=== PATIENT | male | born 1955 | race Caucasian/White ===

== ENCOUNTER → 2016-12-21 | Outpatient (CLI) | payer MEDICARE ==
--- NOTE | 2016-12-21 13:14 | US ---
EXAMINATION TYPE: US carotid duplex BILAT DATE OF EXAM: 12/21/2016 COMPARISON: NONE CLINICAL HISTORY: I65.23 Carotid Bruit, I10 HTN. DIZZINESS. EXAM MEASUREMENTS: RIGHT: Peak Systolic Velocity (PSV) cm/sec ----- Right CCA: 116.1 ----- Right ICA: 100.6 ----- Right ECA: 124.8 ICA/CCA ratio: 0.9 RIGHT: End Diastole cm/sec ----- Right CCA: 13.7 ----- Right ICA: 21.3 ----- Right ECA: 0.0 LEFT: Peak Systolic Velocity (PSV) cm/sec ----- Left CCA: 118.0 ----- Left ICA: 112.7 ----- Left ECA: 175.9 ICA/CCA ratio: 1.0 LEFT: End Diastole cm/sec ----- Left CCA: 34.2 ----- Left ICA: 36.7 ----- Left ECA: 19.4 VERTEBRALS (direction of flow): Right Vertebral: Antegrade Left Vertebral: Antegrade Atheromatous plaquing and intimal thickening is present bilaterally. IMPRESSION: 1. Atheromatous plaquing and intimal thickening without significant flow-limiting stenosis. Criteria for Assigning % of Stenosis / Diameter reduction (Estimation based on the indirect measurements of the internal carotid artery velocities (ICA PSV). 1. Normal (no stenosis)=ICA PSV < 125 cm/s: ratio < 2.0: ICA EDV<40 cm/s. 2. Less than 50% stenosis=ICA PSV < 125 cm/s: ratio < 2.0: ICA EDV<40 cm/s. 3. 50 to 69% stenosis=ICA PSV of 125 to 230 cm/s: ration 2.0 ? 4.0: ICA EDV 40-100 cm/s. 4. Greater than 70% stenosis to near occlusion= ICA PSV > 230 cm/s: ratio > 4.0: ICA EDV > 100 cm/s. 5. Near occlusion= ICA PSV velocities may be low or undetectable: variable ratio and ICA EDV. 6. Total occlusion=unable to detect flow.
== END | disposition home or self-care (01) ==
LOC: RADUSWWP 12:11
PROVIDERS: ATTEND Family Medicine
DX: I65.23 Occlusion and stenosis of bilateral carotid arteries (principal); I10 Essential (primary) hypertension
CPT/HCPCS: 93880

== ENCOUNTER → 2017-07-09 | Outpatient (CLI) | payer MEDICARE ==
[2017-07-09 18:43] LABS: Total Protein,CSF 73 mg/dL (12-60)
[2017-07-09 18:54] LABS: Appearance,CSF Clear; CSF Tube Number 4; Nucleated Cells, CSF 0 u/L (0-5); Red Blood Cell,CSF 0 u/L (0-10)
[2017-07-12 12:46] LABS: IgG - CSF 4.2 mg/dL (0.0 - 3.4); IgG Synthesis Rate 0.33 mg/day (0.00 - 3.00); IgG/Albumin Index (CSF) 0.55 (0.00 - 0.77)
== END | disposition home or self-care (01) ==
LOC: LABWHC1 13:41
PROVIDERS: ATTEND Nurse Practitioner Acute Care
DX: H53.8 Other visual disturbances (principal); R90.82 White matter disease, unspecified; R42 Dizziness and giddiness
CPT/HCPCS: 36415; 82040; 82042; 82784; 83873; 83916; 84157; 87476; 88108; 89050

== ENCOUNTER → 2017-08-01 | Outpatient (CLI) | payer MEDICARE ==
[2017-08-01 17:52] LABS: Basophils # (A) 0.1 k/uL (0-0.2); Basophils % (A) 1 %; Eosinophils # (A) 0.1 k/uL (0-0.7); Eosinophils % (A) 1 %; HCT 43.9 % (39.0-53.0); HGB 14.3 gm/dL (13.0-17.5); Lymphocytes # (A) 1.4 k/uL (1.0-4.8); Lymphocytes % (A) 20 %; MCH 27.7 pg (25.0-35.0); MCHC 32.6 g/dL (31.0-37.0); MCV 85.1 fL (80.0-100.0); Mean Platelet Volume 7.3; Monocytes # (A) 0.4 k/uL (0-1.0); Monocytes % (A) 6 %; Neutrophils # (A) 4.9 k/uL (1.3-7.7); Neutrophils % (A) 69 %; Platelet Count 317 k/uL (150-450); RBC 5.17 m/uL (4.30-5.90); RDW 14.5 % (11.5-15.5); WBC 7.1 k/uL (3.8-10.6)
[2017-08-01 18:34] LABS: ALT 26 U/L (21-72); AST 22 U/L (17-59); Albumin 4.4 g/dL (3.5-5.0); Alkaline Phosphatase 51 U/L (38-126); Anion Gap 11 mmol/L; Blood Urea Nitrogen 20 mg/dL (9-20); Calcium 9.9 mg/dL (8.4-10.2); Carbon Dioxide 25 mmol/L (22-30); Chloride 105 mmol/L (98-107); Glucose 91 mg/dL (74-99); Potassium 3.9 mmol/L (3.5-5.1); Sodium 141 mmol/L (137-145); Total Bilirubin 0.4 mg/dL (0.2-1.3); Total Protein 6.9 g/dL (6.3-8.2)
== END | disposition home or self-care (01) ==
LOC: LABWHC1 17:24
PROVIDERS: ATTEND Nurse Practitioner Acute Care
DX: E55.9 Vitamin D deficiency, unspecified (principal); R41.3 Other amnesia
CPT/HCPCS: 36415; 80053; 81401; 82306; 82607; 84207; 85025

== ENCOUNTER 2018-01-26 19:52 | Observation (INO) | payer MEDICARE ==
[2018-01-26] MEDS ORDERED: KETOROLAC 30 MG/ML 1 ML VIAL IVP STA (20:17)
[2018-01-26] MEDS ORDERED: BENZONATATE 100 MG CAP PO STA (20:17)
--- NOTE | 2018-01-26 20:21 | ED ---
General Adult HPI - General Source: patient, family, EMS Mode of arrival: EMS Limitations: no limitations <Maria Luisa Garcia - Last Filed: 01/26/18 21:28> <Destini Pelayo - Last Filed: 01/26/18 23:08> - General Chief complaint: Upper Respiratory Infection Stated complaint: cough Time Seen by Provider: 01/26/18 20:03 - History of Present Illness Initial comments: 62-year-old male presenting with pleuritic chest pain and cough is present for 3 weeks. Patient states that he has had sinus congestion and drainage and a worsening productive cough. He states tonight he was coughing very hard and had a very sharp right-sided back pain. The pain is now worse with inspiration. Patient denies any history of DVT or PE but states that he has had 2 cardiac trip down to [place] and back within the last 3 weeks. He denies any leg pain or lower extremity swelling. Patient denies constitutional pain. Denies any fevers chills or worsening dyspnea on exertion or orthopnea. (Maria Luisa Garcia) - Related Data Home Medications Medication Instructions Recorded Confirmed Krill Oil 500 mg PO DAILY 06/02/17 06/02/17 Simvastatin [Zocor] 20 mg PO HS 06/02/17 06/02/17 predniSONE 10 mg PO DAILY 06/02/17 06/02/17 Previous Rx's Medication Instructions Recorded Clopidogrel [Plavix] 75 mg PO DAILY #30 tab 06/04/17 Lisinopril [Zestril] 10 mg PO DAILY #30 tab 06/05/17 Allergies Allergy/AdvReac Type Severity Reaction Status Date / Time fentanyl AdvReac Intermediate Nausea & Verified 01/26/18 19:58 Vomiting Review of Systems ROS Other: All systems not noted in ROS Statement are negative. <Maria Luisa Garcia - Last Filed: 01/26/18 21:28> ROS Other: All systems not noted in ROS Statement are negative. <Destini Pelayo - Last Filed: 01/26/18 23:08> ROS Statement: Those systems with pertinent positive or pertinent negative responses have been documented in the HPI. Review of Systems Constitutional: Denies fever, chills Eyes: Denies change in vision, Denies pain Ears, nose, mouth, throat: Denies headaches, Denies sore throat Cardiovascular: Denies chest pain. Denies palpitations Respiratory: Denies shortness of breath, positive cough Gastrointestinal: Denies abdominal pain. Denies nausea, vomiting, diarrhea. Genitourinary: Denies hematuria, Denies infections Musculoskeletal: Positive rib pain, Denies swelling Integumentary: Denies rash Neurological: Denies headache, focal weakness, focal numbness Psychiatric: Denies anxiety, Denies depression Hematologic/Lymphatic: Denies easy bleeding or bruising (Maria Luisa Garcia) Past Medical History Past Medical History: CVA/TIA, Osteoarthritis (OA) Additional Past Medical History / Comment(s): Sciatica, spinal stenosis History of Any Multi-Drug Resistant Organisms: None Reported Past Surgical History: No Surgical Hx Reported Past Psychological History: No Psychological Hx Reported Smoking Status: Never smoker Past Alcohol Use History: Occasional Past Drug Use History: None Reported - Past Family History Mother Family Medical History: Cancer Additional Family Medical History / Comment(s): Stomach Cancer <Maria Luisa Garcia - Last Filed: 01/26/18 21:28> General Exam Limitations: no limitations <Maria Luisa Garcia - Last Filed: 01/26/18 21:28> <Destini Pelayo - Last Filed: 01/26/18 23:08> - General Exam Comments Initial Comments: General: Awake, alert, No acute Distress HENT: Normocephalic. Atraumatic. No oropharyngeal swelling or erythema. No frontal or maxillary sinus tenderness. Eyes: PERRL. EOMI. No scleral icterus. No injected conjunctiva Neck: Full ROM Chest/Lungs: Clear to auscultation bilaterally. No wheezing, rhonchi, or rales. Right-sided anterior chest tenderness. No bruising. No dermatomal rash Cardiac: Regular rate, rhythm. No murmurs or rubs. No lower extremity edema. NO calf tendernesss. Abdomen/GI: Soft, nontender, nondistended. No rebound, guarding, or rigidity. NO abdominal bruit Musculoskeletal: Full ROM Skin: Warm, dry, intact Neurologic: A/Ox3, no weakness, no sensory deficit, no abnormal gait, no coordination deficit (Maria Luisa Garcia) Course <Maria Luisa Garcia - Last Filed: 01/26/18 21:28> <Destini Pelayo - Last Filed: 07/22/18 23:08> Vital Signs 01/26/18 19:54 Temperature 98.3 F Pulse Rate 84 Respiratory 20 Rate Blood Pressure 168/72 O2 Sat by Pulse 97 Oximetry The chest angiogram was reviewed noticed ascending aortic aneurysm and the study is negative for the pulmonary embolism considering his risk factors OBSERVE him for 24 hours with a cardiology consult and some antibiotics for his purulent sputum considering bronchitis. He still has chest pain (Destini Pelayo) Medical Decision Making - Lab Data Result diagrams: 01/26/18 20:36 01/26/18 20:36 <Maria Luisa Garcia - Last Filed: 01/26/18 21:28> - Lab Data Result diagrams: 01/26/18 20:36 01/26/18 20:36 <Destini Pelayo - Last Filed: 01/26/18 23:08> - Medical Decision Making 52-year-old male presenting with cough and rib pain. Initial exam the patient is awake, alert, appears to be in pain every time he coughs. EKG shows normal sinus rhythm with incomplete right bundle branch block and prolonged QT at 420/ QTC 481. When compared to EKG from 06/02/2017. Patient's D-dimer elevated. Wells PE score 0. (Maria Luisa Garcia) - Lab Data Lab Results 01/26/18 01/26/18 01/26/18 Range/Units 20:36 20:36 20:36 WBC 8.9 (3.8-10.6) k/uL RBC 5.15 (4.30-5.90) m/uL Hgb 14.4 (13.0-17.5) gm/dL Hct 42.8 (39.0-53.0) % MCV 83.2 (80.0-100.0) fL MCH 27.9 (25.0-35.0) pg MCHC 33.6 (31.0-37.0) g/dL RDW 13.3 (11.5-15.5) % Plt Count 279 (150-450) k/uL Neutrophils % 73 % Lymphocytes % 14 % Monocytes % 7 % Eosinophils % 2 % Basophils % 1 % Neutrophils # 6.5 (1.3-7.7) k/uL Lymphocytes # 1.3 (1.0-4.8) k/uL Monocytes # 0.7 (0-1.0) k/uL Eosinophils # 0.2 (0-0.7) k/uL Basophils # 0.0 (0-0.2) k/uL D-Dimer 0.67 H (<0.60) mg/L FEU Sodium 138 (137-145) mmol/L Potassium 4.3 (3.5-5.1) mmol/L Chloride 106 (98-107) mmol/L Carbon Dioxide 26 (22-30) mmol/L Anion Gap 6 mmol/L BUN 20 (9-20) mg/dL Creatinine 0.72 (0.66-1.25) mg/dL Est GFR (CKD-EPI)AfAm >90 (>60 ml/min/1.73 sqM) Est GFR (CKD-EPI)NonAf >90 (>60 ml/min/1.73 sqM) Glucose 133 H (74-99) mg/dL Calcium 9.2 (8.4-10.2) mg/dL Troponin I (0.000-0.034) ng/mL NT-Pro-B Natriuret Pep pg/mL 01/26/18 01/26/18 Range/Units 20:36 20:36 WBC (3.8-10.6) k/uL RBC (4.30-5.90) m/uL Hgb (13.0-17.5) gm/dL Hct (39.0-53.0) % MCV (80.0-100.0) fL MCH (25.0-35.0) pg MCHC (31.0-37.0) g/dL RDW (11.5-15.5) % Plt Count (150-450) k/uL Neutrophils % % Lymphocytes % % Monocytes % % Eosinophils % % Basophils % % Neutrophils # (1.3-7.7) k/uL Lymphocytes # (1.0-4.8) k/uL Monocytes # (0-1.0) k/uL Eosinophils # (0-0.7) k/uL Basophils # (0-0.2) k/uL D-Dimer (<0.60) mg/L FEU Sodium (137-145) mmol/L Potassium (3.5-5.1) mmol/L Chloride (98-107) mmol/L Carbon Dioxide (22-30) mmol/L Anion Gap mmol/L BUN (9-20) mg/dL Creatinine (0.66-1.25) mg/dL Est GFR (CKD-EPI)AfAm (>60 ml/min/1.73 sqM) Est GFR (CKD-EPI)NonAf (>60 ml/min/1.73 sqM) Glucose (74-99) mg/dL Calcium (8.4-10.2) mg/dL Troponin I <0.012 (0.000-0.034) ng/mL NT-Pro-B Natriuret Pep 64 pg/mL Disposition <Maria Luisa Garcia - Last Filed: 01/26/18 21:28> <Destini Pelayo - Last Filed: 01/26/18 23:08> Clinical Impression: Chest pain Disposition: ADMITTED IP TO THIS HOSP Condition: Good Referrals: Hayden Torres MD [Primary Care Provider] - 1-2 days
[2018-01-26 20:48] LABS: Basophils % (A) 1 %; Eosinophils # (A) 0.2 k/uL (0-0.7); Eosinophils % (A) 2 %; HCT 42.8 % (39.0-53.0); HGB 14.4 gm/dL (13.0-17.5); Lymphocytes # (A) 1.3 k/uL (1.0-4.8); Lymphocytes % (A) 14 %; MCH 27.9 pg (25.0-35.0); MCHC 33.6 g/dL (31.0-37.0); MCV 83.2 fL (80.0-100.0); Mean Platelet Volume 6.7; Monocytes # (A) 0.7 k/uL (0-1.0); Monocytes % (A) 7 %; Neutrophils # (A) 6.5 k/uL (1.3-7.7); Neutrophils % (A) 73 %; Platelet Count 279 k/uL (150-450); RBC 5.15 m/uL (4.30-5.90); RDW 13.3 % (11.5-15.5); WBC 8.9 k/uL (3.8-10.6)
[2018-01-26 20:52] LABS: Anion Gap 6 mmol/L; Blood Urea Nitrogen 20 mg/dL (9-20); Calcium 9.2 mg/dL (8.4-10.2); Carbon Dioxide 26 mmol/L (22-30); Chloride 106 mmol/L (98-107); Glucose 133 mg/dL (74-99); Potassium 4.3 mmol/L (3.5-5.1); Sodium 138 mmol/L (137-145)
--- NOTE | 2018-01-26 21:50 | XR ---
EXAMINATION TYPE: XR chest 2V DATE OF EXAM: 01/26/2018 COMPARISON: 06/02/2017 HISTORY: Chest pain TECHNIQUE: Frontal and lateral views of the chest are obtained. FINDINGS: There is no heart failure nor confluent pneumonic infiltrate. There are chest leads. Bony thorax is intact. IMPRESSION: No active cardiopulmonary disease. Normal heart. No change.
--- NOTE | 2018-01-26 21:51 | XR ---
EXAMINATION TYPE: XR ribs RT DATE OF EXAM: 01/26/2018 COMPARISON: NONE HISTORY: Cough. Rib pain. TECHNIQUE: 4 views FINDINGS: There is no pleural effusion or pneumothorax. Right lung is clear of infiltrate. I see no r ib fracture. IMPRESSION: Negative right rib exam.
--- NOTE | 2018-01-26 22:11 | CT ---
EXAMINATION TYPE: CT angio chest DATE OF EXAM: 01/26/2018 10:01 PM COMPARISON: None HISTORY: Productive cough, anterior right rib pain, and elevated D-dimer CT DLP: 729.20 mGycm Automated exposure control for dose reduction was used. CONTRAST: CTA scan of the thorax is performed with IV Contrast, patient injected with 80 mL of Isovue 370, pulm onary embolism protocol. . FINDINGS: There are 3-D post processed images. The lungs are clear of consolidation. There is no evidence of a pulmonary mass. There is no pleural e ffusion. Heart size is normal. There is no pericardial effusion. There is mild ectasia of the ascending aorta measures 4.4 cm. There is no evidence of dissection. I s ee no filling defects in the pulmonary arteries. There is no mediastinal adenopathy. The bony thorax appears intact. IMPRESSION: NO EVIDENCE OF PULMONARY EMBOLISM. 4.4 CM ANEURYSM OF THE ASCENDING AORTA.
[2018-01-26] MEDS ORDERED: NITROGLYCERIN SL TABS 0.4 MG TAB SUBLINGUAL PRN (23:09)
[2018-01-27 00:09] LABS: Cholesterol 156 mg/dL (<200); HDL Cholesterol 75 mg/dL (40-60); LDL Cholesterol,Calculated 65 mg/dL (0-99); Triglycerides 78 mg/dL (<150)
[2018-01-27 00:35] VITALS: BMI 35.6
[2018-01-27] MEDS: guaiFENesin SYRUP 100MG/5ML 200 MG/10 ML CUP PO PRN ×4 (03:14→22:05)
[2018-01-27 03:18] LABS: Creatine Kinase 596 U/L (55-170)
[2018-01-27 03:31] LABS: Troponin I <0.012 ng/mL (0.000-0.034)
[2018-01-27 03:48] LABS: Creatine Kinase MB 4.3 ng/mL (0.0-2.4)
[2018-01-27 08:48] LABS: Creatine Kinase 644 U/L (55-170)
[2018-01-27 09:01] LABS: Troponin I <0.012 ng/mL (0.000-0.034)
[2018-01-27 09:05] LABS: Creatine Kinase MB 4.2 ng/mL (0.0-2.4)
[2018-01-27] MEDS: LISINOPRIL 10 MG TAB PO SCH (09:30)
[2018-01-27] MEDS: predniSONE 10 MG TAB PO SCH (09:30)
[2018-01-27] MEDS: CLOPIDOGREL 75 MG TAB PO SCH (09:30)
[2018-01-27] MEDS: ASPIRIN 325 MG TAB PO SCH (09:32)
--- NOTE | 2018-01-27 09:50 | CONS ---
CONSULTATION CHIEF COMPLAINT: Chest pain and cough. Saeid is a 62-year-old gentleman with history of hypertension, dyslipidemia, and CVA who presented to the hospital with recurrent episodes of cough, postnasal drainage and had right-sided chest discomfort that was sharp, atypical, lasted for several seconds and felt like a catch and seemed to be related seemed to musculoskeletal in origin. He is admitted to hospital with chest pain and ruled out for myocardial infarction at the time of my evaluation. His LDL cholesterol is 65. Blood pressure is somewhat poorly controlled. A CAT scan that was done on this admission revealed that the ascending thoracic aorta measures 4.4 cm, but there is no evidence of pulmonary embolism. The patient had a TIA last year and at that time the carotid duplex study was negative. Had a LEONARDO that was negative for cardiac source for thromboembolic phenomenon. PAST MEDICAL HISTORY: Significant for hypertension dyslipidemia. MEDICATIONS: Medications include lisinopril 10 mg daily, Zocor 40 mg daily, prednisone 10 mg daily, Plavix 75 mg daily. ALLERGIES: The patient is allergic to FENTANYL. FAMILY HISTORY: Negative for premature coronary artery disease. SOCIAL HISTORY: Negative for current smoking, EtOH abuse, or drug abuse. REVIEW OF SYSTEMS: HEENT is unremarkable. CARDIAC: As described above. RESPIRATORY: Significant for cough. GI: Negative. : Negative. ALLERGY/IMMUNOLOGICAL: Negative. MUSCULOSKELETAL: Negative. ENDOCRINE: Negative. HEMATOLOGICAL: Negative. DERM: Negative. CONSTITUTIONAL: Negative. ONCOLOGICAL: Negative. OPERATIONS INTERN: Negative. Rest of the system review is not relevant. PHYSICAL EXAM: On exam, patient is afebrile. Heart rate is 70 beats per minute. Blood pressure is 167/83, O2 sat is 97% on room air. There is no jugular venous distention. Carotid upstroke is normal. There is no bruit. Chest exam reveals good air entry bilaterally. Heart exam reveals first and second heart sounds. No gallop. No murmur. No rub. Abdomen is soft, nontender. Examination of extremities did not reveal any edema. Peripheral pulses are felt. OPERATIONS INTERN exam did not reveal focal neurological deficits. ASSESSMENT: 1. Chest pain atypical probably musculoskeletal related to recurrent cough. EKG does not reveal ischemic changes. Cardiac enzymes are negative. No further workup at this time. I will consider doing an outpatient stress test on him. 2. Ascending aortic aneurysm, stable. No evidence of dissection and is not responsible for his chest discomfort. PLAN: Patient can probably be discharged home with antibiotics and decongestants and we will consider outpatient workup and I am going to follow his aneurysm. DELMAR / KELLEEN: [id number] /
[2018-01-27] MEDS: ACETAMINOPHEN TAB 325 MG TAB PO PRN (09:58)
[2018-01-27] MEDS: MORPHINE SULFATE 4 MG/ML SYRINGE IV PRN ×2 (14:09→14:27)
[2018-01-27] MEDS ORDERED: MORPHINE SULFATE 4 MG/ML SYRINGE IV PRN (16:47)
--- NOTE | 2018-01-27 16:58 | P.HPIM ---
History of Present Illness on-Call hospitalist covering for Dr. Torres on 01/27/2018 This is a pleasant 62 years old male with past medical history of CVA/TIA, osteoarthritis, spinal stenosis with sciatica. He presents because of right- sided chest pain. Patient gave history of coughing with yellow greenish phlegm for 3 weeks. After reports was swimming in a pool and some water entered into his air passages. Yesterday he had a severe bout of coughing followed by right- sided chest pain, on the lateral, on the anteriorly below right nipple, nonradiating, sharp, moderate to severe, get worse with coughing, prior to that patient denies chest pain or dyspnea. He has no change in urine or bowel habits. No fever. No headache or muscle or joint pain. No difficulty walking Since admission, and in the emergency room patient has been afebrile. rest of the vitals are stable, with mild hypertension. BMP was unremarkable except for mild hyperglycemia 2033, CK high at 596 and 644. Creatinine 0.7 to. Electrolytes within normal limits. CBC was unremarkable with WBC of 8.9K. Patient has high d-dimer at 0.67, CTPA was negative for PE with ascending thoracic aorta at 4.4 cm. Rib x-ray: Negative. CXR: No active cardiopulmonary disease. Normal heart Patient has been evaluated by heater helper, who felt it is musculoskeletal related.. No further cardiac workup in the hospital is needed as per heater helper while he recommended stress test as an outpatient Medications are reviewed which including Tylenol, aspirin, Lipitor, Plavix, potassium, Zestril, morphine, no stats, and prednisone (patient takes chronically for arthritis) Review of Systems CONSTITUTIONAL: No fever, no malaise, no fatigue. HEENT: No recent visual problems or hearing problems. Denied any sore throat. CARDIOVASCULAR: No orthopnea, PND, no palpitations, no syncope. PULMONARY: No shortness of breath, no cough, no hemoptysis. GASTROINTESTINAL: No diarrhea, no nausea, no vomiting, no abdominal pain. Normoactive bowel sounds. NEUROLOGICAL: No headaches, no weakness, no numbness. HEMATOLOGICAL: Denies any bleeding or petechiae. GENITOURINARY: Denies any burning micturition, frequency, or urgency. MUSCULOSKELETAL/RHEUMATOLOGICAL: Denies any joint pain, swelling, or any muscle pain. ENDOCRINE: Denies any polyuria or polydipsia. Past Medical History Past Medical History: CVA/TIA, Osteoarthritis (OA) Additional Past Medical History / Comment(s): Sciatica, spinal stenosis History of Any Multi-Drug Resistant Organisms: None Reported Past Surgical History: No Surgical Hx Reported Past Anesthesia/Blood Transfusion Reactions: No Reported Reaction Past Psychological History: No Psychological Hx Reported Smoking Status: Former smoker Past Alcohol Use History: Occasional Past Drug Use History: None Reported - Past Family History Mother Family Medical History: Cancer Additional Family Medical History / Comment(s): Stomach Cancer Father Family Medical History: Cancer Additional Family Medical History / Comment(s): breast CA Sister(s) Family Medical History: Cancer Additional Family Medical History / Comment(s): breast CA Brother(s) Family Medical History: Cancer Additional Family Medical History / Comment(s): Spine CA Medications and Allergies Home Medications Medication Instructions Recorded Confirmed Type Krill Oil 500 mg PO DAILY 06/02/17 01/27/18 History predniSONE 10 mg PO DAILY 06/02/17 01/27/18 History Clopidogrel [Plavix] 75 mg PO DAILY #30 tab 06/04/17 01/27/18 Rx Lisinopril [Zestril] 10 mg PO DAILY #30 tab 06/05/17 01/27/18 Rx Meloxicam 15 mg PO DAILY 01/27/18 01/27/18 History Simvastatin [Zocor] 40 mg PO HS 01/27/18 01/27/18 History Allergies Allergy/AdvReac Type Severity Reaction Status Date / Time fentanyl AdvReac Intermediate Nausea & Verified 01/27/18 08:55 Vomiting Physical Exam Vitals: Vital Signs Temp Pulse Pulse Resp BP BP Pulse Ox 01/27/18 15:37 97.8 F 68 16 149/79 93 L 01/27/18 11:48 98.2 F 71 16 164/85 96 01/27/18 07:47 98.3 F 71 16 167/83 97 01/27/18 04:00 97.9 F 72 16 140/80 93 L 01/27/18 01:24 16 01/27/18 00:10 97.7 F 67 16 140/79 95 01/27/18 00:00 70 16 161/79 96 01/26/18 19:54 98.3 F 84 20 168/72 97 Intake and Output 01/27/18 01/27/18 01/27/18 06:59 14:59 22:59 Other: Voiding Method Toilet # Voids 1 Weight 122.4 kg GENERAL: The patient is alert and oriented x3, not in any acute distress. Well developed, well nourished. HEENT: Pupils are round and equally reacting to light. EOMI. No scleral icterus. No conjunctival pallor. Normocephalic, atraumatic. No pharyngeal erythema. No thyromegaly. CARDIOVASCULAR: S1 and S2 present. No murmurs, rubs, or gallops. PULMONARY: Chest is clear to auscultation, no wheezing or crackles. ABDOMEN: Soft, nontender, nondistended, normoactive bowel sounds. No palpable organomegaly. MUSCULOSKELETAL: No joint swelling or deformity. EXTREMITIES: No cyanosis, clubbing, or pedal edema. NEUROLOGICAL: Gross neurological examination did not reveal any focal deficits. SKIN: No rashes. Results CBC & Chem 7: 01/26/18 20:36 01/26/18 20:36 Labs: Abnormal Lab Results - Last 24 Hours (Table) 01/26/18 01/26/18 01/26/18 Range/Units 20:36 20:36 20:36 D-Dimer 0.67 H (<0.60) mg/L FEU Glucose 133 H (74-99) mg/dL Total Creatine Kinase (55-170) U/L CK-MB (CK-2) (0.0-2.4) ng/mL HDL Cholesterol 75 H (40-60) mg/dL 01/27/18 01/27/18 Range/Units 02:40 08:11 D-Dimer (<0.60) mg/L FEU Glucose (74-99) mg/dL Total Creatine Kinase 596 H 644 H (55-170) U/L CK-MB (CK-2) 4.3 H* 4.2 H* (0.0-2.4) ng/mL HDL Cholesterol (40-60) mg/dL Thrombosis Risk Factor Assmnt - Choose All That Apply Each Risk Factor Represents 2 Points: Age 61-74 years Thrombosis Risk Factor Assessment Total Risk Factor Score: 2 Thrombosis Risk Factor Assessment Level: Low Risk Assessment and Plan Assessment: Persistent severe cough with yellow-green phlegm of 3 weeks duration Right sided Chest pain, mostly musculoskeletal secondary to above History of spinal stenosis Hypertension Hyperlipidemia History of TIA/Stroke, on aspirin and Plavix Plan: This is a pleasant 62 years old male who presents because of right-sided chest pain. Continue with same treatment. Continue symptomatic treatment. Resume home medication. Cardiology evaluation is appreciated, cardiac cause has been ruled out and they are cleared the patient for discharge from their perspective Terri however he recommended stress test as an outpatient. Pain management. GI and DVT prophylaxis. Incentive spirometry. Was started the patient on Levaquin for possible infection . Will call infectious disease consult. Influenza swab and streptococcal swap. Sputum culture. IV fluids. Further recommendation based on the clinical course of the patient. DVT prophylaxis subcutaneous heparin GI prophylaxis Pepcid Dr. Torres will resume the care of the patient tomorrow
[2018-01-27] MEDS ORDERED: LEVOFLOXACIN 500MG-D5W PMX 500 MG in DEXTROSE/WATER 1 100ML.BAG IVPB SCH (17:00)
[2018-01-27] MEDS: traMADol 50 MG TAB PO SCH ×2 (17:50→21:31)
[2018-01-27] MEDS: SODIUM CHLORIDE 0.9% 1,000 ML IV SCH (18:12)
[2018-01-27] MEDS: HEPARIN SODIUM,PORCINE 5,000 UNIT/ML 1 ML VIAL SQ SCH (20:24)
[2018-01-27] MEDS ORDERED: ATORVASTATIN 10 MG TAB PO SCH (21:00)
[2018-01-28] MEDS: guaiFENesin SYRUP 100MG/5ML 200 MG/10 ML CUP PO PRN (03:56)
[2018-01-28] MEDS: SODIUM CHLORIDE 0.9% 1,000 ML IV SCH (06:49)
[2018-01-28 07:06] LABS: Anion Gap 5 mmol/L; Blood Urea Nitrogen 14 mg/dL (9-20); Calcium 8.9 mg/dL (8.4-10.2); Carbon Dioxide 29 mmol/L (22-30); Chloride 105 mmol/L (98-107); Creatine Kinase 686 U/L (55-170); Glucose 95 mg/dL (74-99); Potassium 4.9 mmol/L (3.5-5.1); Sodium 139 mmol/L (137-145)
[2018-01-28 08:35] VITALS: BP 157/82; PULSE 71; RESP 18; TEMP 97.8
[2018-01-28] MEDS: HEPARIN SODIUM,PORCINE 5,000 UNIT/ML 1 ML VIAL SQ SCH (08:45)
[2018-01-28] MEDS: predniSONE 10 MG TAB PO SCH (08:45)
[2018-01-28] MEDS: LISINOPRIL 10 MG TAB PO SCH (08:45)
[2018-01-28] MEDS: ASPIRIN 325 MG TAB PO SCH (08:45)
[2018-01-28] MEDS: CLOPIDOGREL 75 MG TAB PO SCH (08:46)
[2018-01-28] MEDS: traMADol 50 MG TAB PO SCH ×2 (08:46→13:13)
[2018-01-28] MEDS: ACETAMINOPHEN TAB 325 MG TAB PO PRN (11:41)
--- NOTE | 2018-01-28 14:01 | P.DS ---
Providers Date of admission: 01/26/18 23:09 Expected date of discharge: 01/28/18 Attending physician: Hayden Torres Consults: 01/26/18 23:09 Consult Physician Urgent Consulting Provider: Angelique Paula Consult Reason/Comments: Chest pain Do you want consulting provider notified?: Yes 01/27/18 16:49 Consult Physician Routine Consulting Provider: Glen Pelayo Consult Reason/Comments: Upper respiratory infection Do you want consulting provider notified?: Yes Primary care physician: Hyaden Torres Hospital Course: 62-year-old male who originally presented to emergency room with a chief complaint of right-sided chest pain. Patient also states he has had frequent coughing with yellow greenish phlegm. Patient states this began after he jumped into a rossi and was swimming. The patient was admitted to the observation unit and consultations were placed to cardiology. Troponins were negative. Cardiology evaluated the patient and acute coronary syndrome was ruled out. The patient is to follow up on an outpatient basis with batch or continuous still operator or possible stress test. Patient's d-dimer was 0.67. Patient underwent CTA which was negative for PE but did reveal 4.4 cm aneurysm of the ascending aorta. The patient is to follow up outpatient with vascular surgery. The patient was placed on antibiotics. He was deemed stable for discharge today per Dr. Torres. DISCHARGE DIAGNOSIS: Chest pain, present on admission, acute coronary syndrome ruled out Tracheobronchitis Hypertension Hyperlipidemia History of TIA Nurse practitioner note has been reviewed by physician. Signing provider agrees with the documented findings, assessment, and plan of care. Patient Condition at Discharge: Stable Plan - Discharge Summary New Discharge Prescriptions: New guaiFENesin SYRUP 100MG/5ML [Robitussin] 200 mg PO Q6H PRN #20 cup PRN Reason: Cough Levofloxacin [Levaquin] 500 mg PO DAILY #7 tab Omeprazole/Sodium Bicarbonate [Zegerid 20 mg Capsule] 1 each PO DAILY #30 capsule traMADol HCl [Ultram] 50 mg PO QID PRN #12 tab PRN Reason: Pain Continue predniSONE 10 mg PO DAILY Krill Oil 500 mg PO DAILY Clopidogrel [Plavix] 75 mg PO DAILY #30 tab Lisinopril [Zestril] 10 mg PO DAILY #30 tab Simvastatin [Zocor] 40 mg PO HS Discontinued Meloxicam 15 mg PO DAILY Discharge Medication List Krill Oil 500 mg PO DAILY 06/02/17 [History] predniSONE 10 mg PO DAILY 06/02/17 [History] Clopidogrel [Plavix] 75 mg PO DAILY #30 tab 06/04/17 [Rx] Lisinopril [Zestril] 10 mg PO DAILY #30 tab 06/05/17 [Rx] Simvastatin [Zocor] 40 mg PO HS 01/27/18 [History] Levofloxacin [Levaquin] 500 mg PO DAILY #7 tab 01/28/18 [Rx] Omeprazole/Sodium Bicarbonate [Zegerid 20 mg Capsule] 1 each PO DAILY #30 capsule 01/28/18 [Rx] guaiFENesin SYRUP 100MG/5ML [Robitussin] 200 mg PO Q6H PRN #20 cup 01/28/18 [Rx] traMADol HCl [Ultram] 50 mg PO QID PRN #12 tab 01/28/18 [Rx] Follow up Appointment(s)/Referral(s): Hayden Torres MD [Primary Care Provider] - 1-2 days Santana Pelayo MD [STAFF PHYSICIAN] - 1 Week Charlie Maldonado MD [STAFF PHYSICIAN] - 1 Week Activity/Diet/Wound Care/Special Instructions: Patient to follow up with cardiology outpatient for possible stress test Patient to schedule consultation with Dr. Pelayo outpatient Discontinue Mobic while taking Ultram Discharge Disposition: HOME SELF-CARE
--- NOTE | 2018-01-28 16:20 | CONS ---
CONSULTATION DATE OF SERVICE: 01/28/2018. REASON FOR CONSULTATION: Infection. HISTORY OF PRESENT ILLNESS: The patient is a 62-year-old male who apparently has been dealing with a cough which is mostly dry hacking cough for almost 3 weeks now. The patient said that his cough is so severe in intensity that the day prior to admission to the hospital, patient thought he ripped something in his right lower chest area. Subsequently the patient has been having a pain especially taking a deep breath. The pain has been mostly sharp in the right lower chest area with intensity almost 7 to 8 out of 10, and no radiation. Denies having any fever or any chills. With these symptoms, the patient has been evaluated by the ER physician. The patient did have a CT angiogram done which shows no evidence of pulmonary embolism. 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 Lungs are clear of consolidation. The patient who did not have any fever during this admission and his white count has been normal. Troponin was slightly elevated. Influenza PCR was negative. CPK 686. The patient has been treated with Robitussin and Levaquin and the patient did mention his cough is slightly decreased intensity. I was asked to see the patient for need for systemic antibiotic on discharge. REVIEW OF SYSTEMS: CONSTITUTIONAL: Positive for weakness but no fever. Eyes no complaint. ENT no complaint. Respiratory as per HPI. Cardiovascular: No complaint. Genitourinary no complaint. Gastrointestinal: No complaint. Musculoskeletal: No complaint. Integumentary: No complaint. Psychological: No complaint. Endocrine: No complaint. Neurologic no complaint. PAST MEDICAL HISTORY: Significant for , osteoarthritis, CVA, TIA. PAST SURGICAL HISTORY: No major surgery. SOCIAL HISTORY: Remote history of smoking. Occasionally drinks. No drug use. FAMILY HISTORY: Mother with history of stomach cancer. Father with history of breast cancer. Sister history of breast cancer as well. ALLERGIES: TO FENTANYL. MEDICATION: Medications include the patient is currently on Ultram, prednisone, Nitrostat, morphine sulfate, Zestril, Levaquin, heparin, Robitussin, Plavix Lipitor, aspirin, Tylenol. EXAMINATION: Blood pressure 157/82 with a pulse of 71, temperature 97.8. He is 94% on room air. General description is a middle-aged male up in the bed in no distress. No tachypnea or accessory muscles of respiration use. HEENT: Shows no pallor or scleral icterus. Oral mucosa membranes dry. No pharyngeal erythema or thrush. Neck trachea central. No thyromegaly. Lungs unlabored breathing with occasional wheeze. Heart S1, S2. Regular rate and rhythm. Abdomen soft. No tenderness. No guarding. No rigidity. EXTREMITIES: No edema of the feet. Skin examination: No rash or mass palpable. Neurological: Patient is awake, alert, oriented times three. Mood and affect normal. LABS: Hemoglobin 14.4, white count 8.9, BUN 14, creatinine 0.71. Electrolytes have been normal. has been negative. Sputum culture so far pending. DIAGNOSTIC IMPRESSION AND PLAN: Patient with a dry irritating cough, more likely viral in nature. Clinically doubt bacterial pneumonia and patient did have a CT angiogram. The lungs are clear of any infiltrate. The patient seemed to have responded to symptomatic treatment started in the form of Robitussin and prednisone. PLAN: 1. No need for any systemic antibiotic therapy at discharge. 2. May consider short course of Robitussin-C along with tapered course of steroids. Thank you for this consultation. MMODL / IJN: [id number] /
== END 2018-01-28 13:10 | disposition home or self-care (01) ==
LOC: EC 19:52 → 3OBS 23:09
PROVIDERS: ADMIT Family Medicine; ATTEND Family Medicine
DX: R07.89 Other chest pain (principal); J40 Bronchitis, not specified as acute or chronic; I10 Essential (primary) hypertension; R73.9 Hyperglycemia, unspecified; Z86.73 Personal history of transient ischemic attack (TIA), and cerebral infarction without residual deficits; I71.2 Thoracic aortic aneurysm, without rupture; E78.5 Hyperlipidemia, unspecified; R77.8 Other specified abnormalities of plasma proteins; R74.8 Abnormal levels of other serum enzymes; R79.89 Other specified abnormal findings of blood chemistry; M48.00 Spinal stenosis, site unspecified; M19.90 Unspecified osteoarthritis, unspecified site; M54.30 Sciatica, unspecified side; Z88.5 Allergy status to narcotic agent; Z79.899 Other long term (current) drug therapy; Z79.82 Long term (current) use of aspirin; Z79.02 Long term (current) use of antithrombotics/antiplatelets; Z79.52 Long term (current) use of systemic steroids; Z87.891 Personal history of nicotine dependence; Z80.3 Family history of malignant neoplasm of breast; Z80.0 Family history of malignant neoplasm of digestive organs; Z80.8 Family history of malignant neoplasm of other organs or systems
CPT/HCPCS: 36415; 71046; 71275; 80048; 80061; 82550; 82553; 83880; 84484; 85025; 85379; 87070; 87081; 87205; 87502; 93005; 96365; 96372; 96375; 99285

== ENCOUNTER → 2018-03-25 | Outpatient (CLI) | payer MEDICARE ==
--- NOTE | 2018-03-25 21:24 | MR ---
EXAMINATION TYPE: MR brain wo/w con DATE OF EXAM: 03/25/2018 COMPARISON: Prior MRI brain June 04, 2017 HISTORY: White matter change per order. Symptoms of dizziness or hearing loss with bilateral extremit y numbness and weakness per patient. TECHNIQUE: Multiplanar, multisequence images of the brain and brainstem is performed without and with IV contras t, utilizing 13 mL intravenous Gadavist gadolinium contrast is administered intravenously. Demyelina ting disease protocol with additional Sagittal Flair sequence performed. FINDINGS: T2 Lesions Present : Yes Approximate Number of Lesions: Approximately 20-30 Locations Identified : Scattered Size of Reference Lesion(s): 1. 0.5 x 0.4 x 0.8 on axial image 20 and sagittal image 22 right frontal periventricular coronal radi librado lesion stable 2 0.4 x 0.4 x 0.3 cm on axial image 21 and sagittal image 9 left frontal deep white matter lesions st able Enhancing Lesion(s) Present: No T1 Hypointense Lesion(s) Present: Yes Change from Prior: Stable Diffusion weighted images demonstrate no evidence of a recent infarct or other diffusion abnormality. There is no worrisome extra-axial fluid collection. The ventricular system and cisternal spaces ar e normal in size and appearance. The brain volume is age appropriate. Midline structures demonstrate normal morphology. The craniocervical junction appears within normal limits. Post contrast images demonstrate no abnormal enhancement. The dural venous sinuses appear pa tent. Mild to moderate mucosal thickening ethmoid sinuses bilaterally is redemonstrated. Remainder pa ranasal sinuses are clear. The globes are intact bilaterally. IMPRESSION: [id number] nonspecific white matter changes redemonstrated. No significant change f rom prior MRI. Number of lesions felt falsely high and prior MRI report. No new or enhancing lesions are seen.
== END | disposition home or self-care (01) ==
LOC: RADMRIMAIN 12:06
PROVIDERS: ATTEND Psychiatry & Neurology Neurology
DX: R90.82 White matter disease, unspecified (principal)
CPT/HCPCS: 70553; A9581

== ENCOUNTER 2018-09-03 16:29 | Emergency (ER) | payer MEDICARE ==
--- NOTE | 2018-09-03 17:46 | ED ---
Eye Problem HPI - General Chief complaint: Eye Problems Stated complaint: Vision problems Time Seen by Provider: 09/03/18 17:06 Source: patient Mode of arrival: ambulatory Limitations: no limitations - History of Present Illness Initial comments: 63-year-old male patient recently diagnosed with ocular myasthenia gravis presents to the emergency department today for evaluation of worsening double vision. Patient states his vision has been worsening steadily over the last month. States that he was attempting to get a hold of his neurologist when he finally did get a hold of the office he was told to present here for further evaluation. Patient is wearing an eye patch, states when either eye is covered he does have improvement of the vision. States he has been taking his prescribed medication as directed but feels it is not helping. He denies any headache, numbness, tingling, weakness to the extremities. He denies any blurred vision. Denies any difficulty with speech or ambulation. Patient denies any recent rash, fever, chills, shortness breath, chest pain, abdominal pain, nausea, vomiting, diarrhea, constipation, back pain, hematuria, dysuria, urinary urgency, urinary frequency, or any other complaints. - Related Data Home Medications Medication Instructions Recorded Confirmed predniSONE 10 mg PO DAILY 06/02/17 09/03/18 Simvastatin [Zocor] 40 mg PO HS 01/27/18 09/03/18 Lisinopril 20 mg PO DAILY 09/03/18 09/03/18 Meloxicam [Mobic] 15 mg PO DAILY 09/03/18 09/03/18 Multivitamins, Thera [Multivitamin 1 tab PO DAILY 09/03/18 09/03/18 (formulary)] Pyridostigmine [place] [Mestinon] 60 mg PO TID 09/03/18 09/03/18 Previous Rx's Medication Instructions Recorded Clopidogrel [Plavix] 75 mg PO DAILY #30 tab 06/04/17 Allergies Allergy/AdvReac Type Severity Reaction Status Date / Time fentanyl AdvReac Intermediate Nausea & Verified 09/03/18 17:14 Vomiting Review of Systems ROS Statement: Those systems with pertinent positive or pertinent negative responses have been documented in the HPI. ROS Other: All systems not noted in ROS Statement are negative. Past Medical History Past Medical History: CVA/TIA, Osteoarthritis (OA) Additional Past Medical History / Comment(s): Sciatica, spinal stenosis History of Any Multi-Drug Resistant Organisms: None Reported Past Surgical History: No Surgical Hx Reported Past Anesthesia/Blood Transfusion Reactions: No Reported Reaction Past Psychological History: No Psychological Hx Reported Smoking Status: Former smoker Past Alcohol Use History: Occasional Past Drug Use History: None Reported - Past Family History Mother Family Medical History: Cancer Additional Family Medical History / Comment(s): Stomach Cancer Father Family Medical History: Cancer Additional Family Medical History / Comment(s): breast CA Sister(s) Family Medical History: Cancer Additional Family Medical History / Comment(s): breast CA Brother(s) Family Medical History: Cancer Additional Family Medical History / Comment(s): Spine CA General Exam Limitations: no limitations General appearance: alert, in no apparent distress, other (This is a well- developed, well-nourished adult male patient in no acute distress. Vital signs upon presentation are temperature 98.5F, pulse 83, respirations 16, blood pressure 175/75, pulse ox 94% on room air.) Eye exam: Present: normal appearance, PERRL, EOMI. Absent: scleral icterus, conjunctival injection, nystagmus, periorbital swelling ENT exam: Present: normal exam, normal oropharynx, mucous membranes moist Respiratory exam: Present: normal lung sounds bilaterally. Absent: respiratory distress, wheezes, rales, rhonchi, stridor Cardiovascular Exam: Present: regular rate, normal rhythm, normal heart sounds. Absent: systolic murmur, diastolic murmur, rubs, gallop, clicks GI/Abdominal exam: Present: soft, normal bowel sounds. Absent: distended, tenderness, guarding, rebound, rigid Neurological exam: Present: alert, oriented X3, CN II-XII intact Expanded Patient oriented to: Present: person, place, time Speech: Present: fluid speech Cranial nerves: EOM's Intact: Normal, Tongue Deviation: Normal, Nystagmus: Normal, Facial Sensation: Normal, Facial Palsy with Forehead Movement: Normal Motor strength exam: RUE: 5, LUE: 5, RLE: 5, LLE: 5 Eye Response: (4) open spontaneously Motor Response: (6) obeys commands Verbal Response: (5) oriented Ramona Total: 15 Psychiatric exam: Present: normal affect, normal mood Skin exam: Present: warm, dry, intact, normal color. Absent: rash Course Vital Signs 09/03/18 09/03/18 16:41 18:14 Temperature 98.5 F 97.7 F Pulse Rate 83 64 Respiratory 16 18 Rate Blood Pressure 175/75 145/67 O2 Sat by Pulse 94 L 95 Oximetry Medical Decision Making - Medical Decision Making 63-year-old male patient presented to the emergency department today for evaluation of worsening double vision. Patient was diagnosed with ocular myasthenia gravis little over a month ago. States he has been taking the medication prescribed for her mother doesn't seem to be helping. He was told to present here for evaluation by his neurologist office. Physical examination is unremarkable. Patient is neurologically intact with no focal deficits. Given his symptoms and onset there is little concern for CVA. Medications need to be adjusted. He will be discharged at this time to follow-up with his neurologist for recheck as soon as possible. Return parameters were discussed in detail. He verbalizes understanding and agrees with this plan. Disposition Clinical Impression: Double vision, Ocular myasthenia gravis Disposition: HOME SELF-CARE Condition: Good Instructions (If sedation given, give patient instructions): Diplopia (ED) Additional Instructions: Follow up with your neurologist for recheck as soon as possible. Return to the emergency department for any new, worsening, or concerning symptoms. Is patient prescribed a controlled substance at d/c from ED?: No Referrals: None,Stated [Primary Care Provider] - 1-2 days Time of Disposition: 17:46
[2018-09-03 18:16] VITALS: BP 145/67; PULSE 64; RESP 18; TEMP 97.7
== END 2018-09-03 18:14 | disposition home or self-care (01) ==
LOC: EC 16:29
DX: G70.00 Myasthenia gravis without (acute) exacerbation (principal); M19.90 Unspecified osteoarthritis, unspecified site; Z86.73 Personal history of transient ischemic attack (TIA), and cerebral infarction without residual deficits; Z87.891 Personal history of nicotine dependence; Z79.52 Long term (current) use of systemic steroids; Z79.1 Long term (current) use of non-steroidal anti-inflammatories (NSAID); Z79.899 Other long term (current) drug therapy; Z88.5 Allergy status to narcotic agent
CPT/HCPCS: 99284

== ENCOUNTER 2019-03-09 17:36 | Inpatient (IN) | payer MEDICARE ==
[2019-03-09] MEDS ORDERED: SODIUM CHLORIDE 0.9% 1,000 ML IV STA ×5 (18:03→19:14)
[2019-03-09] MEDS ORDERED: IBUPROFEN 800 MG TAB PO STA (18:32)
[2019-03-09] MEDS ORDERED: DILTIAZEM DRIP BOLUS FROM BAG 1 MG SOLN IV ONE (18:32)
[2019-03-09] MEDS ORDERED: ACETAMINOPHEN TAB 500 MG TAB PO STA (18:32)
--- NOTE | 2019-03-09 18:35 | ED ---
Weakness HPI - General Chief complaint: Weakness Stated complaint: Weakness Time Seen by Provider: 03/09/19 18:02 Source: patient, RN notes reviewed, old records reviewed Mode of arrival: EMS Limitations: altered mental status - History of Present Illness Initial comments: This is a 63-year-old male the ER for evaluation presents today for evaluation of severe weakness shortness of breath not feeling well fever. She has history of myasthenia gravis coming in with new onset A. fib with RVR. Patient significantly ill currently. Patient unable to answer questions very confused family states he noticed patient having worsening of symptoms as of late. Increasing shortness of breath and not acting appropriately. No recent change in medications no travel history. Family noticed fever today MD Complaint: generalized weakness, lack of energy, difficulty walking -: days(s) Location: generalized Severity: severe Severity scale (1-10): 9 Consistency: constant Improves with: none Worsens with: none Context: recent illness, history of similar Associated Symptoms: confusion, fever/chills, shortness of breath - Related Data Home Medications Medication Instructions Recorded Confirmed predniSONE 10 mg PO DAILY 06/02/17 03/09/19 Simvastatin [Zocor] 40 mg PO HS 01/27/18 03/09/19 Lisinopril 20 mg PO DAILY 09/03/18 03/09/19 Meloxicam [Mobic] 15 mg PO DAILY 09/03/18 03/09/19 Multivitamins, Thera [Multivitamin 1 tab PO DAILY 09/03/18 03/09/19 (formulary)] Pyridostigmine [place] [Mestinon] 120 mg PO TID 09/03/18 03/09/19 [place]-3 Fatty Acids/Fish Oil [Fish 1 cap PO DAILY 03/09/19 03/09/19 Oil 1,000 mg Softgel] azaTHIOprine [Imuran] 100 mg PO DAILY 03/09/19 03/09/19 Previous Rx's Medication Instructions Recorded Clopidogrel [Plavix] 75 mg PO DAILY #30 tab 06/04/17 Allergies Allergy/AdvReac Type Severity Reaction Status Date / Time fentanyl AdvReac Intermediate Nausea & Verified 03/09/19 18:34 Vomiting Review of Systems ROS Statement: Those systems with pertinent positive or pertinent negative responses have been documented in the HPI. ROS Other: All systems not noted in ROS Statement are negative. Past Medical History Past Medical History: CVA/TIA, Hyperlipidemia, Hypertension, Osteoarthritis (OA) Additional Past Medical History / Comment(s): Sciatica, spinal stenosis myasthenia gravis ascending aortic aneursym History of Any Multi-Drug Resistant Organisms: None Reported Past Surgical History: No Surgical Hx Reported Past Anesthesia/Blood Transfusion Reactions: No Reported Reaction Past Psychological History: No Psychological Hx Reported Smoking Status: Former smoker Past Alcohol Use History: Occasional Past Drug Use History: None Reported - Past Family History Mother Family Medical History: Cancer Additional Family Medical History / Comment(s): Stomach Cancer Father Family Medical History: Cancer Additional Family Medical History / Comment(s): breast CA Sister(s) Family Medical History: Cancer Additional Family Medical History / Comment(s): breast CA Brother(s) Family Medical History: Cancer Additional Family Medical History / Comment(s): Spine CA General Exam Limitations: altered mental status General appearance: alert, anxious, in distress, obese Head exam: Present: atraumatic, normocephalic, normal inspection Eye exam: Present: normal appearance, PERRL, EOMI. Absent: scleral icterus, conjunctival injection, periorbital swelling ENT exam: Present: normal exam, mucous membranes dry Neck exam: Present: normal inspection. Absent: tenderness, meningismus, lymphadenopathy Respiratory exam: Present: accessory muscle use, decreased breath sounds, prolonged expiratory. Absent: respiratory distress, wheezes, rales, rhonchi, stridor Cardiovascular Exam: Present: tachycardia, irregular rhythm, normal heart sounds. Absent: systolic murmur, diastolic murmur, rubs, gallop, clicks GI/Abdominal exam: Present: soft, normal bowel sounds. Absent: distended, tenderness, guarding, rebound, rigid Extremities exam: Present: normal inspection, full ROM, normal capillary refill. Absent: tenderness, pedal edema, joint swelling, calf tenderness Back exam: Present: normal inspection Neurological exam: Present: alert, oriented X3, CN II-XII intact Psychiatric exam: Present: normal affect, normal mood Skin exam: Present: warm, intact, normal color, diaphoretic. 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 ] Respiratory 20 18 18 Rate Blood Pressure 98/57 76/57 78/60 O2 Sat by Pulse 97 98 98 Oximetry - Reevaluation(s) Reevaluation #1: medical record is reviewed patient on multiple medication therapies, IVF for sepsis at [place] [facility], antibiotics, cardizem for rate control, steroids for chronic steroid use patient needs CVC for septic v hypovolemic v cardiogenic low BP - likely multifactorial and improving patient awake and alert, no active diarrhea, no pain - Consultations Consultation #1: spoke w Dr Sherwood, Dr Arcos re ICU placement and are agreeable EKG Findings - EKG Comments: EKG Findings:: EKG shows A. fib with RVR rate 146, QRS 92, QTc 489 Procedures - Central Line Placement Right IJ Consent Obtained: verbal consent Patient Placed on Monitor/Pulse Ox: Yes MD Prep: mask, gown, gloves Central Line Prep: Povidone-Iodine 1% Local Anesthesia Used: Lidocaine 1% Ultrasound Used for Placement: Yes Central Line Lumen Inserted: triple Bloods Obtained for Lab: No Central Line Position: good blood return, all ports aspirated, flushed, capped, sutured in place with 3-0 nylon Dressing Applied: Tegaderm Post Procedure X-Ray: tip of catheter in good position Patient Tolerated Procedure: well Complications: none - Sepsis Sepsis Focused Exam #1 Time Sepsis Criteria Met: 20:08 Sepsis Focused Exam Date: 03/09/19 Sepsis Focused Exam Time: 22:00 Sepsis Focused Exam Complete: Yes Vital Signs & RN Notes Reviewed: Yes Capillary Refill: < 2 Seconds: Fingers, Toes Peripheral Pulses: Normal: Radial (R), Radial (L), Posterior Tibialis (R), Posterior Tibialis (L), Dorsalis Pedis (R), Dorsalis Pedis (L) Skin Color: Flushed Respiratory Exam: decreased breath sounds Cardiovascular Exam: tachycardia (irregular) Medical Decision Making - Medical Decision Making 63 male to the ED w SOB, found to be severely dehydrated from recent diarrheal illness, febrile with unknown cause now cultured blood and urine and on broad spectrum antibiotics, patient found to be in atrial fibrillation with RVR with improving rate control and labile blood pressure, central line is placed, patient is awake alert and responsive. Will admit to ICU for hemodynamic monitoring and cardiopulmonary support, back on steroids as patient is on chronic steroids. - Lab Data Result diagrams: 03/10/19 02:20 03/10/19 06:52 Lab Results 03/09/19 03/09/19 03/09/19 Range/Units 18:09 18:09 18:09 WBC 12.2 H (3.8-10.6) k/uL RBC 5.77 (4.30-5.90) m/uL Hgb 16.2 (13.0-17.5) gm/dL Hct 48.6 (39.0-53.0) % MCV 84.3 (80.0-100.0) fL MCH 28.1 (25.0-35.0) pg MCHC 33.3 (31.0-37.0) g/dL RDW 14.1 (11.5-15.5) % Plt Count 151 (150-450) k/uL Neutrophils % 91 % Lymphocytes % 1 % Monocytes % 7 % Eosinophils % 1 % Basophils % 0 % Neutrophils # 11.1 H (1.3-7.7) k/uL Lymphocytes # 0.1 L (1.0-4.8) k/uL Monocytes # 0.9 (0-1.0) k/uL Eosinophils # 0.1 (0-0.7) k/uL Basophils # 0.0 (0-0.2) k/uL Manual Slide Review Performed Large Platelets Present PT 10.6 (9.0-12.0) sec INR 1.0 (<1.2) APTT 26.8 (22.0-30.0) sec D-Dimer 12.14 H (<0.60) mg/L FEU Sodium 126 L (137-145) mmol/L Potassium 3.6 (3.5-5.1) mmol/L Chloride 96 L (98-107) mmol/L Carbon Dioxide 16 L (22-30) mmol/L Anion Gap 14 mmol/L BUN 47 H (9-20) mg/dL Creatinine 2.67 H (0.66-1.25) mg/dL Est GFR (CKD-EPI)AfAm 28 (>60 ml/min/1.73 sqM) Est GFR (CKD-EPI)NonAf 24 (>60 ml/min/1.73 sqM) Glucose 187 H (74-99) mg/dL Lactic Ac Sepsis Rflx Plasma Lactic Acid Cole (0.7-2.0) mmol/L Calcium 8.5 (8.4-10.2) mg/dL Phosphorus 2.4 L (2.5-4.5) mg/dL Magnesium 1.6 (1.6-2.3) mg/dL Total Bilirubin 1.0 (0.2-1.3) mg/dL AST 55 (17-59) U/L ALT 32 (21-72) U/L Alkaline Phosphatase 45 (38-126) U/L Creatine Kinase 535 H (55-170) U/L Troponin I (0.000-0.034) ng/mL NT-Pro-B Natriuret Pep pg/mL Total Protein 7.4 (6.3-8.2) g/dL Albumin 4.2 (3.5-5.0) g/dL TSH 1.110 (0.465-4.680) mIU/L Influenza Type A RNA (Not Detectd) Influenza Type B (PCR) (Not Detectd) 03/09/19 03/09/19 03/09/19 Range/Units 18:09 18:09 18:09 WBC (3.8-10.6) k/uL RBC (4.30-5.90) m/uL Hgb (13.0-17.5) gm/dL Hct (39.0-53.0) % MCV (80.0-100.0) fL MCH (25.0-35.0) pg MCHC (31.0-37.0) g/dL RDW (11.5-15.5) % Plt Count (150-450) k/uL Neutrophils % % Lymphocytes % % Monocytes % % Eosinophils % % Basophils % % Neutrophils # (1.3-7.7) k/uL Lymphocytes # (1.0-4.8) k/uL Monocytes # (0-1.0) k/uL Eosinophils # (0-0.7) k/uL Basophils # (0-0.2) k/uL Manual Slide Review Large Platelets PT (9.0-12.0) sec INR (<1.2) APTT (22.0-30.0) sec D-Dimer (<0.60) mg/L FEU Sodium (137-145) mmol/L Potassium (3.5-5.1) mmol/L Chloride (98-107) mmol/L Carbon Dioxide (22-30) mmol/L Anion Gap mmol/L BUN (9-20) mg/dL Creatinine (0.66-1.25) mg/dL Est GFR (CKD-EPI)AfAm (>60 ml/min/1.73 sqM) Est GFR (CKD-EPI)NonAf (>60 ml/min/1.73 sqM) Glucose (74-99) mg/dL Lactic Ac Sepsis Rflx Plasma Lactic Acid Cole 3.2 H* (0.7-2.0) mmol/L Calcium (8.4-10.2) mg/dL Phosphorus (2.5-4.5) mg/dL Magnesium (1.6-2.3) mg/dL Total Bilirubin (0.2-1.3) mg/dL AST (17-59) U/L ALT (21-72) U/L Alkaline Phosphatase (38-126) U/L Creatine Kinase (55-170) U/L Troponin I 0.063 H* (0.000-0.034) ng/mL NT-Pro-B Natriuret Pep 431 pg/mL Total Protein (6.3-8.2) g/dL Albumin (3.5-5.0) g/dL TSH (0.465-4.680) mIU/L Influenza Type A RNA (Not Detectd) Influenza Type B (PCR) (Not Detectd) 03/09/19 03/09/19 Range/Units 18:58 20:03 WBC (3.8-10.6) k/uL RBC (4.30-5.90) m/uL Hgb (13.0-17.5) gm/dL Hct (39.0-53.0) % MCV (80.0-100.0) fL MCH (25.0-35.0) pg MCHC (31.0-37.0) g/dL RDW (11.5-15.5) % Plt Count (150-450) k/uL Neutrophils % % Lymphocytes % % Monocytes % % Eosinophils % % Basophils % % Neutrophils # (1.3-7.7) k/uL Lymphocytes # (1.0-4.8) k/uL Monocytes # (0-1.0) k/uL Eosinophils # (0-0.7) k/uL Basophils # (0-0.2) k/uL Manual Slide Review Large Platelets PT (9.0-12.0) sec INR (<1.2) APTT (22.0-30.0) sec D-Dimer (<0.60) mg/L FEU Sodium (137-145) mmol/L Potassium (3.5-5.1) mmol/L Chloride (98-107) mmol/L Carbon Dioxide (22-30) mmol/L Anion Gap mmol/L BUN (9-20) mg/dL Creatinine (0.66-1.25) mg/dL Est GFR (CKD-EPI)AfAm (>60 ml/min/1.73 sqM) Est GFR (CKD-EPI)NonAf (>60 ml/min/1.73 sqM) Glucose (74-99) mg/dL Lactic Ac Sepsis Rflx Y Plasma Lactic Acid Cole (0.7-2.0) mmol/L Calcium (8.4-10.2) mg/dL Phosphorus (2.5-4.5) mg/dL Magnesium (1.6-2.3) mg/dL Total Bilirubin (0.2-1.3) mg/dL AST (17-59) U/L ALT (21-72) U/L Alkaline Phosphatase (38-126) U/L Creatine Kinase (55-170) U/L Troponin I (0.000-0.034) ng/mL NT-Pro-B Natriuret Pep pg/mL Total Protein (6.3-8.2) g/dL Albumin (3.5-5.0) g/dL TSH (0.465-4.680) mIU/L Influenza Type A RNA Not Detected (Not Detectd) Influenza Type B (PCR) Not Detected (Not Detectd) - Radiology Data Radiology results: report reviewed (CXR is negative for acute diseaase, CXR has good position of CVC), image reviewed Critical Care Time Critical Care Time: Yes Total Critical Care Time: 65 Disposition Clinical Impression: Dehydration, Atrial fibrillation with RVR, Fever, Sepsis, Hyponatremia, ARF (acute renal failure), Diarrhea, Myasthenia gravis Disposition: ADMITTED IP TO THIS HOSP Condition: Serious Is patient prescribed a controlled substance at d/c from ED?: No
[2019-03-09 18:48] LABS: Basophils % (A) 0 %; Eosinophils # (A) 0.1 k/uL (0-0.7); Eosinophils % (A) 1 %; HCT 48.6 % (39.0-53.0); HGB 16.2 gm/dL (13.0-17.5); Lymphocytes # (A) 0.1 k/uL (1.0-4.8); Lymphocytes % (A) 1 %; MCH 28.1 pg (25.0-35.0); MCHC 33.3 g/dL (31.0-37.0); MCV 84.3 fL (80.0-100.0); Mean Platelet Volume 7.1; Monocytes # (A) 0.9 k/uL (0-1.0); Monocytes % (A) 7 %; Neutrophils # (A) 11.1 k/uL (1.3-7.7); Neutrophils % (A) 91 %; Platelet Count 151 k/uL (150-450); RBC 5.77 m/uL (4.30-5.90); RDW 14.1 % (11.5-15.5); WBC 12.2 k/uL (3.8-10.6)
[2019-03-09] MEDS: DILTIAZEM 125 MG in SODIUM CHLORIDE 0.9% 100 ML IV SCH (18:51)
[2019-03-09 18:56] LABS: Albumin 4.2 g/dL (3.5-5.0); Calcium 8.5 mg/dL (8.4-10.2); Magnesium 1.6 mg/dL (1.6-2.3); Phosphorus 2.4 mg/dL (2.5-4.5); Potassium 3.6 mmol/L (3.5-5.1); Total Protein 7.4 g/dL (6.3-8.2)
[2019-03-09 19:03] LABS: Large Platelets Present
--- NOTE | 2019-03-09 19:13 | XR ---
EXAMINATION TYPE: XR chest 1V DATE OF EXAM: 03/09/2019 COMPARISON: 01/29/2018 HISTORY: Short of breath TECHNIQUE: Single frontal view of the chest is obtained. FINDINGS: Heart is probably enlarged. There is no heart failure. Thoracic aorta is atheromatous. The re is no definite pleural effusion. IMPRESSION: Limited exam. No active cardiopulmonary disease. Heart appears increased compared to old exam.
[2019-03-09 19:17] LABS: Partial Thromboplastin Time 26.8 sec (22.0-30.0); Prothrombin Time 10.6 sec (9.0-12.0)
[2019-03-09 19:27] LABS: D-Dimer 12.14 mg/L FEU (<0.60)
[2019-03-09] MEDS ORDERED: HEPARIN SODIUM,PORCINE 10,000 UNIT/ML 1 ML VIAL IV ONE (20:02)
[2019-03-09] MEDS ORDERED: HYDROCORTISONE SUCCINATE 100 MG/2 ML VIAL IV STA (20:02)
[2019-03-09] MEDS ORDERED: HEPARIN SODIUM,PORCINE 5,000 UNIT/ML 1 ML VIAL IV PRN (20:02)
[2019-03-09] MEDS ORDERED: PIPERACILLIN-TAZOBACTAM 3.375 GM in SODIUM CHLORIDE 0.9% 100 ML IVPB STA (20:05)
[2019-03-09] MEDS ORDERED: PNEUMONIA PROTOCOL UTILIZED 1 EACH MISC PO PRN (20:05)
[2019-03-09] MEDS ORDERED: LEVOFLOXACIN 750MG-D5W PMX 750 MG in DEXTROSE/WATER 1 150ML.BAG IVPB STA (20:05)
[2019-03-09] MEDS ORDERED: VANCOMYCIN IV PER PHARMACY 1 EACH MISC MISCELLANE PRN (21:01)
--- NOTE | 2019-03-09 21:15 | XR ---
EXAMINATION TYPE: XR chest 1V portable DATE OF EXAM: 03/09/2019 COMPARISON: Today HISTORY: Check line placement TECHNIQUE: Single frontal view of the chest is obtained. FINDINGS: There is a right jugular catheter with the tip apparently in the lower superior vena cava. I see no pneumothorax. There is no heart failure nor confluent pneumonic infiltrate. Costophrenic an gles are clear. IMPRESSION: Catheter appears in good position. No heart failure.
[2019-03-09] MEDS: HEPARIN SOD,PORK IN 0.45% NACL 25,000 UNIT in 0.45% NACL 1 250ML.BAG IV SCH (21:27)
[2019-03-09] MEDS: LACTATED RINGERS 1,000 ML IV SCH (21:41)
[2019-03-09] MEDS ORDERED: VANCOMYCIN 2,000 MG in SODIUM CHLORIDE 0.9% 500 ML 500 ML IVPB SCH (22:00)
[2019-03-09] MEDS ORDERED: LEVOFLOXACIN 750MG-D5W PMX 750 MG in DEXTROSE/WATER 1 150ML.BAG IVPB ONE (22:15)
[2019-03-09] MEDS ORDERED: LEVOFLOXACIN 750MG-D5W PMX 750 MG in DEXTROSE/WATER 1 150ML.BAG IVPB SCH (23:00)
[2019-03-09] MEDS ORDERED: SODIUM CHLORIDE 0.9% 500 ML 500 ML IV ONE (23:48)
[2019-03-10] MEDS: NOREPINEPHRINE 4 MG in SODIUM CHLORIDE 0.9% 250 ML IV SCH ×3 (00:06→22:06)
[2019-03-10 01:58] LABS: Appearance,Urine Cloudy (Clear); Bilirubin,Urine Negative (Negative); Blood,Urine Small (Negative); Color,Urine Yellow; Glucose,Urine (UA) Negative (Negative); Hyaline Casts,Urine 1 /lpf (0-2); Ketones,Urine Negative (Negative); Leukocyte Esterase,Urine Small (Negative); Mucus,Urine Rare /hpf; Nitrite,Urine Negative (Negative); Protein,Urine 1+ (Negative); RBC,Urine 1 /hpf (0-5); Squamous Epithelial Cell,Urine <1 /hpf (0-4); Urobilinogen,Urine <2.0 mg/dL (<2.0); WBC,Urine 16 /hpf (0-5)
[2019-03-10 02:47] LABS: Basophils # (A) 0.1 k/uL (0-0.2); Basophils % (A) 0 %; Eosinophils % (A) 0 %; HCT 40.7 % (39.0-53.0); HGB 13.7 gm/dL (13.0-17.5); Lymphocytes % (A) 0 %; MCH 28.1 pg (25.0-35.0); MCHC 33.7 g/dL (31.0-37.0); MCV 83.4 fL (80.0-100.0); Mean Platelet Volume 6.9; Monocytes # (A) 0.4 k/uL (0-1.0); Monocytes % (A) 3 %; Neutrophils # (A) 12.2 k/uL (1.3-7.7); Neutrophils % (A) 96 %; Platelet Count 127 k/uL (150-450); RBC 4.88 m/uL (4.30-5.90); RDW 14.1 % (11.5-15.5); WBC 12.7 k/uL (3.8-10.6)
[2019-03-10 02:59] LABS: INR 1.1 (<1.2); Prothrombin Time 11.3 sec (9.0-12.0)
[2019-03-10 03:01] LABS: Partial Thromboplastin Time 103.1 sec (22.0-30.0)
[2019-03-10] MEDS: HYDROCORTISONE SUCCINATE 100 MG/2 ML VIAL IV SCH ×2 (03:41→09:32)
[2019-03-10 04:36] LABS: Band Neutrophils % 22 %; Lymphocytes # (M) 0.13 k/uL (1.0-4.8); Monocytes # (M) 0.25 k/uL (0-1.0); Neutrophils % (M) 75 %; Nucleated Red Blood Cells 0 /100 WBC (0-0); Total Cells Counted 100
[2019-03-10] MEDS: PYRIDOSTIGMINE 60 MG TAB PO SCH ×4 (04:51→20:23)
[2019-03-10] MEDS: LACTATED RINGERS 1,000 ML IV SCH ×3 (04:59→16:44)
[2019-03-10 05:25] LABS: Calcium 6.9 mg/dL (8.4-10.2); Potassium 3.5 mmol/L (3.5-5.1)
[2019-03-10] MEDS ORDERED: PIPERACILLIN-TAZOBACTAM 3.375 GM in SODIUM CHLORIDE 0.9% 100 ML IVPB SCH ×2 (06:00→16:00)
[2019-03-10] MEDS ORDERED: POTASSIUM CHLORIDE ER 20 MEQ TAB.ER PO ONE (07:00)
[2019-03-10 07:11] LABS: Glucose,Whole Blood 180 mg/dL (75-99)
[2019-03-10] MEDS: INSULIN ASPART (NovoLOG) 100 UNIT/ML VIAL SQ SCH ×4 (07:16→20:26)
[2019-03-10] MEDS: IPRATROPIUM-ALBUTEROL 3 ML NEB INHALATION SCH ×4 (07:19→20:26)
--- NOTE | 2019-03-10 08:08 | XR ---
EXAMINATION TYPE: XR chest 1V portable DATE OF EXAM: 03/10/2019 COMPARISON: 03/09/2019 HISTORY: Exertional dyspnea TECHNIQUE: Single frontal view of the chest is obtained. FINDINGS: Right internal jugular central venous catheter is stable in position. Mild multilevel dege nerative changes of the spine. Cardiomediastinal silhouette is enlarged. No new focal consolidation, pleural effusion or pneumothorax. IMPRESSION: Stable cardiomegaly and right internal jugular central venous catheter. No acute pulmona ry process.
[2019-03-10] MEDS ORDERED: predniSONE 10 MG TAB PO SCH (09:00)
[2019-03-10] MEDS ORDERED: NON FORMULARY DRUG (Omega-3 Fatty Acids/Fish Oil [Fish Oil 1,000 Mg Softgel] 1 CAP) PO SCH (09:00)
--- NOTE | 2019-03-10 09:28 | P.CNPUL ---
History of Present Illness Consult date: 03/10/19 Chief complaint: Diarrhea History of present illness: 63-year-old male patient came in to the ED yesterday because of few days of watery diarrhea that was quite aggressive and constant. The patient became quite dehydrated. He came into the ED and he was found to be in A. fib RVR and at the same time he was found to be in acute kidney injury. He was started on IV fluids. He received a total of 3 L and currently is on lactated Ringer runni ng at 150 mL an hour. No significant abdominal pain. No nausea. No emesis. Stool for C. diff has been negative. The patient reports that he was having some loose stools for the past several months. He is obese. He has history of myasthenia gravis maintain a combination of Imuran and prednisone at a low dose of 10 mg by mouth daily. He is also on Mestinon. He is diagnosed was established approximately a year ago. He does not have a thymoma. He has received a total of 3 sessions of high-dose IV Solu-Medrol for a total of 5 visits was given to him by his neurologist office on outpatient basis lasting approximately 6 weeks ago. He still has on of double vision and some weakness. He also has obstructive sleep apnea severe with an AHI of 45 and currently is on CPAP at a pressure of 7 cm of water. He has hypertension and arthritis. The patient has no fever. No travel history. No food poisoning. In the ED, his lactic acid was slightly elevated and after fluids with lactic acid level normalized. His white cell count is at 12.7. Platelet count is 127. No shortness of breath. No altered mentation. He is on 2 L of oxygen by nasal cannula with a pulse ox of 97%. Review of Systems Constitutional: Reports weakness, Reports weight gain Eyes: bilateral diplopia, denies as per HPI, denies blurred vision, denies bulging eye, denies decreased vision, denies discharge, denies dry eye, denies irritation, denies itching, denies pain, denies photophobia, denies loss of peripheral vision, denies loss of vision, denies tunnel vision/blind spots Ears: deny: decreased hearing, ear discharge, earache, tinnitus Ears, nose, mouth and throat: Denies headache, Denies sore throat Cardiovascular: Denies chest pain, Denies shortness of breath Respiratory: Reports as per HPI Gastrointestinal: Reports diarrhea, Reports loss of appetite Genitourinary: Reports as per HPI Musculoskeletal: Reports as per HPI Musculoskeletal: absent: ankle pain, ankle stiffness, ankle swelling, as per HPI, elbow pain, elbow stiffness, elbow swelling, foot pain, foot stiffness, foot swelling, hand pain, hand stiffness, hand swelling, hip pain, hip stiffness, hip swelling, knee pain, knee stiffness, knee swelling, shoulder pain, shoulder stiffness, shoulder swelling, wrist pain, wrist stiffness, wrist swelling Integumentary: Denies pruritus, Denies rash Neurological: Reports balance difficulties, Reports double vision, Reports weakness, Reports visual changes Psychiatric: Denies anxiety, Denies depression Endocrine: Reports as per HPI, Reports fatigue Hematologic/Lymphatic: Reports as per HPI Allergic/Immunologic: Reports as per HPI Past Medical History Past Medical History: CVA/TIA, Hyperlipidemia, Hypertension, Osteoarthritis (OA) Additional Past Medical History / Comment(s): History of myasthenia gravis, hypertension, hyperlipidemia, osteoarthritis, obesity with a BMI of 35.5, obstructive sleep apnea CVA with an AHI of 45 currently on CPAP pressure of 7, spinal stenosis, sciatica History of Any Multi-Drug Resistant Organisms: None Reported Past Surgical History: No Surgical Hx Reported Past Anesthesia/Blood Transfusion Reactions: No Reported Reaction Past Psychological History: No Psychological Hx Reported Smoking Status: Former smoker Past Alcohol Use History: None Reported Past Drug Use History: None Reported - Past Family History Mother Family Medical History: Cancer Additional Family Medical History / Comment(s): Stomach Cancer Father Family Medical History: Cancer Additional Family Medical History / Comment(s): breast CA Sister(s) Family Medical History: Cancer Additional Family Medical History / Comment(s): breast CA Brother(s) Family Medical History: Cancer Additional Family Medical History / Comment(s): Spine CA Medications and Allergies Home Medications Medication Instructions Recorded Confirmed Type predniSONE 10 mg PO DAILY 06/02/17 03/09/19 History Clopidogrel [Plavix] 75 mg PO DAILY #30 tab 06/04/17 03/09/19 Rx Simvastatin [Zocor] 40 mg PO HS 01/27/18 03/09/19 History Lisinopril 20 mg PO DAILY 09/03/18 03/09/19 History Meloxicam [Mobic] 15 mg PO DAILY 09/03/18 03/09/19 History Multivitamins, Thera [Multivitamin 1 tab PO DAILY 09/03/18 03/09/19 History (formulary)] Pyridostigmine [place] [Mestinon] 120 mg PO TID 09/03/18 03/09/19 History [place]-3 Fatty Acids/Fish Oil [Fish 1 cap PO DAILY 03/09/19 03/09/19 History Oil 1,000 mg Softgel] azaTHIOprine [Imuran] 100 mg PO DAILY 03/09/19 03/09/19 History Allergies Allergy/AdvReac Type Severity Reaction Status Date / Time fentanyl AdvReac Intermediate Nausea & Verified 03/09/19 18:34 Vomiting Physical Exam Vitals: Vital Signs Temp Pulse Pulse Resp BP BP Pulse Ox 03/10/19 09:00 66 18 115/65 98 03/10/19 08:30 77 18 132/68 96 03/10/19 08:00 97.9 F 64 12 119/67 98 03/10/19 07:35 68 03/10/19 07:30 57 L 12 119/68 100 03/10/19 07:22 66 98 03/10/19 07:00 57 L 17 122/78 98 03/10/19 06:30 56 L 24 119/69 97 03/10/19 06:00 55 L 21 113/61 98 03/10/19 05:30 55 L 18 96/58 98 03/10/19 05:00 49 L 16 98/57 94 L 03/10/19 04:30 61 18 95/60 94 L 03/10/19 04:00 97.0 F L 61 68 23 130/69 96 03/10/19 03:30 66 22 119/67 96 03/10/19 03:00 56 L 13 118/74 96 03/10/19 02:30 62 19 99/55 94 L 03/10/19 02:00 60 21 96/64 96 03/10/19 01:48 65 20 104/59 97 03/10/19 01:45 70 22 96 03/10/19 01:32 68 18 94/62 03/10/19 01:30 63 12 104/59 97 03/10/19 01:15 66 12 94/62 97 03/10/19 01:00 102 H 12 100/57 97 03/10/19 00:45 111 H 18 105/70 97 03/10/19 00:30 103 H 18 90/61 96 03/10/19 00:15 97.9 F 114 H 19 102/63 96 03/10/19 00:00 96 13 87/69 96 03/09/19 23:45 108 H 22 83/54 97 03/09/19 23:30 101 H 18 89/48 96 03/09/19 23:15 99 12 74/59 94 L 03/09/19 23:00 108 H 23 84/54 94 L 03/09/19 22:45 116 H 22 89/57 90 L 03/09/19 22:30 115 H 22 77/53 95 03/09/19 22:25 98.9 F 117 H 18 78/60 98 03/09/19 20:54 125 H 18 76/57 98 03/09/19 19:28 99.3 F 141 H 20 98/57 97 03/09/19 18:04 168 H 03/09/19 18:01 103.2 F H 03/09/19 17:47 101.6 F H 165 H 28 H 108/83 96 Intake and Output 03/09/19 03/10/19 03/10/19 22:59 06:59 14:59 Intake Total 2028.331 170 Output Total 670 140 Balance 1358.331 30 Intake: IV 1880 170 Lactated Ringers 1,000 ml 1050 150 @ 150 mls/hr IV .[id number] [facility] Rx#:[id number] Levofloxacin 750Mg-D5w 150 Pmx 750 mg In Dextrose/ Water 1 150ml.bag @ 100 mls/hr IVPB Q48H [facility] Rx#: [id number] Sodium Chloride 0.9% 500 680 20 ml 500 ml @ 999 mls/hr IV .Q31M [facility] Rx#:[id number] Intake, IV Titration 148.331 Amount Diltiazem 125 mg In 26.5 Sodium Chloride 0.9% 100 ml @ 5 MG/HR 5 mls/hr IV .Q24H [facility] Rx#:[id number] Heparin Sod,Pork in 0.45% 119.584 NaCl 25,000 unit In 0.45 % NaCl 1 250ml.bag @ 18 UNITS/KG/HR 21.228 mls/hr IV .[id number] [facility] Rx#: [id number] Norepinephrine 4 mg In 2.247 Sodium Chloride 0.9% 250 ml @ 0.05 MCG/KG/MIN 22. 466 mls/hr IV .[id number] [facility] Rx#:[id number] Output: Urine 670 140 Other: # Voids 0 # Bowel Movements 1 Weight 117.934 kg 122.1 kg The patient appeared well nourished and normally developed. Vital signs as documented. Head exam is unremarkable. No scleral icterus or corneal arcus noted. Neck is without jugular venous distension, thyromegaly, or carotid bruits. The patient is a Mallampati class IV Carotid upstrokes are brisk bilaterally. Lungs are clear to auscultation and percussion. Cardiac exam reveals the PMI to be normally sized and situated. Rhythm is regular. First and second heart sounds normal. No murmurs, rubs or gallops. Abdominal exam reveals normal bowel sounds, no masses, no organomegaly and no aortic enlargement. Extremities are nonedematous and both femoral and pedal pulses are normal.Examination of the skin revealed no evidence of significant rashes, suspicious appearing nevi or other concerning lesions. Neurologically the patient is having some motor weakness +4/5 in the proximal muscles. He has diplopia. Reflexes are intact. Neurologically is awake and alert and there is no focal neurological deficits. Results - Laboratory Findings CBC and BMP: 03/10/19 02:20 03/10/19 06:52 PT/INR, D-dimer PT 11.3 sec (9.0-12.0) 03/10/19 02:20 INR 1.1 (<1.2) 03/10/19 02:20 D-Dimer 12.14 mg/L FEU (<0.60) H 03/09/19 18:09 Abnormal lab findings: Abnormal Labs 03/09/19 03/09/19 03/09/19 18:09 18:09 18:09 WBC 12.2 H Plt Count Neutrophils # 11.1 H Neutrophils # (Manual) Lymphocytes # 0.1 L Lymphocytes # (Manual) APTT D-Dimer 12.14 H Sodium 126 L Chloride 96 L Carbon Dioxide 16 L BUN 47 H Creatinine 2.67 H Glucose 187 H POC Glucose (mg/dL) Plasma Lactic Acid Cole Calcium Phosphorus 2.4 L Creatine Kinase 535 H Troponin I Urine Protein Urine Blood Ur Leukocyte Esterase Urine WBC Urine Mucus 03/09/19 03/09/19 03/09/19 18:09 18:09 23:01 WBC Plt Count Neutrophils # Neutrophils # (Manual) Lymphocytes # Lymphocytes # (Manual) APTT D-Dimer Sodium Chloride Carbon Dioxide BUN Creatinine Glucose POC Glucose (mg/dL) Plasma Lactic Acid Cole 3.2 H* 2.7 H* Calcium Phosphorus Creatine Kinase Troponin I 0.063 H* Urine Protein Urine Blood Ur Leukocyte Esterase Urine WBC Urine Mucus 03/10/19 03/10/19 03/10/19 01:01 02:20 02:20 WBC 12.7 H Plt Count 127 L Neutrophils # 12.2 H Neutrophils # (Manual) 12.30 H Lymphocytes # 0.0 L Lymphocytes # (Manual) 0.13 L APTT 103.1 H* D-Dimer Sodium Chloride Carbon Dioxide BUN Creatinine Glucose POC Glucose (mg/dL) Plasma Lactic Acid Cole Calcium Phosphorus Creatine Kinase Troponin I Urine Protein 1+ H Urine Blood Small H Ur Leukocyte Esterase Small H Urine WBC 16 H Urine Mucus Rare H 03/10/19 03/10/19 03/10/19 02:20 06:52 06:59 WBC Plt Count Neutrophils # Neutrophils # (Manual) Lymphocytes # Lymphocytes # (Manual) APTT D-Dimer Sodium 129 L 134 L Chloride Carbon Dioxide 14 L BUN 46 H Creatinine 2.39 H Glucose 186 H POC Glucose (mg/dL) 180 H Plasma Lactic Acid Cole Calcium 6.9 L Phosphorus Creatine Kinase Troponin I Urine Protein Urine Blood Ur Leukocyte Esterase Urine WBC Urine Mucus - Diagnostic Findings Chest x-ray: image reviewed Assessment and Plan Plan: 1 acute diarrhea with significant intravascular volume and acute kidney injury. The exact cause is not clear. Rule out drug induced diarrhea. Rule out postinfectious diarrhea. Stool for C. diff has been negative. Abdominal exam is negative and the patient's abdomen is soft at this point in time and there is no indication for an acute abdomen 2 new onset atrial fibrillation, recovered and the patient rhythm is back to sinus. This is probably related to diarrhea, intravascular volume depletion and electrolyte imbalance 3 myasthenia gravis maintained on a combination of Mestinon, prednisone and Imuran an outpatient basis. The patient is still having some motor weakness and occasional diplopia 4 obstructive sleep apnea with an AHI of 45 maintained on a CPAP pressure of 7 cm of water 5 hypertension 6 hyperlipidemia 7 chronic back pain related to spinal stenosis and sciatica Plan The patient has received already 2 L of IV fluids. We'll continue the lactated Ringer at the rate of 150 mL an hour and monitor the electrolytes. Echocardiogram has been ordered. Increase the prednisone up to 40 mg by mouth daily. Continue the Mestinon. We'll consult with neurology regarding the need for Imuran at this point in time. I reviewed the CAT scan of the chest from January 2018 and there is no evidence of any thymoma at this point in time. The patient is further most having an MRI on outpatient basis to rule out this possibility. Will obtain a neurology consultation. No need for stress dose hydrocortisone at this point in time. The patient is hemodynamically stable. I stopped all the antibiotics which probably will aggravate his diarrhea. Stool for C. diff is negative. Stool cultures of been sent. GI consultation regarding his diarrhea. We'll also consult with them the possibility of Imuran causing this diarrhea although I'm not absolutely sure this point in time. We are asked the patient to bring in his own CPAP machine from home to be utilized at a pressure of 7 cm of water. We'll check daily vital capacity to make sure his respiratory status is stable and there is no evidence of any respiratory insufficiency related to myasthenia gravis. We'll watch the electrolytes. Monitor his rhythm for another 24 hours. Keep the IV heparin for another 24 hours. If negative, we'll can start anticoagulation at that point in time. My suspicion for clotting business such as DVT or pulmonary embolism is extremely low. I will cancel the VQ scan at this point in time. Keep in ICU for today
[2019-03-10] MEDS: azaTHIOprine 50 MG TAB PO SCH (09:36)
[2019-03-10] MEDS: CLOPIDOGREL 75 MG TAB PO SCH (09:36)
[2019-03-10] MEDS: MULTIVITAMINS, THERA 1 EACH TAB PO SCH (09:36)
[2019-03-10] MEDS: predniSONE 20 MG TAB PO SCH (09:37)
--- NOTE | 2019-03-10 09:40 | P.HPIM ---
History of Present Illness This is a pleasant 63 years old male with past medical history of hypertension, hyperlipidemia, osteoarthritis, spinal stenosis, myasthenia gravis on Imuran and he follows with Dr. Costa, arthritis on prednisone, ascending aortic aneurysm, obstructive sleep apnea on CPAP, sciatica. Who presents because of watery of 3-4 days duration, diarrhea and generalized weakness. Patient says that he has soft stools for many years however for the last 3-4 days is becoming watery and constant. He felt generalized weakness and he fell on the ground with needed help to get up. He denies syncope. He denies chest pain or dyspnea. No abdominal pain. He has some nausea but no vomiting. No rash Vitas looks stable currently, his of her blood pressure 122/78. However on admission he had a fever of 1.3.2, he was hypotensive 76/57, saturating 98% on 2 L and he was tachycardic at 125-165. Labs showing ef 12.7 K, hemoglobin 13.7 a nd platelets 127K. sodium 129, went up to 134, creatinine 2.39 . Baseline creatinine 0.8. UA is not strongly suggestive of infection. C. diff is negative. D-dimer elevated at 12.14, liver enzymes not elevated, troponin is elevated at 0.06. TSH is 1.1. Ethanol a is negative. Chest x-ray no acute pulmonary process. EKG showing atrial fibrillation with rapid ventricular response at 146 Right internal jugular intravenous catheter was placed. And was started on antibiotics with Zosyn. Received several boluses of IV fluids, more than 5.5 L of normal saline. Started on Ringer lactate at 150 mL/h. He got 1 dose of ibuprofen. Aleve affect was ordered and he was started on heparin drip and Cardizem drip. Cipro consult is has been called already from emergency room including cardiology, nephrology, pulmonary/critical care and infectious disease. Review of Systems CONSTITUTIONAL: No fever, no malaise, no fatigue. HEENT: No recent visual problems or hearing problems. Denied any sore throat. CARDIOVASCULAR: No orthopnea, PND, no palpitations, no syncope. PULMONARY: No shortness of breath, no cough, no hemoptysis. GASTROINTESTINAL: No diarrhea, no nausea, no vomiting, no abdominal pain. Normoactive bowel sounds. NEUROLOGICAL: No headaches, no weakness, no numbness. HEMATOLOGICAL: Denies any bleeding or petechiae. GENITOURINARY: Denies any burning micturition, frequency, or urgency. MUSCULOSKELETAL/RHEUMATOLOGICAL: Denies any joint pain, swelling, or any muscle pain. ENDOCRINE: Denies any polyuria or polydipsia. Past Medical History Past Medical History: CVA/TIA, Hyperlipidemia, Hypertension, Osteoarthritis (OA) Additional Past Medical History / Comment(s): Sciatica, spinal stenosis myasthenia gravis, ascending aortic aneursym, MARIOLA with CPAP History of Any Multi-Drug Resistant Organisms: None Reported Past Surgical History: No Surgical Hx Reported Past Anesthesia/Blood Transfusion Reactions: No Reported Reaction Past Psychological History: No Psychological Hx Reported Smoking Status: Former smoker Past Alcohol Use History: None Reported Past Drug Use History: None Reported - Past Family History Mother Family Medical History: Cancer Additional Family Medical History / Comment(s): Stomach Cancer Father Family Medical History: Cancer Additional Family Medical History / Comment(s): breast CA Sister(s) Family Medical History: Cancer Additional Family Medical History / Comment(s): breast CA Brother(s) Family Medical History: Cancer Additional Family Medical History / Comment(s): Spine CA Medications and Allergies Home Medications Medication Instructions Recorded Confirmed Type predniSONE 10 mg PO DAILY 06/02/17 03/09/19 History Clopidogrel [Plavix] 75 mg PO DAILY #30 tab 06/04/17 03/09/19 Rx Simvastatin [Zocor] 40 mg PO HS 01/27/18 03/09/19 History Lisinopril 20 mg PO DAILY 09/03/18 03/09/19 History Meloxicam [Mobic] 15 mg PO DAILY 09/03/18 03/09/19 History Multivitamins, Thera [Multivitamin 1 tab PO DAILY 09/03/18 03/09/19 History (formulary)] Pyridostigmine [place] [Mestinon] 120 mg PO TID 09/03/18 03/09/19 History [place]-3 Fatty Acids/Fish Oil [Fish 1 cap PO DAILY 03/09/19 03/09/19 History Oil 1,000 mg Softgel] azaTHIOprine [Imuran] 100 mg PO DAILY 03/09/19 03/09/19 History Allergies Allergy/AdvReac Type Severity Reaction Status Date / Time fentanyl AdvReac Intermediate Nausea & Verified 03/09/19 18:34 Vomiting Physical Exam Vitals: Vital Signs Temp Pulse Pulse Resp BP BP Pulse Ox 03/10/19 07:35 68 03/10/19 07:22 66 98 03/10/19 07:00 57 L 17 122/78 98 03/10/19 06:30 56 L 24 119/69 97 03/10/19 06:00 55 L 21 113/61 98 03/10/19 05:30 55 L 18 96/58 98 03/10/19 05:00 49 L 16 98/57 94 L 03/10/19 04:30 61 18 95/60 94 L 03/10/19 04:00 97.0 F L 61 68 23 130/69 96 03/10/19 03:30 66 22 119/67 96 03/10/19 03:00 56 L 13 118/74 96 03/10/19 02:30 62 19 99/55 94 L 03/10/19 02:00 60 21 96/64 96 03/10/19 01:48 65 20 104/59 97 03/10/19 01:45 70 22 96 03/10/19 01:32 68 18 94/62 03/10/19 01:30 63 12 104/59 97 03/10/19 01:15 66 12 94/62 97 03/10/19 01:00 102 H 12 100/57 97 03/10/19 00:45 111 H 18 105/70 97 03/10/19 00:30 103 H 18 90/61 96 03/10/19 00:15 97.9 F 114 H 19 102/63 96 03/10/19 00:00 96 13 87/69 96 03/09/19 23:45 108 H 22 83/54 97 03/09/19 23:30 101 H 18 89/48 96 03/09/19 23:15 99 12 74/59 94 L 03/09/19 23:00 108 H 23 84/54 94 L 03/09/19 22:45 116 H 22 89/57 90 L 03/09/19 22:30 115 H 22 77/53 95 03/09/19 22:25 98.9 F 117 H 18 78/60 98 03/09/19 20:54 125 H 18 76/57 98 03/09/19 19:28 99.3 F 141 H 20 98/57 97 03/09/19 18:04 168 H 03/09/19 18:01 103.2 F H 03/09/19 17:47 101.6 F H 165 H 28 H 108/83 96 Intake and Output 03/09/19 03/10/19 03/10/19 22:59 06:59 14:59 Intake Total 2028.331 170 Output Total 670 140 Balance 1358.331 30 Intake: IV 1880 170 Lactated Ringers 1,000 ml 1050 150 @ 150 mls/hr IV .Q6H40M [facility] Rx#:[id number] Levofloxacin 750Mg-D5w 150 Pmx 750 mg In Dextrose/ Water 1 150ml.bag @ 100 mls/hr IVPB Q48H [facility] Rx#: [id number] Sodium Chloride 0.9% 500 680 20 ml 500 ml @ 999 mls/hr IV .Q31M [facility] Rx#:[id number] Intake, IV Titration 148.331 Amount Diltiazem 125 mg In 26.5 Sodium Chloride 0.9% 100 ml @ 5 MG/HR 5 mls/hr IV .Q24H [facility] Rx#:[id number] Heparin Sod,Pork in 0.45% 119.584 NaCl 25,000 unit In 0.45 % NaCl 1 250ml.bag @ 18 UNITS/KG/HR 21.228 mls/hr IV .[id number] [facility] Rx#: [id number] Norepinephrine 4 mg In 2.247 Sodium Chloride 0.9% 250 ml @ 0.05 MCG/KG/MIN 22. 466 mls/hr IV .[id number] [facility] Rx#:[id number] Output: Urine 670 140 Other: # Voids 0 # Bowel Movements 1 Weight 117.934 kg 122.1 kg GENERAL: The patient is alert and oriented x3, not in any acute distress. Well developed, well nourished. HEENT: Pupils are round and equally reacting to light. EOMI. No scleral icterus. No conjunctival pallor. Normocephalic, atraumatic. No pharyngeal erythema. No thyromegaly. CARDIOVASCULAR: S1 and S2 present. No murmurs, rubs, or gallops. PULMONARY: Chest is clear to auscultation, no wheezing or crackles. ABDOMEN: Soft, nontender, nondistended, normoactive bowel sounds. No palpable organomegaly. MUSCULOSKELETAL: No joint swelling or deformity. EXTREMITIES: No cyanosis, clubbing, or pedal edema. NEUROLOGICAL: Gross neurological examination did not reveal any focal deficits. SKIN: No rashes. Results CBC & Chem 7: 03/10/19 02:20 03/10/19 06:52 Labs: Abnormal Lab Results - Last 24 Hours (Table) 03/09/19 03/09/19 03/09/19 Range/Units 18: 18:09 18:09 WBC 12.2 H (3.8-10.6) k/uL Plt Count (150-450) k/uL Neutrophils # 11.1 H (1.3-7.7) k/uL Neutrophils # (Manual) (1.3-7.7) k/uL Lymphocytes # 0.1 L (1.0-4.8) k/uL Lymphocytes # (Manual) (1.0-4.8) k/uL APTT (22.0-30.0) sec D-Dimer 12.14 H (<0.60) mg/L FEU Sodium 126 L (137-145) mmol/L Chloride 96 L (98-107) mmol/L Carbon Dioxide 16 L (22-30) mmol/L BUN 47 H (9-20) mg/dL Creatinine 2.67 H (0.66-1.25) mg/dL Glucose 187 H (74-99) mg/dL POC Glucose (mg/dL) (75-99) mg/dL Plasma Lactic Acid Cole (0.7-2.0) mmol/L Calcium (8.4-10.2) mg/dL Phosphorus 2.4 L (2.5-4.5) mg/dL Creatine Kinase 535 H (55-170) U/L Troponin I (0.000-0.034) ng/mL Urine Protein (Negative) Urine Blood (Negative) Ur Leukocyte Esterase (Negative) Urine WBC (0-5) /hpf Urine Mucus (None) /hpf 03/09/19 03/09/19 03/09/19 Range/Units 18:09 18:09 23:01 WBC (3.8-10.6) k/uL Plt Count (150-450) k/uL Neutrophils # (1.3-7.7) k/uL Neutrophils # (Manual) (1.3-7.7) k/uL Lymphocytes # (1.0-4.8) k/uL Lymphocytes # (Manual) (1.0-4.8) k/uL APTT (22.0-30.0) sec D-Dimer (<0.60) mg/L FEU Sodium (137-145) mmol/L Chloride (98-107) mmol/L Carbon Dioxide (22-30) mmol/L BUN (9-20) mg/dL Creatinine (0.66-1.25) mg/dL Glucose (74-99) mg/dL POC Glucose (mg/dL) (75-99) mg/dL Plasma Lactic Acid Cole 3.2 H* 2.7 H* (0.7-2.0) mmol/L Calcium (8.4-10.2) mg/dL Phosphorus (2.5-4.5) mg/dL Creatine Kinase (55-170) U/L Troponin I 0.063 H* (0.000-0.034) ng/mL Urine Protein (Negative) Urine Blood (Negative) Ur Leukocyte Esterase (Negative) Urine WBC (0-5) /hpf Urine Mucus (None) /hpf 03/10/19 03/10/19 03/10/19 Range/Units 01:01 02:20 02:20 WBC 12.7 H (3.8-10.6) k/uL Plt Count 127 L (150-450) k/uL Neutrophils # 12.2 H (1.3-7.7) k/uL Neutrophils # (Manual) 12.30 H (1.3-7.7) k/uL Lymphocytes # 0.0 L (1.0-4.8) k/uL Lymphocytes # (Manual) 0.13 L (1.0-4.8) k/uL APTT 103.1 H* (22.0-30.0) sec D-Dimer (<0.60) mg/L FEU Sodium (137-145) mmol/L Chloride (98-107) mmol/L Carbon Dioxide (22-30) mmol/L BUN (9-20) mg/dL Creatinine (0.66-1.25) mg/dL Glucose (74-99) mg/dL POC Glucose (mg/dL) (75-99) mg/dL Plasma Lactic Acid Cole (0.7-2.0) mmol/L Calcium (8.4-10.2) mg/dL Phosphorus (2.5-4.5) mg/dL Creatine Kinase (55-170) U/L Troponin I (0.000-0.034) ng/mL Urine Protein 1+ H (Negative) Urine Blood Small H (Negative) Ur Leukocyte Esterase Small H (Negative) Urine WBC 16 H (0-5) /hpf Urine Mucus Rare H (None) /hpf 03/10/19 03/10/19 03/10/19 Range/Units 02:20 06:52 06:59 WBC (3.8-10.6) k/uL Plt Count (150-450) k/uL Neutrophils # (1.3-7.7) k/uL Neutrophils # (Manual) (1.3-7.7) k/uL Lymphocytes # (1.0-4.8) k/uL Lymphocytes # (Manual) (1.0-4.8) k/uL APTT (22.0-30.0) sec D-Dimer (<0.60) mg/L FEU Sodium 129 L 134 L (137-145) mmol/L Chloride (98-107) mmol/L Carbon Dioxide 14 L (22-30) mmol/L BUN 46 H (9-20) mg/dL Creatinine 2.39 H (0.66-1.25) mg/dL Glucose 186 H (74-99) mg/dL POC Glucose (mg/dL) 180 H (75-99) mg/dL Plasma Lactic Acid Cole (0.7-2.0) mmol/L Calcium 6.9 L (8.4-10.2) mg/dL Phosphorus (2.5-4.5) mg/dL Creatine Kinase (55-170) U/L Troponin I (0.000-0.034) ng/mL Urine Protein (Negative) Urine Blood (Negative) Ur Leukocyte Esterase (Negative) Urine WBC (0-5) /hpf Urine Mucus (None) /hpf Thrombosis Risk Factor Assmnt - Choose All That Apply Any of the Below Risk Factors Present?: No Each Factor Represents 1 point: Heart failure (<1month), Obesity (BMI >25) Other Risk Factors: Yes Each Risk Factor Represents 2 Points: Age 61-74 years Other congenital or acquired thrombophilia - If yes, enter type in comment: No Thrombosis Risk Factor Assessment Total Risk Factor Score: 4 Thrombosis Risk Factor Assessment Level: Moderate Risk Assessment and Plan Assessment: Systemic inflammatory response with tachycardia, fever and leukocytosis, Rule out sepsis Atrial fibrillation's with RVR Elevated troponin mostly secondary to his A. fib Acute kidney injury, Secondary to dehydration Dehydration Myasthenia gravis on Imuran and follow-up Dr. Costa as an outpatient Mild hyponatremia, improving. Elevated d-dimer, Nonspecific. Suspicion for DVT/PE is low. Lactic cramps Hypertension Hyperlipidemia History of arthritis for many years, on a daily dose of prednisone Chronic spinal stenosis History of ascending aortic aneurysm Obstructive sleep apnea on CPAP sciatica Plan: This is a pleasant 63 years old male who presents with multiple medical problems includingdehydration and diarrhea, A. fib with RVR with elevated troponin, acute kidney injury . We'll check Doppler of the lower extremities. Patient continue with anticoagulation, continue with Cardizem drip and switched to oral Cardizem when his heart rate is more stable. Suspicion for bacteria infection is low.. Consultants were called including pulmonary, cardiology, nephrology and infectious disease. Labs and medication were reviewed.. Continue same treatment. Continue with symptomatic treatment. Resume home medication. Monitor lytes and vitals. DVT and GI prophylaxis. Further recommendations of the clinical course of the patient DVT prophylaxis:heparin GI Prophylaxis: Pepcid Prognosis is guarded
--- NOTE | 2019-03-10 09:51 | P.NPCON ---
History of Present Illness - Reason for Consult acute renal failure - History of Present Illness Reason for consultation: Acute kidney injury History of present illness: Patient is a 63-year-old male seen in renal consultation for acute kidney injury. Patient's creatinine was 2.67 on admission and improved to 2.39 earlier this morning. Baseline creatinine is near 1. He denies any history of kidney disease. Also denies any family history of renal disease. Patient states he's been having loose bowel movements the last few days and is basically been water the last 2 days. Patient felt weak and lightheaded and came to the hospital. He was noted to be in A. fib with RVR and quite hypotensive with blood pressure in the 70s systolic. Denies vomiting. No chest pain. Patient was started on Cardizem drip but was discontinued due to hypotension. He converted to sinus rhythm on his own. Blood pressure is now the systolic 120s. Admits to good urine output. No hematuria or dysuria. Denies use of nonsteroidals. He did receive 3 and half liters of normal saline and is now maintained on lactated Ringer's at 1 50 mL an hour. Vital signs are stable. General: The patient appeared well nourished and normally developed. HEENT: Head exam is unremarkable. Neck is without jugular venous distension. LUNGS: Lungs are clear to auscultation and percussion. Breath sounds decreased. HEART: Rate and Rhythm are regular. First and second heart sounds normal. No murmurs, rubs or gallops. ABDOMEN: Abdominal exam reveals normal bowel sounds. Non-tender and non- distended. No evidence of peritonitis. EXTREMITITES: No clubbing, cyanosis, or edema. Past Medical History Past Medical History: CVA/TIA, Hyperlipidemia, Hypertension, Osteoarthritis (OA) Additional Past Medical History / Comment(s): Sciatica, spinal stenosis myasthenia gravis, ascending aortic aneursym, MARIOLA with CPAP History of Any Multi-Drug Resistant Organisms: None Reported Past Surgical History: No Surgical Hx Reported Past Anesthesia/Blood Transfusion Reactions: No Reported Reaction Past Psychological History: No Psychological Hx Reported Smoking Status: Former smoker Past Alcohol Use History: None Reported Past Drug Use History: None Reported - Past Family History Mother Family Medical History: Cancer Additional Family Medical History / Comment(s): Stomach Cancer Father Family Medical History: Cancer Additional Family Medical History / Comment(s): breast CA Sister(s) Family Medical History: Cancer Additional Family Medical History / Comment(s): breast CA Brother(s) Family Medical History: Cancer Additional Family Medical History / Comment(s): Spine CA Medications and Allergies Home Medications Medication Instructions Recorded Confirmed Type predniSONE 10 mg PO DAILY 06/02/17 03/09/19 History Clopidogrel [Plavix] 75 mg PO DAILY #30 tab 06/04/17 03/09/19 Rx Simvastatin [Zocor] 40 mg PO HS 01/27/18 03/09/19 History Lisinopril 20 mg PO DAILY 09/03/18 03/09/19 History Meloxicam [Mobic] 15 mg PO DAILY 09/03/18 03/09/19 History Multivitamins, Thera [Multivitamin 1 tab PO DAILY 09/03/18 03/09/19 History (formulary)] Pyridostigmine [place] [Mestinon] 120 mg PO TID 09/03/18 03/09/19 History [place]-3 Fatty Acids/Fish Oil [Fish 1 cap PO DAILY 03/09/19 03/09/19 History Oil 1,000 mg Softgel] azaTHIOprine [Imuran] 100 mg PO DAILY 03/09/19 03/09/19 History Allergies Allergy/AdvReac Type Severity Reaction Status Date / Time fentanyl AdvReac Intermediate Nausea & Verified 03/09/19 18:34 Vomiting Physical Exam Vitals: Vital Signs Temp Pulse Pulse Resp BP BP Pulse Ox 03/10/19 09:00 66 18 115/65 98 03/10/19 08:30 77 18 132/68 96 03/10/19 08:00 97.9 F 64 12 119/67 98 03/10/19 07:35 68 03/10/19 07:30 57 L 12 119/68 100 03/10/19 07:22 66 98 03/10/19 07:00 57 L 17 122/78 98 03/10/19 06:30 56 L 24 119/69 97 03/10/19 06:00 55 L 21 113/61 98 03/10/19 05:30 55 L 18 96/58 98 03/10/19 05:00 49 L 16 98/57 94 L 03/10/19 04:30 61 18 95/60 94 L 03/10/19 04:00 97.0 F L 61 68 23 130/69 96 03/10/19 03:30 66 22 119/67 96 03/10/19 03:00 56 L 13 118/74 96 03/10/19 02:30 62 19 99/55 94 L 03/10/19 02:00 60 21 96/64 96 03/10/19 01:48 65 20 104/59 97 03/10/19 01:45 70 22 96 03/10/19 01:32 68 18 94/62 03/10/19 01:30 63 12 104/59 97 03/10/19 01:15 66 12 94/62 97 03/10/19 01:00 102 H 12 100/57 97 03/10/19 00:45 111 H 18 105/70 97 03/10/19 00:30 103 H 18 90/61 96 03/10/19 00:15 97.9 F 114 H 19 102/63 96 03/10/19 00:00 96 13 87/69 96 03/09/19 23:45 108 H 22 83/54 97 03/09/19 23:30 101 H 18 89/48 96 03/09/19 23:15 99 12 74/59 94 L 03/09/19 23:00 108 H 23 84/54 94 L 03/09/19 22:45 116 H 22 89/57 90 L 03/09/19 22:30 115 H 22 77/53 95 03/09/19 22:25 98.9 F 117 H 18 78/60 98 03/09/19 20:54 125 H 18 76/57 98 03/09/19 19:28 99.3 F 141 H 20 98/57 97 03/09/19 18:04 168 H 03/09/19 18:01 103.2 F H 03/09/19 17:47 101.6 F H 165 H 28 H 108/83 96 Intake and Output 03/09/19 03/10/19 03/10/19 22:59 06:59 14:59 Intake Total 2028.331 320 Output Total 670 240 Balance 1358.331 80 Intake: IV 1880 320 Lactated Ringers 1,000 ml 1050 300 @ 150 mls/hr IV .Q6H40M [facility] Rx#:[id number] Levofloxacin 750Mg-D5w 150 Pmx 750 mg In Dextrose/ Water 1 150ml.bag @ 100 mls/hr IVPB Q48H [facility] Rx#: [id number] Sodium Chloride 0.9% 500 680 20 ml 500 ml @ 999 mls/hr IV .Q31M [facility] Rx#:[id number] Intake, IV Titration 148.331 Amount Diltiazem 125 mg In 26.5 Sodium Chloride 0.9% 100 ml @ 5 MG/HR 5 mls/hr IV .Q24H [facility] Rx#:[id number] Heparin Sod,Pork in 0.45% 119.584 NaCl 25,000 unit In 0.45 % NaCl 1 250ml.bag @ 18 UNITS/KG/HR 21.228 mls/hr IV .[id number] [facility] Rx#: [id number] Norepinephrine 4 mg In 2.247 Sodium Chloride 0.9% 250 ml @ 0.05 MCG/KG/MIN 22. 466 mls/hr IV .[id number] [facility] Rx#:[id number] Output: Urine 670 240 Other: # Voids 0 # Bowel Movements 1 Weight 117.934 kg 122.1 kg Results - Lab Results Most recent lab results Calcium 6.9 mg/dL (8.4-10.2) L 03/10/19 02:20 Phosphorus 2.4 mg/dL (2.5-4.5) L 03/09/19 18:09 Magnesium 1.6 mg/dL (1.6-2.3) 03/09/19 18:09 03/10/19 02:20 03/10/19 06:52 Assessment and Plan Plan: Assessment: 1. Acute kidney injury mostly prerenal secondary to hypotension and intravascular volume depletion from diarrhea. Was also on lisinopril which is currently held. Creatinine was 2.67 on admission and is down to 2.39 today. Baseline creatinine near 1. 2. Hypovolemic hyponatremia improving with IV hydration. 3. Metabolic acidosis secondary to acute kidney injury and diarrhea. 4. A. fib with RVR. Now rate controlled. Maintained on heparin drip. 5. Hypotension secondary to hypovolemia and A. fib. Better. Plan: Maintain LR at 150 mL an hour. Check renal ultrasound. Add oral sodium bicarbonate. Avoid nephrotoxins. Hold antihypertensives. Continue to monitor renal function and urine output. Thank you for the consultation. I will continue to follow the patient with you during his hospital stay.
--- NOTE | 2019-03-10 10:36 | CONS ---
CONSULTATION Mr. Velasco is a 63-year-old gentleman who is seen for cardiac evaluation and for episode of atrial fibrillation with RVR. This patient's electronic medical records reviewed. The history was obtained from the patient. Patient came to the emergency room with a complaint of watery diarrhea for about 24 hours prior to coming to the admission. The patient was quite dehydrated which was hypotensive initially in the emergency room. Also had an acute kidney injury with lactic acidosis. Stool for C difficile was negative. The patient was slightly nauseated. He did not have any significant abdominal pain. Patient initially was in atrial fibrillation with RVR. He subsequently converted to the normal sinus rhythm. This patient has a history of hypertension. There is no prior history of myocardial infarction or atrial fibrillation. Patient has a history of myasthenia gravis and he is currently being treated with Imuran as well as prednisone. He at present is comfortable, denies any respiratory distress or chest pain. There is no previous history of myocardial infarction. PAST MEDICAL HISTORY: Includes this patient has a history of dizziness and subsequent possible CAT scan or MRI showed old stroke or maybe lacunar infarct secondary to hypertension and has been treated with Plavix. Patient has a history of sleep apnea, hyperlipidemia and osteoarthritis. SOCIAL HISTORY: Patient is a former smoker. PATIENT'S HOME MEDICATIONS: Included prednisone 10 mg daily, Plavix 75 mg daily, Zocor 40 mg daily, lisinopril 20 mg daily, omega-3 fatty acids 1 capsule daily, Imuran 100 mg daily. PHYSICAL EXAMINATION: Reveals a 63-year-old gentleman who is currently lying comfortably in the bed. In the emergency room patient had a temperature of 103 with a blood pressure of 76/57, patient responded to the fluids. At present patient's heart rate is 66 per minute, blood pressure is 115/65 mmHg. HEENT: Examination is negative. NECK: Supple. There is no increase in jugular venous pressure. Both the carotid pulses are felt. There is no bruit. CHEST: Symmetrical. HEART: The PMI is not felt. First and second heart sounds are normal. LUNGS: Clinically clear to auscultation and percussion. ABDOMEN: Negative. EXTREMITIES: Peripheral pulsations are 1+. Initial EKG showed atrial fibrillation with rapid ventricular response. At present, patient is in normal sinus rhythm. Patient's white count was 12,200. Patient was hyponatremic, creatinine was 2.67, repeat creatinine is 2.39. Urine output is fair. Lactic acid is improved from 2.7 to 1.1. The patient's echocardiogram reveals a fairly normal left ventricular systolic function. FINAL IMPRESSION: 1. This patient is admitted with acute diarrhea associated with septic sepsis syndrome and lactic acidosis and acute renal failure. 2. Patient had an episode of paroxysmal atrial fibrillation. He has converted to the normal sinus rhythm. 3. Patient has a history of hypertension. 4. There is a mild elevation in the troponin which is probably due to sepsis syndrome and hypotension and dehydration. It is not suggestive of acute coronary syndrome. We will recommend to treat the patient with Lopressor 12.5 mg b.i.d. once his blood pressure is stable. We will increase the dose of it. Continue IV heparin for 24 hours after acute abdominal etiology is ruled out. We can start the patient on oral anticoagulant with possibly an Eliquis 5 mg b.i.d. and. MMKIRTIL / KELLEEN: [id number] /
[2019-03-10] MEDS: HEPARIN SOD,PORK IN 0.45% NACL 25,000 UNIT in 0.45% NACL 1 250ML.BAG IV SCH ×2 (11:05→20:25)
[2019-03-10] MEDS: SODIUM BICARBONATE TAB 650 MG TAB PO SCH ×4 (11:05→20:24)
--- NOTE | 2019-03-10 11:41 | ECHOF ---
Referral Reason:New onset Afib RVR MEASUREMENTS -------- HEIGHT: 185.4 cm WEIGHT: 117.9 kg BP: 124/64 RVIDd: 2.8 cm (< 3.3) IVSd: 1.6 cm (0.6 - 1.1) LVIDd: 5.0 cm (3.9 - 5.3) LVPWd: 1.3 cm (0.6 - 1.1) IVSs: 2.1 cm LVIDs: 3.4 cm LVPWs: 2.1 cm LA Diam: 4.4 cm (2.7 - 3.8) LAESV Index (A-L): 33.20 ml/m Ao Diam: 4.0 cm (2.0 - 3.7) AV Cusp: 2.0 cm (1.5 - 2.6) MV EXCURSION: 15.228 mm (> 18.000) MV EF SLOPE: 107 mm/s (70 - 150) EPSS: 0.7 cm MV E Gavin: 0.89 m/s MV DecT: 210 ms MV A Gavin: 0.78 m/s MV E/A Ratio: 1.14 FINDINGS -------- Sinus rhythm. This was a technically good study. The left ventricular size is normal. There is moderate concentric left ventricular hypertrophy. O verall left ventricular systolic function is normal with, an EF between 60 - 65 %. The right ventricle is normal in size. LA is midly dilated 29-33ml/m2. The right atrium is normal in size. Interatrial and interventricular septum intact. The aortic valve is trileaflet and appears structurally normal. Mild mitral regurgitation is present. Trace tricuspid regurgitation present. Trace/mild (physiologic) pulmonic regurgitation. 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 Normal inferior vena cava with normal inspiratory collapse consistent with estimated right atrial pre ssure of 5 mmHg. There is no pericardial effusion. CONCLUSIONS -------- 1. Sinus rhythm. 2. This was a technically good study. 3. The left ventricular size is normal. 4. There is moderate concentric left ventricular hypertrophy. 5. Overall left ventricular systolic function is normal with, an EF between 60 - 65 %. 6. The right ventricle is normal in size. 7. LA is midly dilated 29-33ml/m2. 8. The right atrium is normal in size. 9. Interatrial and interventricular septum intact. 10. The aortic valve is trileaflet and appears structurally normal. 11. Mild mitral regurgitation is present. 12. Trace/mild (physiologic) pulmonic regurgitation. 13. 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 14. Normal inferior vena cava with normal inspiratory collapse consistent with estimated right atrial pressure of 5 mmHg. 15. There is no pericardial effusion. [employer]AMING DEPARTMENT HEAD: Mercy Cantu RDCS
[2019-03-10 11:42] LABS: Calcium 7.1 mg/dL (8.4-10.2); Potassium 3.6 mmol/L (3.5-5.1)
[2019-03-10 11:45] LABS: Glucose,Whole Blood 160 mg/dL (75-99)
--- NOTE | 2019-03-10 11:45 | US ---
EXAMINATION TYPE: US venous doppler duplex LE DATE OF EXAM: 03/10/2019 11:00 AM COMPARISON: NONE CLINICAL HISTORY: Rule out DVT. ICU patient with infection, numbness in legs all the time, no h/o dvt SIDE PERFORMED: Bilateral TECHNIQUE: The lower extremity deep venous system is examined utilizing real time linear array sonog meli with graded compression, doppler sonography and color-flow sonography. VESSELS IMAGED: External Iliac Vein (EIV) Common Femoral Vein Deep Femoral Vein Greater Saphenous Vein * Femoral Vein Popliteal Vein Small Saphenous Vein * Proximal Calf Veins (* superficial vessels) Right Leg: Appears negative for DVT GSV appears to have thrombus at level of the knee, internal ec hoes and not compressible Left Leg: Appears to have thrombus within popiteal vein, internal echoes that did not compress, some flow was seen distally IMPRESSION: 1. Acute deep venous thrombosis within the left lower extremity within the left popliteal vein. 2. No deep venous thrombosis of the right lower extremity however superficial venous thrombosis withi n the greater saphenous vein is present. A [place] level critical message alert has been initiated for [facility] via the [employer] System on 03/10/2019 11:41 AM. This message alert has been sent to [facility] via the preferences provided by the clinician for the receipt of Radiology Critical Findings. Message ID [id number].
[2019-03-10] MEDS ORDERED: IOPAMIDOL CONTRAST (ORAL USE) VIAL PO PRN (13:51)
[2019-03-10 14:36] LABS: Glucose,Whole Blood 167 mg/dL (75-99)
--- NOTE | 2019-03-10 15:04 | CT ---
EXAMINATION TYPE: CT abdomen wo con DATE OF EXAM: 03/10/2019 COMPARISON: None HISTORY: 63-year-old male Diarrhea. Elevated labs. TECHNIQUE: Contiguous axial scanning of the abdomen without IV contrast. Coronal and sagittal reconst ructions performed. CT DLP: 983.8 mGycm Automated exposure control for dose reduction was used. FINDINGS: Heart limits of normal in size without pericardial effusion. Mild coronary vessel calcifications are present. Subpleural areas of atelectasis in the lower lungs. Small hiatal hernia. Motion artifacts in the upper abdomen. Further limitation in assessment due to lack of IV contrast. L iver is enlarged measuring 21.0 cm. Gallbladder is hydropic at 5.5 cm wide. Adrenal glands, spleen, and pancreas show no gross abnormality by noncontrast CT. Bilateral perinephric edema could reflect chronic kidney disease or senescent change. No hydronephros is or nephrolithiasis. Normal appendix. Some mild liquid stool within the right side of the colon. No significant stool romain en. No dilated small bowel, free fluid, or free air. No mesenteric or retroperitoneal lymphadenopathy. Mild atherosclerotic calcifications of abdominal aorta and iliac arteries. The lower abdomen and pelvis is excluded on this exam. Bones: Moderate degenerative disc disease at L4-L5 and [id number] at additional levels in the l umbar spine. Hypertrophic facet arthropathy mid to lower lumbar spine. IMPRESSION: 1. SOME LIQUID STOOL WITHIN THE RIGHT SIDE OF THE COLON SUGGESTS DIARRHEA. 2. HYDROPIC GALLBLADDER 5.5 CM WIDE MAY BE SECONDARY TO FASTING STATE. IF RIGHT UPPER QUADRANT PAIN O R CONCERN FOR EARLY ACUTE CHOLECYSTITIS, FOLLOW-UP ULTRASOUND OR HIDA SCAN. 3. HEPATOMEGALY AT 21.0 CM. 4. NOTE THAT THE PELVIS IS NOT IMAGED.
--- NOTE | 2019-03-10 15:10 | P.CNNES ---
History of Present Illness Consult date: 03/10/19 Reason for Consult: Myasthenia gravis Chief complaint: Myasthenia gravis History of Present Illness: REFERRING PHYSICIAN: Dr. Cristopher Campbell HISTORY OF PRESENT ILLNESS: Thank you for allowing me to evaluate Mr. Saeid Velasco. Mr. Velasco is a 63 year-old man with PMHx of TIA, hyperlipidemia, hypertension, osteoarthritis, sciatica, spinal stenosis, myasthenia gravis, ascending aortic aneurysm, objective sleep apnea with CPAP, presenting to [facility] for evaluation of severe weakness, shortness of breath, fever, and generalized illness, found with new onset A. fib with RVR, consulting neurology for patient's diagnosis of myasthenia gravis. Patient states that he's been having significant diarrhea since last Saturday along with weakness. Patient had been helping his son renovating his house. Patient at one point was sitting down and couldn't get himself to stand, at which point patient decided to come to the hospital. Patient states that his weakness has improved since coming to the hospital, but patient has noticed worsening double vision ye sterday. Patient has been compliant with his medications. Patient states that he's gotten high-dose steroids 3 times this year, last course about a month ago. Patient's neurologist is Dr. Costa. Patient had never gotten high-dose steroids prior to this year. Patient states that after the first course of steroids, he still vision improved, which helped with his vision for about 3 months. Patient received a second course for 3 days, which didn't really help him with his double vision. However after the third course of steroids, patient's vision improved until yesterday when he noticed that he was having double vision. Patient has never had other minor gravis exacerbations other than double vision and left eye or right eye ptosis. Patient is aware that when he has respiratory distress, but should always come to the emergency room. Patient was scheduled for a CT chest this morning, which of course patient cannot go to. Patient had blood tests done about a year ago that tested positive for minor gravis. TIA: in 05/2017, patient had sudden onset blurred vision along with dizziness and some hearing changes. Pt was unable to talk for ~1 min. PAST MEDICAL HISTORY: TIA, hyperlipidemia, hypertension, osteoarthritis, sciatica, spinal stenosis, myasthenia gravis, ascending aortic aneurysm, objective sleep apnea with CPAP PAST SURGICAL HISTORY: None reported. HOME MEDICATIONS: Prednisone 10 mg daily, Plavix 75 daily, simvastatin 40 mg daily at bedtime, Mestinon 120 mg by mouth 3 times a day, multivitamins, meloxicam 15 mg daily, lisinopril 21 g daily, fish oil, azathioprine 100 mg by mouth daily ALLERGIES: Fentanyl SOCIAL HISTORY: Former smoker. FAMILY HISTORY: Mother had stomach cancer. Father had breast cancer. Sr. had breast cancer. Brother has spine cancer. REVIEW OF SYSTEMS: The 14 systems are reviewed and no additional points are identified compared to the review of systems documented history and physical PHYSICAL EXAMINATION: VITAL SIGNS: Temperature 97.9 pulse rate 64 respiratory rate 12 blood pressure 119/67 O2 saturation 98% on 2 L via nasal cannula GEN.: NAD, pleasant and cooperative HEENT: NCAT, sclera without icterus NECK: Supple SKIN AND EXTREMITIES: Warm to touch, no edema NEURO: MENTAL STATUS: Patient alert and oriented to self, place, time. Able to name the current president. Speech fluent, able to name and repeat, following all commands readily. No right and left disorientation, extinction to double simultaneous stimulation, finger agnosia, neglect. CRANIAL NERVES II THROUGH XII: II: Pupils are equal and reactive to light symme trically. No afferent pupillary defect. Visual díaz are intact. III, IV, : Left eye ptosis. Ptosis worsened upon 3 minutes of looking up. Extraocular movements full. No nystagmus. V: Facial sensation intact from V1-3. VII. No clear facial asymmetry. VIII: Hearing intact to finger rub bilaterally. IX, X: Symmetric palate elevation. XI: Shoulder shrug intact. XII: Tongue midline without fasciculation or atrophy. MOTOR: Normal bulk/tone. No pronator drift or tremor. Strength is 5/5 t hroughout all 4 extremities. SENSORY: Intact to light touch, temperature, pinprick in all 4 extremities. Romberg is negative. REFLEXES: 2+ throughout. Toes are downgoing. No clonus. Roland's is absent COORDINATION: Finger to nose and heel to nguyen intact. No dysmetria. Rapid alternating movements with good speed and accuracy. GAIT: Deferred due to patient's discomfort of having a Stinson catheter and a line in his neck. DIAGNOSTIC TESTING: LABORATORY: WBC 12.7 Hgb 13.7 platelets 127 PT 11.3 INR 1.1 sodium 129 (improved to 134) potassium 3.5 chloride 107 bicarb 14 BUN 46 creatinine 2.39 glucose 186 calcium 6.9 urinalysis negative nitrites small leuk esterase C. diff negative IMAGING: Chest x-ray 03/09/2019: Limited exam. No active cardiopulmonary disease. Heart appears increased compared to old exam. MRI brain without contrast 03/25/2018: 0.5 x 0.4 x 0.8cm right frontal periventricular coronal radiata lesion 0.4 x 0.4 x 0.3 left frontal deep white matter lesions stable Mild to moderate nonspecific white matter changes be demonstrated. No significant change from prior MRI. Number of lesions felt falsely high prior MRI report. No knee or enhancing lesions are seen. ASSESSMENT: Mr. Velasoc is a 63 year-old man with PMHx of TIA, hyperlipidemia, hypertension, osteoarthritis, sciatica, spinal stenosis, myasthenia gravis, ascending aortic aneurysm, objective sleep apnea with CPAP, presenting to [facility] for evaluation of severe weakness, shortness of breath, fever, and generalized illness, found with new onset A. fib with RVR, consulting neurology for patient's diagnosis of myasthenia gravis. Patient's symptoms may have worsened in the setting of significant diarrhea but also caused A. fib with RVR. Patient at this time complaining of double vision and left eye ptosis. Patient most recently received a 5 day course of high-dose steroids about 1 month ago, patient at this time on prednisone 10 mg daily along with azathioprine and Mestinon. RECOMMENDATIONS: 1. Increase prednisone dose to 20mg daily and then increase by 5 mg every 3-5 days to a target dose of 60 mg per day. 2. Continue patient's dose of Mestinon and azathioprine. 3. IVIG is considering the setting of severe myasthenia gravis or acute deterioration. Would not recommended at this time. It will be helpful for patient to be seen by a neuromuscular specialist. 4. Patient to follow up with his neurologist within 2-3 weeks of discharge. 5. Neurology will sign off at this time. Please feel free to contact Neurology again if with additional questions or concerns. Past Medical History Past Medical History: CVA/TIA, Hyperlipidemia, Hypertension, Osteoarthritis (OA) Additional Past Medical History / Comment(s): Sciatica, spinal stenosis myasthenia gravis, ascending aortic aneursym, MARIOLA with CPAP History of Any Multi-Drug Resistant Organisms: None Reported Past Surgical History: No Surgical Hx Reported Past Anesthesia/Blood Transfusion Reactions: No Reported Reaction Past Psychological History: No Psychological Hx Reported Smoking Status: Former smoker Past Alcohol Use History: None Reported Past Drug Use History: None Reported - Past Family History Mother Family Medical History: Cancer Additional Family Medical History / Comment(s): Stomach Cancer Father Family Medical History: Cancer Additional Family Medical History / Comment(s): breast CA Sister(s) Family Medical History: Cancer Additional Family Medical History / Comment(s): breast CA Brother(s) Family Medical History: Cancer Additional Family Medical History / Comment(s): Spine CA Medications and Allergies Home Medications Medication Instructions Recorded Confirmed Type predniSONE 10 mg PO DAILY 06/02/17 03/09/19 History Clopidogrel [Plavix] 75 mg PO DAILY #30 tab 06/04/17 03/09/19 Rx Simvastatin [Zocor] 40 mg PO HS 01/27/18 03/09/19 History Lisinopril 20 mg PO DAILY 09/03/18 03/09/19 History Meloxicam [Mobic] 15 mg PO DAILY 09/03/18 03/09/19 History Multivitamins, Thera [Multivitamin 1 tab PO DAILY 09/03/18 03/09/19 History (formulary)] Pyridostigmine Gary [Mestinon] 120 mg PO TID 09/03/18 03/09/19 History [place]-3 Fatty Acids/Fish Oil [Fish 1 cap PO DAILY 03/09/19 03/09/19 History Oil 1,000 mg Softgel] azaTHIOprine [Imuran] 100 mg PO DAILY 03/09/19 03/09/19 History Allergies Allergy/AdvReac Type Severity Reaction Status Date / Time fentanyl AdvReac Intermediate Nausea & Verified 03/09/19 18:34 Vomiting Physical Examination - Vital Signs Vital Signs: Vital Signs Temp Pulse Pulse Resp BP BP Pulse Ox 03/10/19 09:00 66 18 115/65 98 03/10/19 08:30 77 18 132/68 96 03/10/19 08:00 97.9 F 64 12 119/67 98 09/03/19 07:35 68 03/10/19 07:30 57 L 12 119/68 100 03/10/19 07:22 66 98 03/10/19 07:00 57 L 17 122/78 98 03/10/19 06:30 56 L 24 119/69 97 03/10/19 06:00 55 L 21 113/61 98 03/10/19 05:30 55 L 18 96/58 98 03/10/19 05:00 49 L 16 98/57 94 L 03/10/19 04:30 61 18 95/60 94 L 03/10/19 04:00 97.0 F L 61 68 23 130/69 96 03/10/19 03:30 66 22 119/67 96 03/10/19 03:00 56 L 13 118/74 96 03/10/19 02:30 62 19 99/55 94 L 03/10/19 02:00 60 21 96/64 96 03/10/19 01:48 65 20 104/59 97 03/10/19 01:45 70 22 96 03/10/19 01:32 68 18 94/62 03/10/19 01:30 63 12 104/59 97 03/10/19 01:15 66 12 94/62 97 03/10/19 01:00 102 H 12 100/57 97 03/10/19 00:45 111 H 18 105/70 97 03/10/19 00:30 103 H 18 90/61 96 03/10/19 00:15 97.9 F 114 H 19 102/63 96 03/10/19 00:00 96 13 87/69 96 03/09/19 23:45 108 H 22 83/54 97 03/09/19 23:30 101 H 18 89/48 96 03/09/19 23:15 99 12 74/59 94 L 03/09/19 23:00 108 H 23 84/54 94 L 03/09/19 22:45 116 H 22 89/57 90 L 03/09/19 22:30 115 H 22 77/53 95 03/09/19 22:25 98.9 F 117 H 18 78/60 98 03/09/19 20:54 125 H 18 76/57 98 03/09/19 19:28 99.3 F 141 H 20 98/57 97 03/09/19 18:04 168 H 03/09/19 18:01 103.2 F H 03/09/19 17:47 101.6 F H 165 H 28 H 108/83 96 Intake and Output 03/09/19 03/10/19 03/10/19 22:59 06:59 14:59 Intake Total 2028.331 620 Output Total 670 475 Balance 1358.331 145 Intake: IV 1880 620 Lactated Ringers 1,000 ml 1050 600 @ 150 mls/hr IV .[id number] [facility] Rx#:[id number] Levofloxacin 750Mg-D5w 150 Pmx 750 mg In Dextrose/ Water 1 150ml.bag @ 100 mls/hr IVPB Q48H [facility] Rx#: [id number] Sodium Chloride 0.9% 500 680 20 ml 500 ml @ 999 mls/hr IV .Q31M [facility] Rx#:[id number] Intake, IV Titration 148.331 Amount Diltiazem 125 mg In 26.5 Sodium Chloride 0.9% 100 ml @ 5 MG/HR 5 mls/hr IV .Q24H [facility] Rx#:[id number] Heparin Sod,Pork in 0.45% 119.584 NaCl 25,000 unit In 0.45 % NaCl 1 250ml.bag @ 18 UNITS/KG/HR 21.228 mls/hr IV .[id number] [facility] Rx#: [id number] Norepinephrine 4 mg In 2.247 Sodium Chloride 0.9% 250 ml @ 0.05 MCG/KG/MIN 22. 466 mls/hr IV .[id number] [facility] Rx#:[id number] Output: Urine 670 475 Other: Voiding Method Indwelling Catheter # Voids 0 1 # Bowel Movements 1 Weight 117.934 kg 122.1 kg Results - Laboratory Findings CBC and BMP: 03/10/19 02:20 03/10/19 10:53 Abnormal Lab Findings: Abnormal Labs 03/09/19 03/09/19 03/09/19 18:09 18:09 18:09 WBC 12.2 H Plt Count Neutrophils # 11.1 H Neutrophils # (Manual) Lymphocytes # 0.1 L Lymphocytes # (Manual) APTT D-Dimer 12.14 H Sodium 126 L Chloride 96 L Carbon Dioxide 16 L BUN 47 H Creatinine 2.67 H Glucose 187 H POC Glucose (mg/dL) Plasma Lactic Acid Cole Calcium Phosphorus 2.4 L Creatine Kinase 535 H Troponin I Urine Protein Urine Blood Ur Leukocyte Esterase Urine WBC Urine Mucus 03/09/19 03/09/19 03/09/19 18:09 18:09 23:01 WBC Plt Count Neutrophils # Neutrophils # (Manual) Lymphocytes # Lymphocytes # (Manual) APTT D-Dimer Sodium Chloride Carbon Dioxide BUN Creatinine Glucose POC Glucose (mg/dL) Plasma Lactic Acid Cole 3.2 H* 2.7 H* Calcium Phosphorus Creatine Kinase Troponin I 0.063 H* Urine Protein Urine Blood Ur Leukocyte Esterase Urine WBC Urine Mucus 03/10/19 03/10/19 03/10/19 01:01 02:20 02:20 WBC 12.7 H Plt Count 127 L Neutrophils # 12.2 H Neutrophils # (Manual) 12.30 H Lymphocytes # 0.0 L Lymphocytes # (Manual) 0.13 L APTT 103.1 H* D-Dimer Sodium Chloride Carbon Dioxide BUN Creatinine Glucose POC Glucose (mg/dL) Plasma Lactic Acid Cole Calcium Phosphorus Creatine Kinase Troponin I Urine Protein 1+ H Urine Blood Small H Ur Leukocyte Esterase Small H Urine WBC 16 H Urine Mucus Rare H 03/10/19 03/10/19 03/10/19 02:20 06:52 06:59 WBC Plt Count Neutrophils # Neutrophils # (Manual) Lymphocytes # Lymphocytes # (Manual) APTT D-Dimer Sodium 129 L 134 L Chloride Carbon Dioxide 14 L BUN 46 H Creatinine 2.39 H Glucose 186 H POC Glucose (mg/dL) 180 H Plasma Lactic Acid Cole Calcium 6.9 L Phosphorus Creatine Kinase Troponin I Urine Protein Urine Blood Ur Leukocyte Esterase Urine WBC Urine Mucus
[2019-03-10] MEDS: ACETAMINOPHEN TAB 325 MG TAB PO PRN (15:30)
--- NOTE | 2019-03-10 16:06 | US ---
EXAMINATION TYPE: US kidneys/renal and bladder DATE OF EXAM: 03/10/2019 COMPARISON: NONE CLINICAL HISTORY: attila. ICU patient with infection EXAM MEASUREMENTS: Right Kidney: 12.0 x 6.2 x 6.3 cm Left Kidney: 12.5 x 5.6 x 7.6 cm Right Kidney: No hydronephrosis or masses seen Left Kidney: No hydronephrosis or masses seen Bladder: malagon There is no evidence for hydronephrosis at this point in time. No nephrolithiasis is seen. No jaz s are identified. The urinary bladder is nondistended secondary to Malagon catheter placement IMPRESSION: No hydronephrosis or nephrolithiasis. Unremarkable renal ultrasound.
[2019-03-10 16:18] LABS: Amorphous Sediment,Urine Few /hpf; Appearance,Urine Cloudy (Clear); Bacteria,Urine Occasional /hpf; Bilirubin,Urine Negative (Negative); Blood,Urine Moderate (Negative); Color,Urine Yellow; Glucose,Urine (UA) Negative (Negative); Granular Casts,Urine 16 /lpf (0); Ketones,Urine Negative (Negative); Leukocyte Esterase,Urine Trace (Negative); Mucus,Urine Rare /hpf; Nitrite,Urine Negative (Negative); PH, Urine 5.5 (5.0-8.0); Protein,Urine 1+ (Negative); RBC,Urine 60 /hpf (0-5); Specific Gravity,Urine 1.022 (1.001-1.035); Squamous Epithelial Cell,Urine 1 /hpf (0-4); Urobilinogen,Urine <2.0 mg/dL (<2.0)
[2019-03-10 16:42] LABS: Glucose,Whole Blood 134 mg/dL (75-99)
[2019-03-10] MEDS: DILTIAZEM 125 MG in SODIUM CHLORIDE 0.9% 100 ML IV SCH (17:39)
[2019-03-10 18:36] LABS: Calcium 7.3 mg/dL (8.4-10.2); Magnesium 1.6 mg/dL (1.6-2.3); Potassium 3.1 mmol/L (3.5-5.1)
[2019-03-10] MEDS: POTASSIUM CHLORIDE ER 20 MEQ TAB.ER PO SCH ×3 (18:55→22:03)
[2019-03-10] MEDS: MAGNESIUM SULFATE-D5W PMX 1 GM in DEXTROSE/WATER 1 100ML.BAG IVPB SCH ×2 (18:55→20:24)
[2019-03-10] MEDS: FAMOTIDINE 20 MG/2 ML VIAL IV SCH (20:23)
[2019-03-10] MEDS: METOPROLOL SUCCINATE (ER) 25 MG TAB.ER.24H PO SCH (20:23)
[2019-03-10] MEDS: ATORVASTATIN 20 MG TAB PO SCH (20:24)
[2019-03-10 20:26] LABS: Glucose,Whole Blood 231 mg/dL (75-99)
[2019-03-10] MEDS ORDERED: ACETAMINOPHEN IV (For NPO) 1,000 MG in EMPTY BAG 1 BAG IVPB ONE (21:00)
[2019-03-10] MEDS ORDERED: VANCOMYCIN IV PER PHARMACY 1 EACH MISC MISCELLANE PRN (22:45)
--- NOTE | 2019-03-10 22:59 | P.CONS ---
History of Present Illness - Reason for Consult Consult date: 03/10/19 Fever Requesting physician: Eulogio E Sheet - Chief Complaint Diarrhea times few days - History of Present Illness is a 63 year male with a past medical history significant for myasthenia gravis currently the patient is being managed with Imuran steroids and mestinon, patient will give a history of chronic soft stools with about 3-4 bowel movements per day no chronic diarrhea however the last few days the patient had did have liquidy stools with a frequency almost 7-8 out of 10 patient did have some nausea but no vomiting and denies significant abdominal pain. Denies any blood or mucus in the stools patient did not recall anything any unusual and no other family members have the same GI symptoms the patient did not recall any exposure to antibiotic in the recent past however did admit to high-dose IV steroid recently was myasthenia gravis symptoms with worsening diarrhea the patient presented to [facility] ER on arrival to the area the patient was noticed to be febrile with temperature 10 2F did have some tachycardia secondary to A. fib with RVR with elevated white count patient has been admitted to the ICU chest x-ray was negative. UA was not significantly positive, stool for C. diff was sent which came back negative patient was started on Zosyn and infectious disease was consulted for further recommendation regarding antibiotic Review of Systems Positive points has been mentioned in HPI rest of the systems are negative Past Medical History Past Medical History: CVA/TIA, Hyperlipidemia, Hypertension, Osteoarthritis (OA) Additional Past Medical History / Comment(s): Sciatica, spinal stenosis myasthenia gravis ascending aortic aneursym History of Any Multi-Drug Resistant Organisms: None Reported Past Surgical History: No Surgical Hx Reported Past Anesthesia/Blood Transfusion Reactions: No Reported Reaction Past Psychological History: No Psychological Hx Reported Smoking Status: Former smoker Past Alcohol Use History: Occasional Past Drug Use History: None Reported - Past Family History Mother Family Medical History: Cancer Additional Family Medical History / Comment(s): Stomach Cancer Father Family Medical History: Cancer Additional Family Medical History / Comment(s): breast CA Sister(s) Family Medical History: Cancer Additional Family Medical History / Comment(s): breast CA Brother(s) Family Medical History: Cancer Additional Family Medical History / Comment(s): Spine CA Medications and Allergies Home Medications Medication Instructions Recorded Confirmed Type predniSONE 10 mg PO DAILY 06/02/17 03/09/19 History Clopidogrel [Plavix] 75 mg PO DAILY #30 tab 06/04/17 03/09/19 Rx Simvastatin [Zocor] 40 mg PO HS 01/27/18 03/09/19 History Lisinopril 20 mg PO DAILY 09/03/18 03/09/19 History Meloxicam [Mobic] 15 mg PO DAILY 09/03/18 03/09/19 History Multivitamins, Thera [Multivitamin 1 tab PO DAILY 09/03/18 03/09/19 History (formulary)] Pyridostigmine [place] [Mestinon] 120 mg PO TID 09/03/18 03/09/19 History [place]-3 Fatty Acids/Fish Oil [Fish 1 cap PO DAILY 03/09/19 03/09/19 History Oil 1,000 mg Softgel] azaTHIOprine [Imuran] 100 mg PO DAILY 03/09/19 03/09/19 History Allergies Allergy/AdvReac Type Severity Reaction Status Date / Time fentanyl AdvReac Intermediate Nausea & Verified 03/09/19 18:34 Vomiting Physical Exam Vitals: Vital Signs Temp Pulse Pulse Resp BP BP Pulse Ox 03/10/19 11:38 60 03/10/19 11:30 56 L 03/10/19 11:00 61 14 127/72 98 03/10/19 10:30 56 L 16 113/101 97 03/10/19 10:00 59 L 17 124/64 98 03/10/19 09:30 57 L 17 122/68 98 03/10/19 09:00 66 18 115/65 98 03/10/19 08:30 77 18 132/68 96 03/10/19 08:00 97.9 F 64 12 119/67 98 03/10/19 07:35 68 03/10/19 07:30 57 L 12 119/68 100 03/10/19 07:22 66 98 03/10/19 07:00 57 L 17 122/78 98 03/10/19 06:30 56 L 24 119/69 97 03/10/19 06:00 55 L 21 113/61 98 03/10/19 05:30 55 L 18 96/58 98 03/10/19 05:00 49 L 16 98/57 94 L 03/10/19 04:30 61 18 95/60 94 L 03/10/19 04:00 97.0 F L 61 68 23 130/69 96 03/10/19 03:30 66 22 119/67 96 03/10/19 03:00 56 L 13 118/74 96 03/10/19 02:30 62 19 99/55 94 L 03/10/19 02:00 60 21 96/64 96 03/10/19 01:48 65 20 104/59 97 03/10/19 01:45 70 22 96 03/10/19 01:32 68 18 94/62 03/10/19 01:30 63 12 104/59 97 03/10/19 01:15 66 12 94/62 97 03/10/19 01:00 102 H 12 100/57 97 03/10/19 00:45 111 H 18 105/70 97 03/10/19 00:30 103 H 18 90/61 96 03/10/19 00:15 97.9 F 114 H 19 102/63 96 03/10/19 00:00 96 13 87/69 96 03/09/19 23:45 108 H 22 83/54 97 03/09/19 23:30 101 H 18 89/48 96 03/09/19 23:15 99 12 74/59 94 L 03/09/19 23:00 108 H 23 84/54 94 L 03/09/19 22:45 116 H 22 89/57 90 L 03/09/19 22:30 115 H 22 77/53 95 03/09/19 22:25 98.9 F 117 H 18 78/60 98 03/09/19 20:54 125 H 18 76/57 98 03/09/19 19:28 99.3 F 141 H 20 98/57 97 03/09/19 18:04 168 H 03/09/19 18:01 103.2 F H 03/09/19 17:47 101.6 F H 165 H 28 H 108/83 96 Intake and Output 03/09/19 03/10/19 03/10/19 22:59 06:59 14:59 Intake Total 2028.331 866.411 Output Total 670 630 Balance 1358.331 236.411 Intake: IV 1880 770 Lactated Ringers 1,000 ml 1050 750 @ 150 mls/hr IV .Q6H40M [facility] Rx#:[id number] Levofloxacin 750Mg-D5w 150 Pmx 750 mg In Dextrose/ Water 1 150ml.bag @ 100 mls/hr IVPB Q48H [facility] Rx#: [id number] Sodium Chloride 0.9% 500 680 20 ml 500 ml @ 999 mls/hr IV .Q31M [facility] Rx#:[id number] Intake, IV Titration 148.331 96.411 Amount Diltiazem 125 mg In 26.5 Sodium Chloride 0.9% 100 ml @ 5 MG/HR 5 mls/hr IV .Q24H [facility] Rx#:[id number] Heparin Sod,Pork in 0.45% 119.584 96.411 NaCl 25,000 unit In 0.45 % NaCl 1 250ml.bag @ 18 UNITS/KG/HR 21.228 mls/hr IV .[id number] [facility] Rx#: [id number] Norepinephrine 4 mg In 2.247 0 Sodium Chloride 0.9% 250 ml @ 0.05 MCG/KG/MIN 22. 466 mls/hr IV .[id number] [facility] Rx#:[id number] Output: Urine 670 630 Other: Voiding Method Indwelling Catheter # Voids 0 1 # Bowel Movements 1 Weight 117.934 kg 122.1 kg GENERAL DESCRIPTION: Elderly male lying in bed, no distress. No tachypnea or accessory muscle of respiration use. HEENT: Shows Pallor , no scleral icterus. Oral mucous membrane is dry. No pharyngeal erythema or thrush NECK: Trachea central, no thyromegaly. LUNGS: Unlabored breathing. Decreased breath sound at the base. No wheeze or crackle. HEART: S1, S2, regular rate and rhythm. No loud murmur ABDOMEN: Soft, mild distention but no tenderness , guarding or rigidity, no organomegaly EXTREMITIES: No edema of feet. SKIN: No rash, no masses palpable. NEUROLOGICAL: The patient is awake, alert, oriented x3, mood and affect normal. Results CBC & Chem 7: 03/10/19 02:20 03/10/19 16:50 Labs: Abnormal Lab Results - Last 24 Hours (Table) 03/09/19 03/09/19 03/09/19 Range/Units 18:09 18:09 18:09 WBC 12.2 H (3.8-10.6) k/uL Plt Count (150-450) k/uL Neutrophils # 11.1 H (1.3-7.7) k/uL Neutrophils # (Manual) (1.3-7.7) k/uL Lymphocytes # 0.1 L (1.0-4.8) k/uL Lymphocytes # (Manual) (1.0-4.8) k/uL APTT (22.0-30.0) sec D-Dimer 12.14 H (<0.60) mg/L FEU Sodium 126 L (137-145) mmol/L Chloride 96 L (98-107) mmol/L Carbon Dioxide 16 L (22-30) mmol/L BUN 47 H (9-20) mg/dL Creatinine 2.67 H (0.66-1.25) mg/dL Glucose 187 H (74-99) mg/dL POC Glucose (mg/dL) (75-99) mg/dL Plasma Lactic Acid Cole (0.7-2.0) mmol/L Calcium (8.4-10.2) mg/dL Phosphorus 2.4 L (2.5-4.5) mg/dL Creatine Kinase 535 H (55-170) U/L Troponin I (0.000-0.034) ng/mL Urine Protein (Negative) Urine Blood (Negative) Ur Leukocyte Esterase (Negative) Urine WBC (0-5) /hpf Urine Mucus (None) /hpf 03/09/19 03/09/19 03/09/19 Range/Units 18:09 18:09 23:01 WBC (3.8-10.6) k/uL Plt Count (150-450) k/uL Neutrophils # (1.3-7.7) k/uL Neutrophils # (Manual) (1.3-7.7) k/uL Lymphocytes # (1.0-4.8) k/uL Lymphocytes # (Manual) (1.0-4.8) k/uL APTT (22.0-30.0) sec D-Dimer (<0.60) mg/L FEU Sodium (137-145) mmol/L Chloride (98-107) mmol/L Carbon Dioxide (22-30) mmol/L BUN (9-20) mg/dL Creatinine (0.66-1.25) mg/dL Glucose (74-99) mg/dL POC Glucose (mg/dL) (75-99) mg/dL Plasma Lactic Acid Cole 3.2 H* 2.7 H* (0.7-2.0) mmol/L Calcium (8.4-10.2) mg/dL Phosphorus (2.5-4.5) mg/dL Creatine Kinase (55-170) U/L Troponin I 0.063 H* (0.000-0.034) ng/mL Urine Protein (Negative) Urine Blood (Negative) Ur Leukocyte Esterase (Negative) Urine WBC (0-5) /hpf Urine Mucus (None) /hpf 03/10/19 03/10/19 03/10/19 Range/Units 01:01 02:20 02:20 WBC 12.7 H (3.8-10.6) k/uL Plt Count 127 L (150-450) k/uL Neutrophils # 12.2 H (1.3-7.7) k/uL Neutrophils # (Manual) 12.30 H (1.3-7.7) k/uL Lymphocytes # 0.0 L (1.0-4.8) k/uL Lymphocytes # (Manual) 0.13 L (1.0-4.8) k/uL APTT 103.1 H* (22.0-30.0) sec D-Dimer (<0.60) mg/L FEU Sodium (137-145) mmol/L Chloride (98-107) mmol/L Carbon Dioxide (22-30) mmol/L BUN (9-20) mg/dL Creatinine (0.66-1.25) mg/dL Glucose (74-99) mg/dL POC Glucose (mg/dL) (75-99) mg/dL Plasma Lactic Acid Cole (0.7-2.0) mmol/L Calcium (8.4-10.2) mg/dL Phosphorus (2.5-4.5) mg/dL Creatine Kinase (55-170) U/L Troponin I (0.000-0.034) ng/mL Urine Protein 1+ H (Negative) Urine Blood Small H (Negative) Ur Leukocyte Esterase Small H (Negative) Urine WBC 16 H (0-5) /hpf Urine Mucus Rare H (None) /hpf 03/10/19 03/10/19 03/10/19 Range/Units 02:20 06:52 06:59 WBC (3.8-10.6) k/uL Plt Count (150-450) k/uL Neutrophils # (1.3-7.7) k/uL Neutrophils # (Manual) (1.3-7.7) k/uL Lymphocytes # (1.0-4.8) k/uL Lymphocytes # (Manual) (1.0-4.8) k/uL APTT (22.0-30.0) sec D-Dimer (<0.60) mg/L FEU Sodium 129 L 134 L (137-145) mmol/L Chloride (98-107) mmol/L Carbon Dioxide 14 L (22-30) mmol/L BUN 46 H (9-20) mg/dL Creatinine 2.39 H (0.66-1.25) mg/dL Glucose 186 H (74-99) mg/dL POC Glucose (mg/dL) 180 H (75-99) mg/dL Plasma Lactic Acid [place] (0.7-2.0) mmol/L Calcium 6.9 L (8.4-10.2) mg/dL Phosphorus (2.5-4.5) mg/dL Creatine Kinase (55-170) U/L Troponin I (0.000-0.034) ng/mL Urine Protein (Negative) Urine Blood (Negative) Ur Leukocyte Esterase (Negative) Urine WBC (0-5) /hpf Urine Mucus (None) /hpf 03/10/19 03/10/19 03/10/19 Range/Units 10:53 10:53 11:33 WBC (3.8-10.6) k/uL Plt Count (150-450) k/uL Neutrophils # (1.3-7.7) k/uL Neutrophils # (Manual) (1.3-7.7) k/uL Lymphocytes # (1.0-4.8) k/uL Lymphocytes # (Manual) (1.0-4.8) k/uL APTT 63.5 H (22.0-30.0) sec D-Dimer (<0.60) mg/L FEU Sodium 135 L (137-145) mmol/L Chloride (98-107) mmol/L Carbon Dioxide 18 L (22-30) mmol/L BUN 40 H (9-20) mg/dL Creatinine 1.85 H (0.66-1.25) mg/dL Glucose 155 H (74-99) mg/dL POC Glucose (mg/dL) 160 H (75-99) mg/dL Plasma Lactic Acid [place] (0.7-2.0) mmol/L Calcium 7.1 L (8.4-10.2) mg/dL Phosphorus (2.5-4.5) mg/dL Creatine Kinase (55-170) U/L Troponin I (0.000-0.034) ng/mL Urine Protein (Negative) Urine Blood (Negative) Ur Leukocyte Esterase (Negative) Urine WBC (0-5) /hpf Urine Mucus (None) /hpf Microbiology - Last 24 Hours (Table) 03/10/19 01:01 Urine Culture - Preliminary Urine,Catheterized Assessment and Plan Assessment: 1-patient presented to hospital with sepsis in this patient who did have a fever and elevated white count predominantly GI symptoms in this patient who did do history of myasthenia gravis and is currently on Imuran steroids and mestinon, the patient chronically loose stools could be secondary to his medication being used for metastatic gravis however acute worsening significant loose stools likely indicating possible infectious etiology especially the presence of fever stool for C. diff has already been excluded by negative test the patient has not been exposed to any antibiotic in the recent past, and the patient currently with no other clinical focus of infection chest x-ray has been negative urine is negative no evidence of any cellulitis or joint swelling (1) Sepsis Current Visit: Yes Status: Acute Code(s): A41.9 - SEPSIS, UNSPECIFIED ORGANISM SNOMED Code(s): 84900789 Plan: 1-we will check stool for C. diff PCR and check a stool culture 2-await CT of abdominal pelvis 3-discontinue Zosyn 4-start the patient cefepime 2 g every 12 and Flagyl 500 every 8 hours 5-IV fluids we will follow on clinical condition and culture to further adjust medication if needed Thank you for this consultation will follow this patient along with you Time with Patient: Greater than 30
[2019-03-10] MEDS: CEFEPIME 2 GM in SODIUM CHLORIDE 0.9% 100 ML IVPB SCH (23:25)
[2019-03-10] MEDS: metroNIDAZOLE-NS PMX 500 MG in SALINE 1 100ML.BAG IVPB SCH (23:31)
[2019-03-10] MEDS ORDERED: HYDROcodone/APAP 5-325MG 1 EACH TAB PO PRN (23:49)
[2019-03-11] MEDS: LACTATED RINGERS 1,000 ML IV SCH ×3 (00:11→12:01)
[2019-03-11] MEDS ORDERED: VANCOMYCIN 2,000 MG in SODIUM CHLORIDE 0.9% 500 ML 500 ML IVPB SCH (01:00)
[2019-03-11] MEDS ORDERED: MORPHINE SULFATE 2 MG/ML SYRINGE IVP PRN (05:17)
[2019-03-11 05:37] LABS: Partial Thromboplastin Time 89.3 sec (22.0-30.0); Prothrombin Time 10.4 sec (9.0-12.0)
[2019-03-11 06:39] LABS: Basophils # (A) 0.1 k/uL (0-0.2); Basophils % (A) 1 %; Eosinophils # (A) 0.1 k/uL (0-0.7); Eosinophils % (A) 1 %; HCT 37.4 % (39.0-53.0); HGB 12.5 gm/dL (13.0-17.5); Lymphocytes # (A) 0.1 k/uL (1.0-4.8); Lymphocytes % (A) 1 %; MCHC 33.4 g/dL (31.0-37.0); Mean Platelet Volume 8.5; Monocytes # (A) 0.2 k/uL (0-1.0); Monocytes % (A) 3 %; Neutrophils # (A) 7.5 k/uL (1.3-7.7); Neutrophils % (A) 93 %; Platelet Count 108 k/uL (150-450); RBC 4.46 m/uL (4.30-5.90); RDW 14.3 % (11.5-15.5)
[2019-03-11 07:08] LABS: Glucose,Whole Blood 124 mg/dL (75-99)
[2019-03-11] MEDS: INSULIN ASPART (NovoLOG) 100 UNIT/ML VIAL SQ SCH ×4 (07:16→21:19)
[2019-03-11] MEDS: IPRATROPIUM-ALBUTEROL 3 ML NEB INHALATION SCH ×4 (07:17→20:28)
[2019-03-11 08:06] LABS: Calcium 7.2 mg/dL (8.4-10.2); Potassium 3.8 mmol/L (3.5-5.1)
[2019-03-11] MEDS: SODIUM BICARBONATE TAB 650 MG TAB PO SCH ×4 (08:22→21:20)
[2019-03-11] MEDS: METOPROLOL SUCCINATE (ER) 25 MG TAB.ER.24H PO SCH ×2 (08:23→21:21)
[2019-03-11] MEDS: PYRIDOSTIGMINE 60 MG TAB PO SCH ×3 (08:23→21:20)
[2019-03-11] MEDS: MULTIVITAMINS, THERA 1 EACH TAB PO SCH (08:23)
[2019-03-11] MEDS: predniSONE 20 MG TAB PO SCH (08:23)
[2019-03-11] MEDS: FAMOTIDINE 20 MG/2 ML VIAL IV SCH ×2 (08:24→21:19)
[2019-03-11] MEDS: CLOPIDOGREL 75 MG TAB PO SCH (08:24)
[2019-03-11] MEDS: azaTHIOprine 50 MG TAB PO SCH (08:25)
[2019-03-11] MEDS: metroNIDAZOLE-NS PMX 500 MG in SALINE 1 100ML.BAG IVPB SCH ×3 (08:32→23:08)
[2019-03-11] MEDS: NOREPINEPHRINE 4 MG in SODIUM CHLORIDE 0.9% 250 ML IV SCH ×2 (08:33→22:46)
--- NOTE | 2019-03-11 08:38 | XR ---
EXAMINATION TYPE: XR chest 1V portable DATE OF EXAM: 03/11/2019 COMPARISON: 03/10/2019 HISTORY: Exertional dyspnea TECHNIQUE: Single frontal view of the chest is obtained. FINDINGS: Cardiomediastinal silhouette is again enlarged. There is there are new bibasilar patchy op acities. Remainder the lungs are clear. No sizable pneumothorax or pleural effusion. Right-sided inte rnal jugular central venous catheter is stable. Patient is slightly rotated widening the mediastinum. Degenerative changes of the spine. IMPRESSION: New subtle patchy bibasilar opacities, likely atelectasis.
--- NOTE | 2019-03-11 09:49 | P.PN ---
Subjective This is a pleasant 63 years old male with past medical history of hypertension, hyperlipidemia, osteoarthritis, spinal stenosis, myasthenia gravis on Imuran and he follows with Dr. Costa, arthritis on prednisone, ascending aortic aneurysm, obstructive sleep apnea on CPAP, sciatica. Who presents because of watery of 3-4 days duration, diarrhea and generalized weakness. Patient says that he has soft stools for many years however for the last 3-4 days is becoming watery and constant. He felt generalized weakness and he fell on the ground w ith needed help to get up. He denies syncope. He denies chest pain or dyspnea. No abdominal pain. He has some nausea but no vomiting. No rash Vitas looks stable currently, his of her blood pressure 122/78. However on admission he had a fever of 1.3.2, he was hypotensive 76/57, saturating 98% on 2 L and he was tachycardic at 125-165. Labs showing ef 12.7 K, hemoglobin 13.7 and platelets 127K. sodium 129, went up to 134, creatinine 2.39 . Baseline creatinine 0.8. UA is not strongly suggestive of infection. C. diff is negative. D-dimer elevated at 12.14, liver enzymes not elevated, troponin is elevated at 0.06. TSH is 1.1. Ethanol a is negative. Chest x-ray no acute pulmonary process. EKG showing atrial fibrillation with rapid ventricular response at 146 Right internal jugular intravenous catheter was placed. And was started on antibiotics with Zosyn. Received several boluses of IV fluids, more than 5.5 L of normal saline. Started on Ringer lactate at 150 mL/h. He got 1 dose of ibuprofen. Aleve affect was ordered and he was started on heparin drip and Cardizem drip. Cipro consult is has been called already from emergency room including cardiology, nephrology, pulmonary/critical care and infectious disease. 03/11/2019 Patient is awake, alert, resting comfortably in bed with no distress. No chest pain. No shortness of breath. He still have watery diarrhea about 6-8 bouts per night, or every 1-2 hours. He feels his belly is gassy but no abdominal pain, he has decreased appetite but no nausea vomiting. He has mild left shoulder pain from twice, last one was about one week ago. However there is no restriction of movement actively or passively and he can easily raise his arm above his 8. Abdominal CAT scan yesterday showed hepatomegaly with possible gallbladder disease however patient have no right upper quadrant pain or tenderness. Liver ultrasound is ordered today. Doppler was positive for left DVT and dried superficial venous thrombosis, pain medicine is a provided and patient is currently on heparin drip. Patient is off of Levaquin or Cardizem drip his blood pressure and heart rate is controlled with metoprolol. Neurology input is appreciated and patient is on prednisone, higher dose and by rest and ketamine for his myasthenia gravis. Echo shows ejection fraction 60-65%. Vitals are stable. We will see back to normal at 8K, INR is 1.0, sodium 134, creatinine 1.4, coming down from 1.85 yesterday. Lactic acid is slightly tyler vated at 2.5, sugars controlled. Chest x-ray showing possible atelectasis. ID input is appreciated and switch Zosyn to cefepime and Flagyl. Follow-up stool studies. Review of systems CONSTITUTIONAL: No fever HEENT: No recent visual problems or hearing problems. Denied any sore throat. CARDIOVASCULAR: No orthopnea, PND, no palpitations, no syncope. PULMONARY: No shortness of breath, no cough, no hemoptysis. GASTROINTESTINAL: no nausea, no vomiting, no abdominal pain. Normoactive bowel sounds. NEUROLOGICAL: No headaches, no weakness, no numbness. HEMATOLOGICAL: Denies any bleeding or petechiae. GENITOURINARY: Denies any burning micturition, frequency, or urgency. MUSCULOSKELETAL/RHEUMATOLOGICAL: Denies any joint pain, swelling, or any muscle pain. ENDOCRINE: Denies any polyuria or polydipsia. Active Medications Generic Name Dose Route Start Last Admin Trade Name Freq PRN Reason Stop Dose Admin Acetaminophen 650 mg 03/10/19 15:25 03/10/19 15:30 Tylenol Tab PO 650 mg Q6HR PRN Administration Fever and/ or Pain Hydrocodone Bitart/Acetaminophen 1 each 03/10/19 23:49 03/11/19 00:29 [place] 5-325 PO 1 each Q6HR PRN Administration Pain Albuterol/Ipratropium 3 ml 03/10/19 08:00 03/11/19 07:17 Duoneb 0.5 Mg-3 Mg/3 Ml Soln INHALATION 3 ml RT-QID [facility] Administration Apixaban 5 mg 03/11/19 09:30 Eliquis PO BID QU[facility]EN Atorvastatin Calcium 20 mg 03/10/19 21:00 03/10/19 20:24 Lipitor PO 20 mg HS [facility] Administration Clopidogrel Bisulfate 75 mg 03/10/19 09:00 03/11/19 08:24 Plavix PO 75 mg DAILY [facility] Administration Famotidine 10 mg 03/10/19 21:00 03/11/19 08:24 Pepcid IV 10 mg Q12HR [facility] Administration Lactated Ringer's 1,000 mls @ 150 mls/hr 03/09/19 20:15 03/11/19 07:18 Lactated Ringers IV 150 mls/hr .Q6H40M [facility] Administration Norepinephrine Bitartrate 4 mg 254 mls @ 22.466 mls/hr 03/10/19 00:00 03/11/19 08:33 / Sodium Chloride IV Not Given .[id number] [facility] Protocol 0.05 MCG/KG/MIN Cefepime HCl 2 gm/ Sodium 100 mls @ 200 mls/hr 03/10/19 23:00 03/10/19 23:25 Chloride IVPB 200 mls/hr Q12H [facility] Administration Metronidazole 500 mg/ IV 100 mls @ 100 mls/hr 03/11/19 00:00 03/11/19 08:32 Solution IVPB 100 mls/hr Q8HR [facility] Administration Vancomycin HCl 2,000 mg/ 500 mls @ 167 mls/hr 03/11/19 16:00 Sodium Chloride IVPB Q16H [facility] Insulin Aspart 0 unit 03/11/19 07:30 03/11/19 07:16 Novolog SQ Not Given ACHS [facility] Protocol Metoprolol Succinate 12.5 mg 03/10/19 21:00 03/11/19 08:23 Toprol Xl PO 12.5 mg BID [facility] Administration Miscellaneous Information 1 each 03/09/19 20:05 Pneumonia Protocol Utilized PO ONCE PRN Per Protocol Morphine Sulfate 2 mg 03/11/19 05:17 03/11/19 05:57 Morphine Sulfate (Inj) IVP 2 mg Q6H PRN Administration Pain/Discomfort Multivitamins 1 each 03/10/19 09:00 03/11/19 08:23 Theragran PO 1 each DAILY [facility] Administration Prednisone 40 mg 03/10/19 09:00 03/11/19 08:23 PO 40 mg DAILY [facility] Administration Pyridostigmine [place] 120 mg 03/09/19 23:00 03/11/19 08:23 Mestinon PO 120 mg TID [facility] Administration Sodium Bicarbonate 650 mg 03/10/19 10:00 03/11/19 08:22 Sodium Bicarbonate Tab PO 650 mg QID [facility] Administration Objective - Vital Signs Vital signs: Vital Signs Temp 97.8 F 03/11/19 08:00 Pulse 62 03/11/19 09:30 Resp 19 03/11/19 09:30 BP 123/74 03/11/19 09:30 Pulse Ox 96 03/11/19 09:30 Intake & Output 03/10/19 03/11/19 03/11/19 18:59 06:59 18:59 Intake Total 2016.411 2933.457 500 Output Total 1630 1320 175 Balance 631.647 8656.457 325 Weight 123.5 kg Intake: IV 1820 2500 300 ACETAMINOPHEN IV (For NPO 100 ) 1,000 mg In Empty Bag 1 bag @ 400 mls/hr IVPB ONCE ONE Rx#:[id number] Cefepime 2 gm In Sodium 100 Chloride 0.9% 100 ml @ 200 mls/hr IVPB Q12H [facility] Rx#:[id number] Lactated Ringers 1,000 ml 1800 1800 300 @ 150 mls/hr IV .Q6H40M [facility] Rx#:[id number] Sodium Chloride 0.9% 500 20 ml 500 ml @ 999 mls/hr IV .Q31M ONE Rx#:[id number] Vancomycin 2,000 mg In 500 Sodium Chloride 0.9% 500 ml 500 ml @ 167 mls/hr IVPB Q24H [facility] Rx#: [id number] metroNIDAZOLE-NS PMX 500 0 mg In Saline 1 100ml.bag @ 100 mls/hr IVPB Q8HR [facility] Rx#:[id number] Intake, IV Titration 196.411 433.457 Amount Heparin Sod,Pork in 0.45% 96.411 333.457 NaCl 25,000 unit In 0.45 % NaCl 1 250ml.bag @ 18 UNITS/KG/HR 21.228 mls/hr IV .[id number] [facility] Rx#: [id number] Magnesium Sulfate-D5w Pmx 100 1 gm In Dextrose/Water 1 100ml.bag @ 100 mls/hr IVPB Q1H [facility] Rx#: [id number] Norepinephrine 4 mg In 0 Sodium Chloride 0.9% 250 ml @ 0.05 MCG/KG/MIN 22. 466 mls/hr IV .[id number] [facility] Rx#:[id number] Piperacillin-Tazobactam 3 100 .375 gm In Sodium Chloride 0.9% 100 ml @ 25 mls/hr IVPB Q8HR [facility] Rx# :[id number] Oral 200 Output: Urine 1630 1320 175 Other: Voiding Method Indwelling Catheter Indwelling Catheter # Voids 1 # Bowel Movements 1 1 - Exam GENERAL: The patient is alert and oriented x3, not in any acute distress. Well developed, well nourished. HEENT: Pupils are round and equally reacting to light. EOMI. No scleral icterus. No conjunctival pallor. Normocephalic, atraumatic. No pharyngeal erythema. No thyromegaly. CARDIOVASCULAR: S1 and S2 present. No murmurs, rubs, or gallops. PULMONARY: Chest is clear to auscultation, no wheezing or crackles. ABDOMEN: Soft, nontender, nondistended, normoactive bowel sounds. No palpable organomegaly. MUSCULOSKELETAL: No joint swelling or deformity. EXTREMITIES: No cyanosis, clubbing, or pedal edema. NEUROLOGICAL: Gross neurological examination did not reveal any focal deficits. SKIN: No rashes. - Labs CBC & Chem 7: 03/11/19 04:44 03/11/19 04:44 Labs: Abnormal Lab Results - Last 24 Hours (Table) 03/10/19 03/10/19 03/10/19 Range/Units 10:53 10:53 11:33 Hgb (13.0-17.5) gm/dL Hct (39.0-53.0) % Plt Count (150-450) k/uL Lymphocytes # (1.0-4.8) k/uL APTT 63.5 H (22.0-30.0) sec Sodium 135 L (137-145) mmol/L Potassium (3.5-5.1) mmol/L Chloride (98-107) mmol/L Carbon Dioxide 18 L (22-30) mmol/L BUN 40 H (9-20) mg/dL Creatinine 1.85 H (0.66-1.25) mg/dL Glucose 155 H (74-99) mg/dL POC Glucose (mg/dL) 160 H (75-99) mg/dL Plasma Lactic Acid Cole (0.7-2.0) mmol/L Calcium 7.1 L (8.4-10.2) mg/dL Magnesium (1.6-2.3) mg/dL Urine Protein (Negative) Urine Blood (Negative) Ur Leukocyte Esterase (Negative) Urine RBC (0-5) /hpf Urine WBC (0-5) /hpf Amorphous Sediment (None) /hpf Urine Bacteria (None) /hpf Urine Mucus (None) /hpf 03/10/19 03/10/19 03/10/19 Range/Units 14:25 15:55 16:20 Hgb (13.0-17.5) gm/dL Hct (39.0-53.0) % Plt Count (150-450) k/uL Lymphocytes # (1.0-4.8) k/uL APTT (22.0-30.0) sec Sodium (137-145) mmol/L Potassium (3.5-5.1) mmol/L Chloride (98-107) mmol/L Carbon Dioxide (22-30) mmol/L BUN (9-20) mg/dL Creatinine (0.66-1.25) mg/dL Glucose (74-99) mg/dL POC Glucose (mg/dL) 167 H (75-99) mg/dL Plasma Lactic Acid Cole 2.1 H* (0.7-2.0) mmol/L Calcium (8.4-10.2) mg/dL Magnesium (1.6-2.3) mg/dL Urine Protein 1+ H (Negative) Urine Blood Moderate H (Negative) Ur Leukocyte Esterase Trace H (Negative) Urine RBC 60 H (0-5) /hpf Urine WBC 8 H (0-5) /hpf Amorphous Sediment Few H (None) /hpf Urine Bacteria Occasional H (None) /hpf Urine Mucus Rare H (None) /hpf 03/10/19 03/10/19 03/10/19 Range/Units 16:31 16:50 20:12 Hgb (13.0-17.5) gm/dL Hct (39.0-53.0) % Plt Count (150-450) k/uL Lymphocytes # (1.0-4.8) k/uL APTT (22.0-30.0) sec Sodium 133 L (137-145) mmol/L Potassium 3.1 L (3.5-5.1) mmol/L Chloride (98-107) mmol/L Carbon Dioxide 16 L (22-30) mmol/L BUN 36 H (9-20) mg/dL Creatinine 1.56 H (0.66-1.25) mg/dL Glucose 135 H (74-99) mg/dL POC Glucose (mg/dL) 134 H (75-99) mg/dL Plasma Lactic Acid Cole 3.7 H* (0.7-2.0) mmol/L Calcium 7.3 L (8.4-10.2) mg/dL Magnesium (1.6-2.3) mg/dL Urine Protein (Negative) Urine Blood (Negative) Ur Leukocyte Esterase (Negative) Urine RBC (0-5) /hpf Urine WBC (0-5) /hpf Amorphous Sediment (None) /hpf Urine Bacteria (None) /hpf Urine Mucus (None) /hpf 03/10/19 03/11/19 03/11/19 Range/Units 20:14 00:39 04:44 Hgb 12.5 L (13.0-17.5) gm/dL Hct 37.4 L (39.0-53.0) % Plt Count 108 L (150-450) k/uL Lymphocytes # 0.1 L (1.0-4.8) k/uL APTT (22.0-30.0) sec Sodium (137-145) mmol/L Potassium (3.5-5.1) mmol/L Chloride (98-107) mmol/L Carbon Dioxide (22-30) mmol/L BUN (9-20) mg/dL Creatinine (0.66-1.25) mg/dL Glucose (74-99) mg/dL POC Glucose (mg/dL) 231 H (75-99) mg/dL Plasma Lactic Acid Cole 2.8 H* (0.7-2.0) mmol/L Calcium (8.4-10.2) mg/dL Magnesium (1.6-2.3) mg/dL Urine Protein (Negative) Urine Blood (Negative) Ur Leukocyte Esterase (Negative) Urine RBC (0-5) /hpf Urine WBC (0-5) /hpf Amorphous Sediment (None) /hpf Urine Bacteria (None) /hpf Urine Mucus (None) /hpf 03/11/19 03/11/19 03/11/19 Range/Units 04:44 04:44 04:44 Hgb (13.0-17.5) gm/dL Hct (39.0-53.0) % Plt Count (150-450) k/uL Lymphocytes # (1.0-4.8) k/uL APTT 89.3 H (22.0-30.0) sec Sodium 134 L (137-145) mmol/L Potassium (3.5-5.1) mmol/L Chloride 109 H (98-107) mmol/L Carbon Dioxide 17 L (22-30) mmol/L BUN 32 H (9-20) mg/dL Creatinine 1.40 H (0.66-1.25) mg/dL Glucose 134 H (74-99) mg/dL POC Glucose (mg/dL) (75-99) mg/dL Plasma Lactic Acid Cole (0.7-2.0) mmol/L Calcium 7.2 L (8.4-10.2) mg/dL Magnesium 2.5 H (1.6-2.3) mg/dL Urine Protein (Negative) Urine Blood (Negative) Ur Leukocyte Esterase (Negative) Urine RBC (0-5) /hpf Urine WBC (0-5) /hpf Amorphous Sediment (None) /hpf Urine Bacteria (None) /hpf Urine Mucus (None) /hpf 03/11/19 03/11/19 Range/Units 05:34 06:56 Hgb (13.0-17.5) gm/dL Hct (39.0-53.0) % Plt Count (150-450) k/uL Lymphocytes # (1.0-4.8) k/uL APTT (22.0-30.0) sec Sodium (137-145) mmol/L Potassium (3.5-5.1) mmol/L Chloride (98-107) mmol/L Carbon Dioxide (22-30) mmol/L BUN (9-20) mg/dL Creatinine (0.66-1.25) mg/dL Glucose (74-99) mg/dL POC Glucose (mg/dL) 124 H (75-99) mg/dL Plasma Lactic Acid Cole 2.5 H* (0.7-2.0) mmol/L Calcium (8.4-10.2) mg/dL Magnesium (1.6-2.3) mg/dL Urine Protein (Negative) Urine Blood (Negative) Ur Leukocyte Esterase (Negative) Urine RBC (0-5) /hpf Urine WBC (0-5) /hpf Amorphous Sediment (None) /hpf Urine Bacteria (None) /hpf Urine Mucus (None) /hpf Microbiology - Last 24 Hours (Table) 03/09/19 20:47 Blood Culture - Preliminary Blood No Growth after 24 hours 03/09/19 18:09 Blood Culture - Preliminary Blood No Growth after 24 hours 03/10/19 05:05 Gram Stain - Preliminary Sputum Sputum Culture - Preliminary 03/10/19 01:01 Urine Culture - Preliminary Urine,Catheterized Assessment and Plan Assessment: Systemic inflammatory response with tachycardia, fever and leukocytosis, Rule out sepsis . Possible secondary to gastroenteritis Acute left DVT and right superficial vein thrombosis. On anticoagulation Atrial fibrillation's with RVR. Rate is controlled Elevated troponin mostly secondary to his A. fib Acute kidney injury, Secondary to dehydration. Improvement Dehydration Myasthenia gravis on Imuran and follow-up Dr. Costa as an outpatient Mild hyponatremia, improving. Elevated Lactic acid Hypertension Hyperlipidemia History of arthritis for many years, on a daily dose of prednisone Chronic spinal stenosis Obstructive sleep apnea on CPAP sciatica Plan: This is a pleasant 63 years old male who presents with multiple medical problems including gastroenteritis, A. fib with RVR with elevated troponin, acute kidney injury . Patient also has left DVT. Patient continue with anticoagulation, he is on Eliquis currently. Continue with metoprolol for rate control.. Continue with antibiotics as per infectious disease recommendation. Continue with IV fluids.. Consultants were called including pulmonary, cardiology, nephrology and infectious disease. Labs and medication were reviewed.. Continue same treatment. Continue with symptomatic treatment. Resume home medication. Monitor lytes and vitals. DVT and GI prophylaxis. Further recommendations of the clinical course of the patient DVT prophylaxis: Eliquis GI Prophylaxis: Pepcid Prognosis is guarded
[2019-03-11] MEDS ORDERED: POTASSIUM CHLORIDE ER 20 MEQ TAB.ER PO STA (09:50)
[2019-03-11] MEDS: HEPARIN SOD,PORK IN 0.45% NACL 25,000 UNIT in 0.45% NACL 1 250ML.BAG IV SCH (09:57)
[2019-03-11] MEDS: APIXABAN 5 MG TAB PO SCH ×2 (09:57→21:21)
--- NOTE | 2019-03-11 10:35 | P.PN ---
Subjective Patient is seen in follow-up for acute kidney injury. Renal function is improving. Creatinine 1.4 today. He is nonoliguric. No vomiting. Continues to have loose bowel movements. Heart rate is controlled. Vital signs are stable. General: The patient appeared well nourished and normally developed. HEENT: Head exam is unremarkable. Neck is without jugular venous distension. LUNGS: Lungs are clear to auscultation and percussion. Breath sounds decreased. HEART: Rate and Rhythm are regular. First and second heart sounds normal. No murmurs, rubs or gallops. ABDOMEN: Abdominal exam reveals normal bowel sounds. Non-tender and non-distended. EXTREMITITES: No clubbing, cyanosis, or edema. Objective - Vital Signs Vital signs: Vital Signs Temp 97.8 F 03/11/19 08:00 Pulse 62 03/11/19 09:30 Resp 19 03/11/19 09:30 BP 123/74 03/11/19 09:30 Pulse Ox 96 03/11/19 09:30 Intake & Output 03/10/19 03/11/19 03/11/19 18:59 06:59 18:59 Intake Total 2016.411 2933.457 600 Output Total 1630 1320 225 Balance 876.368 6597.457 375 Weight 123.5 kg Intake: IV 1820 2500 400 ACETAMINOPHEN IV (For NPO 100 ) 1,000 mg In Empty Bag 1 bag @ 400 mls/hr IVPB ONCE ONE Rx#:[id number] Cefepime 2 gm In Sodium 100 Chloride 0.9% 100 ml @ 200 mls/hr IVPB Q12H [facility] Rx#:[id number] Lactated Ringers 1,000 ml 1800 1800 300 @ 150 mls/hr IV .Q6H40M [facility] Rx#:[id number] Sodium Chloride 0.9% 500 20 ml 500 ml @ 999 mls/hr IV .Q31M ONE Rx#:[id number] Vancomycin 2,000 mg In 500 Sodium Chloride 0.9% 500 ml 500 ml @ 167 mls/hr IVPB Q24H [facility] Rx#: [id number] metroNIDAZOLE-NS PMX 500 0 100 mg In Saline 1 100ml.bag @ 100 mls/hr IVPB Q8HR [facility] Rx#:[id number] Intake, IV Titration 196.411 433.457 Amount Heparin Sod,Pork in 0.45% 96.411 333.457 NaCl 25,000 unit In 0.45 % NaCl 1 250ml.bag @ 18 UNITS/KG/HR 21.228 mls/hr IV .[id number] [facility] Rx#: [id number] Magnesium Sulfate-D5w Pmx 100 1 gm In Dextrose/Water 1 100ml.bag @ 100 mls/hr IVPB Q1H [facility] Rx#: [id number] Norepinephrine 4 mg In 0 Sodium Chloride 0.9% 250 ml @ 0.05 MCG/KG/MIN 22. 466 mls/hr IV .[id number] [facility] Rx#:[id number] Piperacillin-Tazobactam 3 100 .375 gm In Sodium Chloride 0.9% 100 ml @ 25 mls/hr IVPB Q8HR [facility] Rx# :[id number] Oral 200 Output: Urine 1630 1320 225 Other: Voiding Method Indwelling Catheter Indwelling Catheter Indwelling Catheter # Voids 1 # Bowel Movements 1 1 - Labs CBC & Chem 7: 03/11/19 04:44 03/11/19 04:44 Labs: Abnormal Lab Results - Last 24 Hours (Table) 03/10/19 03/10/19 03/10/19 Range/Units 10:53 10:53 11:33 Hgb (13.0-17.5) gm/dL Hct (39.0-53.0) % Plt Count (150-450) k/uL Lymphocytes # (1.0-4.8) k/uL APTT 63.5 H (22.0-30.0) sec Sodium 135 L (137-145) mmol/L Potassium (3.5-5.1) mmol/L Chloride (98-107) mmol/L Carbon Dioxide 18 L (22-30) mmol/L BUN 40 H (9-20) mg/dL Creatinine 1.85 H (0.66-1.25) mg/dL Glucose 155 H (74-99) mg/dL POC Glucose (mg/dL) 160 H (75-99) mg/dL Plasma Lactic Acid Cole (0.7-2.0) mmol/L Calcium 7.1 L (8.4-10.2) mg/dL Magnesium (1.6-2.3) mg/dL Urine Protein (Negative) Urine Blood (Negative) Ur Leukocyte Esterase (Negative) Urine RBC (0-5) /hpf Urine WBC (0-5) /hpf Amorphous Sediment (None) /hpf Urine Bacteria (None) /hpf Urine Mucus (None) /hpf 03/10/19 03/10/19 03/10/19 Range/Units 14:25 15:55 16:20 Hgb (13.0-17.5) gm/dL Hct (39.0-53.0) % Plt Count (150-450) k/uL Lymphocytes # (1.0-4.8) k/uL APTT (22.0-30.0) sec Sodium (137-145) mmol/L Potassium (3.5-5.1) mmol/L Chloride (98-107) mmol/L Carbon Dioxide (22-30) mmol/L BUN (9-20) mg/dL Creatinine (0.66-1.25) mg/dL Glucose (74-99) mg/dL POC Glucose (mg/dL) 167 H (75-99) mg/dL Plasma Lactic Acid Cole 2.1 H* (0.7-2.0) mmol/L Calcium (8.4-10.2) mg/dL Magnesium (1.6-2.3) mg/dL Urine Protein 1+ H (Negative) Urine Blood Moderate H (Negative) Ur Leukocyte Esterase Trace H (Negative) Urine RBC 60 H (0-5) /hpf Urine WBC 8 H (0-5) /hpf Amorphous Sediment Few H (None) /hpf Urine Bacteria Occasional H (None) /hpf Urine Mucus Rare H (None) /hpf 03/10/19 03/10/19 03/10/19 Range/Units 16:31 16:50 20:12 Hgb (13.0-17.5) gm/dL Hct (39.0-53.0) % Plt Count (150-450) k/uL Lymphocytes # (1.0-4.8) k/uL APTT (22.0-30.0) sec Sodium 133 L (137-145) mmol/L Potassium 3.1 L (3.5-5.1) mmol/L Chloride (98-107) mmol/L Carbon Dioxide 16 L (22-30) mmol/L BUN 36 H (9-20) mg/dL Creatinine 1.56 H (0.66-1.25) mg/dL Glucose 135 H (74-99) mg/dL POC Glucose (mg/dL) 134 H (75-99) mg/dL Plasma Lactic Acid Cole 3.7 H* (0.7-2.0) mmol/L Calcium 7.3 L (8.4-10.2) mg/dL Magnesium (1.6-2.3) mg/dL Urine Protein (Negative) Urine Blood (Negative) Ur Leukocyte Esterase (Negative) Urine RBC (0-5) /hpf Urine WBC (0-5) /hpf Amorphous Sediment (None) /hpf Urine Bacteria (None) /hpf Urine Mucus (None) /hpf 03/10/19 03/11/19 03/11/19 Range/Units 20:14 00:39 04:44 Hgb 12.5 L (13.0-17.5) gm/dL Hct 37.4 L (39.0-53.0) % Plt Count 108 L (150-450) k/uL Lymphocytes # 0.1 L (1.0-4.8) k/uL APTT (22.0-30.0) sec Sodium (137-145) mmol/L Potassium (3.5-5.1) mmol/L Chloride (98-107) mmol/L Carbon Dioxide (22-30) mmol/L BUN (9-20) mg/dL Creatinine (0.66-1.25) mg/dL Glucose (74-99) mg/dL POC Glucose (mg/dL) 231 H (75-99) mg/dL Plasma Lactic Acid Cole 2.8 H* (0.7-2.0) mmol/L Calcium (8.4-10.2) mg/dL Magnesium (1.6-2.3) mg/dL Urine Protein (Negative) Urine Blood (Negative) Ur Leukocyte Esterase (Negative) Urine RBC (0-5) /hpf Urine WBC (0-5) /hpf Amorphous Sediment (None) /hpf Urine Bacteria (None) /hpf Urine Mucus (None) /hpf 03/11/19 03/11/19 03/11/19 Range/Units 04:44 04:44 04:44 Hgb (13.0-17.5) gm/dL Hct (39.0-53.0) % Plt Count (150-450) k/uL Lymphocytes # (1.0-4.8) k/uL APTT 89.3 H (22.0-30.0) sec Sodium 134 L (137-145) mmol/L Potassium (3.5-5.1) mmol/L Chloride 109 H (98-107) mmol/L Carbon Dioxide 17 L (22-30) mmol/L BUN 32 H (9-20) mg/dL Creatinine 1.40 H (0.66-1.25) mg/dL Glucose 134 H (74-99) mg/dL POC Glucose (mg/dL) (75-99) mg/dL Plasma Lactic Acid Cole (0.7-2.0) mmol/L Calcium 7.2 L (8.4-10.2) mg/dL Magnesium 2.5 H (1.6-2.3) mg/dL Urine Protein (Negative) Urine Blood (Negative) Ur Leukocyte Esterase (Negative) Urine RBC (0-5) /hpf Urine WBC (0-5) /hpf Amorphous Sediment (None) /hpf Urine Bacteria (None) /hpf Urine Mucus (None) /hpf 03/11/19 03/11/19 Range/Units 05:34 06:56 Hgb (13.0-17.5) gm/dL Hct (39.0-53.0) % Plt Count (150-450) k/uL Lymphocytes # (1.0-4.8) k/uL APTT (22.0-30.0) sec Sodium (137-145) mmol/L Potassium (3.5-5.1) mmol/L Chloride (98-107) mmol/L Carbon Dioxide (22-30) mmol/L BUN (9-20) mg/dL Creatinine (0.66-1.25) mg/dL Glucose (74-99) mg/dL POC Glucose (mg/dL) 124 H (75-99) mg/dL Plasma Lactic Acid Cole 2.5 H* (0.7-2.0) mmol/L Calcium (8.4-10.2) mg/dL Magnesium (1.6-2.3) mg/dL Urine Protein (Negative) Urine Blood (Negative) Ur Leukocyte Esterase (Negative) Urine RBC (0-5) /hpf Urine WBC (0-5) /hpf Amorphous Sediment (None) /hpf Urine Bacteria (None) /hpf Urine Mucus (None) /hpf Microbiology - Last 24 Hours (Table) 03/09/19 20:47 Blood Culture - Preliminary Blood No Growth after 24 hours 03/09/19 18:09 Blood Culture - Preliminary Blood No Growth after 24 hours 03/10/19 05:05 Gram Stain - Preliminary Sputum Sputum Culture - Preliminary 03/10/19 01:01 Urine Culture - Preliminary Urine,Catheterized Assessment and Plan Plan: Assessment: 1. Acute kidney injury mostly prerenal secondary to hypotension and intravascular volume depletion from diarrhea. Was also on lisinopril which is currently held. Creatinine was 2.67 on admission and is down to 1.4 today. Baseline creatinine near 1. No evidence of hydronephrosis noted on CAT scan. 2. Hypovolemic hyponatremia improving with IV hydration. 3. Metabolic acidosis secondary to acute kidney injury and diarrhea. 4. A. fib with RVR. Now rate controlled. Maintained on Toprol and anticoagulation. 5. Hypotension secondary to hypovolemia and A. fib. Better. 6. Diarrhea. Possibly infectious. Maintain on IV antibiotics. Infectious disease following. C. diff negative. 7. Hypokalemia from poor oral intake and GI losses. Improved. Plan: Decrease rate of IV fluids to 100 mL an hour. Maintain oral sodium bicarbonate. Avoid nephrotoxins. Continue to monitor renal function and urine output. Follow-up cultures.
--- NOTE | 2019-03-11 11:02 | PN ---
PROGRESS NOTE This patient is admitted with fever and diarrhea, suggestive of infectious diarrhea. Patient had an episode of paroxysmal atrial fibrillation. His CT of the abdomen is negative. He still continues to have diarrhea. Patient remains in normal sinus rhythm. His creatinine is improved to 1.4. First and second heart sounds are normal. Lungs are clear to auscultation and percussion. In view of the episodes of atrial fibrillation, we will start the patient on Eliquis 5 mg b.i.d. MMODL / IJN: [id number] /
--- NOTE | 2019-03-11 11:17 | P.PN ---
<Amelia Kong M - Last Filed: 03/11/19 11:04> Subjective Progress Note Date: 03/11/19 Principal diagnosis: Acute diarrhea with significant intravascular volume depletion, acute kidney injury, fever, new onset A. fib 63-year-old male patient came in to the ED yesterday because of few days of watery diarrhea that was quite aggressive and constant. The patient became quite dehydrated. He came into the ED and he was found to be in A. fib RVR and at the same time he was found to be in acute kidney injury. He was started on IV fluids. He received a total of 3 L and currently is on lactated Ringer running at 150 mL an hour. No significant abdominal pain. No nausea. No emesis. Stool for C. diff has been negative. The patient reports that he was having some loose stools for the past several months. He is obese. He has history of myasthenia gravis maintain a combination of Imuran and prednisone at a low dose of 10 mg by mouth daily. He is also on Mestinon. He is diagnosed wa s established approximately a year ago. He does not have a thymoma. He has received a total of 3 sessions of high-dose IV Solu-Medrol for a total of 5 visits was given to him by his neurologist office on outpatient basis lasting approximately 6 weeks ago. He still has on of double vision and some weakness. He also has obstructive sleep apnea severe with an AHI of 45 and currently is on CPAP at a pressure of 7 cm of water. He has hypertension and arthritis. The patient has no fever. No travel history. No food poisoning. In the ED, his lactic acid was slightly elevated and after fluids with lactic acid level normalized. His white cell count is at 12.7. Platelet count is 127. No linnea rtness of breath. No altered mentation. He is on 2 L of oxygen by nasal cannula with a pulse ox of 97%. On 03/11/2019 patient seen in follow-up in intensive care unit, he is awake and alert, in no acute distress, dates his watery diarrhea is becoming a bit more firm, however she still continues to have frequent loose stools, C. diff was negative, stool for culture is pending, blood, urine and sputum culture have been sent, and remain negative thus far, yesterday patient developed shaking chills, and started spiking fevers, with a T-max of 10 3F. He was placed back on Zosyn, new set of blood cultures have been sent. Flagyl, and vancomycin were added, and Zosyn was changed to cefepime per ID service recommendations. He is afebrile this morning. She denies any respiratory difficulty, denies any abdominal pain or tenderness, abdomen is slightly distended but soft. No nausea. Patient's heparin drip has been switched to oral Eliquis, he remains in sinus rhythm. Objective - Vital Signs Vital signs: Vital Signs Temp 97.8 F 03/11/19 08:00 Pulse 62 03/11/19 11:00 Resp 19 03/11/19 09:30 BP 123/74 03/11/19 09:30 Pulse Ox 96 03/11/19 09:30 Intake & Output 03/10/19 03/11/19 03/11/19 18:59 06:59 18:59 Intake Total 2016.411 2933.457 600 Output Total 1630 1320 225 Balance 067.268 8518.457 375 Weight 123.5 kg Intake: IV 1820 2500 400 ACETAMINOPHEN IV (For NPO 100 ) 1,000 mg In Empty Bag 1 bag @ 400 mls/hr IVPB ONCE ONE Rx#:[id number] Cefepime 2 gm In Sodium 100 Chloride 0.9% 100 ml @ 200 mls/hr IVPB Q12H [facility] Rx#:[id number] Lactated Ringers 1,000 ml 1800 1800 300 @ 150 mls/hr IV .[id number] [facility] Rx#:[id number] Sodium Chloride 0.9% 500 20 ml 500 ml @ 999 mls/hr IV .Q31M [facility] Rx#:[id number] Vancomycin 2,000 mg In 500 Sodium Chloride 0.9% 500 ml 500 ml @ 167 mls/hr IVPB Q24H [facility] Rx#: [id number] metroNIDAZOLE-NS PMX 500 0 100 mg In Saline 1 100ml.bag @ 100 mls/hr IVPB Q8HR [facility] Rx#:[id number] Intake, IV Titration 196.411 433.457 Amount Heparin Sod,Pork in 0.45% 96.411 333.457 NaCl 25,000 unit In 0.45 % NaCl 1 250ml.bag @ 18 UNITS/KG/HR 21.228 mls/hr IV .[id number] [facility] Rx#: [id number] Magnesium Sulfate-D5w Pmx 100 1 gm In Dextrose/Water 1 100ml.bag @ 100 mls/hr IVPB Q1H [facility] Rx#: [id number] Norepinephrine 4 mg In 0 Sodium Chloride 0.9% 250 ml @ 0.05 MCG/KG/MIN 22. 466 mls/hr IV .[id number] [facility] Rx#:[id number] Piperacillin-Tazobactam 3 100 .375 gm In Sodium Chloride 0.9% 100 ml @ 25 mls/hr IVPB Q8HR [facility] Rx# :[id number] Oral 200 Output: Urine 1630 1320 225 Other: Voiding Method Indwelling Catheter Indwelling Catheter Indwelling Catheter # Voids 1 # Bowel Movements 1 1 - Exam GENERAL EXAM: Alert, active, comfortable in no apparent distress. HEAD: Normocephalic/atraumatic. EYES: Normal reaction of pupils, equal size. Conjunctiva pink, sclera white. NOSE: Clear with pink turbinates. THROAT: No erythema or exudates. NECK: No masses, no JVD, no thyroid enlargement, no adenopathy. CHEST: No chest wall deformity. Symmetrical expansion. LUNGS: Equal air entry with limited rales at bilateral bases, but no wheeze, rhonchi or dullness. CVS: Regular rate and rhythm, normal S1 and S2, no gallops, no murmurs, no rubs ABDOMEN: Soft, slightly distended, nontender. No hepatosplenomegaly, normal bowel sounds, no guarding or rigidity. EXTREMITIES: No clubbing, no edema, no cyanosis, 2+ pulses and upper and lower extremities. MUSCULOSKELETAL: Muscle strength and tone normal. SPINE: No scoliosis or deformity SKIN: No rashes CENTRAL NERVOUS SYSTEM: Alert and oriented -3. No focal deficits, tone is normal in all 4 extremities. PSYCHIATRIC: Alert and oriented -3. Appropriate affect. Intact judgment and insight. - Labs CBC & Chem 7: 03/11/19 04:44 03/11/19 04:44 Labs: Abnormal Lab Results - Last 24 Hours (Table) 03/10/19 03/10/19 03/10/19 Range/Units 10:53 10:53 11:33 Hgb (13.0-17.5) gm/dL Hct (39.0-53.0) % Plt Count (150-450) k/uL Lymphocytes # (1.0-4.8) k/uL APTT 63.5 H (22.0-30.0) sec Sodium 135 L (137-145) mmol/L Potassium (3.5-5.1) mmol/L Chloride (98-107) mmol/L Carbon Dioxide 18 L (22-30) mmol/L BUN 40 H (9-20) mg/dL Creatinine 1.85 H (0.66-1.25) mg/dL Glucose 155 H (74-99) mg/dL POC Glucose (mg/dL) 160 H (75-99) mg/dL Plasma Lactic Acid Cole (0.7-2.0) mmol/L Calcium 7.1 L (8.4-10.2) mg/dL Magnesium (1.6-2.3) mg/dL Urine Protein (Negative) Urine Blood (Negative) Ur Leukocyte Esterase (Negative) Urine RBC (0-5) /hpf Urine WBC (0-5) /hpf Amorphous Sediment (None) /hpf Urine Bacteria (None) /hpf Urine Mucus (None) /hpf 03/10/19 03/10/19 03/10/19 Range/Units 14:25 15:55 16:20 Hgb (13.0-17.5) gm/dL Hct (39.0-53.0) % Plt Count (150-450) k/uL Lymphocytes # (1.0-4.8) k/uL APTT (22.0-30.0) sec Sodium (137-145) mmol/L Potassium (3.5-5.1) mmol/L Chloride (98-107) mmol/L Carbon Dioxide (22-30) mmol/L BUN (9-20) mg/dL Creatinine (0.66-1.25) mg/dL Glucose (74-99) mg/dL POC Glucose (mg/dL) 167 H (75-99) mg/dL Plasma Lactic Acid Cole 2.1 H* (0.7-2.0) mmol/L Calcium (8.4-10.2) mg/dL Magnesium (1.6-2.3) mg/dL Urine Protein 1+ H (Negative) Urine Blood Moderate H (Negative) Ur Leukocyte Esterase Trace H (Negative) Urine RBC 60 H (0-5) /hpf Urine WBC 8 H (0-5) /hpf Amorphous Sediment Few H (None) /hpf Urine Bacteria Occasional H (None) /hpf Urine Mucus Rare H (None) /hpf 03/10/19 03/10/19 03/10/19 Range/Units 16:31 16:50 20:12 Hgb (13.0-17.5) gm/dL Hct (39.0-53.0) % Plt Count (150-450) k/uL Lymphocytes # (1.0-4.8) k/uL APTT (22.0-30.0) sec Sodium 133 L (137-145) mmol/L Potassium 3.1 L (3.5-5.1) mmol/L Chloride (98-107) mmol/L Carbon Dioxide 16 L (22-30) mmol/L BUN 36 H (9-20) mg/dL Creatinine 1.56 H (0.66-1.25) mg/dL Glucose 135 H (74-99) mg/dL POC Glucose (mg/dL) 134 H (75-99) mg/dL Plasma Lactic Acid Cole 3.7 H* (0.7-2.0) mmol/L Calcium 7.3 L (8.4-10.2) mg/dL Magnesium (1.6-2.3) mg/dL Urine Protein (Negative) Urine Blood (Negative) Ur Leukocyte Esterase (Negative) Urine RBC (0-5) /hpf Urine WBC (0-5) /hpf Amorphous Sediment (None) /hpf Urine Bacteria (None) /hpf Urine Mucus (None) /hpf 03/10/19 03/11/19 03/11/19 Range/Units 20:14 00:39 04:44 Hgb 12.5 L (13.0-17.5) gm/dL Hct 37.4 L (39.0-53.0) % Plt Count 108 L (150-450) k/uL Lymphocytes # 0.1 L (1.0-4.8) k/uL APTT (22.0-30.0) sec Sodium (137-145) mmol/L Potassium (3.5-5.1) mmol/L Chloride (98-107) mmol/L Carbon Dioxide (22-30) mmol/L BUN (9-20) mg/dL Creatinine (0.66-1.25) mg/dL Glucose (74-99) mg/dL POC Glucose (mg/dL) 231 H (75-99) mg/dL Plasma Lactic Acid Cole 2.8 H* (0.7-2.0) mmol/L Calcium (8.4-10.2) mg/dL Magnesium (1.6-2.3) mg/dL Urine Protein (Negative) Urine Blood (Negative) Ur Leukocyte Esterase (Negative) Urine RBC (0-5) /hpf Urine WBC (0-5) /hpf Amorphous Sediment (None) /hpf Urine Bacteria (None) /hpf Urine Mucus (None) /hpf 03/11/19 03/11/19 03/11/19 Range/Units 04:44 04:44 04:44 Hgb (13.0-17.5) gm/dL Hct (39.0-53.0) % Plt Count (150-450) k/uL Lymphocytes # (1.0-4.8) k/uL APTT 89.3 H (22.0-30.0) sec Sodium 134 L (137-145) mmol/L Potassium (3.5-5.1) mmol/L Chloride 109 H (98-107) mmol/L Carbon Dioxide 17 L (22-30) mmol/L BUN 32 H (9-20) mg/dL Creatinine 1.40 H (0.66-1.25) mg/dL Glucose 134 H (74-99) mg/dL POC Glucose (mg/dL) (75-99) mg/dL Plasma Lactic Acid Cole (0.7-2.0) mmol/L Calcium 7.2 L (8.4-10.2) mg/dL Magnesium 2.5 H (1.6-2.3) mg/dL Urine Protein (Negative) Urine Blood (Negative) Ur Leukocyte Esterase (Negative) Urine RBC (0-5) /hpf Urine WBC (0-5) /hpf Amorphous Sediment (None) /hpf Urine Bacteria (None) /hpf Urine Mucus (None) /hpf 03/11/19 03/11/19 Range/Units 05:34 06:56 Hgb (13.0-17.5) gm/dL Hct (39.0-53.0) % Plt Count (150-450) k/uL Lymphocytes # (1.0-4.8) k/uL APTT (22.0-30.0) sec Sodium (137-145) mmol/L Potassium (3.5-5.1) mmol/L Chloride (98-107) mmol/L Carbon Dioxide (22-30) mmol/L BUN (9-20) mg/dL Creatinine (0.66-1.25) mg/dL Glucose (74-99) mg/dL POC Glucose (mg/dL) 124 H (75-99) mg/dL Plasma Lactic Acid Cole 2.5 H* (0.7-2.0) mmol/L Calcium (8.4-10.2) mg/dL Magnesium (1.6-2.3) mg/dL Urine Protein (Negative) Urine Blood (Negative) Ur Leukocyte Esterase (Negative) Urine RBC (0-5) /hpf Urine WBC (0-5) /hpf Amorphous Sediment (None) /hpf Urine Bacteria (None) /hpf Urine Mucus (None) /hpf Microbiology - Last 24 Hours (Table) 03/09/19 20:47 Blood Culture - Preliminary Blood No Growth after 24 hours 03/09/19 18:09 Blood Culture - Preliminary Blood No Growth after 24 hours 03/10/19 05:05 Gram Stain - Preliminary Sputum Sputum Culture - Preliminary 03/10/19 01:01 Urine Culture - Preliminary Urine,Catheterized Assessment and Plan Plan: Assessment: 1 acute diarrhea with significant intravascular volume and acute kidney injury. The exact cause is not clear. Rule out drug induced diarrhea. Rule out postinfectious diarrhea. Stool for C. diff has been negative. Abdominal exam is negative and the patient's abdomen is soft at this point in time and there is no indication for an acute abdomen 2 new onset atrial fibrillation, recovered and the patient rhythm is back to sinus. This is probably related to diarrhea, intravascular volume depletion and electrolyte imbalance 3 myasthenia gravis maintained on a combination of Mestinon, prednisone and Im uran an outpatient basis. The patient is still having some motor weakness and occasional diplopia 4 obstructive sleep apnea with an AHI of 45 maintained on a CPAP pressure of 7 cm of water 5 hypertension 6 hyperlipidemia 7 chronic back pain related to spinal stenosis and sciatica 8 lactic acidosis, fever, rule out sepsis 9 left lower extremity DVT Plan: We'll continue with cefepime, Flagyl and vancomycin, so far the cultures are negative, yesterday evening patient started spiking fevers, he is afebrile today, the diarrhea pattern is improving, and his stools are becoming firmer, mentation is appropriate, no dynamics patient remains stable, no abdominal pain or tenderness, abdominal CT just showed hydropic gallbladder, possibly related to fasting state, hepatomegaly, but no free fluid, no free air, and no dilated small bowel, significant stool burden. It just showed some mild liquid stool within the right side of the colon. Chest x-ray was negative, just showing some atelectasis at bilateral bases. No respiratory difficulty, maintaining stable oxygenation on room air. Today's labs have been reviewed, no leukocytosis, renal profile is improving. C. diff was negative, influenza screen was negative. Urinalysis without signs of infection. We will stop the Imuran for the concern of immunosuppression, we'll continue with oral prednisone. Yesterday bedside spirometry was completed showing satisfactory vital capacity of greater than 3.5 L. Patient will remain in the intensive care unit for further monitoring, will follow. I performed a history & physical examination of the patient and discussed their management with my nurse practitioner, Amelia Kong. I reviewed the nurse practitioner's note and agree with the documented findings and plan of care. Lung sounds are positive for clear breath sounds, with a limited rales at bilateral bases. The findings and the impression was discussed with the patient. I attest to the documentation by the nurse practitioner. Time with Patient: Less than 30 <Swapna Collier - Last Filed: 03/11/19 16:52> Objective - Vital Signs Vital signs: Vital Signs Temp 101.6 F H 03/11/19 16:00 Pulse 106 H 03/11/19 16:14 Resp 24 03/11/19 16:00 BP 120/76 03/11/19 16:00 Pulse Ox 96 03/11/19 16:06 Intake & Output 03/10/19 03/11/19 03/11/19 18:59 06:59 18:59 Intake Total 2016.411 2933.457 1999 Output Total 1630 1320 975 Balance 918.110 2312.457 1025 Weight 123.5 kg Intake: IV 1820 2500 1300 ACETAMINOPHEN IV (For NPO 100 ) 1,000 mg In Empty Bag 1 bag @ 400 mls/hr IVPB ONCE ONE Rx#:[id number] Cefepime 2 gm In Sodium 100 100 Chloride 0.9% 100 ml @ 200 mls/hr IVPB Q12H [facility] Rx#:[id number] Lactated Ringers 1,000 ml 1800 1800 1000 @ 100 mls/hr IV .Q10H [facility] Rx#:[id number] Sodium Chloride 0.9% 500 20 ml 500 ml @ 999 mls/hr IV .Q31M [facility] Rx#:[id number] Vancomycin 2,000 mg In 500 Sodium Chloride 0.9% 500 ml 500 ml @ 167 mls/hr IVPB Q24H [facility] Rx#: [id number] metroNIDAZOLE-NS PMX 500 0 200 mg In Saline 1 100ml.bag @ 100 mls/hr IVPB Q8HR [facility] Rx#:[id number] Intake, IV Titration 196.411 433.457 Amount Heparin Sod,Pork in 0.45% 96.411 333.457 NaCl 25,000 unit In 0.45 % NaCl 1 250ml.bag @ 18 UNITS/KG/HR 21.228 mls/hr IV .[id number] [facility] Rx#: [id number] Magnesium Sulfate-D5w Pmx 100 1 gm In Dextrose/Water 1 100ml.bag @ 100 mls/hr IVPB Q1H [facility] Rx#: [id number] Norepinephrine 4 mg In 0 Sodium Chloride 0.9% 250 ml @ 0.05 MCG/KG/MIN 22. 466 mls/hr IV .[id number] [facility] Rx#:[id number] Piperacillin-Tazobactam 3 100 .375 gm In Sodium Chloride 0.9% 100 ml @ 25 mls/hr IVPB Q8HR [facility] Rx# :[id number] Oral 700 Output: Urine 1630 1320 975 Other: Voiding Method Indwelling Catheter Indwelling Catheter Indwelling Catheter # Voids 1 1 # Bowel Movements 1 1 - Labs CBC & Chem 7: 03/11/19 04:44 03/11/19 04:44 Labs: Abnormal Lab Results - Last 24 Hours (Table) 03/10/19 03/10/19 03/10/19 Range/Units 16:20 16:50 20:12 Hgb (13.0-17.5) gm/dL Hct (39.0-53.0) % Plt Count (150-450) k/uL Lymphocytes # (1.0-4.8) k/uL APTT (22.0-30.0) sec Sodium 133 L (137-145) mmol/L Potassium 3.1 L (3.5-5.1) mmol/L Chloride (98-107) mmol/L Carbon Dioxide 16 L (22-30) mmol/L BUN 36 H (9-20) mg/dL Creatinine 1.56 H (0.66-1.25) mg/dL Glucose 135 H (74-99) mg/dL POC Glucose (mg/dL) (75-99) mg/dL Plasma Lactic Acid Cole 2.1 H* 3.7 H* (0.7-2.0) mmol/L Calcium 7.3 L (8.4-10.2) mg/dL Magnesium (1.6-2.3) mg/dL 03/10/19 03/11/19 03/11/19 Range/Units 20:14 00:39 04:44 Hgb 12.5 L (13.0-17.5) gm/dL Hct 37.4 L (39.0-53.0) % Plt Count 108 L (150-450) k/uL Lymphocytes # 0.1 L (1.0-4.8) k/uL APTT (22.0-30.0) sec Sodium (137-145) mmol/L Potassium (3.5-5.1) mmol/L Chloride (98-107) mmol/L Carbon Dioxide (22-30) mmol/L BUN (9-20) mg/dL Creatinine (0.66-1.25) mg/dL Glucose (74-99) mg/dL POC Glucose (mg/dL) 231 H (75-99) mg/dL Plasma Lactic Acid Cole 2.8 H* (0.7-2.0) mmol/L Calcium (8.4-10.2) mg/dL Magnesium (1.6-2.3) mg/dL 03/11/19 03/11/19 03/11/19 Range/Units 04:44 04:44 04:44 Hgb (13.0-17.5) gm/dL Hct (39.0-53.0) % Plt Count (150-450) k/uL Lymphocytes # (1.0-4.8) k/uL APTT 89.3 H (22.0-30.0) sec Sodium 134 L (137-145) mmol/L Potassium (3.5-5.1) mmol/L Chloride 109 H (98-107) mmol/L Carbon Dioxide 17 L (22-30) mmol/L BUN 32 H (9-20) mg/dL Creatinine 1.40 H (0.66-1.25) mg/dL Glucose 134 H (74-99) mg/dL POC Glucose (mg/dL) (75-99) mg/dL Plasma Lactic Acid Cole (0.7-2.0) mmol/L Calcium 7.2 L (8.4-10.2) mg/dL Magnesium 2.5 H (1.6-2.3) mg/dL 03/11/19 03/11/19 03/11/19 Range/Units 05:34 06:56 10:39 Hgb (13.0-17.5) gm/dL Hct (39.0-53.0) % Plt Count (150-450) k/uL Lymphocytes # (1.0-4.8) k/uL APTT 49.4 H (22.0-30.0) sec Sodium (137-145) mmol/L Potassium (3.5-5.1) mmol/L Chloride (98-107) mmol/L Carbon Dioxide (22-30) mmol/L BUN (9-20) mg/dL Creatinine (0.66-1.25) mg/dL Glucose (74-99) mg/dL POC Glucose (mg/dL) 124 H (75-99) mg/dL Plasma Lactic Acid Cole 2.5 H* (0.7-2.0) mmol/L Calcium (8.4-10.2) mg/dL Magnesium (1.6-2.3) mg/dL 03/11/19 03/11/19 03/11/19 Range/Units 10:39 11:47 15:14 Hgb (13.0-17.5) gm/dL Hct (39.0-53.0) % Plt Count (150-450) k/uL Lymphocytes # (1.0-4.8) k/uL APTT (22.0-30.0) sec Sodium (137-145) mmol/L Potassium (3.5-5.1) mmol/L Chloride (98-107) mmol/L Carbon Dioxide (22-30) mmol/L BUN (9-20) mg/dL Creatinine (0.66-1.25) mg/dL Glucose (74-99) mg/dL POC Glucose (mg/dL) 130 H (75-99) mg/dL Plasma Lactic Acid Cole 2.5 H* 3.0 H* (0.7-2.0) mmol/L Calcium (8.4-10.2) mg/dL Magnesium (1.6-2.3) mg/dL 03/11/19 Range/Units 16:33 Hgb (13.0-17.5) gm/dL Hct (39.0-53.0) % Plt Count (150-450) k/uL Lymphocytes # (1.0-4.8) k/uL APTT (22.0-30.0) sec Sodium (137-145) mmol/L Potassium (3.5-5.1) mmol/L Chloride (98-107) mmol/L Carbon Dioxide (22-30) mmol/L BUN (9-20) mg/dL Creatinine (0.66-1.25) mg/dL Glucose (74-99) mg/dL POC Glucose (mg/dL) 116 H (75-99) mg/dL Plasma Lactic Acid Cole (0.7-2.0) mmol/L Calcium (8.4-10.2) mg/dL Magnesium (1.6-2.3) mg/dL Microbiology - Last 24 Hours (Table) 03/09/19 20:47 Blood Culture - Preliminary Blood No Growth after 24 hours 03/09/19 18:09 Blood Culture - Preliminary Blood No Growth after 24 hours 03/10/19 05:05 Gram Stain - Preliminary Sputum Sputum Culture - Preliminary Assessment and Plan Plan: This is a joint evaluation that was done along with the nurse practitioner. The patient is still having diarrhea. The patient is still having low-grade fever. CAT scan of the abdomen was essentially negative for any acute abnormalities. The patient is still covered with a combination of cefepime and Flagyl and vancomycin. Cultures are all negative. Suspect a reaction to Imuran and I dis continued Imuran earlier this morning. The patient will be switched from IV heparin to oral Eliquis. The patient be kept in ICU for 24 hours. Diarrhea is subsiding.
[2019-03-11 11:58] LABS: Glucose,Whole Blood 130 mg/dL (75-99)
[2019-03-11] MEDS: CEFEPIME 2 GM in SODIUM CHLORIDE 0.9% 100 ML IVPB SCH ×2 (11:58→23:07)
[2019-03-11] MEDS: ACETAMINOPHEN TAB 325 MG TAB PO PRN (13:28)
[2019-03-11] MEDS ORDERED: DILTIAZEM 5 MG/ML 5 ML VIAL IVP STA (14:42)
--- NOTE | 2019-03-11 15:34 | PN ---
PROGRESS NOTE DATE OF SERVICE: 03/11/2019 REASON FOR FOLLOWUP: Sepsis, possible colitis. INTERVAL HISTORY: The patient overall fever pattern has improved. The patient last temperature has been last night around 10 o'clock with 100.8. No fever since then. Patient is feeling slightly better. Still has some diarrhea but did mention slightly forming up. No abdominal pain. No nausea, no vomiting. No chest pain, shortness of breath or cough. PHYSICAL EXAMINATION: Blood pressure 121/82 with a pulse of 68, temperature 98.4. He is 97% on room air. General description is an elderly male, lying in bed in no distress. RESPIRATORY SYSTEM: Unlabored breathing, clear to auscultation anteriorly. HEART: S1, S2. Regular rate and rhythm. ABDOMEN: Soft, no tenderness. No guarding, rigidity. Extremities: No edema of the feet. LABS: Hemoglobin 12.5, white count normalized to 8.0 with a BUN of 32, creatinine is 1.40. DIAGNOSTIC IMPRESSION AND PLAN: Patient admitted to the hospital with sepsis in this patient have fever and elevated white count. Source is likely abdomen. The patient has significant diarrhea. Stool culture is currently pending. Patient responding to the cefepime, Flagyl, to to continue. I will monitor his clinical course closely. Continue supportive care. MMODL / IJN: [id number] / MTDD
[2019-03-11 16:45] LABS: Glucose,Whole Blood 116 mg/dL (75-99)
[2019-03-11] MEDS ORDERED: ACETAMINOPHEN IV (For NPO) 1,000 MG in EMPTY BAG 1 BAG IVPB ONE (17:23)
[2019-03-11] MEDS ORDERED: DILTIAZEM 125 MG in SODIUM CHLORIDE 0.9% 100 ML IV SCH (17:30)
[2019-03-11] MEDS: VANCOMYCIN 2,000 MG in SODIUM CHLORIDE 0.9% 500 ML 500 ML IVPB SCH (17:53)
[2019-03-11] MEDS: CHOLESTYRAMINE (WITH SUGAR) 4 GM PACKET PO SCH (18:38)
--- NOTE | 2019-03-11 18:40 | CONS ---
CONSULTATION DATE OF DICTATION: 03/11/2019 REASON FOR CONSULTATION: Chronic diarrhea. HISTORY OF PRESENT ILLNESS: The patient is a 63-year-old pleasant white male with a past medical history of hypertension, hyperlipidemia, myasthenia gravis, admitted to the hospital because of chronic diarrhea for the last one month's duration. He has been having bowel movements anywhere from 5-6 a day which are loose to watery in consistency but denies any blood or mucus in the stool. He does have some cramping lower abdominal pain but denies any fever, chills or night sweats. Never had these symptoms in the past. He recalls having a colonoscopy approximately 5 years ago that was unremarkable. He denies any recent travel history. No antibiotic use. In the emergency room he was noted to have lactic acidosis and was somewhat hypertensive and hence admitted to the intensive care unit. He is feeling much better this morning. Stool studies were ordered. C difficile was negative. The rest of the labs are still pending at the time of this dictation. On review of his medications, he states that he was recently started on azathioprine for myasthenia gravis. No other new medications that he recalls were started recently. PAST MEDICAL HISTORY: Significant for myasthenia gravis, for which he follows with Dr. Costa. He has history of CVA and TIA in the past, hypertension, hyperlipidemia, degenerative joint disease. PAST SURGICAL HISTORY: Colonoscopy 5 years ago. MEDICATIONS: Medications at home include: 1. Plavix. 2. Zocor. 3. Lisinopril. 4. Mobic. 5. Mestinon. 6. Azathioprine. 7. Prednisone. SOCIAL HISTORY: No smoking or alcohol use. FAMILY HISTORY: Mother had stomach cancer. Sister had breast cancer. REVIEW OF SYSTEMS: CARDIOPULMONARY: He denies any chest pain or shortness of breath. GENITOURINARY: No dysuria or hematuria. MUSCULOSKELETAL: Unremarkable. SKIN: Unremarkable. ENDOCRINE: Unremarkable. PSYCHIATRIC: Unremarkable. NEUROLOGY: Unremarkable. ENT/VISION: Unremarkable. CONSTITUTIONAL: No recent weight loss. No fever, chills, night sweats. LABS: Labs done at the time of admission to the hospital showed WBC of 12.2, hemoglobin 16.2, platelets 151, PT and INR within normal limits. Sodium 126, potassium 3.6, chloride 96, CO2 116, BUN 47 and creatinine 2.67. Lactic acid was 2.7. Repeat lactic acid today is 2.5. ALT, AST, T-bilirubin, alkaline phosphatase are normal. Lipase is within normal limits. Stool studies for C difficile tox are negative. Cultures are pending. Labs from today show WBC 8, hemoglobin 12.5, platelets 108. IMPRESSION: 1. Chronic diarrhea for the last 2 months' duration, but for the last one week he has been having worsening symptoms and bowel movements anywhere from 5 to 8 a day which are loose to watery in consistency, with no blood or mucus in the stool. Stool for C difficile is negative. Cultures are still pending at the time of this dictation. The patient is also noted to have a low-grade fever and leukocytosis; possibility of infectious colitis needs to be considered. No other etiologies cannot be excluded. 2. Acute kidney injury secondary to prerenal azotemia from chronic diarrhea. Nephrology is following the patient. Creatinine gradually improving. 3. History of atrial fibrillation with rapid ventricular response, currently on Eliquis and anti-arrhythmias. 4. Electrolyte imbalance secondary to chronic diarrhea, which are being replaced. RECOMMENDATIONS: 1. Await stool cultures. 2. Continue with empiric Flagyl. 3. Patient already on vancomycin . 4. If the stool cultures are all negative, we can start him on anti-motility agents and consider a colonoscopy during this hospitalization or on outpatient basis, based on his clinical course. The plan was discussed with the patient, who is agreeable to it. Thank you for this consultation. DELMAR / POORNIMA: [id number] /
[2019-03-11 21:02] LABS: Glucose,Whole Blood 137 mg/dL (75-99)
[2019-03-11] MEDS: ATORVASTATIN 20 MG TAB PO SCH (21:21)
[2019-03-12] MEDS: ACETAMINOPHEN TAB 325 MG TAB PO PRN (01:51)
[2019-03-12] MEDS: LACTATED RINGERS 1,000 ML IV SCH ×3 (01:56→21:45)
[2019-03-12 05:09] LABS: Basophils % (A) 0 %; Eosinophils # (A) 0.1 k/uL (0-0.7); Eosinophils % (A) 1 %; HCT 35.8 % (39.0-53.0); HGB 11.8 gm/dL (13.0-17.5); Lymphocytes # (A) 0.3 k/uL (1.0-4.8); Lymphocytes % (A) 3 %; MCH 27.3 pg (25.0-35.0); MCHC 32.9 g/dL (31.0-37.0); MCV 82.9 fL (80.0-100.0); Mean Platelet Volume 8.1; Monocytes # (A) 0.2 k/uL (0-1.0); Monocytes % (A) 2 %; Neutrophils # (A) 7.5 k/uL (1.3-7.7); Neutrophils % (A) 92 %; Platelet Count 108 k/uL (150-450); RBC 4.31 m/uL (4.30-5.90); RDW 14.4 % (11.5-15.5); WBC 8.1 k/uL (3.8-10.6)
[2019-03-12 05:40] LABS: African American GFR (CKD) >90 (>60 ml/min/1.73 sqM); Blood Urea Nitrogen 24 mg/dL (9-20); Calcium 7.6 mg/dL (8.4-10.2); Carbon Dioxide 23 mmol/L (22-30); Chloride 107 mmol/L (98-107); Glucose 111 mg/dL (74-99)
[2019-03-12 06:11] LABS: Anion Gap 5 mmol/L; Sodium 135 mmol/L (137-145)
[2019-03-12 06:57] LABS: Glucose,Whole Blood 106 mg/dL (75-99)
[2019-03-12] MEDS: INSULIN ASPART (NovoLOG) 100 UNIT/ML VIAL SQ SCH ×4 (07:00→21:33)
[2019-03-12] MEDS: IPRATROPIUM-ALBUTEROL 3 ML NEB INHALATION SCH (07:09)
[2019-03-12] MEDS: VANCOMYCIN 2,000 MG in SODIUM CHLORIDE 0.9% 500 ML 500 ML IVPB SCH (07:45)
[2019-03-12] MEDS: metroNIDAZOLE-NS PMX 500 MG in SALINE 1 100ML.BAG IVPB SCH ×2 (07:46→16:48)
[2019-03-12] MEDS ORDERED: FUROSEMIDE 10 MG/ML 4 ML VIAL IV STA (08:57)
--- NOTE | 2019-03-12 09:39 | XR ---
EXAMINATION TYPE: XR chest 1V portable DATE OF EXAM: 03/12/2019 COMPARISON: 03/11/2019 HISTORY: Shortness of breath TECHNIQUE: Single frontal view of the chest is obtained. FINDINGS: Right internal jugular central venous catheter is unchanged in position. Enlarged cardiome diastinal silhouette is stable. Patchy right perihilar and infrahilar opacity has become slightly mor e pronounced than on the prior. Remainder the lungs are well aerated. No acute osseous pathology. IMPRESSION: Increasing right perihilar and infrahilar opacity, likely unifocal pneumonia.
[2019-03-12] MEDS: FAMOTIDINE 20 MG/2 ML VIAL IV SCH ×2 (10:01→21:17)
[2019-03-12] MEDS: SODIUM BICARBONATE TAB 650 MG TAB PO SCH ×4 (10:01→21:17)
[2019-03-12] MEDS: predniSONE 20 MG TAB PO SCH (10:02)
[2019-03-12] MEDS: APIXABAN 5 MG TAB PO SCH ×2 (10:02→21:33)
[2019-03-12] MEDS: METOPROLOL SUCCINATE (ER) 25 MG TAB.ER.24H PO SCH ×2 (10:02→21:17)
[2019-03-12] MEDS: MULTIVITAMINS, THERA 1 EACH TAB PO SCH (10:02)
[2019-03-12] MEDS: PYRIDOSTIGMINE 60 MG TAB PO SCH ×3 (10:02→21:37)
[2019-03-12] MEDS: CLOPIDOGREL 75 MG TAB PO SCH (10:02)
[2019-03-12] MEDS: CHOLESTYRAMINE (WITH SUGAR) 4 GM PACKET PO SCH ×2 (10:03→16:49)
[2019-03-12] MEDS ORDERED: ACETAMINOPHEN IV (For NPO) 1,000 MG in EMPTY BAG 1 BAG IVPB PRN (10:13)
[2019-03-12] MEDS ORDERED: DEXTROSE 5% IN WATER 100 ML with AMIODARONE 150 MG IV ONE (10:27)
[2019-03-12] MEDS ORDERED: AMIODARONE 360 MG in DEXTROSE 5% IN WATER 200 ML IV ONE ×2 (10:27)
[2019-03-12] MEDS: CEFEPIME 2 GM in SODIUM CHLORIDE 0.9% 100 ML IVPB SCH ×2 (11:19→23:58)
--- NOTE | 2019-03-12 11:33 | PN ---
PROGRESS NOTE This patient is admitted with fever and diarrhea. The patient developed atrial fibrillation yesterday evening patient was started on Cardizem drip. Heart rate still remains in the range of 110 to 120. Patient had a temperature of 103, and lactic acid was also elevated. So far all the blood cultures are negative. First and second heart sounds are normal. Lungs are clinically clear to auscultation and percussion. In view of the recurrent episodes of atrial fibrillation, we will start the patient on amiodarone drip, discontinue the Cardizem drip and start increase the dose of metoprolol to 50 mg b.i.d. MMODL / IJN: [id number] /
--- NOTE | 2019-03-12 11:49 | P.PN ---
Subjective Patient is seen in follow-up for acute kidney injury. Renal function is improving. Creatinine 0.94 today. He is nonoliguric. No vomiting. No di arrhea overnight. Patient went into A. fib with RVR last night and is currently maintained on amiodarone drip. Vital signs are stable. General: The patient appeared well nourished and normally developed. HEENT: Head exam is unremarkable. Neck is without jugular venous distension. LUNGS: Lungs are clear to auscultation and percussion. Breath sounds decreased. HEART: Rate and Rhythm are regular. First and second heart sounds normal. No murmurs, rubs or gallops. ABDOMEN: Abdominal exam reveals normal bowel sounds. Non-tender and non- distended. EXTREMITITES: No clubbing, cyanosis, or edema. Objective - Vital Signs Vital signs: Vital Signs Temp 101.8 F H 03/12/19 10:00 Pulse 128 H 03/12/19 10:00 Resp 16 03/12/19 10:00 BP 149/83 03/12/19 10:00 Pulse Ox 95 03/12/19 10:00 Intake & Output 03/11/19 03/12/19 03/12/19 18:59 06:59 18:59 Intake Total 2200 1410.5 700 Output Total 1175 1615 1000 Balance 1025 -204.5 -300 Weight 135.2 kg Intake: IV 1500 1400 300 Cefepime 2 gm In Sodium 100 100 100 Chloride 0.9% 100 ml @ 200 mls/hr IVPB Q12H QUYEN Rx#:[id number] Lactated Ringers 1,000 ml 1200 1200 100 @ 10 mls/hr IV .Q24H QUYEN Rx#:[id number] metroNIDAZOLE-NS PMX 500 200 100 100 mg In Saline 1 100ml.bag @ 100 mls/hr IVPB Q8HR QUYEN Rx#:[id number] Intake, IV Titration 10.5 Amount Diltiazem 125 mg In 10.5 Sodium Chloride 0.9% 100 ml @ 10 MG/HR 10 mls/hr IV .[id number] QUYEN Rx#: [id number] Oral 700 400 Output: Urine 1175 1615 1000 Other: Voiding Method Indwelling Catheter Indwelling Catheter # Voids 1 - Labs CBC & Chem 7: 03/12/19 05:00 03/12/19 05:00 Labs: Abnormal Lab Results - Last 24 Hours (Table) 03/11/19 03/11/19 03/11/19 Range/Units 11:47 15:14 16:33 Hgb (13.0-17.5) gm/dL Hct (39.0-53.0) % Plt Count (150-450) k/uL Lymphocytes # (1.0-4.8) k/uL Sodium (137-145) mmol/L BUN (9-20) mg/dL Glucose (74-99) mg/dL POC Glucose (mg/dL) 130 H 116 H (75-99) mg/dL Plasma Lactic Acid Cole 3.0 H* (0.7-2.0) mmol/L Calcium (8.4-10.2) mg/dL 03/11/19 03/11/19 03/12/19 Range/Units 18:12 20:51 05:00 Hgb 11.8 L (13.0-17.5) gm/dL Hct 35.8 L (39.0-53.0) % Plt Count 108 L (150-450) k/uL Lymphocytes # 0.3 L (1.0-4.8) k/uL Sodium (137-145) mmol/L BUN (9-20) mg/dL Glucose (74-99) mg/dL POC Glucose (mg/dL) 137 H (75-99) mg/dL Plasma Lactic Acid Cole 2.9 H* (0.7-2.0) mmol/L Calcium (8.4-10.2) mg/dL 03/12/19 03/12/19 Range/Units 05:00 06:46 Hgb (13.0-17.5) gm/dL Hct (39.0-53.0) % Plt Count (150-450) k/uL Lymphocytes # (1.0-4.8) k/uL Sodium 135 L (137-145) mmol/L BUN 24 H (9-20) mg/dL Glucose 111 H (74-99) mg/dL POC Glucose (mg/dL) 106 H (75-99) mg/dL Plasma Lactic Acid Cole (0.7-2.0) mmol/L Calcium 7.6 L (8.4-10.2) mg/dL Microbiology - Last 24 Hours (Table) 03/10/19 01:01 Urine Culture - Final Urine,Catheterized 03/10/19 05:05 Gram Stain - Final Sputum Sputum Culture - Final 03/09/19 20:47 Blood Culture - Preliminary Blood No Growth after 48 hours 03/09/19 18:09 Blood Culture - Preliminary Blood No Growth after 48 hours 03/10/19 16:20 Blood Culture - Preliminary Blood No Growth after 24 hours 03/10/19 16:20 Blood Culture - Preliminary Blood No Growth after 24 hours Assessment and Plan Plan: Assessment: 1. Acute kidney injury mostly prerenal secondary to hypotension and intravascular volume depletion from diarrhea. Was also on lisinopril which is currently held. Creatinine was 2.67 on admission and is down to 0.94 today. Baseline creatinine near 1. No evidence of hydronephrosis noted on CAT scan. 2. Hypovolemic hyponatremia improving with IV hydration. Better. 3. Metabolic acidosis secondary to acute kidney injury and diarrhea. Better. 4. A. fib with RVR. Currently on amiodarone drip. 5. Hypotension secondary to hypovolemia and A. fib. Resolved. 6. Diarrhea. Possibly infectious. Maintain on IV antibiotics. Infectious disease following. C. diff negative. 7. Hypokalemia from poor oral intake and GI losses. Improved. 8. Mild volume overload. Status post IV Lasix this morning. Plan: Hep-Lock IV fluids. Maintain oral sodium bicarbonate. Avoid nephrotoxins. Continue to monitor renal function and urine output. Follow-up cultures.
[2019-03-12 12:01] LABS: Glucose,Whole Blood 128 mg/dL (75-99)
--- NOTE | 2019-03-12 12:29 | P.PN ---
Subjective This is a pleasant 63 years old male with past medical history of hypertension, hyperlipidemia, osteoarthritis, spinal stenosis, myasthenia gravis on Imuran and he follows with Dr. Costa, arthritis on prednisone, ascending aortic aneurysm, obstructive sleep apnea on CPAP, sciatica. Who presents because of watery of 3-4 days duration, diarrhea and generalized weakness. Patient says that he has soft stools for many years however for the last 3-4 days is becoming watery and constant. He felt generalized weakness and he fell on the ground w ith needed help to get up. He denies syncope. He denies chest pain or dyspnea. No abdominal pain. He has some nausea but no vomiting. No rash Vitas looks stable currently, his of her blood pressure 122/78. However on admission he had a fever of 1.3.2, he was hypotensive 76/57, saturating 98% on 2 L and he was tachycardic at 125-165. Labs showing ef 12.7 K, hemoglobin 13.7 and platelets 127K. sodium 129, went up to 134, creatinine 2.39 . Baseline creatinine 0.8. UA is not strongly suggestive of infection. C. diff is negative. D-dimer elevated at 12.14, liver enzymes not elevated, troponin is elevated at 0.06. TSH is 1.1. Ethanol a is negative. Chest x-ray no acute pulmonary process. EKG showing atrial fibrillation with rapid ventricular response at 146 Right internal jugular intravenous catheter was placed. And was started on antibiotics with Zosyn. Received several boluses of IV fluids, more than 5.5 L of normal saline. Started on Ringer lactate at 150 mL/h. He got 1 dose of ibuprofen. Aleve affect was ordered and he was started on heparin drip and Cardizem drip. Cipro consult is has been called already from emergency room including cardiology, nephrology, pulmonary/critical care and infectious disease. 03/11/2019 Patient is awake, alert, resting comfortably in bed with no distress. No chest pain. No shortness of breath. He still have watery diarrhea about 6-8 bouts per night, or every 1-2 hours. He feels his belly is gassy but no abdominal pain, he has decreased appetite but no nausea vomiting. He has mild left shoulder pain from twice, last one was about one week ago. However there is no restriction of movement actively or passively and he can easily raise his arm above his 8. Abdominal CAT scan yesterday showed hepatomegaly with possible gallbladder disease however patient have no right upper quadrant pain or tenderness. Liver ultrasound is ordered today. Doppler was positive for left DVT and dried superficial venous thrombosis, pain medicine is a provided and patient is currently on heparin drip. Patient is off of Levaquin or Cardizem drip his blood pressure and heart rate is controlled with metoprolol. Neurology input is appreciated and patient is on prednisone, higher dose and by rest and ketamine for his myasthenia gravis. Echo shows ejection fraction 60-65%. Vitals are stable. We will see back to normal at 8K, INR is 1.0, sodium 134, creatinine 1.4, coming down from 1.85 yesterday. Lactic acid is slightly tyler vated at 2.5, sugars controlled. Chest x-ray showing possible atelectasis. ID input is appreciated and switch Zosyn to cefepime and Flagyl. Follow-up stool studies. 03/12/2019 Patient remains in the ICU. He is awake. He did not have bowel movement for the last 24 hour, total this morning were was still a little bit loose and he described " it is like a Chocolate". His leg pain is improved today. No other complaints. He is hemodynamically stable however he is running fever of 101.8 and he still tachycardic 128-141, he is on Cardizem drip. Discussed the case with infectious disease team. Being on Imuran there is just for CMV infection. Imuran was held now. Laps looks stable today, sugar controlled. Cultures still pending. Repeat chest x-ray showing increasing right infrahilar opacity likely unifocal pneumonia. Harness Cutter recommended to stop the Cardizem drip and switch it to unknown drip and increase dose of metoprolol to 50 mg twice daily. IV fluids was stopped as his creatinine back to normal today at 0.9. And lactic acid is back to normal at 2.0 Review of systems CONSTITUTIONAL: No fever, no malaise, no fatigue. HEENT: No recent visual problems or hearing problems. Denied any sore throat. CARDIOVASCULAR: No orthopnea, PND, no palpitations, no syncope. PULMONARY: No shortness of breath, no cough, no hemoptysis. GASTROINTESTINAL: Active Medications Generic Name Dose Route Start Last Admin Trade Name Freq PRN Reason Stop Dose Admin Acetaminophen 650 mg 03/10/19 15:25 03/12/19 01:51 Tylenol Tab PO 650 mg Q6HR PRN Administration Fever and/ or Pain Hydrocodone Bitart/Acetaminophen 1 each 03/10/19 23:49 03/11/19 00:29 [place] 5-325 PO 1 each Q6HR PRN Administration Pain Apixaban 5 mg 03/11/19 09:30 03/12/19 10:02 Eliquis PO 5 mg BID QUYEN Administration Atorvastatin Calcium 20 mg 03/10/19 21:00 03/11/19 21:21 Lipitor PO 20 mg HS QUYEN Administration Cholestyramine Resin 4 gm 03/11/19 18:00 03/12/19 10:03 Questran PO 4 gm BID@1000,1800 QUYEN Administration Clopidogrel Bisulfate 75 mg 03/10/19 09:00 03/12/19 10:02 Plavix PO 75 mg DAILY QUYEN Administration Famotidine 10 mg 03/10/19 21:00 03/12/19 10:01 Pepcid IV 10 mg Q12HR QUYEN Administration Lactated Ringer's 1,000 mls @ 10 mls/hr 03/09/19 20:15 03/12/19 01:56 Lactated Ringers IV 100 mls/hr .Q24H QUYEN Administration Cefepime HCl 2 gm/ Sodium 100 mls @ 200 mls/hr 03/10/19 23:00 03/12/19 11:19 Chloride IVPB 200 mls/hr Q12H QUYEN Administration Metronidazole 500 mg/ IV 100 mls @ 100 mls/hr 03/11/19 00:00 03/12/19 07:46 Solution IVPB 100 mls/hr Q8HR QUYEN Administration Vancomycin HCl 2,000 mg/ 500 mls @ 167 mls/hr 03/12/19 18:00 Sodium Chloride IVPB Q12H QUYEN Acetaminophen 1,000 mg/ IV 100 mls @ 400 mls/hr 03/12/19 10:13 03/12/19 10:51 Solution IVPB 03/13/19 06:14 400 mls/hr Q6HR PRN Administration Fever Amiodarone HCl 360 mg/ 200 mls @ 33.333 mls/hr 03/12/19 10:27 03/12/19 10:54 Dextrose/Water IV 03/12/19 16:26 1 mg/min .Q6H ONE 33.333 mls/hr Administration Protocol 1 MG/MIN Amiodarone HCl 300 mg/ 250 mls @ 25 mls/hr 03/12/19 16:30 Dextrose/Water IV 03/13/19 10:29 .Q10H QUYEN Protocol 0.5 MG/MIN Insulin Aspart 0 unit 03/11/19 07:30 03/12/19 12:07 Novolog SQ Not Given ACHS QUYNE Protocol Metoprolol Succinate 25 mg 03/12/19 09:00 03/12/19 10:02 Toprol Xl PO 25 mg BID QUYEN Administration Miscellaneous Information 1 each 03/09/19 20:05 Pneumonia Protocol Utilized PO ONCE PRN Per Protocol Miscellaneous Information 0 each 03/13/19 05:00 Vancomycin Trough Due MISCELLANE 03/13/19 05:01 DIRECTED ONE Morphine Sulfate 2 mg 03/11/19 05:17 03/11/19 05:57 Morphine Sulfate (Inj) IVP 2 mg Q6H PRN Administration Pain/Discomfort Multivitamins 1 each 03/10/19 09:00 03/12/19 10:02 Theragran PO 1 each DAILY QUYEN Administration Prednisone 40 mg 03/10/19 09:00 03/12/19 10:02 PO 40 mg DAILY QUYEN Administration Pyridostigmine [place] 120 mg 03/09/19 23:00 03/12/19 10:02 Mestinon PO 120 mg TID QUYEN Administration Sodium Bicarbonate 650 mg 03/10/19 10:00 03/12/19 10:01 Sodium Bicarbonate Tab PO 650 mg QID QUYEN Administration no nausea, no vomiting, no abdominal pain. Normoactive bowel sounds. NEUROLOGICAL: No headaches, no weakness, no numbness. HEMATOLOGICAL: Denies any bleeding or petechiae. GENITOURINARY: Denies any burning micturition, frequency, or urgency. MUSCULOSKELETAL/RHEUMATOLOGICAL: Denies any joint pain, swelling, or any muscle pain. ENDOCRINE: Denies any polyuria or polydipsia. Objective - Vital Signs Vital signs: Vital Signs Temp 101.8 F H 03/12/19 10:00 Pulse 128 H 03/12/19 10:00 Resp 16 03/12/19 10:00 BP 149/83 03/12/19 10:00 Pulse Ox 95 03/12/19 10:00 Intake & Output 03/11/19 03/12/19 03/12/19 18:59 06:59 18:59 Intake Total 2200 1410.5 700 Output Total 1175 1615 1000 Balance 1025 -204.5 -300 Weight 135.2 kg Intake: IV 1500 1400 300 Cefepime 2 gm In Sodium 100 100 100 Chloride 0.9% 100 ml @ 200 mls/hr IVPB Q12H QUYEN Rx#:[id number] Lactated Ringers 1,000 ml 1200 1200 100 @ 10 mls/hr IV .Q24H QUYEN Rx#:[id number] metroNIDAZOLE-NS PMX 500 200 100 100 mg In Saline 1 100ml.bag @ 100 mls/hr IVPB Q8HR QUYEN Rx#:[id number] Intake, IV Titration 10.5 Amount Diltiazem 125 mg In 10.5 Sodium Chloride 0.9% 100 ml @ 10 MG/HR 10 mls/hr IV .[id number] QUYEN Rx#: [id number] Oral 700 400 Output: Urine 1175 1615 1000 Other: Voiding Method Indwelling Catheter Indwelling Catheter Indwelling Catheter # Voids 1 - Exam GENERAL: The patient is alert and oriented x3, not in any acute distress. Well developed, well nourished. HEENT: Pupils are round and equally reacting to light. EOMI. No scleral icterus. No conjunctival pallor. Normocephalic, atraumatic. No pharyngeal erythema. No thyromegaly. CARDIOVASCULAR: S1 and S2 present. No murmurs, rubs, or gallops. PULMONARY: Chest is clear to auscultation, no wheezing or crackles. ABDOMEN: Soft, nontender, nondistended, normoactive bowel sounds. No palpable organomegaly. MUSCULOSKELETAL: No joint swelling or deformity. EXTREMITIES: No cyanosis, clubbing, or pedal edema. NEUROLOGICAL: Gross neurological examination did not reveal any focal deficits. SKIN: No rashes. - Labs CBC & Chem 7: 03/12/19 05:00 03/12/19 05:00 Labs: Abnormal Lab Results - Last 24 Hours (Table) 03/11/19 03/11/19 03/11/19 Range/Units 15:14 16:33 18:12 Hgb (13.0-17.5) gm/dL Hct (39.0-53.0) % Plt Count (150-450) k/uL Lymphocytes # (1.0-4.8) k/uL Sodium (137-145) mmol/L BUN (9-20) mg/dL Glucose (74-99) mg/dL POC Glucose (mg/dL) 116 H (75-99) mg/dL Plasma Lactic Acid Cole 3.0 H* 2.9 H* (0.7-2.0) mmol/L Calcium (8.4-10.2) mg/dL 03/11/19 03/12/19 03/12/19 Range/Units 20:51 05:00 05:00 Hgb 11.8 L (13.0-17.5) gm/dL Hct 35.8 L (39.0-53.0) % Plt Count 108 L (150-450) k/uL Lymphocytes # 0.3 L (1.0-4.8) k/uL Sodium 135 L (137-145) mmol/L BUN 24 H (9-20) mg/dL Glucose 111 H (74-99) mg/dL POC Glucose (mg/dL) 137 H (75-99) mg/dL Plasma Lactic Acid Cole (0.7-2.0) mmol/L Calcium 7.6 L (8.4-10.2) mg/dL 03/12/19 03/12/19 Range/Units 06:46 11:49 Hgb (13.0-17.5) gm/dL Hct (39.0-53.0) % Plt Count (150-450) k/uL Lymphocytes # (1.0-4.8) k/uL Sodium (137-145) mmol/L BUN (9-20) mg/dL Glucose (74-99) mg/dL POC Glucose (mg/dL) 106 H 128 H (75-99) mg/dL Plasma Lactic Acid Cole (0.7-2.0) mmol/L Calcium (8.4-10.2) mg/dL Microbiology - Last 24 Hours (Table) 03/10/19 01:01 Urine Culture - Final Urine,Catheterized 03/10/19 05:05 Gram Stain - Final Sputum Sputum Culture - Final 03/09/19 20:47 Blood Culture - Preliminary Blood No Growth after 48 hours 03/09/19 18:09 Blood Culture - Preliminary Blood No Growth after 48 hours 03/10/19 16:20 Blood Culture - Preliminary Blood No Growth after 24 hours 03/10/19 16:20 Blood Culture - Preliminary Blood No Growth after 24 hours Assessment and Plan Assessment: Systemic inflammatory response with tachycardia, fever and leukocytosis, Rule ou t sepsis . Possible secondary to gastroenteritis versus pneumonia Possible right pneumonia Intractable A. fib, cardiology following the case. Acute left DVT and right superficial vein thrombosis. On anticoagulation Elevated troponin mostly secondary to his A. fib Acute kidney injury, Secondary to dehydration. Improved Dehydration , improved. Hold Imuran Myasthenia gravis on Imuran and follow-up Dr. Costa as an outpatient Mild hyponatremia, improving. Elevated Lactic acid Hypertension Hyperlipidemia History of arthritis for many years, on a daily dose of prednisone Chronic spinal stenosis Obstructive sleep apnea on CPAP sciatica Plan: This is a pleasant 63 years old male who presents with multiple medical problems including gastroenteritis, A. fib with RVR with elevated troponin, acute kidney injury . Patient also has left DVT. Patient continue with anticoagulation, he is on Eliquis currently. Increase for rate control.. Continue with amiodarone d rip. Continue with antibiotics as per infectious disease recommendation. Stop IV fluids.. Consultants were called including pulmonary, cardiology, nephrology and infectious disease. Labs and medication were reviewed.. Continue same treatment. Continue with symptomatic treatment. Resume home medication. Monitor lytes and vitals. DVT and GI prophylaxis. Further recommendations of the clinical course of the patient DVT prophylaxis: Eliquis GI Prophylaxis: Pepcid Prognosis is guarded
--- NOTE | 2019-03-12 13:59 | P.PN ---
Subjective Progress Note Date: 03/12/19 63-year-old male patient came in to the ED yesterday because of few days of watery diarrhea that was quite aggressive and constant. The patient became quite dehydrated. He came into the ED and he was found to be in A. fib RVR and at the same time he was found to be in acute kidney injury. He was started on IV fluids. He received a total of 3 L and currently is on lactated Ringer running at 150 mL an hour. No significant abdominal pain. No nausea. No emesis. Stool for C. diff has been negative. The patient reports that he was having some loose stools for the past several months. He is obese. He has history of myasthenia gravis maintain a combination of Imuran and prednisone at a low dose of 10 mg by mouth daily. He is also on Mestinon. He is diagnosed was established approximately a year ago. He does not have a thymoma. He has received a total of 3 sessions of high-dose IV Solu-Medrol for a total of 5 visits was given to him by his neurologist office on outpatient basis lasting approximately 6 weeks ago. He still has on of double vision and some weakness. He also has obstructive sleep apnea severe with an AHI of 45 and currently is on CPAP at a pressure of 7 cm of water. He has hypertension and arthritis. The patient has no fever. No travel history. No food poisoning. In the ED, his lactic acid was slightly elevated and after fluids with lactic acid level normal ized. His white cell count is at 12.7. Platelet count is 127. No shortness of breath. No altered mentation. He is on 2 L of oxygen by nasal cannula with a pulse ox of 97%. On 03/11/2019 patient seen in follow-up in intensive care unit, he is awake and alert, in no acute distress, dates his watery diarrhea is becoming a bit more firm, however she still continues to have frequent loose stools, C. diff was negative, stool for culture is pending, blood, urine and sputum culture have been sent, and remain negative thus far, yesterday patient developed shaking chills, and started spiking fevers, with a T-max of 10 3F. He was placed back on Zosyn, new set of blood cultures have been sent. Flagyl, and vancomycin were added, and Zosyn was changed to cefepime per ID service recommendations. He is afebrile this morning. She denies any respiratory difficulty, denies any abdominal pain or tenderness, abdomen is slightly distended but soft. No nausea. Patient's heparin drip has been switched to oral Eliquis, he remains in sinus rhythm. On 03/12/2019, the patient remains in intensive care unit. On today's evaluation the patient is still having on and off fever and earlier this morning his temperature was 101.6. He flipped back into atrial fibrillation with rapid ventricular response. The patient was started on Cardizem drip for rate control. The patient is also on long-term and coagulation with Eliquis knowing that he also has a lower extremity DVT. No abdominal pain. After having improvement in his diarrhea, the patient had another bout of loose stool this afternoon. Note that all of the cultures of been negative. With fever spikes, the patient underwent further blood cultures and all of the results of been negative. ID is on the case. The patient is currently on a combination of antibiotics including a combination of cefepime, vancomycin and Flagyl. Amio darone has been discontinued. The patient remains on a 40 mg of prednisone. The patient also Mestinon. No double vision. No significant motor weakness to indicate myasthenia gravis exacerbation. The patient was started on Questran for his diarrhea. Stool for C. diff has been negative. Lactic acid level came up to 3.7 and then drop down to 2.0. Renal function is normalized and the creatinine is down to 0.9. Chest exit from today shows acute more vessel marking congestion and the patient is also more short of breath compared to yesterday and the patient was started on diuretics. IV fluids will be cut down to KVO. No altered mentation. No headache. No chest pain. No palpitation. Producing adequate amount of urine output. Objective - Vital Signs Vital signs: Vital Signs Temp 101.6 F H 03/12/19 12:00 Pulse 111 H 03/12/19 12:30 Resp 24 03/12/19 12:30 BP 144/83 03/12/19 12:30 Pulse Ox 96 03/12/19 12:30 Intake & Output 03/11/19 03/12/19 03/12/19 18:59 06:59 18:59 Intake Total 2200 1410.5 1100 Output Total 1175 1615 2500 Balance 1025 -204.5 -1400 Weight 135.2 kg Intake: IV 1500 1400 300 Cefepime 2 gm In Sodium 100 100 100 Chloride 0.9% 100 ml @ 200 mls/hr IVPB Q12H QUYEN Rx#:[id number] Lactated Ringers 1,000 ml 1200 1200 100 @ 10 mls/hr IV .Q24H QUYEN Rx#:[id number] metroNIDAZOLE-NS PMX 500 200 100 100 mg In Saline 1 100ml.bag @ 100 mls/hr IVPB Q8HR QUYEN Rx#:[id number] Intake, IV Titration 10.5 Amount Diltiazem 125 mg In 10.5 Sodium Chloride 0.9% 100 ml @ 10 MG/HR 10 mls/hr IV .[id number] QUYEN Rx#: [id number] Oral 700 800 Output: Urine 1175 1615 2500 Other: Voiding Method Indwelling Catheter Indwelling Catheter Indwelling Catheter # Voids 1 - Exam GENERAL EXAM: Alert, active, comfortable in no apparent distress. HEAD: Normocephalic/atraumatic. EYES: Normal reaction of pupils, equal size. Conjunctiva pink, sclera white. NOSE: Clear with pink turbinates. THROAT: No erythema or exudates. NECK: No masses, no JVD, no thyroid enlargement, no adenopathy. CHEST: No chest wall deformity. Symmetrical expansion. LUNGS: Equal air entry with limited rales at bilateral bases, but no wheeze, rhonchi or dullness. CVS: Regular rate and rhythm, normal S1 and S2, no gallops, no murmurs, no rubs ABDOMEN: Soft, slightly distended, nontender. No hepatosplenomegaly, normal bowel sounds, no guarding or rigidity. EXTREMITIES: No clubbing, no edema, no cyanosis, 2+ pulses and upper and lower extremities. MUSCULOSKELETAL: Muscle strength and tone normal. SPINE: No scoliosis or deformity SKIN: No rashes CENTRAL NERVOUS SYSTEM: Alert and oriented -3. No focal deficits, tone is normal in all 4 extremities. PSYCHIATRIC: Alert and oriented -3. Appropriate affect. Intact judgment and insight. - Labs CBC & Chem 7: 03/12/19 05:00 03/12/19 05:00 Labs: Abnormal Lab Results - Last 24 Hours (Table) 03/11/19 03/11/19 03/11/19 Range/Units 15:14 16:33 18:12 Hgb (13.0-17.5) gm/dL Hct (39.0-53.0) % Plt Count (150-450) k/uL Lymphocytes # (1.0-4.8) k/uL Sodium (137-145) mmol/L BUN (9-20) mg/dL Glucose (74-99) mg/dL POC Glucose (mg/dL) 116 H (75-99) mg/dL Plasma Lactic Acid Cole 3.0 H* 2.9 H* (0.7-2.0) mmol/L Calcium (8.4-10.2) mg/dL 03/11/19 03/12/19 03/12/19 Range/Units 20:51 05:00 05:00 Hgb 11.8 L (13.0-17.5) gm/dL Hct 35.8 L (39.0-53.0) % Plt Count 108 L (150-450) k/uL Lymphocytes # 0.3 L (1.0-4.8) k/uL Sodium 135 L (137-145) mmol/L BUN 24 H (9-20) mg/dL Glucose 111 H (74-99) mg/dL POC Glucose (mg/dL) 137 H (75-99) mg/dL Plasma Lactic Acid Cole (0.7-2.0) mmol/L Calcium 7.6 L (8.4-10.2) mg/dL 03/12/19 03/12/19 Range/Units 06:46 11:49 Hgb (13.0-17.5) gm/dL Hct (39.0-53.0) % Plt Count (150-450) k/uL Lymphocytes # (1.0-4.8) k/uL Sodium (137-145) mmol/L BUN (9-20) mg/dL Glucose (74-99) mg/dL POC Glucose (mg/dL) 106 H 128 H (75-99) mg/dL Plasma Lactic Acid Cole (0.7-2.0) mmol/L Calcium (8.4-10.2) mg/dL Microbiology - Last 24 Hours (Table) 03/10/19 15:55 Urine Culture - Final Urine,Clean Catch 03/10/19 11:24 Stool Culture - Preliminary Stool 03/10/19 01:01 Urine Culture - Final Urine,Catheterized 03/10/19 05:05 Gram Stain - Final Sputum Sputum Culture - Final 03/09/19 20:47 Blood Culture - Preliminary Blood No Growth after 48 hours 03/09/19 18:09 Blood Culture - Preliminary Blood No Growth after 48 hours 03/10/19 16:20 Blood Culture - Preliminary Blood No Growth after 24 hours 03/10/19 16:20 Blood Culture - Preliminary Blood No Growth after 24 hours Assessment and Plan Plan: 1 acute diarrhea with significant intravascular volume and acute kidney injury. The exact cause is not clear. Rule out drug induced diarrhea. Rule out postinfectious diarrhea. For C. diff was negative. Stool cultures still pending for now. Meanwhile the patient is still having fever and loose liquidy bowel movements and the exact cause is not clear. No abdominal pain. 2 acute kidney injury, recovered and the patient's kidney function is normalized. 3 episodic fever 4 new onset atrial fibrillation, and the patient was placed on a combination of metoprolol and Cardizem drip. Cardiology is on the case. Echo shows a normal left ventricular function appeared no valvular vegetations. 5 myasthenia gravis maintained on a combination of Mestinon, prednisone and Imuran an outpatient basis. The patient is was taken off Imuran due to concerns of infection/fever/diarrhea. 6 obstructive sleep apnea with an AHI of 45 maintained on a CPAP pressure of 7 cm of water 7 hypertension 8 hyperlipidemia 9 chronic back pain related to spinal stenosis and sciatica 10 lactic acidosis, fever, rule out sepsis, Improved and lactic acid level is down to 2.0 11 left lower extremity DVT, on Eliquis BRITTANY Check a pro-calcitonin level considering the possibility of an acute bacterial infection. Check CMV titers. We'll check CMV IgM antibiotics. Monitor fever pattern. IV Tylenol for fever. Keep same antibiotic coverage. Continue the Cardizem drip and consult cardiology the possibility of making adjustments for about the rate control. Continue metoprolol. Continue Eliquis. Give the patient Lasix 40 mg IV push. Cut down the IV fluids to KVO. We'll continue to follow make further recommendations based on his progress.
--- NOTE | 2019-03-12 15:18 | PN ---
PROGRESS NOTE DATE OF SERVICE: 03/12/2019 Patient is a 63-year-old pleasant white male admitted to the hospital with hypertension, acute kidney injury secondary to dehydration, chronic diarrhea, as well as AFIB with rapid ventricular heart rate. He remains in the intensive care unit. He is presently on IV Cardizem and IV amiodarone drip because of AFIB with RVR. He was seen in consultation yesterday for evaluation of chronic diarrhea for the last 2 months duration which has been much worse in the last 1 week. He was having about 7-8 loose watery bowel movements daily but in the last 24 hours had only 2 bowel movements. He is on empiric antibiotics. Stool for C difficile toxin is negative and cultures are negative. Repeat stool for C diff toxin this morning is still pending at the time of this dictation. He denies any abdominal pain, reports no nausea, vomiting. PHYSICAL EXAMINATION: He appears comfortable, in no apparent distress. Vital signs are stable, blood pressure is 133/86, pulse rate 126 per minute and afebrile. HEENT: Examination unremarkable, conjunctivae are pink, sclerae nonicteric, oral cavity no lesions. NECK: No JVD or lymph node enlargement. CHEST: Clear to auscultation. HEART: Regular rate and rhythm. ABDOMEN: Soft, it was nontender, nondistended. Bowel sounds are positive. No organomegaly. EXTREMITIES: No pedal edema. SKIN: No rashes. NEURO: Alert and oriented x3. No focal deficits. LABS: From today WBC 8.1, hemoglobin 11.8, platelets are normal. Repeat C diff toxin is negative. Basic metabolic panel showed a BUN of 24, creatinine 0.94, sodium is 135, potassium 4, chloride 107 and CO2 of 23. IMPRESSION: 1. Sepsis of unclear etiology. Lactic acid was improving. Patient on broad-spectrum antibiotics as per ID recommendation. Presently on Flagyl, vancomycin and cefepime, overall condition improving. 2. Chronic diarrhea with worsening diarrhea in the last 1 week. Stool studies so far are negative. Clostridium difficile x2 is negative. In the last 24 hours, he had only 2 bowel movements which were somewhat loose in consistency, but diarrhea appears to be gradually improving. 3. Acute kidney injury with improving BUN and creatinine. 4. Atrial fibrillation with RVR on IV amiodarone drip and gradually improving, on Eliquis also. RECOMMENDATIONS: 1. Continue with broad-spectrum antibiotics. 2. Await rest of the stool cultures. 3. If the cultures are negative, we can start him on Imodium as needed to control the diarrhea. 4. Colonoscopic evaluation in the near future if the diarrhea continues to persist. Thank you for this consultation. Will follow the patient closely during this hospital stay. DELMAR / POORNIMA: [id number] /
--- NOTE | 2019-03-12 16:18 | PN ---
PROGRESS NOTE DATE OF SERVICE: 03/12/2019 REASON FOR FOLLOWUP: Fever and diarrhea. INTERVAL HISTORY: The patient continues to have a fever, though fever pattern has improved, currently with T-max of 100.4. The last temperature was 101.6 yesterday afternoon. The patient did mention that his diarrhea did resolve. He did have one soft bowel movement today which seemed to be slightly forming up and chocolate-colored, but no loreto blood. Denies having any abdominal pain. Seems to have a problem with atrial fibrillation with RVR, for which the patient has been started on amiodarone in addition to the current meds . PHYSICAL EXAMINATION: Blood pressure is 139/77 with a pulse of 121, temperature of 100, T-max 100.4. He is 94% on room air. General description is an elderly male lying in bed in no distress. RESPIRATORY SYSTEM: Unlabored breathing. Clear to auscultation anteriorly. HEART: S1, S2. Regular rate and rhythm. ABDOMEN: Soft. Mildly distended. No guarding or rigidity. No organomegaly. EXTREMITIES: No edema of the feet. LABS: Hemoglobin is 11.8, white count 8.1 with a BUN of 24, creatinine 0.94. DIAGNOSTIC IMPRESSION AND PLAN: Patient admitted to hospital with significant diarrhea along with a fever with concern for possible infectious colitis. The patient's stool cultures are currently pending. He is on cefepime and Flagyl with persistent fever in this patient who has underlying immunodeficiency and concern for Atypical pathogen may be causing this colitis such as CMV. CMV serology has been ordered. We will discontinue the vancomycin; clinically doubt gram-positive infection, and to rule out drug-related fever if fever is persistent will discuss with GI for possible colonoscopy and biopsy. Monitor clinical course closely. Continue with supportive care. MMODL / IJN: [id number] / FLACA
[2019-03-12] MEDS: AMIODARONE 300 MG in DEXTROSE 5% IN WATER 250 ML IV SCH ×2 (16:48)
[2019-03-12 17:14] LABS: Glucose,Whole Blood 209 mg/dL (75-99)
[2019-03-12] MEDS ORDERED: VANCOMYCIN 2,000 MG in SODIUM CHLORIDE 0.9% 500 ML 500 ML IVPB SCH (18:00)
[2019-03-12 21:16] LABS: Glucose,Whole Blood 147 mg/dL (75-99)
[2019-03-12] MEDS: ATORVASTATIN 20 MG TAB PO SCH (21:17)
[2019-03-13] MEDS: metroNIDAZOLE-NS PMX 500 MG in SALINE 1 100ML.BAG IVPB SCH ×3 (00:49→16:23)
[2019-03-13] MEDS: AMIODARONE 300 MG in DEXTROSE 5% IN WATER 250 ML IV SCH ×2 (03:19)
[2019-03-13] MEDS ORDERED: VANCOMYCIN TROUGH DUE 1 EACH MISC MISCELLANE ONE (05:00)
[2019-03-13 05:34] LABS: HCT 38.2 % (39.0-53.0); HGB 12.8 gm/dL (13.0-17.5); MCHC 33.6 g/dL (31.0-37.0); MCV 83.2 fL (80.0-100.0); Mean Platelet Volume 9.4; Platelet Count 123 k/uL (150-450); RBC 4.59 m/uL (4.30-5.90); RDW 14.6 % (11.5-15.5); WBC 11.1 k/uL (3.8-10.6)
[2019-03-13 05:52] LABS: African American GFR (CKD) >90 (>60 ml/min/1.73 sqM); Anion Gap 7 mmol/L; Blood Urea Nitrogen 28 mg/dL (9-20); Calcium 8.2 mg/dL (8.4-10.2); Carbon Dioxide 23 mmol/L (22-30); Chloride 107 mmol/L (98-107); Glucose 108 mg/dL (74-99); Sodium 137 mmol/L (137-145)
[2019-03-13 07:15] LABS: Glucose,Whole Blood 119 mg/dL (75-99)
--- NOTE | 2019-03-13 07:35 | XR ---
EXAMINATION TYPE: XR chest 1V portable DATE OF EXAM: 03/13/2019 COMPARISON: 03/12/2019 HISTORY: Exertional dyspnea TECHNIQUE: Single frontal view of the chest is obtained. FINDINGS: Improved right perihilar opacity with minimal streak-like linear opacity radiating to the lung bases. Remainder the lungs are clear. Cardiomediastinal silhouette is again enlarged. Stable rig ht internal jugular central venous catheter. No acute osseous pathology. IMPRESSION: Markedly improved right perihilar airspace disease with bandlike minimal linear opacity radiating from the right hilum appearing as atelectasis.
[2019-03-13] MEDS: INSULIN ASPART (NovoLOG) 100 UNIT/ML VIAL SQ SCH ×4 (07:36→21:52)
[2019-03-13] MEDS: SODIUM BICARBONATE TAB 650 MG TAB PO SCH ×2 (08:04→09:49)
[2019-03-13] MEDS: predniSONE 20 MG TAB PO SCH (08:04)
[2019-03-13] MEDS: MULTIVITAMINS, THERA 1 EACH TAB PO SCH (08:04)
[2019-03-13] MEDS: CLOPIDOGREL 75 MG TAB PO SCH (08:05)
[2019-03-13] MEDS: APIXABAN 5 MG TAB PO SCH ×2 (08:05→21:53)
[2019-03-13] MEDS: METOPROLOL SUCCINATE (ER) 25 MG TAB.ER.24H PO SCH (08:05)
[2019-03-13] MEDS: FAMOTIDINE 20 MG/2 ML VIAL IV SCH ×2 (08:05→21:53)
[2019-03-13] MEDS: PYRIDOSTIGMINE 60 MG TAB PO SCH ×3 (08:07→21:54)
[2019-03-13] MEDS ORDERED: METOPROLOL TARTRATE 25 MG TAB PO STA (10:37)
[2019-03-13] MEDS: CHOLESTYRAMINE (WITH SUGAR) 4 GM PACKET PO SCH ×2 (10:47→17:22)
[2019-03-13] MEDS: CEFEPIME 2 GM in SODIUM CHLORIDE 0.9% 100 ML IVPB SCH ×2 (10:47→23:40)
--- NOTE | 2019-03-13 11:21 | P.PN ---
Subjective Patient is seen in follow-up for acute kidney injury. Renal function is back to baseline. Creatinine 0.84 today. He is nonoliguric. No vomiting. No diarrhea overnight. Currently on amiodarone drip for A. fib. Vital signs are stable. General: The patient appeared well nourished and normally developed. HEENT: Head exam is unremarkable. Neck is without jugular venous distension. LUNGS: Lungs are clear to auscultation and percussion. Breath sounds decreased. HEART: Irregular rate and rhythm. ABDOMEN: Abdominal exam reveals normal bowel sounds. Non-tender and non- distended. EXTREMITITES: No clubbing, cyanosis, or edema. Objective - Vital Signs Vital signs: Vital Signs Temp 99.0 F 03/13/19 08:00 Pulse 121 H 03/13/19 11:00 Resp 20 03/13/19 11:00 BP 141/112 03/13/19 11:00 Pulse Ox 96 03/13/19 11:00 Intake & Output 03/12/19 03/13/19 03/13/19 18:59 06:59 18:59 Intake Total 1730 470 150 Output Total 3700 1675 670 Balance -1970 -1205 -520 Weight 131 kg Intake: IV 430 220 150 Cefepime 2 gm In Sodium 100 100 Chloride 0.9% 100 ml @ 200 mls/hr IVPB Q12H QUYEN Rx#:[id number] Lactated Ringers 1,000 ml 130 120 50 @ 10 mls/hr IV .Q24H QUYEN Rx#:[id number] metroNIDAZOLE-NS PMX 500 200 100 mg In Saline 1 100ml.bag @ 100 mls/hr IVPB Q8HR QUYEN Rx#:[id number] Intake, IV Titration 250 Amount Amiodarone 300 mg In 250 Dextrose 5% in Water 250 ml @ 0.5 MG/MIN 25 mls/hr IV .Q10H QUYEN Rx#: [id number] Oral 1300 Output: Urine 3700 1675 670 Other: Voiding Method Indwelling Catheter Indwelling Catheter Indwelling Catheter # Voids 1 - Labs CBC & Chem 7: 03/13/19 04:37 03/13/19 04:37 Labs: Abnormal Lab Results - Last 24 Hours (Table) 03/12/19 03/12/19 03/12/19 Range/Units 05:00 10:15 11:49 WBC (3.8-10.6) k/uL Hgb (13.0-17.5) gm/dL Hct (39.0-53.0) % Plt Count (150-450) k/uL BUN (9-20) mg/dL Glucose (74-99) mg/dL POC Glucose (mg/dL) 128 H (75-99) mg/dL Calcium (8.4-10.2) mg/dL C-Reactive Protein (<10.0) mg/L Procalcitonin 19.15 H (0.02-0.09) ng/mL Stool Lactoferrin POSITIVE H (NEGATIVE) 03/12/19 03/12/19 03/12/19 Range/Units 17:03 17:47 21:05 WBC (3.8-10.6) k/uL Hgb (13.0-17.5) gm/dL Hct (39.0-53.0) % Plt Count (150-450) k/uL BUN (9-20) mg/dL Glucose (74-99) mg/dL POC Glucose (mg/dL) 209 H 147 H (75-99) mg/dL Calcium (8.4-10.2) mg/dL C-Reactive Protein 245.0 H (<10.0) mg/L Procalcitonin (0.02-0.09) ng/mL Stool Lactoferrin (NEGATIVE) 03/13/19 03/13/19 03/13/19 Range/Units 04:37 04:37 07:03 WBC 11.1 H (3.8-10.6) k/uL Hgb 12.8 L (13.0-17.5) gm/dL Hct 38.2 L (39.0-53.0) % Plt Count 123 L (150-450) k/uL BUN 28 H (9-20) mg/dL Glucose 108 H (74-99) mg/dL POC Glucose (mg/dL) 119 H (75-99) mg/dL Calcium 8.2 L (8.4-10.2) mg/dL C-Reactive Protein (<10.0) mg/L Procalcitonin (0.02-0.09) ng/mL Stool Lactoferrin (NEGATIVE) Microbiology - Last 24 Hours (Table) 03/09/19 20:47 Blood Culture - Preliminary Blood No Growth after 72 hours 03/09/19 18:09 Blood Culture - Preliminary Blood No Growth after 72 hours 03/11/19 18:17 Blood Culture - Preliminary Blood No Growth after 24 hours 03/11/19 18:12 Blood Culture - Preliminary Blood No Growth after 24 hours 03/10/19 16:20 Blood Culture - Preliminary Blood No Growth after 48 hours 03/10/19 16:20 Blood Culture - Preliminary Blood No Growth after 48 hours 03/12/19 10:15 Stool Culture - Preliminary Stool 03/10/19 15:55 Urine Culture - Final Urine,Clean Catch 03/10/19 11:24 Stool Culture - Preliminary Stool 03/10/19 01:01 Urine Culture - Final Urine,Catheterized 03/10/19 05:05 Gram Stain - Final Sputum Sputum Culture - Final Assessment and Plan Plan: Assessment: 1. Acute kidney injury mostly prerenal secondary to hypotension and intravascular volume depletion from diarrhea. Was also on lisinopril which is currently held. Creatinine was 2.67 on admission and is down to 0.84 today. Baseline creatinine near 1. No evidence of hydronephrosis noted on CAT scan. 2. Hypovolemic hyponatremia improving with IV hydration. Better. 3. Metabolic acidosis secondary to acute kidney injury and diarrhea. Better. 4. A. fib with RVR. Currently on amiodarone drip. 5. Hypotension secondary to hypovolemia and A. fib. Resolved. 6. Diarrhea. Possibly infectious. Maintain on IV antibiotics. Infectious disease following. C. diff negative. 7. Hypokalemia from poor oral intake and GI losses. Improved. 8. Mild volume overload. Status post IV Lasix on March 12. Plan: Discontinue sodium bicarbonate. Avoid nephrotoxins. Continue to monitor renal function and urine output.
[2019-03-13 11:55] LABS: Glucose,Whole Blood 124 mg/dL (75-99)
--- NOTE | 2019-03-13 13:16 | P.PN ---
Subjective Progress Note Date: 03/13/19 Principal diagnosis: Acute diarrhea with significant intravascular volume depletion, acute kidney injury, fever, new onset A. fib 63-year-old male patient came in to the ED yesterday because of few days of watery diarrhea that was quite aggressive and constant. The patient became quite dehydrated. He came into the ED and he was found to be in A. fib RVR and at the same time he was found to be in acute kidney injury. He was started on IV fluids. He received a total of 3 L and currently is on lactated Ringer running at 150 mL an hour. No significant abdominal pain. No nausea. No emesis. Stool for C. diff has been negative. The patient reports that he was having some loose stools for the past several months. He is obese. He has history of myasthenia gravis maintain a combination of Imuran and prednisone at a low dose of 10 mg by mouth daily. He is also on Mestinon. He is diagnosed was established approximately a year ago. He does not have a thymoma. He has received a total of 3 sessions of high-dose IV Solu-Medrol for a total of 5 visits was given to him by his neurologist office on outpatient basis lasting approximately 6 weeks ago. He still has on of double vision and some weakness. He also has obstructive sleep apnea severe with an AHI of 45 and currently is on CPAP at a pressure of 7 cm of water. He has hypertension and arthritis. The patient has no fever. No travel history. No food poisoning. In the ED, his lactic acid was slightly elevated and after fluids with lactic acid level normalized. His white cell count is at 12.7. Platelet count is 127. No shortness of breath. No altered mentation. He is on 2 L of oxygen by nasal cannula with a pulse ox of 97%. On 03/11/2019 patient seen in follow-up in intensive care unit, he is awake and alert, in no acute distress, dates his watery diarrhea is becoming a bit more firm, however she still continues to have frequent loose stools, C. diff was negative, stool for culture is pending, blood, urine and sputum culture have been sent, and remain negative thus far, yesterday patient developed shaking chills, and started spiking fevers, with a T-max of 10 3F. He was placed back on Zosyn, new set of blood cultures have been sent. Flagyl, and vancomycin were added, and Zosyn was changed to cefepime per ID service recommendations. He is afebrile this morning. She denies any respiratory difficulty, denies any abdominal pain or tenderness, abdomen is slightly distended but soft. No nausea. Patient's heparin drip has been switched to oral Eliquis, he remains in sinus rhythm. On 03/13/2019 patient seen in follow-up in the intensive care unit, distal low- grade fever this morning, of 99 degrees Fahrenheit, she remains in A. fib, still slightly tachycardic, with a rate of 118-121 BPM, he is hemodynamically stable, all cultures remain negative thus far, stool culture was sent, pending at this time, today's labs have been reviewed, showing white blood cell, of 11.1, hemoglobin of 12.8, electrolytes are within normal limits, BUN of 28, creatinine of 0.84. Stool lactoferrin was positive, or call stool was positive as well, C. diff was negative, cytomegalovirus antibodies were non-reactive, influenza was negative. diarrhea pattern has significantly improved, he remains on antibiotic coverage in the form of cefepime, Flagyl, vancomycin has been discontinued, p narayan is receiving Questran, he is on oral anticoagulation for his A. fib, he remains on amiodarone drip, and his metoprolol has been increased to 50 twice daily. No acute events overnight, his breathing has improved, yesterday we gave the patient a dose of IV Lasix for fluid overload, and today's chest x-ray shows a markedly improved right perihilar airspace disease Objective - Vital Signs Vital signs: Vital Signs Temp 99.0 F 03/13/19 08:00 Pulse 121 H 03/13/19 11:00 Resp 20 03/13/19 11:00 BP 141/112 03/13/19 11:00 Pulse Ox 96 03/13/19 11:00 Intake & Output 03/12/19 03/13/19 03/13/19 18:59 06:59 18:59 Intake Total 1730 470 150 Output Total 3700 0739 266 Balance -1970 -1205 -520 Weight 131 kg Intake: IV 430 220 150 Cefepime 2 gm In Sodium 100 100 Chloride 0.9% 100 ml @ 200 mls/hr IVPB Q12H QU[facility]EN Rx#:[id number] Lactated Ringers 1,000 ml 130 120 50 @ 10 mls/hr IV .Q24H QUYEN Rx#:[id number] metroNIDAZOLE-NS PMX 500 200 100 mg In Saline 1 100ml.bag @ 100 mls/hr IVPB Q8HR QUYEN Rx#:[id number] Intake, IV Titration 250 Amount Amiodarone 300 mg In 250 Dextrose 5% in Water 250 ml @ 0.5 MG/MIN 25 mls/hr IV .Q10H QUYEN Rx#: [id number] Oral 1300 Output: Urine 3700 1675 670 Other: Voiding Method Indwelling Catheter Indwelling Catheter Indwelling Catheter # Voids 1 - Exam GENERAL EXAM: Alert, active, comfortable in no apparent distress. HEAD: Normocephalic/atraumatic. EYES: Normal reaction of pupils, equal size. Conjunctiva pink, sclera white. NOSE: Clear with pink turbinates. THROAT: No erythema or exudates. NECK: No masses, no JVD, no thyroid enlargement, no adenopathy. CHEST: No chest wall deformity. Symmetrical expansion. LUNGS: Equal air entry with limited rales at bilateral bases, but no wheeze, rhonchi or dullness. CVS: Regular rate and rhythm, normal S1 and S2, no gallops, no murmurs, no rubs ABDOMEN: Soft, slightly distended, nontender. No hepatosplenomegaly, normal bowel sounds, no guarding or rigidity. EXTREMITIES: No clubbing, no edema, no cyanosis, 2+ pulses and upper and lower extremities. MUSCULOSKELETAL: Muscle strength and tone normal. SPINE: No scoliosis or deformity SKIN: No rashes CENTRAL NERVOUS SYSTEM: Alert and oriented -3. No focal deficits, tone is normal in all 4 extremities. PSYCHIATRIC: Alert and oriented -3. Appropriate affect. Intact judgment and insight. - Labs CBC & Chem 7: 03/13/19 04:37 03/13/19 04:37 Labs: Abnormal Lab Results - Last 24 Hours (Table) 03/12/19 03/12/19 03/12/19 Range/Units 05:00 10:15 17:03 WBC (3.8-10.6) k/uL Hgb (13.0-17.5) gm/dL Hct (39.0-53.0) % Plt Count (150-450) k/uL BUN (9-20) mg/dL Glucose (74-99) mg/dL POC Glucose (mg/dL) 209 H (75-99) mg/dL Calcium (8.4-10.2) mg/dL C-Reactive Protein (<10.0) mg/L Procalcitonin 19.15 H (0.02-0.09) ng/mL Stool Lactoferrin POSITIVE H (NEGATIVE) 03/12/19 03/12/19 03/13/19 Range/Units 17:47 21:05 04:37 WBC (3.8-10.6) k/uL Hgb (13.0-17.5) gm/dL Hct (39.0-53.0) % Plt Count (150-450) k/uL BUN 28 H (9-20) mg/dL Glucose 108 H (74-99) mg/dL POC Glucose (mg/dL) 147 H (75-99) mg/dL Calcium 8.2 L (8.4-10.2) mg/dL C-Reactive Protein 245.0 H (<10.0) mg/L Procalcitonin (0.02-0.09) ng/mL Stool Lactoferrin (NEGATIVE) 03/13/19 03/13/19 03/13/19 Range/Units 04:37 07:03 11:44 WBC 11.1 H (3.8-10.6) k/uL Hgb 12.8 L (13.0-17.5) gm/dL Hct 38.2 L (39.0-53.0) % Plt Count 123 L (150-450) k/uL BUN (9-20) mg/dL Glucose (74-99) mg/dL POC Glucose (mg/dL) 119 H 124 H (75-99) mg/dL Calcium (8.4-10.2) mg/dL C-Reactive Protein (<10.0) mg/L Procalcitonin (0.02-0.09) ng/mL Stool Lactoferrin (NEGATIVE) Microbiology - Last 24 Hours (Table) 03/09/19 20:47 Blood Culture - Preliminary Blood No Growth after 72 hours 03/09/19 18:09 Blood Culture - Preliminary Blood No Growth after 72 hours 03/11/19 18:17 Blood Culture - Preliminary Blood No Growth after 24 hours 03/11/19 18:12 Blood Culture - Preliminary Blood No Growth after 24 hours 03/10/19 16:20 Blood Culture - Preliminary Blood No Growth after 48 hours 03/10/19 16:20 Blood Culture - Preliminary Blood No Growth after 48 hours 03/12/19 10:15 Stool Culture - Preliminary Stool 03/10/19 15:55 Urine Culture - Final Urine,Clean Catch 03/10/19 11:24 Stool Culture - Preliminary Stool 03/10/19 01:01 Urine Culture - Final Urine,Catheterized Assessment and Plan Plan: Assessment: 1 acute diarrhea with significant intravascular volume and acute kidney injury. The exact cause is not clear. Rule out drug induced diarrhea. Rule out postinfectious diarrhea. Stool for C. diff has been negative. Abdominal exam is negative and the patient's abdomen is soft at this point in time and there is no indication for an acute abdomen 2 new onset atrial fibrillation, patient converted to sinus rhythm but had gone back into atrial fibrillation, currently slightly tachycardic, remains on amiodarone drip and metoprolol 3 myasthenia gravis maintained on a combination of Mestinon, prednisone and Imuran an outpatient basis. The patient is still having some motor weakness and occasional diplopia 4 obstructive sleep apnea with an AHI of 45 maintained on a CPAP pressure of 7 cm of water 5 hypertension 6 hyperlipidemia 7 chronic back pain related to spinal stenosis and sciatica 8 lactic acidosis, fever, rule out sepsis 9 left lower extremity DVT Plan: Patient continues to have intermittent febrile episodes, and the cause has not been identified yet, all cultures remain negative, stool cultures are pending, the diarrhea pattern is improving. Patient remains on empiric antibiotics, hemodynamically stable, we'll increase the metoprolol dose to 50 twice a day, patient remains in A. fib with a slightly tachycardic rate, remains on am iodarone drip, and oral anticoagulation, he denies any difficulty breathing, he diuresed, and today's chest x-ray shows significant improvement in the right perihilar airspace disease, which was likely related to fluid volume overload. Increase activity, we stopped her breathing treatments. Will await further input from the ID service. Immuran has been on hold, his myasthenia gravis is stable. Continue with oral prednisone right now, and Mestinon. Will remain in the ICU for another 24 hours, if remains stable [facility] I performed a history & physical examination of the patient and discussed their management with my nurse practitioner, Amelia Kong. I reviewed the nurse practitioner's note and agree with the documented findings and plan of care. Lung sounds are positive for clear breath sounds, with a limited rales at bilateral bases. The findings and the impression was discussed with the patient. I attest to the documentation by the nurse practitioner. Time with Patient: Less than 30
[2019-03-13] MEDS: amLODIPine 5 MG TAB PO SCH (13:40)
--- NOTE | 2019-03-13 14:18 | P.PN ---
Subjective Progress Note Date: 03/13/19 Principal diagnosis: Fever/sepsis A. fib with RVR Acute exacerbation CHF 03/13/2019 Patient seen in follow-up in the intensive care unit sitting up in bedside chair with family members at bedside Vital signs; low-grade fever this morning, of 99; slightly tachycardic, with a rate of 118-121 BPM, he is hemodynamically stable, cultures remain negative thus far, stool culture was sent, pending at this time, today's labs have been reviewed, showing white blood cell, of 11.1, hemoglobin of 12.8, electrolytes are within normal limits, BUN of 28, creatinine of 0.84. Stool lactoferrin was positive, or call stool was positive as well, C. diff was negative, cytomegalovirus antibodies were non-reactive, influenza was negative. Chest x-ray shows markedly improved right perihilar airspace disease diarrhea pattern has significantly improved, he remains on antibiotic coverage in the form of cefepime, Flagyl, vancomycin has been discontinued, patient is receiving Questran, he is on oral anticoagulation for his A. fib, he remains on amiodarone drip, and his metoprolol has been increased to 50 twice daily Objective - Vital Signs Vital signs: Vital Signs Temp 99.0 F 03/13/19 08:00 Pulse 93 03/13/19 10:00 Resp 21 03/13/19 10:00 BP 166/97 03/13/19 10:00 Pulse Ox 96 03/13/19 10:00 Intake & Output 03/12/19 03/13/19 03/13/19 18:59 06:59 18:59 Intake Total 1730 470 30 Output Total 3700 1675 370 Balance -1970 -1205 -340 Weight 131 kg Intake: IV 430 220 30 Cefepime 2 gm In Sodium 100 Chloride 0.9% 100 ml @ 200 mls/hr IVPB Q12H [facility] Rx#:[id number] Lactated Ringers 1,000 ml 130 120 30 @ 10 mls/hr IV .Q24H QU[facility]EN Rx#:[id number] metroNIDAZOLE-NS PMX 500 200 100 mg In Saline 1 100ml.bag @ 100 mls/hr IVPB Q8HR [facility] Rx#:[id number] Intake, IV Titration 250 Amount Amiodarone 300 mg In 250 Dextrose 5% in Water 250 ml @ 0.5 MG/MIN 25 mls/hr IV .Q10H QU[facility]EN Rx#: [id number] Oral 1300 Output: Urine 3700 1675 370 Other: Voiding Method Indwelling Catheter Indwelling Catheter Indwelling Catheter # Voids 1 - Exam GENERAL EXAM: Alert, active, comfortable in no apparent distress. HEAD: Normocephalic/atraumatic. EYES: Normal reaction of pupils, equal size. Conjunctiva pink, sclera white. NOSE: Clear with pink turbinates. THROAT: No erythema or exudates. NECK: No masses, no JVD, no thyroid enlargement, no adenopathy. CHEST: No chest wall deformity. Symmetrical expansion. LUNGS: Equal air entry with limited rales at bilateral bases, but no wheeze, rhonchi or dullness. CVS: Regular rate and rhythm, normal S1 and S2, no gallops, no murmurs, no rubs ABDOMEN: Soft, slightly distended, nontender. No hepatosplenomegaly, normal bowel sounds, no guarding or rigidity. EXTREMITIES: No clubbing, no edema, no cyanosis, 2+ pulses and upper and lower e xtremities. MUSCULOSKELETAL: Muscle strength and tone normal. - Labs CBC & Chem 7: 03/13/19 04:37 03/13/19 04:37 Labs: Abnormal Lab Results - Last 24 Hours (Table) 03/12/19 03/12/19 03/12/19 Range/Units 05:00 10:15 11:49 WBC (3.8-10.6) k/uL Hgb (13.0-17.5) gm/dL Hct (39.0-53.0) % Plt Count (150-450) k/uL BUN (9-20) mg/dL Glucose (74-99) mg/dL POC Glucose (mg/dL) 128 H (75-99) mg/dL Calcium (8.4-10.2) mg/dL C-Reactive Protein (<10.0) mg/L Procalcitonin 19.15 H (0.02-0.09) ng/mL Stool Lactoferrin POSITIVE H (NEGATIVE) 03/12/19 03/12/19 03/12/19 Range/Units 17:03 17:47 21:05 WBC (3.8-10.6) k/uL Hgb (13.0-17.5) gm/dL Hct (39.0-53.0) % Plt Count (150-450) k/uL BUN (9-20) mg/dL Glucose (74-99) mg/dL POC Glucose (mg/dL) 209 H 147 H (75-99) mg/dL Calcium (8.4-10.2) mg/dL C-Reactive Protein 245.0 H (<10.0) mg/L Procalcitonin (0.02-0.09) ng/mL Stool Lactoferrin (NEGATIVE) 03/13/19 03/13/19 03/13/19 Range/Units 04:37 04:37 07:03 WBC 11.1 H (3.8-10.6) k/uL Hgb 12.8 L (13.0-17.5) gm/dL Hct 38.2 L (39.0-53.0) % Plt Count 123 L (150-450) k/uL BUN 28 H (9-20) mg/dL Glucose 108 H (74-99) mg/dL POC Glucose (mg/dL) 119 H (75-99) mg/dL Calcium 8.2 L (8.4-10.2) mg/dL C-Reactive Protein (<10.0) mg/L Procalcitonin (0.02-0.09) ng/mL Stool Lactoferrin (NEGATIVE) Microbiology - Last 24 Hours (Table) 03/09/19 20:47 Blood Culture - Preliminary Blood No Growth after 72 hours 03/09/19 18:09 Blood Culture - Preliminary Blood No Growth after 72 hours 03/11/19 18:17 Blood Culture - Preliminary Blood No Growth after 24 hours 03/11/19 18:12 Blood Culture - Preliminary Blood No Growth after 24 hours 03/10/19 16:20 Blood Culture - Preliminary Blood No Growth after 48 hours 03/10/19 16:20 Blood Culture - Preliminary Blood No Growth after 48 hours 03/12/19 10:15 Stool Culture - Preliminary Stool 03/10/19 15:55 Urine Culture - Final Urine,Clean Catch 03/10/19 11:24 Stool Culture - Preliminary Stool 03/10/19 01:01 Urine Culture - Final Urine,Catheterized 03/10/19 05:05 Gram Stain - Final Sputum Sputum Culture - Final Assessment and Plan Assessment: 1. Acute diarrhea with significant intravascular volume and acute kidney injury. The exact cause is not clear. Rule out drug induced diarrhea vs postinfectious diarrhea. - Stool for C. diff has been negative. Abdominal exam is negative and the patient's abdomen is soft at this point in time and there is no indication for an acute abdomen - Patient continues to have intermittent episodes of fever; all cultures including stool cultures remain negative - Patient remains on empiric IV antibiotics in form of IV cefepime 2 g every 12 hours and Flagyl 500 mg IV every 8 hours 2. New onset atrial fibrillation; slightly tachycardic, remains on amiodarone drip and metoprolol; continue with oral anticoagulation therapy 3. Myasthenia gravis maintained on a combination of Mestinon, prednisone and Imuran an outpatient basis; clinically stable at this time; Imuran has been on hold; patient remains on oral prednisone and Mestinon 4. Obstructive sleep apnea with an AHI of 45 maintained on a CPAP pressure of 7 cm of water 5. Hypertension; continue with home dose of metoprolol XL 50 mg twice a day; hydralazine 10 mg IV every 4 hours when necessary for systolic blood pressure greater than 160 6. Hyperlipidemia; Lipitor 20 mg by mouth daily at bedtime 7. Chronic back pain related to spinal stenosis and sciatica; pain control with Lyons 5 mg every 6 hours when necessary with IV morphine as needed 8. Lactic acidosis, fever, rule out sepsis; empiric antibiotic therapy with IV cefepime and Flagyl; continue to monitor pro-calcitonin, lactic acid and CRP 9. Left lower extremity DVT; anticoagulation with Apixaban 10. DVT prophylaxis; systemic anticoagulation CODE STATUS; full code Time with Patient: Greater than 30
--- NOTE | 2019-03-13 16:03 | PN ---
PROGRESS NOTE This patient is admitted with fever and diarrhea. Patient went back into atrial fibrillation yesterday and patient was started on amiodarone drip. He remains stable. Patient has not spiked any more temperature and his diarrhea has improved. The patient's heart rate now is 90 to 120 per minute. First and second heart sounds are heard. Lungs are clinically clear to auscultation and percussion. PLAN: We will switch the patient to amiodarone 200 mg t.i.d. and the patient's Lopressor is increased to 50 mg b.i.d. Amlodipine 5 mg daily is added for control of the blood pressure. Patient clinically remains stable. MMODL / IJN: [id number] /
[2019-03-13] MEDS: AMIODARONE 200 MG TAB PO SCH ×2 (16:23→21:53)
[2019-03-13 17:02] LABS: Glucose,Whole Blood 149 mg/dL (75-99)
--- NOTE | 2019-03-13 17:28 | PN ---
PROGRESS NOTE DATE OF SERVICE: 03/13/2019 REASON FOR FOLLOWUP: Fever and infectious diarrhea. INTERVAL HISTORY: The patient's overall fever pattern has improved. The last temperature was last night at 100 degrees Fahrenheit. No fever since then. The patient overall is feeling better as well. The patient currently denies having any chest pain or shortness of breath. He did have some cough but no sputum production. The patient denies having any abdominal pain. No nausea, no vomiting. The patient's diarrhea has resolved. He did have a soft bowel movement x1 today. PHYSICAL EXAMINATION: Blood pressure 128/91 with a pulse of 93, temperature 98. He is 96% on room air. General description is an elderly male up in the bed in no distress. RESPIRATORY SYSTEM: Unlabored breathing with decreased breath sounds at the base. No wheeze. HEART: S1, S2. Regular rate and rhythm. ABDOMEN: Soft. No tenderness. EXTREMITIES: Some swelling but no redness. LABS: Hemoglobin is 12.8, white count 11.1 with BUN of 28, creatinine 0.84. CMV serology has been negative. Stool for C difficile is negative. Stool cultures currently pending. DIAGNOSTIC IMPRESSION AND PLAN: Patient admitted to hospital with abdominal pain, diarrhea with a fever with concern for likely infectious colitis. Stool cultures are currently pending. Patient is responding to cefepime and Flagyl; to continue while waiting for the culture to finalize. Continue with supportive care. MMODL / IJN: [id number] /
[2019-03-13 21:50] LABS: Glucose,Whole Blood 133 mg/dL (75-99)
[2019-03-13] MEDS: METOPROLOL SUCCINATE (ER) 50 MG TAB.ER.24H PO SCH (21:52)
[2019-03-13] MEDS: ATORVASTATIN 20 MG TAB PO SCH (21:53)
[2019-03-13] MEDS: LACTATED RINGERS 1,000 ML IV SCH (21:59)
[2019-03-14] MEDS: metroNIDAZOLE-NS PMX 500 MG in SALINE 1 100ML.BAG IVPB SCH ×3 (01:00→16:33)
[2019-03-14] MEDS: hydrALAZINE HCL 20 MG/ML 1 ML VIAL IVP PRN (04:36)
[2019-03-14 06:37] LABS: African American GFR (CKD) >90 (>60 ml/min/1.73 sqM); Anion Gap 3 mmol/L; Blood Urea Nitrogen 29 mg/dL (9-20); Calcium 8.2 mg/dL (8.4-10.2); Carbon Dioxide 28 mmol/L (22-30); Chloride 107 mmol/L (98-107); Glucose 85 mg/dL (74-99); Potassium 3.4 mmol/L (3.5-5.1); Sodium 138 mmol/L (137-145)
[2019-03-14 06:48] LABS: Glucose,Whole Blood 87 mg/dL (75-99)
[2019-03-14] MEDS: INSULIN ASPART (NovoLOG) 100 UNIT/ML VIAL SQ SCH ×4 (07:40→20:50)
[2019-03-14 08:42] LABS: HCT 39.2 % (39.0-53.0); HGB 13.1 gm/dL (13.0-17.5); MCH 27.8 pg (25.0-35.0); MCHC 33.4 g/dL (31.0-37.0); MCV 83.5 fL (80.0-100.0); Mean Platelet Volume 8.8; Platelet Count 209 k/uL (150-450); RDW 15.6 % (11.5-15.5); WBC 8.7 k/uL (3.8-10.6)
[2019-03-14] MEDS: POTASSIUM CHLORIDE ER 20 MEQ TAB.ER PO SCH ×2 (08:42→10:42)
[2019-03-14] MEDS: PYRIDOSTIGMINE 60 MG TAB PO SCH ×3 (08:43→21:08)
[2019-03-14] MEDS: MULTIVITAMINS, THERA 1 EACH TAB PO SCH (08:43)
[2019-03-14] MEDS: METOPROLOL SUCCINATE (ER) 50 MG TAB.ER.24H PO SCH (08:43)
[2019-03-14] MEDS: amLODIPine 5 MG TAB PO SCH (08:43)
[2019-03-14] MEDS: FAMOTIDINE 20 MG/2 ML VIAL IV SCH (08:43)
[2019-03-14] MEDS: AMIODARONE 200 MG TAB PO SCH ×3 (08:43→21:05)
[2019-03-14] MEDS: predniSONE 20 MG TAB PO SCH (08:44)
[2019-03-14] MEDS: CHOLESTYRAMINE (WITH SUGAR) 4 GM PACKET PO SCH ×2 (08:44→18:29)
[2019-03-14] MEDS: CLOPIDOGREL 75 MG TAB PO SCH (08:44)
[2019-03-14] MEDS: APIXABAN 5 MG TAB PO SCH ×2 (08:44→21:05)
--- NOTE | 2019-03-14 10:03 | P.PN ---
Subjective Patient is seen in follow-up for acute kidney injury. Renal function is back to baseline. He is nonoliguric. No vomiting. No diarrhea overnight. Now on oral amiodarone and Lopressor for A. fib. Vital signs are stable. General: The patient appeared well nourished and normally developed. HEENT: Head exam is unremarkable. Neck is without jugular venous distension. LUNGS: Lungs are clear to auscultation and percussion. Breath sounds decreased. HEART: Irregular rate and rhythm. ABDOMEN: Abdominal exam reveals normal bowel sounds. Non-tender and non- distended. EXTREMITITES: No clubbing, cyanosis, or edema. Objective - Vital Signs Vital signs: Vital Signs Temp 98.1 F 03/14/19 08:00 Pulse 89 03/14/19 09:00 Resp 16 03/14/19 09:00 BP 145/90 03/14/19 09:00 Pulse Ox 97 03/14/19 09:00 Intake & Output 03/13/19 03/14/19 03/14/19 18:59 06:59 18:59 Intake Total 710 290 120 Output Total 1695 525 0 Balance -985 -235 120 Intake: IV 310 290 120 Cefepime 2 gm In Sodium 100 100 Chloride 0.9% 100 ml @ 200 mls/hr IVPB Q12H QU[facility] Rx#:[id number] Lactated Ringers 1,000 ml 110 90 20 @ 10 mls/hr IV .Q24H QUYEN Rx#:[id number] metroNIDAZOLE-NS PMX 500 100 100 100 mg In Saline 1 100ml.bag @ 100 mls/hr IVPB Q8HR QUYEN Rx#:[id number] Oral 400 Output: Urine 1695 525 0 Other: Voiding Method Indwelling Catheter Urinal Urinal # Voids 1 # Bowel Movements 1 - Labs CBC & Chem 7: 03/14/19 08:28 03/14/19 06:10 Labs: Abnormal Lab Results - Last 24 Hours (Table) 03/13/19 03/13/19 03/13/19 Range/Units 11:44 16:51 21:38 RDW (11.5-15.5) % Potassium (3.5-5.1) mmol/L BUN (9-20) mg/dL POC Glucose (mg/dL) 124 H 149 H 133 H (75-99) mg/dL Calcium (8.4-10.2) mg/dL 03/14/19 03/14/19 Range/Units 06:10 08:28 RDW 15.6 H (11.5-15.5) % Potassium 3.4 L (3.5-5.1) mmol/L BUN 29 H (9-20) mg/dL POC Glucose (mg/dL) (75-99) mg/dL Calcium 8.2 L (8.4-10.2) mg/dL Microbiology - Last 24 Hours (Table) 03/09/19 20:47 Blood Culture - Preliminary Blood No Growth after 96 hours 03/09/19 18:09 Blood Culture - Preliminary Blood No Growth after 96 hours 03/11/19 18:17 Blood Culture - Preliminary Blood No Growth after 48 hours 03/11/19 18:12 Blood Culture - Preliminary Blood No Growth after 48 hours 03/10/19 16:20 Blood Culture - Preliminary Blood No Growth after 72 hours 03/10/19 16:20 Blood Culture - Preliminary Blood No Growth after 72 hours 03/10/19 11:24 Stool Culture - Final Stool Assessment and Plan Plan: Assessment: 1. Acute kidney injury mostly prerenal secondary to hypotension and intravascular volume depletion from diarrhea. Was also on lisinopril which is currently held. Creatinine was 2.67 on admission and is now back to baseline. No evidence of hydronephrosis noted on CAT scan. 2. Hypovolemic hyponatremia improving with IV hydration. Better. 3. Metabolic acidosis secondary to acute kidney injury and diarrhea. Resolved. 4. A. fib with RVR. Currently on oral amiodarone, Lopressor. Also on anticoagulation. Cardiology following. 5. Hypotension secondary to hypovolemia and A. fib. Resolved. 6. Diarrhea. Mostly resolved. Possibly infectious. Maintain on IV antibiotics. Infectious disease following. C. diff negative. 7. Hypokalemia from poor oral intake and GI losses. 8. Mild volume overload. Status post IV Lasix on March 12. Plan: Replace potassium. 40 mEq today. Avoid nephrotoxins. Continue to monitor renal function and urine output.
[2019-03-14] MEDS ORDERED: METOPROLOL TARTRATE 25 MG TAB PO STA (10:28)
--- NOTE | 2019-03-14 10:32 | P.PN ---
Subjective Progress Note Date: 03/13/19 Principal diagnosis: Diarrhea, stool positive for occult blood Patient is seen lying in bed reporting that overall he is feeling much better. Denies any abdominal pain and he is tolerating his diet. He does report bowel movements have been somewhat dark. Objective - Vital Signs Vital signs: Vital Signs Temp 99.0 F 03/13/19 08:00 Pulse 121 H 03/13/19 11:00 Resp 20 03/13/19 11:00 BP 141/112 03/13/19 11:00 Pulse Ox 96 03/13/19 11:00 Intake & Output 03/12/19 03/13/19 03/13/19 18:59 06:59 18:59 Intake Total 1730 470 150 Output Total 3700 1675 670 Balance -19699 Weight 131 kg Intake: IV 430 220 150 Cefepime 2 gm In Sodium 100 100 Chloride 0.9% 100 ml @ 200 mls/hr IVPB Q12H QU[facility]EN Rx#:[id number] Lactated Ringers 1,000 ml 130 120 50 @ 10 mls/hr IV .Q24H QUYEN Rx#:[id number] metroNIDAZOLE-NS PMX 500 200 100 mg In Saline 1 100ml.bag @ 100 mls/hr IVPB Q8HR [facility]EN Rx#:[id number] Intake, IV Titration 250 Amount Amiodarone 300 mg In 250 Dextrose 5% in Water 250 ml @ 0.5 MG/MIN 25 mls/hr IV .Q10H QUYEN Rx#: [id number] Oral 1300 Output: Urine 3700 1675 670 Other: Voiding Method Indwelling Catheter Indwelling Catheter Indwelling Catheter # Voids 1 - Exam On physical examination, patient appears comfortable in no apparent distress. HEAD: Normocephalic, atraumatic. EYES: No scleral icterus. No conjunctival injection. MOUTH: No lesions, tongue midline. NECK: Trachea midline, no gross abnormalities. CHEST: Clear to auscultation with no wheezing or rhonchi appreciated. HEART: Tachycardic, irregularly irregular. ABDOMEN: Soft, obese. Bowel sounds are positive. No organomegaly. No guarding or rigidity. EXTREMITIES: No pedal edema. SKIN: No rashes, no jaundice. NEUROLOGIC: Alert and oriented x3. No focal deficits. - Labs CBC & Chem 7: 03/14/19 08:28 03/14/19 06:10 Labs: Abnormal Lab Results - Last 24 Hours (Table) 03/12/19 03/12/19 03/12/19 Range/Units 05:00 10:15 17:03 WBC (3.8-10.6) k/uL Hgb (13.0-17.5) gm/dL Hct (39.0-53.0) % Plt Count (150-450) k/uL BUN (9-20) mg/dL Glucose (74-99) mg/dL POC Glucose (mg/dL) 209 H (75-99) mg/dL Calcium (8.4-10.2) mg/dL C-Reactive Protein (<10.0) mg/L Procalcitonin 19.15 H (0.02-0.09) ng/mL Stool Lactoferrin POSITIVE H (NEGATIVE) 03/12/19 03/12/19 03/13/19 Range/Units 17:47 21:05 04:37 WBC (3.8-10.6) k/uL Hgb (13.0-17.5) gm/dL Hct (39.0-53.0) % Plt Count (150-450) k/uL BUN 28 H (9-20) mg/dL Glucose 108 H (74-99) mg/dL POC Glucose (mg/dL) 147 H (75-99) mg/dL Calcium 8.2 L (8.4-10.2) mg/dL C-Reactive Protein 245.0 H (<10.0) mg/L Procalcitonin (0.02-0.09) ng/mL Stool Lactoferrin (NEGATIVE) 03/13/19 03/13/19 03/13/19 Range/Units 04:37 07:03 11:44 WBC 11.1 H (3.8-10.6) k/uL Hgb 12.8 L (13.0-17.5) gm/dL Hct 38.2 L (39.0-53.0) % Plt Count 123 L (150-450) k/uL BUN (9-20) mg/dL Glucose (74-99) mg/dL POC Glucose (mg/dL) 119 H 124 H (75-99) mg/dL Calcium (8.4-10.2) mg/dL C-Reactive Protein (<10.0) mg/L Procalcitonin (0.02-0.09) ng/mL Stool Lactoferrin (NEGATIVE) Microbiology - Last 24 Hours (Table) 03/10/19 11:24 Stool Culture - Final Stool 03/09/19 20:47 Blood Culture - Preliminary Blood No Growth after 72 hours 03/09/19 18:09 Blood Culture - Preliminary Blood No Growth after 72 hours 03/11/19 18:17 Blood Culture - Preliminary Blood No Growth after 24 hours 03/11/19 18:12 Blood Culture - Preliminary Blood No Growth after 24 hours 03/10/19 16:20 Blood Culture - Preliminary Blood No Growth after 48 hours 03/10/19 16:20 Blood Culture - Preliminary Blood No Growth after 48 hours 03/12/19 10:15 Stool Culture - Preliminary Stool 03/10/19 15:55 Urine Culture - Final Urine,Clean Catch 03/10/19 01:01 Urine Culture - Final Urine,Catheterized Assessment and Plan (1) Diarrhea Narrative/Plan: 63-year-old presenting with diarrhea, weakness, fatigue prior to presentation. He believes loose stool began after starting new medication for treatment of myasthenia gravis. Currently bowel movement improved however he does note that they have been dark in color. Stool testing was positive for occult blood. He denies any gross bleeding per rectum. Hemoglobin has remained stable. Stool testing for Clostridium difficile has been negative. Current Visit: Yes Status: Acute Code(s): R19.7 - DIARRHEA, UNSPECIFIED SNOMED Code(s): 72485642 (2) Positive occult stool blood test Current Visit: Yes Status: Acute Code(s): R19.5 - OTHER FECAL ABNORMALITIES SNOMED Code(s): 80809289 Plan: Supportive care Continue ICU management Okay for diet Continue to monitor hemoglobin and transfuse as needed Continue to monitor stool output Continue antibiotic therapy No plan for endoscopic evaluation at this time, however is change in patient's clinical status or fall in hemoglobin we'll reevaluate at that time Thank you for allowing us to participate in the care of this patient we will continue to follow
[2019-03-14] MEDS: CEFEPIME 2 GM in SODIUM CHLORIDE 0.9% 100 ML IVPB SCH ×2 (10:43→23:25)
[2019-03-14 11:58] LABS: Glucose,Whole Blood 143 mg/dL (75-99)
--- NOTE | 2019-03-14 13:18 | P.PN ---
Subjective Progress Note Date: 03/14/19 63-year-old male patient came in to the ED yesterday because of few days of watery diarrhea that was quite aggressive and constant. The patient became quite dehydrated. He came into the ED and he was found to be in A. fib RVR and at the same time he was found to be in acute kidney injury. He was started on IV fluids. He received a total of 3 L and currently is on lactated Ringer running at 150 mL an hour. No significant abdominal pain. No nausea. No emesis. Stool for C. diff has been negative. The patient reports that he was having some loose stools for the past several months. He is obese. He has history of myasthenia gravis maintain a combination of Imuran and prednisone at a low dose of 10 mg by mouth daily. He is also on Mestinon. He is diagnosed was established approximately a year ago. He does not have a thymoma. He has received a total of 3 sessions of high-dose IV Solu-Medrol for a total of 5 visits was given to him by his neurologist office on outpatient basis lasting approximately 6 weeks ago. He still has on of double vision and some weakness. He also has obstructive sleep apnea severe with an AHI of 45 and currently is on CPAP at a pressure of 7 cm of water. He has hypertension and arthritis. The patient has no fever. No travel history. No food poisoning. In the ED, his lactic acid was slightly elevated and after fluids with lactic acid level normal ized. His white cell count is at 12.7. Platelet count is 127. No shortness of breath. No altered mentation. He is on 2 L of oxygen by nasal cannula with a pulse ox of 97%. On 03/11/2019 patient seen in follow-up in intensive care unit, he is awake and alert, in no acute distress, dates his watery diarrhea is becoming a bit more firm, however she still continues to have frequent loose stools, C. diff was negative, stool for culture is pending, blood, urine and sputum culture have been sent, and remain negative thus far, yesterday patient developed shaking chills, and started spiking fevers, with a T-max of 10 3F. He was placed back on Zosyn, new set of blood cultures have been sent. Flagyl, and vancomycin were added, and Zosyn was changed to cefepime per ID service recommendations. He is afebrile this morning. She denies any respiratory difficulty, denies any abdominal pain or tenderness, abdomen is slightly distended but soft. No nausea. Patient's heparin drip has been switched to oral Eliquis, he remains in sinus rhythm. On 03/13/2019 patient seen in follow-up in the intensive care unit, distal low- grade fever this morning, of 99 degrees Fahrenheit, she remains in A. fib, still slightly tachycardic, with a rate of 118-121 BPM, he is hemodynamically stable, all cultures remain negative thus far, stool culture was sent, pending at this time, today's labs have been reviewed, showing white blood cell, of 11.1, hemoglobin of 12.8, electrolytes are within normal limits, BUN of 28, creatinine of 0.84. Stool lactoferrin was positive, or call stool was positive as well, C. diff was negative, cytomegalovirus antibodies were non-reactive, influenza was negative. diarrhea pattern has significantly improved, he remains on antibiotic coverage in the form of cefepime, Flagyl, vancomycin has been discontinued, patient is receiving Questran, he is on oral anticoagulation for his A. fib, he remains on amiodarone drip, and his metoprolol has been increased to 50 twice daily. No acute events overnight, his breathing has improved, yesterday we gave the patient a dose of IV Lasix for fluid overload, and today's chest x-ray shows a markedly improved right perihilar airspace disease On 03/14/2019 and seeing this patient for a follow-up. Clinically doing well. He is afebrile. There is a concern of an upper GI bleed as the patient had a soft bowel movement that was quite dark and tarry and this was sedated the concern for GI bleed as the patient is on accommodation of Eliquis, prednisone and Plavix. No hematemesis. Hemoglobin remains stable. His atrial f ibrillation is under better control although he is still having bouts of tachycardia. He is on a combination of amiodarone and metoprolol and is also was anticoagulated. No abdominal pain. No nausea. No vomiting. No dysuria previous emergency. No significant muscle weakness and the patient is a 40 mg of prednisone and Mestinon. He is off Imuran. All of the cultures are negative for now. He is feeling well. Is feeling strong. No altered mentation. No headaches. No change in mental status. No other complaints otherwise for now. Vancomycin has been discontinued and the patient remains on a combination of cefepime and Flagyl. Objective - Vital Signs Vital signs: Vital Signs Temp 98.1 F 03/14/19 08:00 Pulse 105 H 03/14/19 11:30 Resp 20 03/14/19 10:00 BP 147/102 03/14/19 10:30 Pulse Ox 96 03/14/19 10:30 Intake & Output 03/13/19 03/14/19 03/14/19 18:59 06:59 18:59 Intake Total 710 290 230 Output Total 1695 525 700 Balance -985 -235 -470 Intake: IV 310 290 230 Cefepime 2 gm In Sodium 100 100 100 Chloride 0.9% 100 ml @ 200 mls/hr IVPB Q12H [facility] Rx#:[id number] Lactated Ringers 1,000 ml 110 90 30 @ 10 mls/hr IV .Q24H [facility] Rx#:[id number] metroNIDAZOLE-NS PMX 500 100 100 100 mg In Saline 1 100ml.bag @ 100 mls/hr IVPB Q8HR [facility] Rx#:[id number] Oral 400 Output: Urine 1695 525 700 Other: Voiding Method Indwelling Catheter Urinal Urinal # Voids 1 # Bowel Movements 1 - Exam GENERAL EXAM: Alert, active, comfortable in no apparent distress. HEAD: Normocephalic/atraumatic. EYES: Normal reaction of pupils, equal size. Conjunctiva pink, sclera white. NOSE: Clear with pink turbinates. THROAT: No erythema or exudates. NECK: No masses, no JVD, no thyroid enlargement, no adenopathy. CHEST: No chest wall deformity. Symmetrical expansion. LUNGS: Equal air entry with limited rales at bilateral bases, but no wheeze, rhonchi or dullness. CVS: Regular rate and rhythm, normal S1 and S2, no gallops, no murmurs, no rubs ABDOMEN: Soft, slightly distended, nontender. No hepatosplenomegaly, normal bowel sounds, no guarding or rigidity. EXTREMITIES: No clubbing, no edema, no cyanosis, 2+ pulses and upper and lower extremities. MUSCULOSKELETAL: Muscle strength and tone normal. SPINE: No scoliosis or deformity SKIN: No rashes CENTRAL NERVOUS SYSTEM: Alert and oriented -3. No focal deficits, tone is normal in all 4 extremities. PSYCHIATRIC: Alert and oriented -3. Appropriate affect. Intact judgment and insight. - Labs CBC & Chem 7: 03/14/19 08:28 03/14/19 06:10 Labs: Abnormal Lab Results - Last 24 Hours (Table) 03/13/19 03/13/19 03/14/19 Range/Units 16:51 21:38 06:10 RDW (11.5-15.5) % Potassium 3.4 L (3.5-5.1) mmol/L BUN 29 H (9-20) mg/dL POC Glucose (mg/dL) 149 H 133 H (75-99) mg/dL Calcium 8.2 L (8.4-10.2) mg/dL C-Reactive Protein (<10.0) mg/L 03/14/19 03/14/19 03/14/19 Range/Units 06:10 08:28 11:46 RDW 15.6 H (11.5-15.5) % Potassium (3.5-5.1) mmol/L BUN (9-20) mg/dL POC Glucose (mg/dL) 143 H (75-99) mg/dL Calcium (8.4-10.2) mg/dL C-Reactive Protein 121.2 H (<10.0) mg/L Microbiology - Last 24 Hours (Table) 03/12/19 10:15 Stool Culture - Preliminary Stool 03/09/19 20:47 Blood Culture - Preliminary Blood No Growth after 96 hours 03/09/19 18:09 Blood Culture - Preliminary Blood No Growth after 96 hours 03/11/19 18:17 Blood Culture - Preliminary Blood No Growth after 48 hours 03/11/19 18:12 Blood Culture - Preliminary Blood No Growth after 48 hours 03/10/19 16:20 Blood Culture - Preliminary Blood No Growth after 72 hours 03/10/19 16:20 Blood Culture - Preliminary Blood No Growth after 72 hours 03/10/19 11:24 Stool Culture - Final Stool Assessment and Plan Plan: 1 acute diarrhea with significant intravascular volume and acute kidney injury. The exact cause is not clear. Rule out drug induced diarrhea. Rule out postinfectious diarrhea. Stool for C. diff has been negative. Abdominal exam is negative and the patient's abdomen is soft at this point in time and there is no indication for an acute abdomen. Noted the stool cultures came back negative. The patient's pro calcitonin was quite elevated and this obviously raises concerns for bacterial infection bacterial causes of this acute diarrhea. In any rate, the diarrhea subsided. 2 new onset atrial fibrillation, patient converted to sinus rhythm but had gone back into atrial fibrillation, currently slightly tachycardic, remains on amiodarone orally and metoprolol and the patient is also and to coagulation with Eliquis. 3 myasthenia gravis maintained on a combination of Mestinon, prednisone and Imuran an outpatient basis. The patient was taken off Imuran due to concerns of diarrhea and fever and possible sepsis. 4 obstructive sleep apnea with an AHI of 45 maintained on a CPAP pressure of 7 cm of water 5 hypertension 6 hyperlipidemia 7 chronic back pain related to spinal stenosis and sciatica 8 lactic acidosis, fever, rule out sepsis 9 left lower extremity DVT, currently on Eliquis 10 melanotic stool, considered upper GI bleed as the patient is on a combination of Plavix Eliquis and prednisone 11 episodes of fever, recovered and the patient is currently afebrile Plan In terms of the diarrhea, we'll monitor the patient's bowel movements and there is also concern of an upper GI bleed as the most recent stool was quite dark and melanotic. Hemoglobin has been stable. I think we should continue the Eliquis for now based on this patient's history of atrial fibrillation and DVT of the left lower extremity. I'm going to stop the Plavix for now. Continue the Eliqu is. Continue the prednisone and continue the GI prophylaxis. The patient will be started on Protonix 40 mg by mouth daily. The patient will be kept on amiodarone. The patient be kept on metoprolol and is also being increased up to 75 mg twice a day for better rate control. Monitor the fever pattern. Continue the prednisone 40 mg by mouth continue Mestinon. Repeat the profile calcitonin level. Repeat the patient CRP level. We'll continue to follow. The patient be kept in ICU for now.
--- NOTE | 2019-03-14 13:31 | PN ---
PROGRESS NOTE This patient was admitted with acute infectious diarrhea or secondary to therapy. The patient remains stable cardiac-malone. He has some black tarry stools, but hemoglobin remains stable. Heart rate is 90 to 110 per minute. The blood pressure is 147/102 mmHg. First and second heart sounds are normal. Lungs are clear to auscultation and percussion. We will discontinue the Plavix and continue the patient on Eliquis 5 mg b.i.d., Lopressor is increased to 75 mg b.i.d. MMODL / IJN: [id number] /
[2019-03-14] MEDS: SODIUM BICARBONATE TAB 650 MG TAB PO SCH (13:48)
[2019-03-14 16:54] LABS: Glucose,Whole Blood 120 mg/dL (75-99)
[2019-03-14] MEDS: LACTATED RINGERS 1,000 ML IV SCH (18:29)
[2019-03-14 20:56] LABS: Glucose,Whole Blood 130 mg/dL (75-99)
[2019-03-14] MEDS: METOPROLOL SUCCINATE (ER) 25 MG TAB.ER.24H PO SCH (21:05)
[2019-03-14] MEDS: ATORVASTATIN 20 MG TAB PO SCH (21:05)
--- NOTE | 2019-03-14 22:45 | P.PN ---
Subjective Progress Note Date: 03/14/19 Principal diagnosis: Diarrhea, stool positive for occult blood Patient is seen in bed, reporting he is feeling better overall. Tolerating his diet. No abdominal pain. One bowel movement reported this morning which he states is still dark. Objective - Vital Signs Vital signs: Vital Signs Temp 98.1 F 03/14/19 08:00 Pulse 105 H 03/14/19 11:30 Resp 20 03/14/19 10:00 BP 147/102 03/14/19 10:30 Pulse Ox 96 03/14/19 10:30 Intake & Output 03/13/19 03/14/19 03/14/19 18:59 06:59 18:59 Intake Total 710 290 230 Output Total 1695 525 700 Balance -001 -596 -050 Intake: IV 310 290 230 Cefepime 2 gm In Sodium 100 100 100 Chloride 0.9% 100 ml @ 200 mls/hr IVPB Q12H [facility] Rx#:[id number] Lactated Ringers 1,000 ml 110 90 30 @ 10 mls/hr IV .Q24H QU[facility]EN Rx#:[id number] metroNIDAZOLE-NS PMX 500 100 100 100 mg In Saline 1 100ml.bag @ 100 mls/hr IVPB Q8HR QU[facility]EN Rx#:[id number] Oral 400 Output: Urine 1695 525 700 Other: Voiding Method Indwelling Catheter Urinal Urinal # Voids 1 # Bowel Movements 1 - Exam On physical examination, patient appears comfortable in no apparent distress. HEAD: Normocephalic, atraumatic. EYES: No scleral icterus. No conjunctival injection. MOUTH: No lesions, tongue midline. NECK: Trachea midline, no gross abnormalities. CHEST: Clear to auscultation with no wheezing or rhonchi appreciated. HEART: Tachycardic, irregularly irregular. ABDOMEN: Soft, obese. Bowel sounds are positive. No organomegaly. No guarding or rigidity. EXTREMITIES: No pedal edema. SKIN: No rashes, no jaundice. NEUROLOGIC: Alert and oriented x3. No focal deficits. - Labs CBC & Chem 7: 03/14/19 08:28 03/14/19 11:45 Labs: Abnormal Lab Results - Last 24 Hours (Table) 03/13/19 03/13/19 03/14/19 Range/Units 16:51 21:38 06:10 RDW (11.5-15.5) % Potassium 3.4 L (3.5-5.1) mmol/L BUN 29 H (9-20) mg/dL POC Glucose (mg/dL) 149 H 133 H (75-99) mg/dL Calcium 8.2 L (8.4-10.2) mg/dL C-Reactive Protein (<10.0) mg/L 03/14/19 03/14/19 03/14/19 Range/Units 06:10 08:28 11:46 RDW 15.6 H (11.5-15.5) % Potassium (3.5-5.1) mmol/L BUN (9-20) mg/dL POC Glucose (mg/dL) 143 H (75-99) mg/dL Calcium (8.4-10.2) mg/dL C-Reactive Protein 121.2 H (<10.0) mg/L Microbiology - Last 24 Hours (Table) 03/12/19 10:15 Stool Culture - Preliminary Stool 03/09/19 20:47 Blood Culture - Preliminary Blood No Growth after 96 hours 03/09/19 18:09 Blood Culture - Preliminary Blood No Growth after 96 hours 03/11/19 18:17 Blood Culture - Preliminary Blood No Growth after 48 hours 03/11/19 18:12 Blood Culture - Preliminary Blood No Growth after 48 hours 03/10/19 16:20 Blood Culture - Preliminary Blood No Growth after 72 hours 03/10/19 16:20 Blood Culture - Preliminary Blood No Growth after 72 hours 03/10/19 11:24 Stool Culture - Final Stool Assessment and Plan (1) Diarrhea Narrative/Plan: 63-year-old presenting with diarrhea, weakness, fatigue prior to presentation. He believes loose stool began after starting new medication for treatment of myasthenia gravis. Currently bowel movement improved however he does note that they have been dark in color. Stool testing was positive for occult blood. He denies any gross bleeding per rectum. Hemoglobin has remained stable. Stool testing for Clostridium difficile has been negative. Current Visit: Yes Status: Acute Code(s): R19.7 - DIARRHEA, UNSPECIFIED SNOMED Code(s): 34089144 (2) Positive occult stool blood test Current Visit: Yes Status: Acute Code(s): R19.5 - OTHER FECAL ABNORMALITIES SNOMED Code(s): 64639203 Plan: Supportive care Continue ICU management Okay for diet Continue Protonix Continue to monitor hemoglobin and transfuse as needed Continue to monitor stool output Continue antibiotic therapy No plan for endoscopic evaluation at this time, however is change in patient's clinical status or fall in hemoglobin we'll reevaluate at that time Thank you for allowing us to participate in the care of this patient we will continue to follow
[2019-03-15] MEDS: metroNIDAZOLE-NS PMX 500 MG in SALINE 1 100ML.BAG IVPB SCH ×2 (01:49→08:35)
[2019-03-15] MEDS: amLODIPine 5 MG TAB PO SCH (05:41)
[2019-03-15 06:14] LABS: HCT 37.5 % (39.0-53.0); HGB 12.8 gm/dL (13.0-17.5); MCH 28.4 pg (25.0-35.0); MCHC 34.2 g/dL (31.0-37.0); MCV 83.1 fL (80.0-100.0); Mean Platelet Volume 7.6; Platelet Count 256 k/uL (150-450); RBC 4.52 m/uL (4.30-5.90); RDW 14.6 % (11.5-15.5); WBC 8.5 k/uL (3.8-10.6)
[2019-03-15 06:24] LABS: ALT 61 U/L (21-72); AST 34 U/L (17-59); African American GFR (CKD) >90 (>60 ml/min/1.73 sqM); Albumin 2.6 g/dL (3.5-5.0); Alkaline Phosphatase 54 U/L (38-126); Anion Gap 3 mmol/L; Blood Urea Nitrogen 27 mg/dL (9-20); Calcium 8.5 mg/dL (8.4-10.2); Carbon Dioxide 28 mmol/L (22-30); Chloride 107 mmol/L (98-107); Glucose 80 mg/dL (74-99); Potassium 4.3 mmol/L (3.5-5.1); Sodium 138 mmol/L (137-145); Total Bilirubin 0.7 mg/dL (0.2-1.3); Total Protein 5.1 g/dL (6.3-8.2)
[2019-03-15] MEDS: INSULIN ASPART (NovoLOG) 100 UNIT/ML VIAL SQ SCH ×4 (07:03→21:28)
[2019-03-15 07:14] LABS: Glucose,Whole Blood 84 mg/dL (75-99)
[2019-03-15] MEDS: METOPROLOL SUCCINATE (ER) 25 MG TAB.ER.24H PO SCH ×2 (07:14→21:28)
[2019-03-15] MEDS: hydrALAZINE HCL 20 MG/ML 1 ML VIAL IVP PRN ×2 (07:15→12:16)
[2019-03-15] MEDS: PANTOPRAZOLE 40 MG TABLET PO SCH (07:15)
[2019-03-15] MEDS: PYRIDOSTIGMINE 60 MG TAB PO SCH ×3 (08:35→21:29)
[2019-03-15] MEDS: AMIODARONE 200 MG TAB PO SCH ×2 (08:36→21:27)
[2019-03-15] MEDS: predniSONE 20 MG TAB PO SCH (08:36)
[2019-03-15] MEDS: MULTIVITAMINS, THERA 1 EACH TAB PO SCH (08:36)
[2019-03-15] MEDS: CHOLESTYRAMINE (WITH SUGAR) 4 GM PACKET PO SCH ×2 (08:36→18:16)
[2019-03-15] MEDS: APIXABAN 5 MG TAB PO SCH ×2 (08:36→21:27)
--- NOTE | 2019-03-15 10:18 | P.PN ---
Subjective Progress Note Date: 03/14/19 Principal diagnosis: Fever/sepsis A. fib with RVR Acute exacerbation CHF 03/13/2019 Patient seen in follow-up in the intensive care unit sitting up in bedside chair with family members at bedside Vital signs; low-grade fever this morning, of 99; slightly tachycardic, with a rate of 118-121 BPM, he is hemodynamically stable, cultures remain negative thus far, stool culture was sent, pending at this time, today's labs have been reviewed, showing white blood cell, of 11.1, hemoglobin of 12.8, electrolytes are within normal limits, BUN of 28, creatinine of 0.84. Stool lactoferrin was positive, or call stool was positive as well, C. diff was negative, cytomegalovirus antibodies were non-reactive, influenza was negative. Chest x-ray shows markedly improved right perihilar airspace disease diarrhea pattern has significantly improved, he remains on antibiotic coverage in the form of cefepime, Flagyl, vancomycin has been discontinued, patient is receiving Questran, he is on oral anticoagulation for his A. fib, he remains on amiodarone drip, and his metoprolol has been increased to 50 twice daily 03/14/2019 Patient seen in ICU for follow-up. Clinically doing well. He is afebrile. There is a concern of an upper GI bleed as the patient had a soft bowel movement that was quite dark and tarry and this was sedated the concern for GI bleed as the patient is on Eliquis, prednisone and Plavix. No hematemesis. Hemoglobin remains stable. His atrial fibrillation is under better control although he is still having bouts of tachycardia. He is on a combination of amiodarone and metoprolol and is also was anticoagulated. No abdominal pain. No nausea. No vomiting. No dysuria previous emergency. No significant muscle weakness and the patient is a 40 mg of prednisone and Mestinon. He is off Imuran. All of the cultures are negative for now. He is feeling well. Is feeling strong. No altered mentation. No headaches. No change in mental status. No other complaints otherwise for now. Vancomycin has been discontinued and the patient remains on a combination of cefepime and Flagyl. Objective - Vital Signs Vital signs: Vital Signs Temp 97.0 F L 03/14/19 01:00 Pulse 105 H 03/14/19 07:00 Resp 22 03/14/19 07:00 BP 154/96 03/14/19 07:00 Pulse Ox 92 L 03/14/19 07:00 Intake & Output 03/13/19 03/14/19 03/14/19 18:59 06:59 18:59 Intake Total 710 290 10 Output Total 1695 525 Balance -985 -235 10 Intake: IV 310 290 10 Cefepime 2 gm In Sodium 100 100 Chloride 0.9% 100 ml @ 200 mls/hr IVPB Q12H [facility] Rx#:[id number] Lactated Ringers 1,000 ml 110 90 10 @ 10 mls/hr IV .Q24H [facility] Rx#:[id number] metroNIDAZOLE-NS PMX 500 100 100 mg In Saline 1 100ml.bag @ 100 mls/hr IVPB Q8HR [facility] Rx#:[id number] Oral 400 Output: Urine 1695 525 Other: Voiding Method Indwelling Catheter Urinal # Voids 1 # Bowel Movements 1 - Exam GENERAL EXAM: Alert, active, comfortable in no apparent distress. HEAD: Normocephalic/atraumatic. EYES: Normal reaction of pupils, equal size. Conjunctiva pink, sclera white. NOSE: Clear with pink turbinates. THROAT: No erythema or exudates. NECK: No masses, no JVD, no thyroid enlargement, no adenopathy. CHEST: No chest wall deformity. Symmetrical expansion. LUNGS: Equal air entry with limited rales at bilateral bases, but no wheeze, rhonchi or dullness. CVS: Regular rate and rhythm, normal S1 and S2, no gallops, no murmurs, no rubs ABDOMEN: Soft, slightly distended, nontender. No hepatosplenomegaly, normal bowel sounds, no guarding or rigidity. EXTREMITIES: No clubbing, no edema, no cyanosis, 2+ pulses and upper and lower extremities. MUSCULOSKELETAL: Muscle strength and tone normal. - Labs CBC & Chem 7: 03/15/19 05:33 03/15/19 05:33 Labs: Abnormal Lab Results - Last 24 Hours (Table) 03/13/19 03/13/19 03/13/19 Range/Units 11:44 16:51 21:38 RDW (11.5-15.5) % Potassium (3.5-5.1) mmol/L BUN (9-20) mg/dL POC Glucose (mg/dL) 124 H 149 H 133 H (75-99) mg/dL Calcium (8.4-10.2) mg/dL 03/14/19 03/14/19 Range/Units 06:10 08:28 RDW 15.6 H (11.5-15.5) % Potassium 3.4 L (3.5-5.1) mmol/L BUN 29 H (9-20) mg/dL POC Glucose (mg/dL) (75-99) mg/dL Calcium 8.2 L (8.4-10.2) mg/dL Microbiology - Last 24 Hours (Table) 03/09/19 20:47 Blood Culture - Preliminary Blood No Growth after 96 hours 03/09/19 18:09 Blood Culture - Preliminary Blood No Growth after 96 hours 03/11/19 18:17 Blood Culture - Preliminary Blood No Growth after 48 hours 03/11/19 18:12 Blood Culture - Preliminary Blood No Growth after 48 hours 03/10/19 16:20 Blood Culture - Preliminary Blood No Growth after 72 hours 03/10/19 16:20 Blood Culture - Preliminary Blood No Growth after 72 hours 03/10/19 11:24 Stool Culture - Final Stool Assessment and Plan Assessment: 1. Acute diarrhea with significant intravascular volume and acute kidney injury. The exact cause is not clear. Rule out drug induced diarrhea vs postinfectious diarrhea. - Stool for C. diff has been negative. Abdominal exam is negative and the patient's abdomen is soft at this point in time and there is no indication for an acute abdomen - Patient continues to have intermittent episodes of fever; all cultures including stool cultures remain negative - Patient remains on empiric IV antibiotics in form of IV cefepime 2 g every 12 hours and Flagyl 500 mg IV every 8 hours 2. New onset atrial fibrillation; slightly tachycardic, remains on amiodarone drip and metoprolol; continue with oral anticoagulation therapy 3. Myasthenia gravis maintained on a combination of Mestinon, prednisone and Imuran an outpatient basis; clinically stable at this time; Imuran has been on hold; patient remains on oral prednisone and Mestinon 4. Obstructive sleep apnea with an AHI of 45 maintained on a CPAP pressure of 7 cm of water 5. Hypertension; continue with home dose of metoprolol XL 50 mg twice a day; hydralazine 10 mg IV every 4 hours when necessary for systolic blood pressure greater than 160 6. Hyperlipidemia; Lipitor 20 mg by mouth daily at bedtime 7. Chronic back pain related to spinal stenosis and sciatica; pain control with [place] 5 mg every 6 hours when necessary with IV morphine as needed 8. Lactic acidosis, fever, rule out sepsis; empiric antibiotic therapy with IV cefepime and Flagyl; continue to monitor pro-calcitonin, lactic acid and CRP 9. Left lower extremity DVT; anticoagulation with Apixaban 10. DVT prophylaxis; systemic anticoagulation CODE STATUS; full code Time with Patient: Greater than 30
[2019-03-15 11:41] LABS: Glucose,Whole Blood 110 mg/dL (75-99)
--- NOTE | 2019-03-15 11:54 | P.PN ---
Subjective Progress Note Date: 03/15/19 63-year-old male patient came in to the ED yesterday because of few days of watery diarrhea that was quite aggressive and constant. The patient became quite dehydrated. He came into the ED and he was found to be in A. fib RVR and at the same time he was found to be in acute kidney injury. He was started on IV fluids. He received a total of 3 L and currently is on lactated Ringer running at 150 mL an hour. No significant abdominal pain. No nausea. No emesis. Stool for C. diff has been negative. The patient reports that he was having some loose stools for the past several months. He is obese. He has history of myasthenia gravis maintain a combination of Imuran and prednisone at a low dose of 10 mg by mouth daily. He is also on Mestinon. He is diagnosed was established approximately a year ago. He does not have a thymoma. He has received a total of 3 sessions of high-dose IV Solu-Medrol for a total of 5 visits was given to him by his neurologist office on outpatient basis lasting approximately 6 weeks ago. He still has on of double vision and some weakness. He also has obstructive sleep apnea severe with an AHI of 45 and currently is on CPAP at a pressure of 7 cm of water. He has hypertension and arthritis. The patient has no fever. No travel history. No food poisoning. In the ED, his lactic acid was slightly elevated and after fluids with lactic acid level normal ized. His white cell count is at 12.7. Platelet count is 127. No shortness of breath. No altered mentation. He is on 2 L of oxygen by nasal cannula with a pulse ox of 97%. On 03/11/2019 patient seen in follow-up in intensive care unit, he is awake and alert, in no acute distress, dates his watery diarrhea is becoming a bit more firm, however she still continues to have frequent loose stools, C. diff was negative, stool for culture is pending, blood, urine and sputum culture have been sent, and remain negative thus far, yesterday patient developed shaking chills, and started spiking fevers, with a T-max of 10 3F. He was placed back on Zosyn, new set of blood cultures have been sent. Flagyl, and vancomycin were added, and Zosyn was changed to cefepime per ID service recommendations. He is afebrile this morning. She denies any respiratory difficulty, denies any abdominal pain or tenderness, abdomen is slightly distended but soft. No nausea. Patient's heparin drip has been switched to oral Eliquis, he remains in sinus rhythm. On 03/13/2019 patient seen in follow-up in the intensive care unit, distal low- grade fever this morning, of 99 degrees Fahrenheit, she remains in A. fib, still slightly tachycardic, with a rate of 118-121 BPM, he is hemodynamically stable, all cultures remain negative thus far, stool culture was sent, pending at this time, today's labs have been reviewed, showing white blood cell, of 11.1, hemoglobin of 12.8, electrolytes are within normal limits, BUN of 28, creatinine of 0.84. Stool lactoferrin was positive, or call stool was positive as well, C. diff was negative, cytomegalovirus antibodies were non-reactive, influenza was negative. diarrhea pattern has significantly improved, he remains on antibiotic coverage in the form of cefepime, Flagyl, vancomycin has been discontinued, patient is receiving Questran, he is on oral anticoagulation for his A. fib, he remains on amiodarone drip, and his metoprolol has been increased to 50 twice daily. No acute events overnight, his breathing has improved, yesterday we gave the patient a dose of IV Lasix for fluid overload, and today's chest x-ray shows a markedly improved right perihilar airspace disease On 03/14/2019 and seeing this patient for a follow-up. Clinically doing well. He is afebrile. There is a concern of an upper GI bleed as the patient had a soft bowel movement that was quite dark and tarry and this was sedated the concern for GI bleed as the patient is on accommodation of Eliquis, prednisone and Plavix. No hematemesis. Hemoglobin remains stable. His atrial f ibrillation is under better control although he is still having bouts of tachycardia. He is on a combination of amiodarone and metoprolol and is also was anticoagulated. No abdominal pain. No nausea. No vomiting. No dysuria previous emergency. No significant muscle weakness and the patient is a 40 mg of prednisone and Mestinon. He is off Imuran. All of the cultures are negative for now. He is feeling well. Is feeling strong. No altered mentation. No headaches. No change in mental status. No other complaints otherwise for now. Vancomycin has been discontinued and the patient remains on a combination of cefepime and Flagyl. On 03/15/2019, the patient is doing well. No further episodes of GI bleed in hemoglobin is stable. Plavix was taken off and the patient is still on Eliquis. Still loose bowel movements and he still does not was performed yet. No nausea. No vomiting. CRP level is improving. No abdominal pain or distention. No motor weakness and the patient remains on a combination of Mestinon and prednisone at a dose of 40 mg daily basis. All of the cultures are negative. Remains in atrial fibrillation. Unfortunately is still tachycardic. The patient's heart rate is in the range of 110-120. The patient is having a combination of amiodarone and metoprolol for rate control. Cardiology is on the case. He is also on and correlation with Eliquis. In terms of metoprolol Zosyn 75 mg by mouth twice a day. The patient is also on amiodarone 200 mg by mouth 3 times a day. Objective - Vital Signs Vital signs: Vital Signs Temp 98.1 F 03/15/19 08:00 Pulse 115 H 03/15/19 11:41 Resp 20 03/15/19 11:00 BP 152/101 03/15/19 08:00 Pulse Ox 95 03/15/19 08:00 Intake & Output 03/14/19 03/15/19 03/15/19 18:59 06:59 18:59 Intake Total 440 490 140 Output Total 1500 350 550 Balance -1060 140 -410 Weight 126.7 kg Intake: IV 340 310 140 Cefepime 2 gm In Sodium 100 100 Chloride 0.9% 100 ml @ 200 mls/hr IVPB Q12H [facility] Rx#:[id number] Lactated Ringers 1,000 ml 40 110 40 @ 10 mls/hr IV .Q24H [facility] Rx#:[id number] metroNIDAZOLE-NS PMX 500 200 100 100 mg In Saline 1 100ml.bag @ 100 mls/hr IVPB Q8HR [facility] Rx#:[id number] Intake, IV Titration 100 Amount metroNIDAZOLE-NS PMX 500 100 mg In Saline 1 100ml.bag @ 100 mls/hr IVPB Q8HR [facility] Rx#:[id number] Oral 180 Output: Urine 1500 350 550 Other: Voiding Method Urinal Urinal Urinal # Voids 1 # Bowel Movements 1 - Exam GENERAL EXAM: Alert, active, comfortable in no apparent distress. HEAD: Normocephalic/atraumatic. EYES: Normal reaction of pupils, equal size. Conjunctiva pink, sclera white. NOSE: Clear with pink turbinates. THROAT: No erythema or exudates. NECK: No masses, no JVD, no thyroid enlargement, no adenopathy. CHEST: No chest wall deformity. Symmetrical expansion. LUNGS: Equal air entry with limited rales at bilateral bases, but no wheeze, rhonchi or dullness. CVS: Regular rate and rhythm, normal S1 and S2, no gallops, no murmurs, no rubs ABDOMEN: Soft, slightly distended, nontender. No hepatosplenomegaly, normal bowel sounds, no guarding or rigidity. EXTREMITIES: No clubbing, no edema, no cyanosis, 2+ pulses and upper and lower extremities. MUSCULOSKELETAL: Muscle strength and tone normal. SPINE: No scoliosis or deformity SKIN: No rashes CENTRAL NERVOUS SYSTEM: Alert and oriented -3. No focal deficits, tone is normal in all 4 extremities. PSYCHIATRIC: Alert and oriented -3. Appropriate affect. Intact judgment and insight. - Labs CBC & Chem 7: 03/15/19 05:33 03/15/19 05:33 Labs: Abnormal Lab Results - Last 24 Hours (Table) 03/14/19 03/14/19 03/14/19 Range/Units 11:46 16:42 20:45 Hgb (13.0-17.5) gm/dL Hct (39.0-53.0) % BUN (9-20) mg/dL POC Glucose (mg/dL) 143 H 120 H 130 H (75-99) mg/dL Total Protein (6.3-8.2) g/dL Albumin (3.5-5.0) g/dL 03/15/19 03/15/19 03/15/19 Range/Units 05:33 05:33 11:30 Hgb 12.8 L (13.0-17.5) gm/dL Hct 37.5 L (39.0-53.0) % BUN 27 H (9-20) mg/dL POC Glucose (mg/dL) 110 H (75-99) mg/dL Total Protein 5.1 L (6.3-8.2) g/dL Albumin 2.6 L (3.5-5.0) g/dL Microbiology - Last 24 Hours (Table) 03/09/19 20:47 Blood Culture - Preliminary Blood No Growth after 120 hours 03/09/19 18:09 Blood Culture - Preliminary Blood No Growth after 120 hours 03/11/19 18:17 Blood Culture - Preliminary Blood No Growth after 72 hours 03/11/19 18:12 Blood Culture - Preliminary Blood No Growth after 72 hours 03/10/19 16:20 Blood Culture - Preliminary Blood No Growth after 96 hours 03/10/19 16:20 Blood Culture - Preliminary Blood No Growth after 96 hours 03/12/19 10:15 Stool Culture - Preliminary Stool Assessment and Plan Plan: 1 acute diarrhea with significant intravascular volume and acute kidney injury. The exact cause is not clear. Rule out drug induced diarrhea. Rule out postinfectious diarrhea. Stool for C. diff has been negative. Abdominal exam is negative and the patient's abdomen is soft at this point in time and there is no indication for an acute abdomen. Noted the stool cultures came back negative. The patient's pro calcitonin was quite elevated and this obviously raises concerns for bacterial infection bacterial causes of this acute diarrhea. In any rate, the diarrhea subsided. Meanwhile, the CRP level embolism proving. The pro calcitonin level is still pending. I do suspect a bacterial cause of diarrhea special with elevated pro calcitonin level. In any rate, no cultures were identified. The patient responded to antibiotics and currently is on a combination of cefepime and Flagyl. We will de-escalate the antibiotics. 2 new onset atrial fibrillation, patient converted to sinus rhythm but had gone back into atrial fibrillation, currently slightly tachycardic, remains on amiodarone orally and metoprolol and the patient is also and to coagulation with Eliquis. 3 myasthenia gravis maintained on a combination of Mestinon, prednisone and Imuran an outpatient basis. The patient was taken off Imuran due to concerns of diarrhea and fever and possible sepsis. 4 obstructive sleep apnea with an AHI of 45 maintained on a CPAP pressure of 7 cm of water 5 hypertension 6 hyperlipidemia 7 chronic back pain related to spinal stenosis and sciatica 8 lactic acidosis, fever, rule out sepsis, improved 9 left lower extremity DVT, currently on Eliquis 10 melanotic stool, considered upper GI bleed as the patient is on a combination of Plavix Eliquis and prednisone, improved with stable hemoglobin 11 episodes of fever, recovered and the patient is currently afebrile Plan Discontinue the cefepime. Switch this patient to oral Cipro and Flagyl. Continue prednisone 40 mg. Continue Mestinon. Continue Eliquis. Watch for any signs of GI bleed. In terms of atrial fibrillation, I'm hoping that the amiodarone and the metoprolol and ultimately controlled his rate. He is on anticoagulation. His CRP level is improving. Awaiting follow-up pro calcitonin level. We'll continue to follow.
[2019-03-15] MEDS ORDERED: AMIODARONE 200 MG TAB PO STA (13:11)
[2019-03-15] MEDS: VERAPAMIL 40 MG TAB PO SCH ×2 (14:13→21:29)
--- NOTE | 2019-03-15 14:59 | PN ---
PROGRESS NOTE This patient has a history of persistent atrial fibrillation. Patient was admitted with diarrhea, which seems to be improved. However, patient's heart rate remains in the range of 100-130. Blood pressure is 170/96 mmHg. First and second heart sounds are normal. Lungs are clinically clear to auscultation and percussion. I will add verapamil 80 mg q.8h hourly, amiodarone is increased to 400 mg b.i.d. continue Eliquis 5 mg b.i.d. MMODL / IJN: [id number] /
--- NOTE | 2019-03-15 16:10 | P.PN ---
Subjective Progress Note Date: 03/15/19 Principal diagnosis: Fever/sepsis A. fib with RVR Acute exacerbation CHF 03/13/2019 Patient seen in follow-up in the intensive care unit sitting up in bedside chair with family members at bedside Vital signs; low-grade fever this morning, of 99; slightly tachycardic, with a rate of 118-121 BPM, he is hemodynamically stable, cultures remain negative thus far, stool culture was sent, pending at this time, today's labs have been reviewed, showing white blood cell, of 11.1, hemoglobin of 12.8, electrolytes are within normal limits, BUN of 28, creatinine of 0.84. Stool lactoferrin was positive, or call stool was positive as well, C. diff was negative, cytomegalovirus antibodies were non-reactive, influenza was negative. Chest x-ray shows markedly improved right perihilar airspace disease diarrhea pattern has significantly improved, he remains on antibiotic coverage in the form of cefepime, Flagyl, vancomycin has been discontinued, patient is receiving Questran, he is on oral anticoagulation for his A. fib, he remains on amiodarone drip, and his metoprolol has been increased to 50 twice daily 03/14/2019 Patient seen in ICU for follow-up. Clinically doing well. He is afebrile. There is a concern of an upper GI bleed as the patient had a soft bowel movement that was quite dark and tarry and this was sedated the concern for GI bleed as the patient is on Eliquis, prednisone and Plavix. No hematemesis. Hemoglobin remains stable. His atrial fibrillation is under better control although he is still having bouts of tachycardia. He is on a combination of amiodarone and metoprolol and is also was anticoagulated. No abdominal pain. No nausea. No vomiting. No dysuria previous emergency. No significant muscle weakness and the patient is a 40 mg of prednisone and Mestinon. He is off Imuran. All of the cultures are negative for now. He is feeling well. Is feeling strong. No altered mentation. No headaches. No change in mental status. No other complaints otherwise for now. Vancomycin has been discontinued and the patient remains on a combination of cefepime and Flagyl. 03/15/2019 the patient is doing well. No further episodes of GI bleed in hemoglobin is stable. vital signs remained stable with a temperature of 98.1, pulse has been problematic with range of 130s to 140s, respiration 20 and blood pressure of 152/101 A. fib with RVR; cardiology has seen patient and amiodarone has been increased to 400 mg twice a day with increased dose of metoprolol at 75 mg twice a day; patient has been started on Cardizem also; we will continue to monitor in ICU Plavix was taken off and the patient is still on Eliquis. Still loose bowel movements and he still does not was performed yet. No nausea. No vomiting. CRP level is improving. No abdominal pain or distention. No motor weakness and the patient remains on a combination of Mestinon and prednisone at a dose of 40 mg daily basis. All of the cultures are negative. Objective - Vital Signs Vital signs: Vital Signs Temp 98.1 F 03/15/19 08:00 Pulse 115 H 03/15/19 09:00 Resp 13 03/15/19 09:00 BP 152/101 03/15/19 08:00 Pulse Ox 95 03/15/19 08:00 Intake & Output 03/14/19 03/15/19 03/15/19 18:59 06:59 18:59 Intake Total 440 490 120 Output Total 1500 350 250 Balance -1060 140 -130 Weight 126.7 kg Intake: IV 340 310 120 Cefepime 2 gm In Sodium 100 100 Chloride 0.9% 100 ml @ 200 mls/hr IVPB Q12H QUYEN Rx#:[id number] Lactated Ringers 1,000 ml 40 110 20 @ 10 mls/hr IV .Q24H QUYEN Rx#:[id number] metroNIDAZOLE-NS PMX 500 200 100 100 mg In Saline 1 100ml.bag @ 100 mls/hr IVPB Q8HR QUYEN Rx#:[id number] Intake, IV Titration 100 Amount metroNIDAZOLE-NS PMX 500 100 mg In Saline 1 100ml.bag @ 100 mls/hr IVPB Q8HR QUYEN Rx#:[id number] Oral 180 Output: Urine 1500 350 250 Other: Voiding Method Urinal Urinal # Voids 1 # Bowel Movements 1 - Exam GENERAL EXAM: Alert, active, comfortable in no apparent distress. HEAD: Normocephalic/atraumatic. EYES: Normal reaction of pupils, equal size. Conjunctiva pink, sclera white. NOSE: Clear with pink turbinates. THROAT: No erythema or exudates. NECK: No masses, no JVD, no thyroid enlargement, no adenopathy. CHEST: No chest wall deformity. Symmetrical expansion. LUNGS: Equal air entry with limited rales at bilateral bases, but no wheeze, rhonchi or dullness. CVS: Regular rate and rhythm, normal S1 and S2, no gallops, no murmurs, no rubs ABDOMEN: Soft, slightly distended, nontender. No hepatosplenomegaly, normal bowel sounds, no guarding or rigidity. EXTREMITIES: No clubbing, no edema, no cyanosis, 2+ pulses and upper and lower extremities. MUSCULOSKELETAL: Muscle strength and tone normal. - Labs CBC & Chem 7: 03/15/19 05:33 03/15/19 05:33 Labs: Abnormal Lab Results - Last 24 Hours (Table) 03/14/19 03/14/19 03/14/19 Range/Units 06:10 11:46 16:42 Hgb (13.0-17.5) gm/dL Hct (39.0-53.0) % BUN (9-20) mg/dL POC Glucose (mg/dL) 143 H 120 H (75-99) mg/dL C-Reactive Protein 121.2 H (<10.0) mg/L Total Protein (6.3-8.2) g/dL Albumin (3.5-5.0) g/dL 03/14/19 03/15/19 03/15/19 Range/Units 20:45 05:33 05:33 Hgb 12.8 L (13.0-17.5) gm/dL Hct 37.5 L (39.0-53.0) % BUN 27 H (9-20) mg/dL POC Glucose (mg/dL) 130 H (75-99) mg/dL C-Reactive Protein (<10.0) mg/L Total Protein 5.1 L (6.3-8.2) g/dL Albumin 2.6 L (3.5-5.0) g/dL Microbiology - Last 24 Hours (Table) 03/09/19 20:47 Blood Culture - Preliminary Blood No Growth after 120 hours 03/09/19 18:09 Blood Culture - Preliminary Blood No Growth after 120 hours 03/11/19 18:17 Blood Culture - Preliminary Blood No Growth after 72 hours 03/11/19 18:12 Blood Culture - Preliminary Blood No Growth after 72 hours 03/10/19 16:20 Blood Culture - Preliminary Blood No Growth after 96 hours 03/10/19 16:20 Blood Culture - Preliminary Blood No Growth after 96 hours 03/12/19 10:15 Stool Culture - Preliminary Stool Assessment and Plan Assessment: 1. Acute diarrhea with significant intravascular volume and acute kidney injury. The exact cause is not clear. Rule out drug induced diarrhea vs post infectious diarrhea. - Stool for C. diff has been negative. Abdominal exam is negative and the lawrence yu's abdomen is soft at this point in time and there is no indication for an acute abdomen - Patient continues to have intermittent episodes of fever; all cultures including stool cultures remain negative - Patient remains on empiric IV antibiotics in form of IV cefepime 2 g every 12 hours and Flagyl 500 mg IV every 8 hours 2. New onset atrial fibrillation; slightly tachycardic, remains on amiodarone drip and metoprolol; continue with oral anticoagulation therapy 3. Myasthenia gravis maintained on a combination of Mestinon, prednisone and Imuran an outpatient basis; clinically stable at this time; Imuran has been on hold; patient remains on oral prednisone and Mestinon 4. Obstructive sleep apnea with an AHI of 45 maintained on a CPAP pressure of 7 cm of water 5. Hypertension; continue with home dose of metoprolol XL 50 mg twice a day; hydralazine 10 mg IV every 4 hours when necessary for systolic blood pressure greater than 160 6. Hyperlipidemia; Lipitor 20 mg by mouth daily at bedtime 7. Chronic back pain related to spinal stenosis and sciatica; pain control with [place] 5 mg every 6 hours when necessary with IV morphine as needed 8. Lactic acidosis, fever, rule out sepsis; empiric antibiotic therapy with IV cefepime and Flagyl; continue to monitor pro-calcitonin, lactic acid and CRP 9. Left lower extremity DVT; anticoagulation with Apixaban 10. DVT prophylaxis; systemic anticoagulation CODE STATUS; full code Time with Patient: Greater than 30
[2019-03-15 16:52] LABS: Glucose,Whole Blood 193 mg/dL (75-99)
[2019-03-15] MEDS: metroNIDAZOLE 500 MG TAB PO SCH ×2 (17:05→21:29)
[2019-03-15] MEDS: LACTATED RINGERS 1,000 ML IV SCH (18:16)
[2019-03-15] MEDS: ATORVASTATIN 20 MG TAB PO SCH (21:27)
[2019-03-15] MEDS: CIPROFLOXACIN HCL 500 MG TAB PO SCH (21:27)
[2019-03-15 21:35] LABS: Glucose,Whole Blood 107 mg/dL (75-99)
--- NOTE | 2019-03-16 01:09 | PN ---
PROGRESS NOTE DATE OF SERVICE: 03/15/2019 REASON FOR FOLLOWUP: Fever with acute gastroenteritis, possible bacteria. INTERVAL HISTORY: The patient is currently afebrile with no fever recorded in last 72 hours. The patient is breathing comfortably. Denies any chest pain. He did have occasional cough. No nausea, no vomiting, no abdominal pain. The patient has no further loose stool. Soft to semiformed stools. No [place] bleeding. PHYSICAL EXAMINATION: Blood pressure is 110/96, pulse of 86, temperature 98.7, he is 95% CPAP. General description is an elderly male lying in bed in no distress. Respiratory system: Unlabored breathing, clear to auscultation anteriorly. Heart S1, S2. Regular rate and rhythm. Abdomen soft, no tenderness. Extremities: No edema of the feet. LABS: Hemoglobin is 12.8, white count 8.5. BUN of 27, creatinine 0.80. Cultures have been negative. DIAGNOSTIC IMPRESSION AND PLAN: Patient with admission to hospital with sepsis and GI symptom with concern for possible colitis and bacterial origin. The patient overall responded to cefepime and Flagyl, to continue. Switch to short course of oral antibiotic on discharge. Continue with supportive care. MMODL / IJN: [id number] / MTDD
[2019-03-16 05:39] LABS: Anisocytosis Slight; HCT 41.7 % (39.0-53.0); HGB 13.5 gm/dL (13.0-17.5); MCH 27.4 pg (25.0-35.0); MCHC 32.5 g/dL (31.0-37.0); MCV 84.3 fL (80.0-100.0); Mean Platelet Volume 7.8; Platelet Count 393 k/uL (150-450); RBC 4.94 m/uL (4.30-5.90); RDW 16.1 % (11.5-15.5)
[2019-03-16 05:57] LABS: African American GFR (CKD) >90 (>60 ml/min/1.73 sqM); Anion Gap 4 mmol/L; Blood Urea Nitrogen 24 mg/dL (9-20); Calcium 8.7 mg/dL (8.4-10.2); Carbon Dioxide 29 mmol/L (22-30); Chloride 105 mmol/L (98-107); Glucose 76 mg/dL (74-99); Potassium 4.6 mmol/L (3.5-5.1); Sodium 138 mmol/L (137-145)
[2019-03-16 06:55] LABS: Glucose,Whole Blood 82 mg/dL (75-99)
[2019-03-16] MEDS: PANTOPRAZOLE 40 MG TABLET PO SCH (07:13)
[2019-03-16] MEDS: INSULIN ASPART (NovoLOG) 100 UNIT/ML VIAL SQ SCH ×4 (07:16→20:57)
[2019-03-16] MEDS: APIXABAN 5 MG TAB PO SCH ×2 (08:48→20:33)
[2019-03-16] MEDS: AMIODARONE 200 MG TAB PO SCH ×2 (08:48→20:32)
[2019-03-16] MEDS: MULTIVITAMINS, THERA 1 EACH TAB PO SCH (08:49)
[2019-03-16] MEDS: predniSONE 20 MG TAB PO SCH (08:49)
[2019-03-16] MEDS: amLODIPine 5 MG TAB PO SCH (08:49)
[2019-03-16] MEDS: METOPROLOL SUCCINATE (ER) 25 MG TAB.ER.24H PO SCH ×2 (08:49→20:34)
[2019-03-16] MEDS: VERAPAMIL 40 MG TAB PO SCH ×3 (08:49→23:59)
[2019-03-16] MEDS: metroNIDAZOLE 500 MG TAB PO SCH ×3 (08:51→20:58)
[2019-03-16] MEDS: CIPROFLOXACIN HCL 500 MG TAB PO SCH ×2 (08:51→20:33)
[2019-03-16] MEDS: PYRIDOSTIGMINE 60 MG TAB PO SCH ×3 (08:51→20:58)
[2019-03-16 10:00] VITALS: BMI 36.5
[2019-03-16 11:52] LABS: Glucose,Whole Blood 110 mg/dL (75-99)
--- NOTE | 2019-03-16 12:24 | P.PN ---
Subjective Progress Note Date: 03/16/19 Principal diagnosis: Acute gastroenteritis and intravascular volume depletion with acute kidney injury secondary to dehydration and intravascular volume depletion. 63-year-old male patient came in to the ED yesterday because of few days of watery diarrhea that was quite aggressive and constant. The patient became quite dehydrated. He came into the ED and he was found to be in A. fib RVR and at the same time he was found to be in acute kidney injury. He was started on IV fluids. He received a total of 3 L and currently is on lactated Ringer running at 150 mL an hour. No significant abdominal pain. No nausea. No emesis. Stool for C. diff has been negative. The patient reports that he was having some loose stools for the past several months. He is obese. He has history of myasthenia gravis maintain a combination of Imuran and prednisone at a low dose of 10 mg by mouth daily. He is also on Mestinon. He is diagnosed was established approximately a year ago. He does not have a thymoma. He has received a total of 3 sessions of high-dose IV Solu-Medrol for a total of 5 visits was given to him by his neurologist office on outpatient basis lasting approximately 6 weeks ago. He still has on of double vision and some weakness. He also has obstructive sleep apnea severe with an AHI of 45 and currently is on CPAP at a pressure of 7 cm of water. He has hypertension and arthritis. The patient has no fever. No travel history. No food poisoning. In the ED, his lactic acid was slightly elevated and after fluids with lactic acid level normalized. His white cell count is at 12.7. Platelet count is 127. No shortness of breath. No altered mentation. He is on 2 L of oxygen by nasal cannula with a pulse ox of 97%. On 03/11/2019 patient seen in follow-up in intensive care unit, he is awake and alert, in no acute distress, dates his watery diarrhea is becoming a bit more firm, however she still continues to have frequent loose stools, C. diff was negative, stool for culture is pending, blood, urine and sputum culture have been sent, and remain negative thus far, yesterday patient developed shaking chills, and started spiking fevers, with a T-max of 10 3F. He was placed back on Zosyn, new set of blood cultures have been sent. Ella, and vancomycin were added, and Zosyn was changed to cefepime per ID service recommendations. He is afebrile this morning. She denies any respiratory difficulty, denies any abdominal pain or tenderness, abdomen is slightly distended but soft. No nausea. Patient's heparin drip has been switched to oral Eliquis, he remains in sinus rhythm. On 03/13/2019 patient seen in follow-up in the intensive care unit, distal low- grade fever this morning, of 99 degrees Fahrenheit, she remains in A. fib, still slightly tachycardic, with a rate of 118-121 BPM, he is hemodynamically stable, all cultures remain negative thus far, stool culture was sent, pending at this time, today's labs have been reviewed, showing white blood cell, of 11.1, hemoglobin of 12.8, electrolytes are within normal limits, BUN of 28, creatinine of 0.84. Stool lactoferrin was positive, or call stool was positive as well, C. diff was negative, cytomegalovirus antibodies were non-reactive, influenza was negative. diarrhea pattern has significantly improved, he remains on antibiotic coverage in the form of cefepime, Flagyl, vancomycin has been discontinued, patient is receiving Questran, he is on oral anticoagulation for his A. fib, he remains on amiodarone drip, and his metoprolol has been increased to 50 twice daily. No acute events overnight, his breathing has improved, yesterday we gave the patient a dose of IV Lasix for fluid overload, and today's chest x-ray shows a markedly improved right perihilar airspace disease On 03/14/2019 and seeing this patient for a follow-up. Clinically doing well. He is afebrile. There is a concern of an upper GI bleed as the patient had a soft bowel movement that was quite dark and tarry and this was sedated the concern for GI bleed as the patient is on accommodation of Eliquis, prednisone and Plavix. No hematemesis. Hemoglobin remains stable. His atrial fibrillatio n is under better control although he is still having bouts of tachycardia. He is on a combination of amiodarone and metoprolol and is also was anticoagulated. No abdominal pain. No nausea. No vomiting. No dysuria previous emergency. No significant muscle weakness and the patient is a 40 mg of prednisone and Mestinon. He is off Imuran. All of the cultures are negative for now. He is feeling well. Is feeling strong. No altered mentation. No headaches. No change in mental status. No other complaints otherwise for now. Vancomycin has been discontinued and the patient remains on a combination of cefepime and Flagyl. On 03/15/2019, the patient is doing well. No further episodes of GI bleed in hemoglobin is stable. Plavix was taken off and the patient is still on Eliquis. Still loose bowel movements and he still does not was performed yet. No nausea. No vomiting. CRP level is improving. No abdominal pain or distention. No motor weakness and the patient remains on a combination of Mestinon and prednisone at a dose of 40 mg daily basis. All of the cultures are negative. Remains in atrial fibrillation. Unfortunately is still tachycardic. The patient's heart rate is in the range of 110-120. The patient is having a combination of amiodarone and metoprolol for rate control. Cardiology is on the case. He is also on and correlation with Eliquis. In terms of metoprolol Zosyn 75 mg by mouth twice a day. The patient is also on amiodarone 200 mg by mouth 3 times a day. Reevaluated today on 03/16/2019, patient remains in the intensive care unit, continues to have intermittent episodes of A. fib with RVR, remains on Eliquis. He is also on amiodarone and on beta blockers. Feeling better overall, his diarrhea has resolved. He is hemodynamically stable, and in no distress. CBC is unremarkable. Electrolytes are normal renal profile is normalized, creat inine today is 0.87, and it was 2.67 on admission. Stool was positive for occult blood, and it was positive for lactoferrin. Which is indicative of some sort of colitis probably bacterial colitis causing the diarrhea on presentation. Objective - Vital Signs Vital signs: Vital Signs Temp 97.9 F 03/16/19 08:00 Pulse 125 H 03/16/19 08:00 Resp 18 03/16/19 08:00 BP 127/80 03/16/19 08:00 Pulse Ox 97 03/16/19 08:00 Intake & Output 03/15/19 03/16/19 03/16/19 18:59 06:59 18:59 Intake Total 210 10 Output Total 1480 750 350 Balance -1270 -740 -350 Weight 125.5 kg 125.5 kg Intake: IV 210 10 Lactated Ringers 1,000 ml 110 10 @ 10 mls/hr IV .Q24H QUYEN Rx#:[id number] metroNIDAZOLE-NS PMX 500 100 mg In Saline 1 100ml.bag @ 100 mls/hr IVPB Q8HR QUYEN Rx#:[id number] Output: Urine 1480 750 350 Other: Voiding Method Urinal Urinal Urinal # Bowel Movements 1 - Exam Physical Exam: Revealed a 63-year-old white male in no distress. Very pleasant. Head: Atraumatic, normocephalic. HEENT:[Neck is supple.] [No neck masses.] [No thyromegaly.] [No JVD.] Chest: [Clear throughout, no crackles, no rhonchi, no wheezes.] Cardiac Exam: [Normal S1 and S2, no S3 gallop, no murmur.] Abdomen: [Soft, nontender, no megaly, no rebound, no guarding, normal bowel sounds.] Extremities: [No clubbing, no edema, no cyanosis.] Neurological Exam: [No focal neurologic deficit.] Alert oriented 3. Skin: No rashes. Lymphatics: No lymphadenopathy. Psychiatric: Normal mood affect and normal mental status examination. - Labs CBC & Chem 7: 03/16/19 04:46 03/16/19 04:46 Labs: Abnormal Lab Results - Last 24 Hours (Table) 03/15/19 03/15/19 03/16/19 Range/Units 16:40 21:24 04:46 RDW 16.1 H (11.5-15.5) % BUN (9-20) mg/dL POC Glucose (mg/dL) 193 H 107 H (75-99) mg/dL 03/16/19 03/16/19 Range/Units 04:46 11:40 RDW (11.5-15.5) % BUN 24 H (9-20) mg/dL POC Glucose (mg/dL) 110 H (75-99) mg/dL Microbiology - Last 24 Hours (Table) 03/10/19 11:24 Stool Culture - Final Stool 03/12/19 10:15 Stool Culture - Final Stool 03/09/19 20:47 Blood Culture - Final Blood No Growth after 144 hours 03/09/19 18:09 Blood Culture - Final Blood No Growth after 144 hours 03/11/19 18:17 Blood Culture - Preliminary Blood No Growth after 96 hours 03/11/19 18:12 Blood Culture - Preliminary Blood No Growth after 96 hours 03/10/19 16:20 Blood Culture - Preliminary Blood No Growth after 120 hours 03/10/19 16:20 Blood Culture - Preliminary Blood No Growth after 120 hours Assessment and Plan Assessment: Impression: 1 acute gastroenteritis, resolved, responded well to antibiotics. 2 acute kidney injury secondary to dehydration and intravascular volume depletio n, resolved. 3 new onset atrial fibrillation, remains on multiple medications including beta blockers and amiodarone and Eliquis. 4 history of myasthenia gravis remains on Mestinon prednisone and Imuran. 5 history of obstructive sleep apnea syndrome using CPAP. Apnea/hypopnea index is 45. 6 benign essential hypertension 7 history of lower extremity deep vein thrombosis, remains on Eliquis 8 positive Hemoccult stools secondary to colitis and patient has been on Eliquis Plavix and prednisone . Recommendation: Continue Cipro and Flagyl, continue prednisone, continue Mestinon, continue amiodarone and beta blockers, continue Eliquis, watch for any worsening signs of GI bleeding, transfer patient out of the ICU today, we'll continue to follow. Time with Patient: Less than 30
[2019-03-16] MEDS: CHOLESTYRAMINE (WITH SUGAR) 4 GM PACKET PO SCH ×2 (13:00→18:16)
--- NOTE | 2019-03-16 14:15 | P.PN ---
Subjective Patient is a very pleasant 58-year-old gentleman came with diarrhea no infectious etiology was found but the patient is being treated with the Cipro and Flagyl at this time. Patient has a new onset atrial fibrillation patient heart rate went up today patient the amiodarone dose was increased will monitor 1 more night patient probably can be discharged tomorrow with antiemetic recommendations from infectious disease. Patient is presently on Eliquis. Constitutional: Denied any fatigue denied any fever. Cardio vascular: denied any chest pain, palpitations Gastrointestinal denied any nausea vomiting Pulmonary: Denied any shortness of breath cough Neurologic denied any new focal deficits All inpatient medications were reviewed and appropriate changes in these medications as dictated in the interval history and assessment and plan. Objective - Vital Signs Vital signs: Vital Signs Temp 98.5 F 03/16/19 12:00 Pulse 89 03/16/19 12:00 Resp 18 03/16/19 12:00 BP 115/72 03/16/19 12:00 Pulse Ox 97 03/16/19 12:00 Intake & Output 03/15/19 03/16/19 03/16/19 18:59 06:59 18:59 Intake Total 210 10 Output Total 1480 750 950 Balance -1270 -740 -950 Weight 125.5 kg 125.5 kg Intake: IV 210 10 Lactated Ringers 1,000 ml 110 10 @ 10 mls/hr IV .Q24H QUYEN Rx#:[id number] metroNIDAZOLE-NS PMX 500 100 mg In Saline 1 100ml.bag @ 100 mls/hr IVPB Q8HR QUYEN Rx#:[id number] Output: Urine 1480 750 950 Other: Voiding Method Urinal Urinal Urinal # Bowel Movements 1 - Exam PHYSICAL EXAMINATION: GENERAL: The patient is alert and oriented x3, not in any acute distress. Well developed, well nourished. HEENT: Pupils are round and equally reacting to light. EOMI. No scleral icterus. No conjunctival pallor. Normocephalic, atraumatic. No pharyngeal erythema. No thyromegaly. CARDIOVASCULAR: S1 and S2 present. No murmurs, rubs, or gallops. Irregularly irregular heart rhythm, occasional tachycardia PULMONARY: Chest is clear to auscultation, no wheezing or crackles. ABDOMEN: Soft, nontender, nondistended, normoactive bowel sounds. No palpable organomegaly. MUSCULOSKELETAL: No joint swelling or deformity. EXTREMITIES: No cyanosis, clubbing, or pedal edema. NEUROLOGICAL: Gross neurological examination did not reveal any focal deficits. SKIN: No rashes. - Labs CBC & Chem 7: 03/16/19 04:46 03/16/19 04:46 Labs: Abnormal Lab Results - Last 24 Hours (Table) 03/15/19 03/15/19 03/16/19 Range/Units 16:40 21:24 04:46 RDW 16.1 H (11.5-15.5) % BUN (9-20) mg/dL POC Glucose (mg/dL) 193 H 107 H (75-99) mg/dL 03/16/19 03/16/19 Range/Units 04:46 11:40 RDW (11.5-15.5) % BUN 24 H (9-20) mg/dL POC Glucose (mg/dL) 110 H (75-99) mg/dL Microbiology - Last 24 Hours (Table) 03/10/19 11:24 Stool Culture - Final Stool 03/12/19 10:15 Stool Culture - Final Stool 03/09/19 20:47 Blood Culture - Final Blood No Growth after 144 hours 03/09/19 18:09 Blood Culture - Final Blood No Growth after 144 hours 03/11/19 18:17 Blood Culture - Preliminary Blood No Growth after 96 hours 03/11/19 18:12 Blood Culture - Preliminary Blood No Growth after 96 hours 03/10/19 16:20 Blood Culture - Preliminary Blood No Growth after 120 hours 03/10/19 16:20 Blood Culture - Preliminary Blood No Growth after 120 hours Assessment and Plan Plan: Diarrhea: Being treated like infections the area but there is no clear-cut evidence of infection at this time. -Acute renal failure improved will azotemia patient's creatinine is at his baseline -New-onset atrial fibrillation on Eliquis presently on 400 twice a day of amiodarone-history of myasthenia gravis not in myasthenic crisis -Hypertension - sleep apnea uses CPAP machine -Lactic acidosis from diarrhea was following the patient and possibility of sepsis from infectious diarrhea -Hyperlipidemia
[2019-03-16 17:07] LABS: Glucose,Whole Blood 132 mg/dL (75-99)
[2019-03-16] MEDS: LACTATED RINGERS 1,000 ML IV SCH (17:33)
[2019-03-16] MEDS: ATORVASTATIN 20 MG TAB PO SCH (20:33)
--- NOTE | 2019-03-16 20:40 | PN ---
PROGRESS NOTE This patient is seen for persistent atrial fibrillation. Patient is doing fairly well. His heart rate is controlled better. Blood pressure is 115/70 mmHg, heart rate 90 per minute. First and second heart sounds are normal. Lungs are clear to auscultation and percussion. The patient is being ambulated. Patient can be discharged in the next 24 hours. We will follow him as an outpatient. If the patient persists to be in atrial fibrillation after 3 to 4 weeks, we will consider the patient for elective cardioversion. MMODL / IJN: [id number] /
--- NOTE | 2019-03-16 20:47 | P.PN ---
Subjective Progress Note Date: 03/16/19 Principal diagnosis: Diarrhea, stool positive for occult blood Patient is seen in bed, reporting he is feeling well. Tolerating his diet. One soft brown bowel movement today. No abdominal pain reported. Objective - Vital Signs Vital signs: Vital Signs Temp 98.9 F 03/16/19 16:00 Pulse 92 03/16/19 16:00 Resp 15 03/16/19 16:00 BP 119/86 03/16/19 16:00 Pulse Ox 97 03/16/19 16:00 Intake & Output 03/16/19 03/16/19 03/17/19 06:59 18:59 06:59 Intake Total 10 Output Total 750 1250 Balance -740 -1250 Weight 125.5 kg 125.5 kg Intake: IV 10 Lactated Ringers 1,000 ml 10 @ 10 mls/hr IV .Q24H QUYEN Rx#:[id number] Output: Urine 750 1250 Other: Voiding Method Urinal Urinal # Bowel Movements 1 - Exam On physical examination, patient appears comfortable in no apparent distress. HEAD: Normocephalic, atraumatic. EYES: No scleral icterus. No conjunctival injection. MOUTH: No lesions, tongue midline. NECK: Trachea midline, no gross abnormalities. CHEST: Clear to auscultation with no wheezing or rhonchi appreciated. HEART: Tachycardic, irregularly irregular. ABDOMEN: Soft, obese. Bowel sounds are positive. No organomegaly. No guarding or rigidity. EXTREMITIES: No pedal edema. SKIN: No rashes, no jaundice. NEUROLOGIC: Alert and oriented x3. No focal deficits. - Labs CBC & Chem 7: 03/16/19 04:46 03/16/19 04:46 Labs: Abnormal Lab Results - Last 24 Hours (Table) 03/15/19 03/16/19 03/16/19 Range/Units 21:24 04:46 04:46 RDW 16.1 H (11.5-15.5) % BUN 24 H (9-20) mg/dL POC Glucose (mg/dL) 107 H (75-99) mg/dL 03/16/19 03/16/19 Range/Units 11:40 16:55 RDW (11.5-15.5) % BUN (9-20) mg/dL POC Glucose (mg/dL) 110 H 132 H (75-99) mg/dL Microbiology - Last 24 Hours (Table) 03/11/19 18:17 Blood Culture - Preliminary Blood No Growth after 120 hours 03/11/19 18:12 Blood Culture - Preliminary Blood No Growth after 120 hours 03/10/19 16:20 Blood Culture - Final Blood No Growth after 144 hours 03/10/19 16:20 Blood Culture - Final Blood No Growth after 144 hours 03/10/19 11:24 Stool Culture - Final Stool 03/12/19 10:15 Stool Culture - Final Stool 03/09/19 20:47 Blood Culture - Final Blood No Growth after 144 hours 03/09/19 18:09 Blood Culture - Final Blood No Growth after 144 hours Assessment and Plan (1) Diarrhea Narrative/Plan: 63-year-old presenting with diarrhea, weakness, fatigue prior to presentation. He believes loose stool began after starting new medication for treatment of myasthenia gravis. Currently bowel movement improved however he does note that they have been dark in color. Stool testing was positive for occult blood. He denies any gross bleeding per rectum. Hemoglobin has remained stable. Stool testing for Clostridium difficile has been negative. Overall the frequency of bowel movements has decreased with 1 soft bowel movement today. Current Visit: Yes Status: Acute Code(s): R19.7 - DIARRHEA, UNSPECIFIED SNOMED Code(s): 65341942 (2) Positive occult stool blood test Current Visit: Yes Status: Acute Code(s): R19.5 - OTHER FECAL ABNORMALITIES SNOMED Code(s): 41327336 Plan: Supportive care Continue ICU management Okay for diet Continue Protonix Continue to monitor hemoglobin and transfuse as needed Continue to monitor stool output Continue antibiotic therapy No plan for endoscopic evaluation at this time Okay for discharge from gastroenterology standpoint Thank you for allowing us to participate in the care of this patient to gastroenterology service will stand by, please call us back with any questions or concerns
[2019-03-16 20:54] LABS: Glucose,Whole Blood 157 mg/dL (75-99)
--- NOTE | 2019-03-16 22:52 | PN ---
PROGRESS NOTE DATE OF SERVICE: 03/16/2019. REASON FOR FOLLOW UP: Diarrhea, likely infectious etiology. INTERVAL HISTORY: The patient is currently afebrile. Patient has been breathing comfortably. Denies any chest pain. Occasional cough. No nausea, no vomiting. No abdominal pain. Now with diarrhea. PHYSICAL EXAMINATION: Blood pressure is 119/80 with a pulse of 79, temperature of 98.1. He is 97% on room air. General description is an elderly male up in the chair in no distress. Respiratory system: Unlabored breathing with decreased breath sounds at the bases. No wheeze. Heart S1, S2. Regular rate and rhythm. Abdomen soft. No tenderness. LABS: Hemoglobin 13.5, white count of 10 with a BUN of 24, creatinine 0.87. Blood and stool culture has been negative. DIAGNOSTIC IMPRESSION AND PLAN: Patient with admission to the hospital with a fever, abdominal pain, and diarrhea, possible infectious diarrhea. So far cultures have been negative. Antibiotic has been adjusted to Cipro and Flagyl to continue for about 5-7 days to finish a course of therapy. Continue supportive care. MMODL / IJN: [id number] /
[2019-03-17] MEDS: INSULIN ASPART (NovoLOG) 100 UNIT/ML VIAL SQ SCH ×2 (07:08→12:23)
[2019-03-17 07:09] LABS: Glucose,Whole Blood 83 mg/dL (75-99)
[2019-03-17 07:59] VITALS: RESP 16
[2019-03-17 08:11] VITALS: BP 141/79; PULSE 95; TEMP 98.3
[2019-03-17] MEDS: VERAPAMIL 40 MG TAB PO SCH (08:12)
[2019-03-17] MEDS: PYRIDOSTIGMINE 60 MG TAB PO SCH (08:12)
[2019-03-17] MEDS: metroNIDAZOLE 500 MG TAB PO SCH (08:13)
[2019-03-17] MEDS: predniSONE 20 MG TAB PO SCH (08:14)
[2019-03-17] MEDS: CIPROFLOXACIN HCL 500 MG TAB PO SCH (08:14)
[2019-03-17] MEDS: MULTIVITAMINS, THERA 1 EACH TAB PO SCH (08:14)
[2019-03-17] MEDS: PANTOPRAZOLE 40 MG TABLET PO SCH (08:14)
[2019-03-17] MEDS: amLODIPine 5 MG TAB PO SCH (08:15)
[2019-03-17] MEDS: METOPROLOL SUCCINATE (ER) 25 MG TAB.ER.24H PO SCH (08:15)
[2019-03-17] MEDS: AMIODARONE 200 MG TAB PO SCH (08:16)
[2019-03-17] MEDS: APIXABAN 5 MG TAB PO SCH (08:16)
[2019-03-17] MEDS: CHOLESTYRAMINE (WITH SUGAR) 4 GM PACKET PO SCH (08:17)
[2019-03-17 12:09] LABS: Glucose,Whole Blood 120 mg/dL (75-99)
--- NOTE | 2019-03-17 12:23 | P.PN ---
Subjective Progress Note Date: 03/17/19 Principal diagnosis: Acute gastroenteritis and intravascular volume depletion with acute kidney injury secondary to dehydration and intravascular volume depletion. 63-year-old male patient came in to the ED yesterday because of few days of watery diarrhea that was quite aggressive and constant. The patient became quite dehydrated. He came into the ED and he was found to be in A. fib RVR and at the same time he was found to be in acute kidney injury. He was started on IV fluids. He received a total of 3 L and currently is on lactated Ringer running at 150 mL an hour. No significant abdominal pain. No nausea. No emesis. Stool for C. diff has been negative. The patient reports that he was having some loose stools for the past several months. He is obese. He has history of myasthenia gravis maintain a combination of Imuran and prednisone at a low dose of 10 mg by mouth daily. He is also on Mestinon. He is diagnosed was established approximately a year ago. He does not have a thymoma. He has received a total of 3 sessions of high-dose IV Solu-Medrol for a total of 5 visits was given to him by his neurologist office on outpatient basis lasting approximately 6 weeks ago. He still has on of double vision and some weakness. He also has obstructive sleep apnea severe with an AHI of 45 and currently is on CPAP at a pressure of 7 cm of water. He has hypertension and arthritis. The patient has no fever. No travel history. No food poisoning. In the ED, his lactic acid was slightly elevated and after fluids with lactic acid level normalized. His white cell count is at 12.7. Platelet count is 127. No shortness of breath. No altered mentation. He is on 2 L of oxygen by nasal cannula with a pulse ox of 97%. On 03/11/2019 patient seen in follow-up in intensive care unit, he is awake and alert, in no acute distress, dates his watery diarrhea is becoming a bit more firm, however she still continues to have frequent loose stools, C. diff was negative, stool for culture is pending, blood, urine and sputum culture have been sent, and remain negative thus far, yesterday patient developed shaking chills, and started spiking fevers, with a T-max of 10 3F. He was placed back on Zosyn, new set of blood cultures have been sent. Ella, and vancomycin were added, and Zosyn was changed to cefepime per ID service recommendations. He is afebrile this morning. She denies any respiratory difficulty, denies any abdominal pain or tenderness, abdomen is slightly distended but soft. No nausea. Patient's heparin drip has been switched to oral Eliquis, he remains in sinus rhythm. On 03/13/2019 patient seen in follow-up in the intensive care unit, distal low- grade fever this morning, of 99 degrees Fahrenheit, she remains in A. fib, still slightly tachycardic, with a rate of 118-121 BPM, he is hemodynamically stable, all cultures remain negative thus far, stool culture was sent, pending at this time, today's labs have been reviewed, showing white blood cell, of 11.1, hemoglobin of 12.8, electrolytes are within normal limits, BUN of 28, creatinine of 0.84. Stool lactoferrin was positive, or call stool was positive as well, C. diff was negative, cytomegalovirus antibodies were non-reactive, influenza was negative. diarrhea pattern has significantly improved, he remains on antibiotic coverage in the form of cefepime, Flagyl, vancomycin has been discontinued, patient is receiving Questran, he is on oral anticoagulation for his A. fib, he remains on amiodarone drip, and his metoprolol has been increased to 50 twice daily. No acute events overnight, his breathing has improved, yesterday we gave the patient a dose of IV Lasix for fluid overload, and today's chest x-ray shows a markedly improved right perihilar airspace disease On 03/14/2019 and seeing this patient for a follow-up. Clinically doing well. He is afebrile. There is a concern of an upper GI bleed as the patient had a soft bowel movement that was quite dark and tarry and this was sedated the concern for GI bleed as the patient is on accommodation of Eliquis, prednisone and Plavix. No hematemesis. Hemoglobin remains stable. His atrial fibrillatio n is under better control although he is still having bouts of tachycardia. He is on a combination of amiodarone and metoprolol and is also was anticoagulated. No abdominal pain. No nausea. No vomiting. No dysuria previous emergency. No significant muscle weakness and the patient is a 40 mg of prednisone and Mestinon. He is off Imuran. All of the cultures are negative for now. He is feeling well. Is feeling strong. No altered mentation. No headaches. No change in mental status. No other complaints otherwise for now. Vancomycin has been discontinued and the patient remains on a combination of cefepime and Flagyl. On 03/15/2019, the patient is doing well. No further episodes of GI bleed in hemoglobin is stable. Plavix was taken off and the patient is still on Eliquis. Still loose bowel movements and he still does not was performed yet. No nausea. No vomiting. CRP level is improving. No abdominal pain or distention. No motor weakness and the patient remains on a combination of Mestinon and prednisone at a dose of 40 mg daily basis. All of the cultures are negative. Remains in atrial fibrillation. Unfortunately is still tachycardic. The patient's heart rate is in the range of 110-120. The patient is having a combination of amiodarone and metoprolol for rate control. Cardiology is on the case. He is also on and correlation with Eliquis. In terms of metoprolol Zosyn 75 mg by mouth twice a day. The patient is also on amiodarone 200 mg by mouth 3 times a day. Reevaluated today on 03/16/2019, patient remains in the intensive care unit, continues to have intermittent episodes of A. fib with RVR, remains on Eliquis. He is also on amiodarone and on beta blockers. Feeling better overall, his diarrhea has resolved. He is hemodynamically stable, and in no distress. CBC is unremarkable. Electrolytes are normal renal profile is normalized, creat inine today is 0.87, and it was 2.67 on admission. Stool was positive for occult blood, and it was positive for lactoferrin. Which is indicative of some sort of colitis probably bacterial colitis causing the diarrhea on presentation. Reevaluated today on 03/17/2019, patient remains in the ICU as an overflow, feeling much better, his atrial fibrillation and RVR is better controlled. Patient denies any cough wheezing or shortness of breath. Denies any further episodes of abdominal pain, had soft brown bowel movement today. Basic metabolic profile is normal. Renal profile is normal. Hemoglobin is 13.5. Hence we plan to transfer the patient out of the ICU, and no plans to have EGD or colonoscopy. Objective - Vital Signs Vital signs: Vital Signs Temp 98.3 F 03/17/19 08:00 Pulse 95 03/17/19 08:00 Resp 16 03/17/19 08:00 BP 141/79 03/17/19 08:00 Pulse Ox 96 03/17/19 08:00 Intake & Output 03/16/19 03/17/19 03/17/19 18:59 06:59 18:59 Output Total 1250 650 Balance -1250 -650 Weight 125.5 kg 125 kg Output: Urine 1250 650 Other: Voiding Method Urinal Urinal # Bowel Movements 1 - Exam Physical Exam: Revealed a 63-year-old white male in no distress. Head: Atraumatic, normocephalic. HEENT:[Neck is supple.] [No neck masses.] [No thyromegaly.] [No JVD.] Chest: [Clear throughout, no crackles, no rhonchi, no wheezes.] Cardiac Exam: [Normal S1 and S2, no S3 gallop, no murmur.] Abdomen: [Soft, nontender, no megaly, no rebound, no guarding, normal bowel sounds.] Extremities: [No clubbing, no edema, no cyanosis.] Neurological Exam: [No focal neurologic deficit.] Alert oriented 3. Skin: No rashes. Lymphatics: No lymphadenopathy. Psychiatric: Normal mood affect and normal mental status examination. - Labs CBC & Chem 7: 03/16/19 04:46 03/16/19 04:46 Labs: Abnormal Lab Results - Last 24 Hours (Table) 03/16/19 03/16/19 03/17/19 Range/Units 16:55 20:42 11:59 POC Glucose (mg/dL) 132 H 157 H 120 H (75-99) mg/dL Microbiology - Last 24 Hours (Table) 03/11/19 18:17 Blood Culture - Preliminary Blood No Growth after 120 hours 03/11/19 18:12 Blood Culture - Preliminary Blood No Growth after 120 hours 03/10/19 16:20 Blood Culture - Final Blood No Growth after 144 hours 03/10/19 16:20 Blood Culture - Final Blood No Growth after 144 hours 03/10/19 11:24 Stool Culture - Final Stool 03/12/19 10:15 Stool Culture - Final Stool Assessment and Plan Assessment: Impression: 1 acute gastroenteritis, resolved, responded well to antibiotics. 2 acute kidney injury secondary to dehydration and intravascular volume deple tion, resolved. 3 new onset atrial fibrillation, remains on multiple medications including beta blockers and amiodarone and Eliquis. Rate seems to be much better controlled today compared to yesterday. 4 history of myasthenia gravis remains on Mestinon and oral prednisone. Off Imuran for now. 5 history of obstructive sleep apnea syndrome using CPAP. Apnea/hypopnea index is 45. 6 benign essential hypertension 7 history of lower extremity deep vein thrombosis, remains on Eliquis 8 positive Hemoccult stools secondary to colitis and patient has been on Eliquis Plavix and prednisone . Recommendation: Continue Cipro and Flagyl, continue prednisone, continue Mestinon, continue amiodarone and beta blockers, continue Eliquis, watch for any worsening signs of GI bleeding, transfer patient to a regular medical floor today. And anticipate discharge planning in the next 24 hours. Time with Patient: Less than 30
--- NOTE | 2019-03-17 12:36 | CDI ---
Documentation Clarification Form Date: 03/17/2019 12:20:49 PM From: Kathia Desouza RN, CCDS Admit Date: 03/09/2019 8:05:00 PM Patient Name: Saeid Velasco Visit Number: [id number] ATTENTION: The Clinical Documentation Specialists (CDI) and [facility] Coding Staff appreciate your assistance in clarifying documentation. Please respond to the clarification below the line at the bottom and electronically sign. The CDI & [facility] Coding staff will review the response and follow-up if needed. Please note: Queries are made part of the Legal Health Record. If you have any questions, please contact the author of this message via ITS. Dr. Rivas Trammell CHF is documented in the attending progress notes 03/13 - 03/15 by the attending and requires further specificity History/Risk Factors: Atrial Fib, CVA, Hyperlipidemia, HTN, AAA Clinical Indicators: VS/Pulse OX: Temp 101.6, HR 165, RR 28, spo2 96% ra BNP: 684 03/10 Echocardiogram Results:"The left ventricular size is normal. There is moderate concentric left ventricular hypertrophy. Overall left ventricular systolic function is normal with, an EF between 60 - 65 %.The right ventricles is normal in size.LA is mildly dilated 29-33ml/m2. 03/13 Chest X Ray: "Markedly improved right perihilar airspace disease with bandlike minimal linear opacity radiating from the right hilum appearing as atelectasis." Treatment: Lasix 40 mg IVP x 1 4.5 L IVF Bolus In your professional opinion, can you please clarify the acuity and type of CHF if known? Diastolic Heart Failure: Acute Acute on Chronic Systolic & Diastolic Heart Failure: Acute Acute on Chronic Heart Failure Unable to Determine Other, please specify (Last Revision: October 2017) CHF was not dictated it in my note. MTDD
--- NOTE | 2019-03-17 14:02 | PN ---
PROGRESS NOTE DATE OF SERVICE: 03/17/2019 REASON FOR FOLLOWUP VISIT: Diarrhea, infectious colitis. INTERVAL HISTORY: The patient is currently afebrile. Patient has been breathing comfortably. He denies having any chest pain or any cough. No nausea, no vomiting. No abdominal pain. The diarrhea has resolved, did have soft bowel movement. PHYSICAL EXAMINATION: Blood pressure 141/79 with pulse of 95, temperature 98.3, he is 96% on room air. General description is an elderly male, lying in bed in no distress. RESPIRATORY SYSTEM: Unlabored breathing, clear to auscultation anteriorly. HEART: S1, S2. Regular rate and rhythm. ABDOMEN: Soft, no tenderness. LABS: No new labs have been obtained today. Culture has been negative. DIAGNOSTIC IMPRESSION AND PLAN: Patient admitted to the hospital with sepsis. Source is abdominal. This patient who did have evidence of infectious diarrhea, overall responding to cefepime, Flagyl, stable on oral Cipro and Flagyl. Continue 1 week to finish a course of therapy and close outpatient followup his cultures. MMODL / IJN: [id number] /
--- NOTE | 2019-03-17 15:32 | P.DS ---
Providers Date of admission: 03/09/19 20:05 Expected date of discharge: 03/17/19 Attending physician: Itzel Sherwood Consults: 03/09/19 20:05 Consult Physician Routine Consulting Provider: Glen Pelayo Consult Reason/Comments: fever Do you want consulting provider notified?: Yes Consult Physician Routine Consulting Provider: Haris Espino Consult Reason/Comments: afib Do you want consulting provider notified?: Yes 03/09/19 20:06 Consult Physician Routine Consulting Provider: Swapna Collier Consult Reason/Comments: known Do you want consulting provider notified?: Yes 03/09/19 20:46 Consult Physician Routine Consulting Provider: Dave Rogers Consult Reason/Comments: arf Do you want consulting provider notified?: Yes 03/10/19 09:11 Consult Physician Routine Consulting Provider: Cher Flores Consult Reason/Comments: myesthenia gravis Do you want consulting provider notified?: Yes Primary care physician: [facility] Course: Final diagnosis Diarrhea Acute renal Failure improved, azotemia New onset atrial fibrillation sleep apnea Hypertension Lactic acidosis from diarrhea, possibility of sepsis from infectious diarrhea Hyperlipidemia History of myasthenia gravis Discharge disposition Patient is being discharged in a stable condition with guarded prognosis to home and Homecare will be following. Patient is to follow-up with cardiology in the outpatient setting in one week. Total time taken is 35 minutes. History of present illness This is a 58-year-old male who came in with diarrhea with no infectious etiology and was being treated with Cipro and Flagyl and was being closely monitored. During hospitalization patient developed new onset atrial fibrillation and cardiology was following. Per cardiology recommendations the patient is to go home on amiodarone 200 mg 3 times a day as well as verapamil sustained release 180 mg daily and will follow-up in the outpatient setting and 10 days. Patient denies any chest pain, shortness of breath, or palpitations at this time. Patient has been afebrile. Any nausea or vomiting and has been tolerating diet. Patient states that he is still having active bowel movements that have become more formed at this time. Patient states that he is feeling much better and would like to go home today. Patient states that he has been walking around the unit with no difficulties. Patient will be started on Eliquis 5 mg twice daily. Currently patient's condition is stable with much improvement. Guarded prognosis On exam vital signs are stable. Temp is 98.3F, pulse is 95, respirations are 16, blood pressure is 141/79, oxygen saturation is 96% on room air. Cardio S1 and S2 are present with an irregularly irregular heart rhythm. Respiratory system shows clear upon auscultation. Abdomen is soft, obese, non-tender. Nervous system shows no focal deficits and gait is steady. Please refer to medication reconciliation sheet for a list of medications. Patient Condition at Discharge: Serious Plan - Discharge Summary Discharge Rx Participant: Yes New Discharge Prescriptions: New Cefuroxime Axetil [Ceftin] 500 mg PO BID 5 Days #10 tab Amiodarone [Cordarone] 200 mg PO TID 30 Days #90 tab Apixaban [Eliquis] 5 mg PO BID 30 Days #60 tab metroNIDAZOLE [Flagyl] 500 mg PO BID 5 Days #10 tab Verapamil Sr [Isoptin Sr] 180 mg PO DAILY 30 Days #30 tablet.er Pantoprazole [Protonix] 40 mg PO AC-BRKFST 30 Days #30 tablet. Cholestyramine (with Sugar) [Questran Packet] 4 gm PO BID@1000,1800 30 Days #60 packet Metoprolol Succinate (ER) [Toprol XL] 75 mg PO BID 30 Days tab.er.24h Continue predniSONE 10 mg PO DAILY Clopidogrel [Plavix] 75 mg PO DAILY #30 tab Simvastatin [Zocor] 40 mg PO HS Pyridostigmine [place] [Mestinon] 120 mg PO TID Multivitamins, Thera [Multivitamin (formulary)] 1 tab PO DAILY Meloxicam [Mobic] 15 mg PO DAILY Lisinopril 20 mg PO DAILY [place]-3 Fatty Acids/Fish Oil [Fish Oil 1,000 mg Softgel] 1 cap PO DAILY azaTHIOprine [Imuran] 100 mg PO DAILY Discharge Medication List predniSONE 10 mg PO DAILY 06/02/17 [History] Clopidogrel [Plavix] 75 mg PO DAILY #30 tab 06/04/17 [Rx] Simvastatin [Zocor] 40 mg PO HS 01/27/18 [History] Lisinopril 20 mg PO DAILY 09/03/18 [History] Meloxicam [Mobic] 15 mg PO DAILY 09/03/18 [History] Multivitamins, Thera [Multivitamin (formulary)] 1 tab PO DAILY 09/03/18 [History] Pyridostigmine [place] [Mestinon] 120 mg PO TID 09/03/18 [History] [place]-3 Fatty Acids/Fish Oil [Fish Oil 1,000 mg Softgel] 1 cap PO DAILY 03/09/19 [History] azaTHIOprine [Imuran] 100 mg PO DAILY 03/09/19 [History] Amiodarone [Cordarone] 200 mg PO TID 30 Days #90 tab 03/17/19 [Rx] Apixaban [Eliquis] 5 mg PO BID 30 Days #60 tab 03/17/19 [Rx] Cefuroxime Axetil [Ceftin] 500 mg PO BID 5 Days #10 tab 03/17/19 [Rx] Cholestyramine (with Sugar) [Questran Packet] 4 gm PO BID@1000,1800 30 Days #60 packet 03/17/19 [Rx] Metoprolol Succinate (ER) [Toprol XL] 75 mg PO BID 30 Days tab.er.24h 03/17/19 [Rx] Pantoprazole [Protonix] 40 mg PO AC-BRKFST 30 Days #30 tablet.dr 03/17/19 [Rx] Verapamil Sr [Isoptin Sr] 180 mg PO DAILY 30 Days #30 tablet.er 03/17/19 [Rx] metroNIDAZOLE [Flagyl] 500 mg PO BID 5 Days #10 tab 03/17/19 [Rx] Follow up Appointment(s)/Referral(s): [facility], [NON-STAFF] - 1-2 Days Juan Palacios DO [Primary Care Provider] - 03/19/19 11:00 am (Your appointment is with Nicole THOMAS) Destinee Lopez MD [STAFF PHYSICIAN] - 04/07/19 3:30 pm (Your appointment is with Dr. Paula. You previously saw him in 2017) Ambulatory/Diagnostic Orders: Basic Metabolic Panel [LAB.AMB] Time Frame: 3 Days, Location: None Selected Complete Blood Count w/diff [LAB.AMB] Time Frame: 3 Days, Location: None Selected Patient Instructions/Handouts: A-fib (Atrial Fibrillation) (DC), Low-Sodium Diet (DC), Hypertension (DC), Safe Use of NSAIDs (DC) Activity/Diet/Wound Care/Special Instructions: Activity Limited until follow-up Continue current diet Follow-up with primary care provider this week Follow-up with Cardiology in 1-2 weeks Discharge Disposition: HOME WITH HOME HEALTH SERVICES
[2019-03-17] MEDS ORDERED: AMIODARONE 200 MG TAB PO SCH (16:00)
--- NOTE | 2019-03-17 21:07 | PN ---
PROGRESS NOTE This patient was admitted with acute diarrhea. Patient subsequently developed atrial fibrillation. He remains stable. The patient's heart rate remains controlled. Heart rate is 75-80 per minute. First and second heart sounds are normal. Lungs are clinically clear to auscultation and percussion. The patient is going to be discharged home on amiodarone 200 mg t.i.d., [place] 180 mg daily and metoprolol 75 mg b.i.d., Eliquis twice a day. The patient will follow up in the office. If he persists in atrial fibrillation, we will consider cardioversion. MMODL / IJN: [id number] /
[2019-03-18] MEDS ORDERED: VERAPAMIL SR 180 MG TABLET.ER PO SCH (09:00)
--- NOTE | 2019-03-23 06:50 | CDI ---
Documentation Clarification Form "Acute Diastolic CHF" Date: 03/23/19 From: Yuliet Cuevas Phone: If questions call Laila Boucher @ [phone], Hours-8:30 am & 5 pm Thomas Smith Admit Date: 03/09/2019 8:05:00 PM Patient Name: Saeid Velasco Visit Number: [id number] Discharge Date: 03/17/2019 4:30:00 PM ATTENTION: The Clinical Documentation Specialists (CDI) and [facility] [employer] Coding Staff appreciate your assistance in clarifying documentation. Please respond to the clarification below the line at the bottom and electronically sign. The CDI & [facility] [employer] Coding staff will review the response and follow-up if needed. Please note: Queries are made part of the Legal Health Record. If you have any questions, please contact the author of this message via ITS. Dr. Debby Mullins Acute exacerbation of CHF is documented in your progress notes (03/13, 03/14 & 03/15) and requires further specificity. History/Risk Factors: Atrial Fib, CVA, Hyperlipidemia, HTN, AAA Clinical Indicators VS/Pulse OX: Temp 101.6, HR 165, RR 28, spo2 96% RA BNP: 684 03/10 Echocardiogram Results: "The left ventricular size is normal. There is moderate concentric left ventricular hypertrophy. Overall left ventricular systolic function is normal with, an EF between 60 - 65 %.The right ventricles is normal in size.LA is mildly dilated 29-33ml/m2. 03/13 Chest X Ray: "Markedly improved right perihilar airspace disease with bandlike minimal linear opacity radiating from the right hilum appearing as atelectasis." Treatment: Lasix 40 mg IVP x 1 In your professional opinion, can you please clarify the acuity and type of CHF if known? TYPE Diastolic Heart Failure Systolic Heart Failure Systolic & Diastolic Heart Failure ACUITY Acute Acute on Chronic Heart Failure Unable to Determine Other, please specify MTDD
== END 2019-03-17 16:30 | disposition home health service (06) | DRG 871 ==
LOC: EC 17:36 → 2SICU 20:05
PROVIDERS: ADMIT Hospitalist; ATTEND Hospitalist
PROC: 02HV33Z Insertion of Infusion Device into Superior Vena Cava, Percutaneous Approach (ICD-10-PCS; 2019-03-09)
PROC: 5A09557 Assistance with Respiratory Ventilation, Greater than 96 Consecutive Hours, Continuous Positive Airway Pressure (ICD-10-PCS; principal; 2019-03-10)
DX: A41.9 Sepsis, unspecified organism (principal); I50.31 Acute diastolic (congestive) heart failure; N17.9 Acute kidney failure, unspecified; E87.1 Hypo-osmolality and hyponatremia; A09 Infectious gastroenteritis and colitis, unspecified; I82.432 Acute embolism and thrombosis of left popliteal vein; D84.9 Immunodeficiency, unspecified; E87.2 Acidosis; I82.811 Embolism and thrombosis of superficial veins of right lower extremity; I48.1 Persistent atrial fibrillation; K92.1 Melena; G70.00 Myasthenia gravis without (acute) exacerbation; I11.0 Hypertensive heart disease with heart failure; I71.2 Thoracic aortic aneurysm, without rupture; R16.0 Hepatomegaly, not elsewhere classified; E86.0 Dehydration; E87.6 Hypokalemia; G47.33 Obstructive sleep apnea (adult) (pediatric); G89.29 Other chronic pain; E86.1 Hypovolemia; H53.2 Diplopia; H02.402 Unspecified ptosis of left eyelid; E78.5 Hyperlipidemia, unspecified; M48.00 Spinal stenosis, site unspecified; M54.30 Sciatica, unspecified side; M19.90 Unspecified osteoarthritis, unspecified site; R77.9 Abnormality of plasma protein, unspecified; M25.512 Pain in left shoulder; E66.9 Obesity, unspecified; Z68.36 Body mass index [BMI] 36.0-36.9, adult; Z79.02 Long term (current) use of antithrombotics/antiplatelets; Z79.1 Long term (current) use of non-steroidal anti-inflammatories (NSAID); Z79.52 Long term (current) use of systemic steroids; Z79.899 Other long term (current) drug therapy; Z71.3 Dietary counseling and surveillance; Z86.73 Personal history of transient ischemic attack (TIA), and cerebral infarction without residual deficits; Z87.891 Personal history of nicotine dependence; Z99.89 Dependence on other enabling machines and devices; Z88.5 Allergy status to narcotic agent; Z80.0 Family history of malignant neoplasm of digestive organs; Z80.3 Family history of malignant neoplasm of breast; Z80.8 Family history of malignant neoplasm of other organs or systems; W19.XXXA Unspecified fall, initial encounter
CPT/HCPCS: 36415; 36556; 71045; 74150; 76770; 80048; 80053; 81001; 82272; 82550; 83605; 83630; 83735; 83880; 84100; 84132; 84145; 84295; 84443; 84484; 85025; 85027; 85379; 85610; 85730; 86140; 86644; 86645; 87040; 87045; 87046; 87070; 87086; 87177; 87205; 87209; 87324; 87502; 93005; 93306; 93970; 94640; 96365; 96366; 96368; 96375; 96376; 99291

== ENCOUNTER → 2019-05-15 | Outpatient (CLI) | payer MEDICARE ==
--- NOTE | 2019-05-15 14:06 | CT ---
EXAMINATION TYPE: CT chest wo con DATE OF EXAM: 05/15/2019 COMPARISON: 01/26/2018 HISTORY: Lung nodule CT DLP: 576.7 mGycm. Automated Exposure Control for Dose Reduction was Utilized. TECHNIQUE: CT scan of the thorax is performed without IV contrast. FINDINGS: LUNGS: The lungs are grossly clear, there is no concerning parenchymal mass or nodule identified. T here is no pleural effusion or pneumothorax seen. The tracheobronchial tree is patent. MEDIASTINUM: Lack of IV contrast is noted to limit evaluation for mediastinal and especially hilar ad enopathy. There are no definitive greater than 1 cm hilar or mediastinal lymph nodes. There is a stab le 4.2 cm aneurysm involving the ascending aorta. Atherosclerotic changes are noted. There is coronar y artery calcification with dense calcifications noted. Heart is mildly prominent and there is perica rdial lipomatosis. OTHER: Hypertrophic and degenerative change of the spine. IMPRESSION: 1. No sizable pulmonary nodule. 2. Stable ascending aortic mild aneurysm measuring 4.2 cm 3. A dense coronary artery atherosclerotic changes.
== END | disposition home or self-care (01) ==
LOC: RADCTMAIN 12:31
PROVIDERS: ATTEND Psychiatry & Neurology Neurology
DX: I71.2 Thoracic aortic aneurysm, without rupture (principal); I25.10 Atherosclerotic heart disease of native coronary artery without angina pectoris
CPT/HCPCS: 71250

== ENCOUNTER → 2021-08-08 | Outpatient (CLI) | payer MEDICARE ==
--- NOTE | 2021-08-09 09:56 | BD ---
EXAMINATION TYPE: Axial Bone Density DATE OF EXAM: 08/08/2021 COMPARISON: NONE CLINICAL HISTORY: Height: 6 FT / IN Weight: 244 FRAX RISK QUESTIONS: Alcohol (3 or more units per day): NO Family History (Parent hip fracture): NO Glucocorticoids (More than 3mos): YES (Ex: prednisone, prednisolone, methylprednisolone, dexamethasone, and hydrocortisone). History of Fracture in Adulthood: YES Secondary Osteoporosis: 1. Type 1 Diabetes: NO 2. Hyperthyroidism: NO 3. Menopause before 45: NA 4. Malnutrition: NO 5. Chronic liver disease: NO Rheumatoid Arthritis: YES Current Tobacco Use: NO RISK FACTORS HISTORY OF: Surgery to Spine/Hip(right/left)/Wrist (right/left): NO Family History of Osteoporosis: NO Active: YES Diet low in dairy products/other sources of calcium: NO Postmenopausal woman: NA Lost more than 2 inches in height since high school: NO Frequent falls: NO Poor Health: FAIR Hyperparathyroidism: NO Adrenal Insufficiency: NO MEDICATIONS: Prednisone or other steroids: YES How Lon PLUS YEARS Additional Medications: PREDNISONE, ELOQUIS, MESTINON, METOPROLOL, AMIODARONE, VERAPAMIL, PLAVIX, LI SINOPRIL, LIPITOR, MOBIC Additional History: EXAM MEASUREMENTS: Bone mineral densitometry was performed using the [employer] System. Bone mineral density as measured about the Lumbar spine is: ----- L1-L4(G/cm2): 1.742 T Score Values are as follows: ----- L2: 4.6 ----- L3: 5.3 ----- L4: 5.8 ----- L1-L4: 4.7 BASELINE Bone mineral density about the R hip (g/cm2): 1.317 Bone mineral density about the L hip (g/cm2): 1.239 T Score values are as follows: -----R Neck: 2.0 -----L Neck: 1.4 -----R Total: 3.4 -----L Total: 2.8 BASELINE IMPRESSION: No evidence for osteoporosis or osteopenia at this time. NOTE: T-SCORE=SD OF THE YOUNG ADULT MEAN.
== END | disposition home or self-care (01) ==
LOC: RADBDWWP 15:52
PROVIDERS: ATTEND Family Medicine
DX: M85.89 Other specified disorders of bone density and structure, multiple sites (principal); Z79.52 Long term (current) use of systemic steroids
CPT/HCPCS: 77080

== ENCOUNTER → 2021-09-29 | Outpatient (CLI) | payer MEDICARE ==
--- NOTE | 2021-09-29 11:15 | XR ---
EXAMINATION TYPE: XR knee complete LT DATE OF EXAM: 09/29/2021 CLINICAL HISTORY: Anterior pain after strain injury. TECHNIQUE: Three views of the left knee are obtained. COMPARISON: None. FINDINGS: There is no acute fracture/dislocation evident in left knee. There is mild to moderate reji rowing and spurring patellofemoral and medial tibial femoral compartments. Additional prominent spurs from the anterior aspect of the patella. Moderate to severe posterior arteriovascular calcification. IMPRESSION: As above.
== END | disposition home or self-care (01) ==
LOC: RADXRYALE 10:32
PROVIDERS: ATTEND Physician Assistant
DX: M25.862 Other specified joint disorders, left knee (principal); M25.762 Osteophyte, left knee

== ENCOUNTER → 2021-10-05 | Outpatient (CLI) | payer MEDICARE ==
--- NOTE | 2021-10-05 21:17 | CT ---
EXAMINATION TYPE: CT facial bones wo con DATE OF EXAM: 10/05/2021 COMPARISON: CT dated 06/02/2017 HISTORY: Solitary frontal bone cyst CT DLP: 673.20 mGycm Automated exposure control for dose reduction was used. TECHNIQUE: CT scan of the facial bones is performed without contrast, axial images are obtained, joycelyn nal reformatted images are also reviewed. FINDINGS: Non-pneumatization of the frontal sinus. Stable sclerotic area with central lucency in the right side of the frontal bone at the expected location of the right frontal sinus compartment measuring up to 15 mm, unchanged since 2017 CT scan, likely representing a benign lesion like arrested pneumatization of the frontal sinus. Minimal mucosal thickening of the alveolar recesses of the maxillary sinuses. Mild mucosal thickening and debris seen in the posterior ethmoid air cells bilaterally. Unremarkable remainder of the ethmoi d air cells and sphenoid sinus. Patent sphenoethmoidal recesses, infundibula and ostiomeatal complexe s bilaterally. Deviated bony nasal septum convex to the left side with a bony spur. Minimal opacification of the rig ht mastoid air cells. Clear left mastoid air cells. Degenerative changes of the atlantoodontoid artic ulation. Scattered intracranial arterial atherosclerotic calcifications. Bilateral cerebral white mat ter hypodensities which could represent mild chronic microvascular ischemic changes. Unremarkable orb its. IMPRESSION: Stable mixed density lesion in the right side of the frontal bone as described above, unchanged since 2017 CT scan likely representing a benign lesion like arrested pneumatization of the frontal sinus. Other findings as detailed above.
== END | disposition home or self-care (01) ==
LOC: RADCTMAIN 16:47
PROVIDERS: ATTEND Otolaryngology
DX: M89.8X8 Other specified disorders of bone, other site (principal)
CPT/HCPCS: 70486

== ENCOUNTER → 2021-12-08 | Outpatient (CLI) | payer MEDICARE ==
[2021-12-08 22:39] LABS: ALT 62 U/L (10-49); AST 44 U/L (14-35); Albumin 4.4 g/dL (3.8-4.9); Albumin/Globulin Ratio 1.87 (1.60-3.17); Alkaline Phosphatase 53 U/L (41-126); Bilirubin, Conjugated <0.20 mg/dL (0.20-0.40); Globulin 2.4 g/dL (1.6-3.3); Total Protein 6.8 g/dL (6.2-8.2)
== END | disposition home or self-care (01) ==
LOC: LABWHC1 15:48
PROVIDERS: ATTEND Internal Medicine Cardiovascular Disease
DX: Z00.00 Encounter for general adult medical examination without abnormal findings (principal)
CPT/HCPCS: 36415; 80076; 84439; 84443

== ENCOUNTER → 2021-12-15 | Outpatient (CLI) | payer MEDICARE | END | disposition home or self-care (01) | LOC: LABWHC1 13:35 | PROVIDERS: ATTEND Nurse Practitioner Adult Health | DX: I48.19 Other persistent atrial fibrillation (principal); R74.8 Abnormal levels of other serum enzymes | CPT/HCPCS: 36415; 84443; 84450; 84460 ==

== ENCOUNTER → 2022-01-10 | Outpatient (CLI) | payer MEDICARE ==
[2022-01-10 18:38] LABS: T4, Free (Free Thyroxine) 1.28 ng/dL (0.800-1.800)
== END | disposition home or self-care (01) ==
LOC: LABWHC1 14:21
PROVIDERS: ATTEND Psychiatry & Neurology Neurology
DX: G60.9 Hereditary and idiopathic neuropathy, unspecified (principal); R53.1 Weakness; M54.2 Cervicalgia; G70.00 Myasthenia gravis without (acute) exacerbation; R73.9 Hyperglycemia, unspecified; M25.50 Pain in unspecified joint; M79.10 Myalgia, unspecified site
CPT/HCPCS: 36415; 82550; 82607; 83036; 84439; 84443; 85652; 86038

== ENCOUNTER → 2022-01-16 | Outpatient (CLI) | payer MEDICARE ==
--- NOTE | 2022-01-16 07:46 | MR ---
MRI CERVICAL SPINE: CLINICAL HISTORY: Radiculopathy. Bilateral upper extremity pain/weakness. TECHNIQUE: Multiplanar, multisequence imaging of the cervical spine is performed without IV contrast. COMPARISON: None. FINDINGS: Coronal images show slight scoliotic curvature. Sagittal images of the cervical spine show the craniocervical junction to appear within normal limits. The cervical and upper thoracic spinal c ord is normal in caliber and signal. The vertebral body height are normal. [id number] disc spac e narrowing C6-C7 level and mild to moderate anterior spurring The bone marrow signal intensity is wi thin normal limits. Axial images at C2-C3 level shows uncovertebral joint degenerative changes bilaterally causing modera te right greater than left bilateral neural foraminal narrowing. Axial images at C3-C4 level broad-based posterior disc protrusion mildly effaces the anterior thecal sac and causing moderate bilateral neural foraminal narrowing. Axial images at C4-C5 levels show uncovertebral degenerative changes bilaterally with lobulated poste rior disc protrusion. There is effacement of the anterior thecal sac and moderate to advanced right-s ided neural foraminal narrowing. Mild left-sided neural foraminal narrowing is present. Axial images at C5-C6 levels with broad-based right paracentral disc protrusion effacing the anterior thecal sac and causing moderate to advanced right greater than left bilateral neural foraminal narro wing. Axial images at C6-C7 levels with broad-based left paracentral/foraminal disc protrusion effaces the anterior thecal sac and causing advanced left-sided neural foraminal narrowing with mild right-sided neural foraminal narrowing. Axial images at C7-T1 level appear within normal limits. IMPRESSION: Multilevel degenerative changes in the cervical spine as detailed above.
== END | disposition home or self-care (01) ==
LOC: RADMRIMAIN 06:03
PROVIDERS: ATTEND Psychiatry & Neurology Neurology
DX: M47.22 Other spondylosis with radiculopathy, cervical region (principal); M50.123 Cervical disc disorder at C6-C7 level with radiculopathy
CPT/HCPCS: 72141

== ENCOUNTER → 2022-03-27 | Outpatient (CLI) | payer MEDICARE ==
--- NOTE | 2022-03-27 11:07 | XR ---
EXAMINATION TYPE: XR chest 2V DATE OF EXAM: 03/27/2022 11:01 AM COMPARISON: Chest radiographs from 03/13/2019. TECHNIQUE: XR chest 2V Frontal and lateral views of the chest. CLINICAL INDICATION:Male, 66 years old with history of [id number]; FINDINGS: Lungs/Pleura: There is flattening of the diaphragm with increased lucency of the lungs. No evidence o f pneumothorax, pleural effusion or focal consolidation. Pulmonary vascularity: Unremarkable. Heart/mediastinum: Cardiomediastinal silhouette is unremarkable. Atherosclerotic calcifications are seen in the aorta. Musculoskeletal: Multiple level degenerative disc disease changes seen throughout the spine. IMPRESSION: 1. No acute cardiopulmonary disease process. 2. COPD changes.
[2022-03-27 11:51] LABS: Partial Thromboplastin Time 23.9 sec (22.0-30.0)
[2022-03-27 18:21] LABS: Appearance,Urine Clear (Clear); Bilirubin,Urine Negative (Negative); Blood,Urine Negative (Negative); Color,Urine Yellow (Yellow); Ketones,Urine Negative (Negative); Nitrite,Urine Negative (Negative); Specific Gravity,Urine 1.022 (1.001-1.030); Urobilinogen,Urine 0.2 (0.2,1.0)
[2022-03-27 18:45] LABS: Basophils # (A) 0.06 X 10*3/uL (0.00-0.10); Basophils % (A) 0.5 %; Eosinophils # (A) 0.03 X 10*3/uL (0.04-0.35); Eosinophils % (A) 0.3 %; HCT 44.1 % (39.6-50.0); HGB 14.6 g/dL (13.0-17.0); Immature Grans, Automated 0.8 %; Lymphocytes % (A) 7.3 %; MCH 29.1 pg (27.0-32.0); MCHC 33.1 g/dL (32.0-37.0); Mean Platelet Volume 10.1 fL (9.5-12.2); Monocytes # (A) 0.73 X 10*3/uL (0.20-1.00); Monocytes % (A) 6.7 %; NRBC Per 100 WBC 0 /100 WBCS (0.0-0.0); Neutrophils % (A) 84.4 %; Platelet Count 258 X 10*3/uL (140-440); RBC 5.01 X 10*6/uL (4.40-5.60); RDW 13.5 % (11.5-14.5); WBC 10.91 X 10*3/uL (4.50-10.00)
[2022-03-27 19:04] LABS: African American GFR (CKD) 101.4 (60.0-200.0); Albumin 4.3 g/dL (3.8-4.9); Albumin/Globulin Ratio 1.95 (1.60-3.17); Anion Gap 10.2 mmol/L (10.00-18.00); BUN/Creat Ratio 21.44 Ratio (12.00-20.00); Blood Urea Nitrogen 19.3 mg/dL (9.0-27.0); Calcium 9.4 mg/dL (8.7-10.3); Carbon Dioxide 25.8 mmol/L (20.0-27.5); Globulin 2.2 g/dL (1.6-3.3); Non-African American GFR(CKD) 87.5 (60.0-200.0); Potassium 4.8 mmol/L (3.5-5.5); Total Bilirubin 0.8 mg/dL (0.30-1.20); Total Protein 6.5 g/dL (6.2-8.2)
[2022-03-28 08:28] LABS: Prothrombin Time 10.7 sec (9.0-12.0)
== END | disposition home or self-care (01) ==
LOC: LABPAT 10:09
PROVIDERS: ATTEND Orthopaedic Surgery Orthopaedic Surgery of the Spine
DX: Z01.812 Encounter for preprocedural laboratory examination (principal); M50.21 Other cervical disc displacement, high cervical region
CPT/HCPCS: 71046; 80053; 81003; 85025; 85610; 85730

== ENCOUNTER 2022-04-04 06:16 | Day surgery (SDC) | payer MEDICARE ==
[~2022-04-04 06:16] MED LIST: LACTATED RINGERS 1,000 ML IV SCH; LIDOCAINE 1% (10MG/ML) FOR IV START INTRADERMA PRN; ceFAZolin 1,000 MG in SODIUM CHLORIDE 0.9% IRRIGATIO 1,000 ML IRRIGATION PRN
[2022-04-04] MEDS ORDERED: ONDANSETRON 4 MG/2 ML VIAL ONE (06:55)
[2022-04-04] MEDS ORDERED: DEXAMETHASONE SOD PHOSPHATE 4 MG/ML 1 ML VIAL IV ONE (07:20)
[2022-04-04 07:24] LABS: Glucose,Whole Blood 107 mg/dL (70-110)
[2022-04-04] MEDS ORDERED: SUCCINYLCHOLINE CHLORIDE 200 MG/10 ML VIAL IV ONE (07:25)
[2022-04-04] MEDS ORDERED: HYDROmorphone (PF) 1 MG/ML ONE (07:25)
[2022-04-04] MEDS ORDERED: MIDAZOLAM 2 MG/2 ML VIAL ONE (07:25)
[2022-04-04] MEDS ORDERED: WATER FOR INJECTION, STERILE 10 ML VIAL IV ONE (07:25)
[2022-04-04] MEDS ORDERED: ROCURONIUM 10 MG/ML (5 ML VIAL) IV ONE (07:25)
[2022-04-04] MEDS ORDERED: NEOSTIGMINE 1 MG/ML 10 ML VIAL ONE (07:25)
[2022-04-04] MEDS ORDERED: LIDOCAINE 2% INJ 20 MG/ML (2 ML VIAL) ONE (07:25)
[2022-04-04] MEDS ORDERED: PROPOFOL 10 MG/ML 50 ML VIAL IV ONE (07:25)
[2022-04-04] MEDS ORDERED: ePHEDrine 50 MG/ML 1 ML VIAL ONE (07:25)
[2022-04-04] MEDS ORDERED: GLYCOPYRROLATE 0.2 MG/ML 2 ML VIAL ONE (07:25)
[2022-04-04] MEDS ORDERED: LIDOCAINE 2%-EPI 1:100,000 20 ML VIAL SQ ONE ×2 (07:50→07:58)
[2022-04-04] MEDS ORDERED: BUPIVACAINE (PF) 0.25% 30 ML VIAL SQ ONE ×2 (07:51→07:58)
[2022-04-04] MEDS ORDERED: THROMBIN (BOVINE) 5,000 UNIT VIAL TOPICAL ONE (07:58)
[2022-04-04] MEDS ORDERED: GELATIN SPONGE,ABSORB (SMALL) 1 EACH SPONGE TOPICAL ONE (07:58)
--- NOTE | 2022-04-04 08:57 | XR ---
EXAMINATION TYPE: XR cervical spine 1V DATE OF EXAM: 04/04/2022 COMPARISON: MRI cervical spine January 16, 2022 HISTORY: Neck pain. TECHNIQUE: Single cross table lateral view of cervical spine is obtained intraoperatively. FINDINGS: Exam is for surgical planning and not for diagnostic purposes. Metallic pointer localizes a t the anterior C5-C6 disc space. IMPRESSION: As above.
[2022-04-04] MEDS ORDERED: LACTATED RINGERS 1,000 ML IV ONE (09:27)
--- NOTE | 2022-04-04 09:38 | XR ---
EXAMINATION TYPE: XR cervical spine 1V DATE OF EXAM: 04/04/2022 COMPARISON: Cervical spine 1 view earlier today HISTORY: Neck pain. TECHNIQUE: Single crosstable lateral view of cervical spine is obtained intraoperatively. FINDINGS: New metallic plate begins inferior C5 vertebral body level extending to C7 vertebral body l evel. Artificial disc material noted anteriorly at C5-C6 level and likely C6-C7 level. Suboptimal dejah luation below the C6 screws due to shoulder overlap. IMPRESSION: As above.
[2022-04-04] MEDS ORDERED: CYCLOBENZAPRINE 10 MG TAB PO PRN (09:47)
[2022-04-04] MEDS ORDERED: BENZOCAINE/MENTHOL LOZENG 1 EACH LOZENGE MUCOUS MEM PRN (09:47)
[2022-04-04] MEDS ORDERED: ONDANSETRON 4 MG/2 ML VIAL IVP PRN (09:47)
[2022-04-04] MEDS ORDERED: HYDROmorphone 1 MG/ML 1 ML SYRINGE IVP PRN (09:47)
[2022-04-04] MEDS ORDERED: HYDROmorphone 0.5 MG/0.5 ML SYRINGE IVP PRN (09:47)
[2022-04-04] MEDS ORDERED: HYDROcodone/APAP 5-325MG 1 EACH TAB PO PRN (09:47)
--- NOTE | 2022-04-04 09:56 | P.OP ---
Date of Procedure: 04/04/22 Preoperative Diagnosis: Cervical stenosis, herniated nucleus pulposis C5 6 C6 7, upper extremity radiculopathy, upper extremity weakness, degenerative disc disease cervical spine, large cervical osteophytes, neck pain Postoperative Diagnosis: Same Anesthesia: GETA Pathology: none sent Condition: stable Description of Procedure: BRIEF OPERATIVE NOTE Preoperative Diagnosis:Cervical stenosis, herniated nucleus pulposis C5 6 C6 7, upper extremity radiculopathy, upper extremity weakness, degenerative disc disease cervical spine, large cervical osteophytes, neck pain Postoperative Diagnosis:Cervical stenosis, herniated nucleus pulposis C5 6 C6 7, upper extremity radiculopathy, upper extremity weakness, degenerative disc disease cervical spine, large cervical osteophytes, neck pain Procedure: Anterior cervical decompression with discectomy and fusion C5 6 C6 Placement of interbody graft C5 6 C6 7 Application of anterior cervical plate C5 6 7 Surgeon: Dr. Lema Lathe Tender: Ko Mckeon is present throughout the entire the case persistence during positioning, dissection, exposure, visualization, and all crucial elements of the case as well as closure. Anesthesia: General anesthesia Estimated blood loss: Approximately 100 mL Complications: None apparent Components implanted: K2M Hancock anterior cervical plate system with Vikos in terbody allograft bone graft and on cc of DBX bone putty Disposition: To recovery room in good stable condition. OPERATIVE INDICATIONS The patient has had long-standing issues in their neck and upper extremities. He's been having significant worsening over the past few months has been having severe issues at his upper extremities particularly on the left. He has noticed severe pain and weakness in his left upper extremity. His found have significant changes at his cervical spine with disc herniations and stenosis at C5 6 C6 7 with severe disc degeneration correlated well with his neck and his upper extremity symptoms. The patient has been through conservative treatment. We discussed various treatment options including surgery, and the patient wishes to proceed with surgery We discussed the risk, patient's alternatives and benefits of surgery including but not limited to, risk of bleeding risk of infection, risk of need for further surgery, risk of decreased, loss of motion, muscle function, malunion nonunion, hardware failure, nerve damage, paralysis, heart attack, and . OPERATIVE SUMMARY After discussing all the risks, patient alternatives and benefits at length, the patient elected to proceed with surgical intervention, signed informed consent, and presented for their procedure. The patient was seen and examined in the preoperative holding area and the surgical site was marked. The patient was given antibiotics and brought to the operating room. The patient was positioned on the operating room table in a supine position being careful to pad any bony prominences and pressure points. The patient was sedated and intubated by anesthesia in standard fashion. Once the airway and C- spine were stabilized the patient's arms were padded and tucked at her side, with her shoulders gently taped. The head was placed in a donut pad with the neck in good neutral alignment and position. We were careful to maintain the patient's cervical spine and good neutral alignment and position throughout. The patient was prepped and draped in a normal standard fashion. An appropriate timeout and keystone protocol performed. We were able to proceed with the surgery. The local wound area was infiltrated with local anesthetic. An incision was made transversely approximately 2-1/2 cm over the appropriate levels at C6 on the right. Dissection was taken down subcutaneously to the level of the platysma which was split in line with its fibers. Dissection was taken with a carotid approach, with the trachea and esophagus medial and the carotid sheath laterally. We dissected down to the anterior surface of the vertebral bodies at C5 6 and 7. Intraoperative x-ray was taken which showed a marker at the appropriate level at C5 6. With the appropriate level positively confirmed, we were able to proceed with discectomy at the appropriate levels. All of the operative levels were exposed appropriately. The patient had all their twitches back, and there was no evidence of recurrent laryngeal issue. The wound was copiously irrigated and suctioned dry as had been done periodically throughout the case. At the appropriate level/levels, starting at C6 7 and then moving to C5 6, I established an annulotomy with an 11 blade scalpel. There were large anterior osteophytes at C5 6 and C6 7 which had to be specifically taken down in order to get to the anterior surface of the vertebral bodies . A discectomy was performed with a combination of pituitary rongeurs, curettes, a high-speed bur, and Kerrison rongeurs. The posterior longitudinal ligament was taken down as were any posterior osteophytes. This gave good central and bilateral foraminal decompression. There is no evidence of any dural tear or leak. The endplates were prepared with a high-speed bur. With the endplates in good parallel position, I was able to size for the appropriate size interbody graft. The wound was irrigated and suctioned dry the graft was prepared and malleted into position. It had good alignment and position with the anterior surface flush with the anterior surface of the vertebral bodies. This was done similarly the appropriate levels first at C6 7 and then at C5 6. With the grafts intact, I was able to measure and contour and appropriate sized plate. The plate was positioned at the midline over the appropriate levels at C5 6 and 7. Screw holes were established with a hand drill and drill guide. Screws were placed in good alignment and position with excellent bony purchase. They were seated under the locking device. The construct was checked and found to be stable. Intraoperative x-ray was taken which showed good alignment and position of the implants at the appropriate levels. There was no evidence of any dural tear or leak. Good hemostasis was maintained. The wound was copiously irrigated and suctioned dry as had been done periodically throughout the case. The platysma was closed with absorbable suture. The subcutaneous tissue was closed. The subcuticular tissue was closed with absorbable suture. The wound was cleaned and dried and dressed appropriately. A soft cervical collar was placed appropriately. The patient was woken up by anesthesia, extubated, transferred back gently to their hospital bed and brought to the recovery room in good stable condition. The patient will be admitted to the hospital for appropriate postoperative care, medical management and monitoring. We will continue to follow them closely about the postoperative course.
[2022-04-04] MEDS ORDERED: SODIUM CHLORIDE 0.9% 1,000 ML IV SCH (10:00)
[2022-04-04 12:36] VITALS: RESP 18; TEMP 97.5
[2022-04-04 13:56] VITALS: BP 160/84; PULSE 57
[2022-04-04] MEDS ORDERED: lisinopriL 5 MG TAB PO SCH (21:00)
[2022-04-04] MEDS ORDERED: MAGNESIUM OXIDE 400 MG TAB PO SCH (21:00)
[2022-04-04] MEDS ORDERED: ATORVASTATIN 40 MG TAB PO SCH (21:00)
[2022-04-05] MEDS ORDERED: APIXABAN 5 MG TAB PO SCH (09:00)
[2022-04-05] MEDS ORDERED: METOPROLOL SUCCINATE (ER) 25 MG TAB.ER.24H PO SCH (09:00)
[2022-04-05] MEDS ORDERED: NON FORMULARY DRUG (Omega-3 Fatty Acids/Fish Oil [Fish Oil 1,000 Mg Softgel] 1 EACH Capsul PO SCH (09:00)
[2022-04-05] MEDS ORDERED: MULTIVITAMINS, THERA 1 EACH TAB PO SCH (09:00)
[2022-04-05] MEDS ORDERED: PYRIDOSTIGMINE 60 MG TAB PO SCH (09:00)
[2022-04-05] MEDS ORDERED: VERAPAMIL SR 180 MG TABLET.ER PO SCH (09:00)
== END 2022-04-04 17:06 | disposition home or self-care (01) ==
LOC: OR 06:16 → 6NMEDSUR 10:15 → OR 17:06
PROVIDERS: ATTEND Orthopaedic Surgery Orthopaedic Surgery of the Spine
DX: M48.02 Spinal stenosis, cervical region (principal); M50.123 Cervical disc disorder at C6-C7 level with radiculopathy; M25.78 Osteophyte, vertebrae; I72.9 Aneurysm of unspecified site; G70.00 Myasthenia gravis without (acute) exacerbation; I63.9 Cerebral infarction, unspecified; I10 Essential (primary) hypertension; E78.5 Hyperlipidemia, unspecified; E66.9 Obesity, unspecified; I49.9 Cardiac arrhythmia, unspecified; M41.86 Other forms of scoliosis, lumbar region; G47.33 Obstructive sleep apnea (adult) (pediatric); M47.27 Other spondylosis with radiculopathy, lumbosacral region; M43.17 Spondylolisthesis, lumbosacral region; M48.061 Spinal stenosis, lumbar region without neurogenic claudication; M51.37 Other intervertebral disc degeneration, lumbosacral region; M50.323 Other cervical disc degeneration at C6-C7 level; R26.9 Unspecified abnormalities of gait and mobility; Z97.3 Presence of spectacles and contact lenses; Z98.890 Other specified postprocedural states; Z87.891 Personal history of nicotine dependence; Z79.899 Other long term (current) drug therapy; Z82.49 Family history of ischemic heart disease and other diseases of the circulatory system; Z86.59 Personal history of other mental and behavioral disorders; Z68.1 Body mass index [BMI] 19.9 or less, adult
CPT/HCPCS: 22551; 20930; 22845; 86900; 86901; 86850; 72020; C1713 ×2; C1762 ×2; J1100; J0690 ×2; J2405

== ENCOUNTER → 2022-11-07 | Outpatient (CLI) | payer MEDICARE ==
--- NOTE | 2022-11-07 08:24 | MR ---
EXAMINATION TYPE: MR lumbar spine wo con DATE OF EXAM: 11/07/2022 COMPARISON: None HISTORY: Low back pain into buttocks TECHNIQUE: Multiplanar, multisequence images of the lumbar spine were acquired without IV contrast. Lumbar segments are intact. No paraspinal masses are identified. Conus medullaris has a normal appe arance. Multilevel anterior osteophytosis and disc desiccation. Type II Modic changes involving the s uperior endplate of L2. T12-L1: No disc herniation. No significant central canal stenosis or neural foraminal stenosis. L1-L2: Broad-based disc bulge with prominent facet arthropathy more pronounced on the right which ind ents upon the posterior aspect of the thecal sac. This results in moderate spinal canal stenosis. The neural foramen are patent bilaterally. L2-L3: Broad-based disc bulge with ligamentum flavum buckling and facet arthropathy resulting in mild to moderate spinal canal stenosis. The neural foramen are patent bilaterally. L3-L4: Broad-based disc bulge with epidural lipomatosis and facet arthropathy resulting in moderate t o severe spinal canal stenosis. Mild bilateral neural foraminal stenosis. L4-L5: Broad-based disc bulge with epidural lipomatosis and facet arthropathy resulting in moderate s nilay canal stenosis. Moderate bilateral neural foraminal stenosis. L5-S1: Broad-based disc bulge with epidural lipomatosis and facet arthropathy resulting in mild spina l canal stenosis. Mild to moderate bilateral neural foraminal stenosis. IMPRESSION: 1. No evidence for disc herniation. 2. Multilevel degenerative disc disease with epidural lipomatosis and facet arthropathy. This is most pronounced involving L1-L5 as described above.
== END | disposition home or self-care (01) ==
LOC: RADMRIMAIN 06:47
PROVIDERS: ATTEND Neurological Surgery
DX: M51.16 Intervertebral disc disorders with radiculopathy, lumbar region (principal); M47.26 Other spondylosis with radiculopathy, lumbar region; E88.2 Lipomatosis, not elsewhere classified
CPT/HCPCS: 72148

== ENCOUNTER 2023-02-06 07:36 | Inpatient (IN) | payer MEDICARE ==
--- NOTE | 2023-02-06 08:26 | ED ---
General Adult HPI - General Chief complaint: Weakness Stated complaint: weak Time Seen by Provider: 02/06/23 07:47 Source: patient, family, RN notes reviewed Mode of arrival: wheelchair Limitations: no limitations - History of Present Illness Initial comments: Patient is a pleasant 67-year-old male presenting to the emergency Department with fevers for problems with seeing a gravid. Patient does have history of this previously. Patient did have surgery done in the lumbar region and of December. Since last week patient has had dyspnea, especially with exertion. Patient feels generally weak. Patient is able to walk up only about 5 steps. Patient is having some mild blurry vision and some difficulty with swallowing. Patient does have an history of a similar episode years ago however did not go into full crisis. No chest pain. No isolated area of weakness or confusion. - Related Data Home Medications Medication Instructions Recorded Confirmed Multivitamins, Thera [Multivitamin 1 tab PO DAILY 09/03/18 02/06/23 (formulary)] Pyridostigmine [place] [Mestinon] 60 mg PO BID@0900,1500 09/03/18 02/06/23 Metoprolol Succinate (ER) [Toprol 25 mg PO DAILY 04/02/22 02/06/23 XL] predniSONE [Deltasone] 10 mg PO BID 04/02/22 02/06/23 Cholecalciferol [Vitamin D3 (25 150 mcg PO HS 02/06/23 02/06/23 Mcg = 1000 Iu)] Ezetimibe [Zetia] 10 mg PO HS 02/06/23 02/06/23 HYDROcodone/APAP 10-325MG [[place] 1 tab PO TID PRN 02/06/23 02/06/23 10-325] lisinopriL [Zestril] 10 mg PO HS 02/06/23 02/06/23 Previous Rx's Medication Instructions Recorded Apixaban [Eliquis] 5 mg PO BID 30 Days #60 tab 03/17/19 Allergies Allergy/AdvReac Type Severity Reaction Status Date / Time fentanyl AdvReac Intermediate Nausea & Verified 02/06/23 11:00 Vomiting & Dizzy Review of Systems ROS Statement: Those systems with pertinent positive or pertinent negative responses have been documented in the HPI. ROS Other: All systems not noted in ROS Statement are negative. Constitutional: Denies: fever Eyes: Reports: as per HPI. Denies: eye pain ENT: Denies: ear pain Respiratory: Reports: as per HPI, dyspnea. Denies: cough Cardiovascular: Denies: chest pain Endocrine: Denies: fatigue Gastrointestinal: Denies: abdominal pain Genitourinary: Denies: dysuria Musculoskeletal: Reports: as per HPI Neurological: Reports: weakness. Denies: headache Past Medical History Past Medical History: CVA/TIA, Hyperlipidemia, Hypertension, Osteoarthritis (OA) Additional Past Medical History / Comment(s): Sciatica, spinal stenosis myasthenia gravis ascending aortic aneursym History of Any Multi-Drug Resistant Organisms: None Reported Past Surgical History: No Surgical Hx Reported Additional Past Surgical History / Comment(s): colonoscopies, hand surg., wisdom teeth removed, spinal fusion (2022) Past Anesthesia/Blood Transfusion Reactions: No Reported Reaction Past Psychological History: No Psychological Hx Reported Smoking Status: Former smoker Past Alcohol Use History: None Reported Past Drug Use History: None Reported - Past Family History Mother Family Medical History: Cancer Additional Family Medical History / Comment(s): Stomach Cancer Father Family Medical History: Cancer Additional Family Medical History / Comment(s): breast CA Sister(s) Family Medical History: Cancer Additional Family Medical History / Comment(s): breast CA Brother(s) Family Medical History: Cancer Additional Family Medical History / Comment(s): Spine CA General Exam Limitations: no limitations General appearance: alert, in no apparent distress Head exam: Present: atraumatic, normocephalic Eye exam: Present: normal appearance, PERRL, EOMI ENT exam: Present: normal oropharynx Neck exam: Present: normal inspection Respiratory exam: Present: normal lung sounds bilaterally. Absent: respiratory distress Cardiovascular Exam: Present: regular rate, normal rhythm GI/Abdominal exam: Present: soft. Absent: tenderness Extremities exam: Present: normal inspection Neurological exam: Present: alert, oriented X3, CN II-XII intact. Absent: motor sensory deficit Expanded Neurological exam: Present: protecting the airway Speech: Present: fluid speech Cranial nerves: EOM's Intact: Normal, Facial Sensation: Normal Sensory exam: Upper Extremity Light Touch: Normal, Lower Extremity Light Touch: Normal Motor strength exam: RUE: 5, LUE: 5, RLE: 5, LLE: 5 Eye Response: (4) open spontaneously Motor Response: (6) obeys commands Verbal Response: (5) oriented Psychiatric exam: Present: normal affect, normal mood Skin exam: Present: normal color Course Vital Signs 02/06/23 02/06/23 07:37 08:09 Temperature 97.8 F Pulse Rate 91 70 Respiratory 20 20 Rate Blood Pressure 148/80 167/150 O2 Sat by Pulse 97 97 Oximetry EKG Findings - EKG Results: EKG: interpreted by ERMD (Left axis), sinus rhythm, normal axis, normal QRS, normal ST/T Medical Decision Making - Medical Decision Making Was pt. sent in by a medical professional or institution (, PA, SUPPORT MANAGER, urgent care, hospital, or penitentiary...) When possible be specific @ -[No] Did you speak to anyone other than the patient for history (EMS, parent, family, police, friend...)? What history was obtained from this source @ -Family is present and helps right history including history of previous similar problems Did you review nursing and triage notes (agree or disagree)? Why? @ -[I reviewed and agree with nursing and triage notes] Were old charts reviewed (outside hosp., previous admission, EMS record, old EKG, old radiological studies, urgent care reports/EKG's, penitentiary records)? Report findings @ -[No old charts were reviewed] Differential Diagnosis (chest pain, altered mental status, abdominal pain women, abdominal pain men, vaginal bleeding, weakness, fever, dyspnea, syncope, headache, dizziness, GI bleed, back pain, seizure, CVA, palpatations, mental health, musculoskeletal)? @ -Differential Weakness: Hypoglycemia, shock, sepsis, hyponatremia, anemia, infection, OH, ETOH, adverse medicine reaction, overdose, stroke, this is not meant to be an all-inclusive list. EKG interpreted by me (3pts min.). @ -[As above] X-rays interpreted by me (1pt min.). @ -Chest x-ray does not show acute abnormality CT interpreted by me (1pt min.). @ -[None done] U/S interpreted by me (1pt. min.). @ -[None done] What testing was considered but not performed or refused? (CT, X-rays, U/S, labs)? Why? @ -[None] What meds were considered but not given or refused? Why? @ -[None] Did you discuss the management of the patient with other professionals (professionals i.e. DrBernabe, PA, SUPPORT MANAGER, lab, RT, psych nurse, social security assessor, sales/marketing, teacher, surveillance dual rate officer, protective services case worker)? Give summary @ -Case was discussed with Dr. Hoskins with sound physician who will admit. He agrees with neurology consult. Was smoking cessation discussed for >3mins.? @ -[No] Was critical care preformed (if so, how long)? @ -[No] Were there social determinants of health that impacted care today? How? (Home lessness, low income, unemployed, alcoholism, drug addiction, transportation, low edu. Level, literacy, decrease access to med. care, long-term, rehab)? @ -[No] Was there de-escalation of care discussed even if they declined (Discuss DNR or withdrawal of care, Hospice)? DNR status @ -[No] What co-morbidities impacted this encounter? (DM, HTN, Smoking, COPD, CAD, Cancer, CVA, ARF, Chemo, Hep., AIDS, mental health diagnosis, sleep apnea, morbid obesity)? @ -[None] Was patient admitted / discharged? Hospital course, mention meds given and route, prescriptions, significant lab abnormalities, going to OR and other pertinent info. @ -Patient reevaluated and feels slightly better. Patient and family updated on results and plan. Patient will be admitted for neurology evaluation . There is concern for patient's weakness and possible early myasthenia gravis crisis. Undiagnosed new problem with uncertain prognosis? @ -[No] Drug Therapy requiring intensive monitoring for toxicity (Heparin, Nitro, Insulin, Cardizem)? @ -[No] Were any procedures done? @ -[No] Diagnosis/symptom? @ -Weakness Acute, or Chronic, or Acute on Chronic? @ -Acute Uncomplicated (without systemic symptoms) or Complicated (systemic symptoms)? @ -[default] Side effects of treatment? @ -[No] Exacerbation, Progression, or Severe Exacerbation? @ -[No] Poses a threat to life or bodily function? How? (Chest pain, [place], OH, pneumonia, PE, COPD, DKA, ARF, appy, cholecystitis, CVA, Diverticulitis, Homicidal, Suicidal, threat to staff... and all critical care pts) @ -[No] - Lab Data Result diagrams: 02/06/23 08:21 08 08:21 Lab Results 02/06/23 02/06/23 02/06/23 Range/Units 08:21 08:21 08:21 WBC 8.7 (3.8-10.6) k/uL RBC 4.81 (4.30-5.90) m/uL Hgb 13.9 (13.0-17.5) gm/dL Hct 42.5 (39.0-53.0) % MCV 88.3 (80.0-100.0) fL MCH 29.0 (25.0-35.0) pg MCHC 32.8 (31.0-37.0) g/dL RDW 13.8 (11.5-15.5) % Plt Count 240 (150-450) k/uL MPV 7.0 Neutrophils % 79 % Lymphocytes % 13 % Monocytes % 6 % Eosinophils % 1 % Basophils % 0 % Neutrophils # 6.9 (1.3-7.7) k/uL Lymphocytes # 1.1 (1.0-4.8) k/uL Monocytes # 0.5 (0-1.0) k/uL Eosinophils # 0.1 (0-0.7) k/uL Basophils # 0.0 (0-0.2) k/uL PT 9.7 (9.0-12.0) sec INR 0.9 (<1.2) APTT 22.7 (22.0-30.0) sec Sodium (137-145) mmol/L Potassium (3.5-5.1) mmol/L Chloride (98-107) mmol/L Carbon Dioxide (22-30) mmol/L Anion Gap mmol/L BUN (9-20) mg/dL Creatinine (0.66-1.25) mg/dL Est GFR (CKD-EPI)AfAm (>60 ml/min/1.73 sqM) Est GFR (CKD-EPI)NonAf (>60 ml/min/1.73 sqM) Glucose (74-99) mg/dL Plasma Lactic Acid Cole (0.7-2.0) mmol/L Calcium (8.4-10.2) mg/dL Magnesium (1.6-2.3) mg/dL Total Bilirubin (0.2-1.3) mg/dL AST (17-59) U/L ALT (4-49) U/L Alkaline Phosphatase (38-126) U/L Troponin I (0.000-0.034) ng/mL NT-Pro-B Natriuret Pep pg/mL Total Protein (6.3-8.2) g/dL Albumin (3.5-5.0) g/dL TSH (0.465-4.680) mIU/L Free T4 (0.78-2.19) ng/dL Free T3 pg/mL (2.8-5.3) pg/ml Urine Color Yellow Urine Appearance Clear (Clear) Urine pH 5.0 (5.0-8.0) Ur Specific [place] 1.016 (1.001-1.035) Urine Protein Negative (Negative) Urine Glucose (UA) Negative (Negative) Urine Ketones Negative (Negative) Urine Blood Negative (Negative) Urine Nitrite Negative (Negative) Urine Bilirubin Negative (Negative) Urine Urobilinogen <2.0 (<2.0) mg/dL Ur Leukocyte Esterase Negative (Negative) 02/06/23 02/06/23 02/06/23 Range/Units 08:21 08:21 08:21 WBC (3.8-10.6) k/uL RBC (4.30-5.90) m/uL Hgb (13.0-17.5) gm/dL Hct (39.0-53.0) % MCV (80.0-100.0) fL MCH (25.0-35.0) pg MCHC (31.0-37.0) g/dL RDW (11.5-15.5) % Plt Count (150-450) k/uL MPV Neutrophils % % Lymphocytes % % Monocytes % % Eosinophils % % Basophils % % Neutrophils # (1.3-7.7) k/uL Lymphocytes # (1.0-4.8) k/uL Monocytes # (0-1.0) k/uL Eosinophils # (0-0.7) k/uL Basophils # (0-0.2) k/uL PT (9.0-12.0) sec INR (<1.2) APTT (22.0-30.0) sec Sodium 135 L (137-145) mmol/L Potassium 4.0 (3.5-5.1) mmol/L Chloride 107 (98-107) mmol/L Carbon Dioxide 27 (22-30) mmol/L Anion Gap 1 mmol/L BUN 18 (9-20) mg/dL Creatinine 0.60 L (0.66-1.25) mg/dL Est GFR (CKD-EPI)AfAm >90 (>60 ml/min/1.73 sqM) Est GFR (CKD-EPI)NonAf >90 (>60 ml/min/1.73 sqM) Glucose 95 (74-99) mg/dL Plasma Lactic Acid [place] 1.6 (0.7-2.0) mmol/L Calcium 10.0 (8.4-10.2) mg/dL Magnesium 2.0 (1.6-2.3) mg/dL Total Bilirubin 0.8 (0.2-1.3) mg/dL AST 33 (17-59) U/L ALT 39 (4-49) U/L Alkaline Phosphatase 172 H (38-126) U/L Troponin I <0.012 (0.000-0.034) ng/mL NT-Pro-B Natriuret Pep 51 pg/mL Total Protein 6.9 (6.3-8.2) g/dL Albumin 4.3 (3.5-5.0) g/dL TSH 1.110 (0.465-4.680) mIU/L Free T4 1.06 (0.78-2.19) ng/dL Free T3 pg/mL 3.7 (2.8-5.3) pg/ml Urine Color Urine Appearance (Clear) Urine pH (5.0-8.0) Ur Specific [place] (1.001-1.035) Urine Protein (Negative) Urine Glucose (UA) (Negative) Urine Ketones (Negative) Urine Blood (Negative) Urine Nitrite (Negative) Urine Bilirubin (Negative) Urine Urobilinogen (<2.0) mg/dL Ur Leukocyte Esterase (Negative) Disposition Clinical Impression: Weakness Disposition: ADMITTED IP TO THIS HOSP Is patient prescribed a controlled substance at d/c from ED?: No Referrals: Juan Palacios DO [Primary Care Provider] - 1-2 days Time of Disposition: 11:08
[2023-02-06 08:35] LABS: Basophils % (A) 0 %; Eosinophils # (A) 0.1 k/uL (0-0.7); Eosinophils % (A) 1 %; HCT 42.5 % (39.0-53.0); HGB 13.9 gm/dL (13.0-17.5); Lymphocytes # (A) 1.1 k/uL (1.0-4.8); Lymphocytes % (A) 13 %; MCHC 32.8 g/dL (31.0-37.0); MCV 88.3 fL (80.0-100.0); Monocytes # (A) 0.5 k/uL (0-1.0); Monocytes % (A) 6 %; Neutrophils # (A) 6.9 k/uL (1.3-7.7); Neutrophils % (A) 79 %; Platelet Count 240 k/uL (150-450); RBC 4.81 m/uL (4.30-5.90); RDW 13.8 % (11.5-15.5); WBC 8.7 k/uL (3.8-10.6)
--- NOTE | 2023-02-06 08:43 | XR ---
EXAMINATION TYPE: XR chest 2V DATE OF EXAM: 02/06/2023 8:39 AM COMPARISON: Chest radiographs from 03/27/2022 TECHNIQUE: XR chest 2V Frontal and lateral views of the chest. CLINICAL INDICATION:Male, 67 years old with history of Weakness; FINDINGS: Lungs/Pleura: There is no evidence of pleural effusion, focal consolidation, or pneumothorax. Pulmonary vascularity: Unremarkable. Heart/mediastinum: Cardiomediastinal silhouette is enlarged and stable. Atherosclerotic calcificatio ns are seen in the aorta. Musculoskeletal: Multiple level degenerative disc disease changes seen throughout the spine. Cervical fusion hardware. IMPRESSION: Chronic changes without evidence for acute process.
[2023-02-06 08:48] LABS: ALT 39 U/L (4-49); AST 33 U/L (17-59); African American GFR (CKD) >90 (>60 ml/min/1.73 sqM); Albumin 4.3 g/dL (3.5-5.0); Alkaline Phosphatase 172 U/L (38-126); Anion Gap 1 mmol/L; Blood Urea Nitrogen 18 mg/dL (9-20); Carbon Dioxide 27 mmol/L (22-30); Chloride 107 mmol/L (98-107); Glucose 95 mg/dL (74-99); Non-African American GFR(CKD) >90 (>60 ml/min/1.73 sqM); Sodium 135 mmol/L (137-145); Total Bilirubin 0.8 mg/dL (0.2-1.3); Total Protein 6.9 g/dL (6.3-8.2)
[2023-02-06 08:49] LABS: INR 0.9 (<1.2); Partial Thromboplastin Time 22.7 sec (22.0-30.0); Prothrombin Time 9.7 sec (9.0-12.0)
[2023-02-06 08:57] LABS: NT-Pro-B-Type Natriuretic Pept 51 pg/mL
[2023-02-06 09:05] LABS: T4, Free (Free Thyroxine) 1.06 ng/dL (0.78-2.19)
[2023-02-06 09:21] LABS: Appearance,Urine Clear (Clear); Bilirubin,Urine Negative (Negative); Blood,Urine Negative (Negative); Color,Urine Yellow; Glucose,Urine (UA) Negative (Negative); Ketones,Urine Negative (Negative); Leukocyte Esterase,Urine Negative (Negative); Nitrite,Urine Negative (Negative); Protein,Urine Negative (Negative); Specific Gravity,Urine 1.016 (1.001-1.035); Urobilinogen,Urine <2.0 mg/dL (<2.0)
[2023-02-06] MEDS ORDERED: NALOXONE 0.4 MG/ML 1 ML VIAL IV PRN (11:09)
[2023-02-06] MEDS: SODIUM CHLORIDE 0.9% 1,000 ML IV SCH (11:27)
[2023-02-06] MEDS ORDERED: PYRIDOSTIGMINE 60 MG TAB PO SCH (15:00)
--- NOTE | 2023-02-06 15:21 | P.HPIM ---
History of Present Illness H&P Date: 02/06/23 Patient is a 67-year-old male with PMH of myasthenia gravis, atrial fibrillation, hypertension, dyslipidemia, history of thrombosis presents the ED for generalized weakness, shortness of breath, double vision and difficulty swallowing. Patient reports undergoing back surgery on December 26 at [facility]. Since then, he has experienced the above symptoms that has been progressively getting worse. He reports shortness of breath when laying flat has been getting worse over the past 3 days. The symptoms concerned him to come to the ED. He denies any headache, lower extremity edema, nausea or vomiting, fever or chills, cough, chest pain, palpitations, changes in urination or bowel habits. No changes in appetite or weight. He denies any dizziness, numbness/weakness/tingling of the extremities. In the ED, his BP was elevated at 167/150. BP on recheck was 127/77. Vital signs were otherwise stable. CBC was unremarkable. INR was 0.9. CMP shows sodium 135, creatinine is 0.6, alk jake phosphatase 172. Troponin was less than 0.012. BNP was 51. TSH 1.11. Urinalysis negative. EKG showed sinus arrhythmia. Chest x-ray negative for acute changes. Patient was admitted for further evaluation of symptoms. Pertinent positives and negatives as discussed in HPI, a complete review of systems was performed and all other systems are negative. General: non toxic, no distress, appears at stated age Derm: warm, dry Head: atraumatic, normocephalic, symmetric Eyes: EOMI, no lid lag, anicteric sclera Cardiovascular: Irregular, no murmur Lungs: CTA bilateral, no rhonchi, no rales , no accessory muscle use Abdominal: soft, nontender to palpation, no guarding, no appreciable orga nomegaly Ext: no gross muscle atrophy, no edema, no contractures Neuro: no focal neuro deficits Psych: Alert, oriented, appropriate affect Myaesthenia gravis exacerbation, impending crisis Chronic conditions: Atrial fibrillation, hypertension, dyslipidemia, history of thrombosis Based on my assessment of this patient, this patient meets a high complexity level of care. Patient has an acute diagnosis of myaesthenia gravis exacerbation with impending crisis that poses a threat to life or bodily function. Myaesthenia gravis exacerbation, impending crisis: Discussed with Dr. Arcos, start 3 days of IVIG. Concerns for respiratory depression. Discussed with RT to obtain PEF and NIF. ABG is ordered. Discussed with Dr. Collier, plans to move to ICU if respiratory status worsens. Continue Pyridostigmine and Prednisone home dose. Patient has a CPAP at home, advised to bring to the hospital. is the decision maker if he cant make decisions for himself. FULL CODE. I have reviewed the following technical solutions consultant notes: I have reviewed the results of the following tests: CBC, CMP, Trop. BNP, TSH, UA, CXR I have ordered the following tests: ABG, PEF, NIF I have discussed the care of this patient with the following independent historian: I have independently interpreted the following test below: EKG as above. I have discussed the management of this patient with the following physician: Discussed with Dr. Collier and Dr. Arcos as above. Past Medical History Past Medical History: CVA/TIA, Hyperlipidemia, Hypertension, Osteoarthritis (OA) Additional Past Medical History / Comment(s): Sciatica, spinal stenosis my asthenia gravis ascending aortic aneursym History of Any Multi-Drug Resistant Organisms: None Reported Past Surgical History: No Surgical Hx Reported Additional Past Surgical History / Comment(s): colonoscopies, hand surg., wisdom teeth removed, spinal fusion (2022) Past Anesthesia/Blood Transfusion Reactions: No Reported Reaction Past Psychological History: No Psychological Hx Reported Smoking Status: Former smoker Past Alcohol Use History: None Reported Past Drug Use History: None Reported - Past Family History Mother Family Medical History: Cancer Additional Family Medical History / Comment(s): Stomach Cancer Father Family Medical History: Cancer Additional Family Medical History / Comment(s): breast CA Sister(s) Family Medical History: Cancer Additional Family Medical History / Comment(s): breast CA Brother(s) Family Medical History: Cancer Additional Family Medical History / Comment(s): Spine CA Medications and Allergies Home Medications Medication Instructions Recorded Confirmed Type Multivitamins, Thera [Multivitamin 1 tab PO DAILY 09/03/18 02/06/23 History (formulary)] Pyridostigmine [place] [Mestinon] 60 mg PO BID@0900,1500 09/03/18 02/06/23 History Apixaban [Eliquis] 5 mg PO BID 30 Days #60 tab 03/17/19 02/06/23 Rx Metoprolol Succinate (ER) [Toprol 25 mg PO DAILY 04/02/22 02/06/23 History XL] predniSONE [Deltasone] 10 mg PO BID 04/02/22 02/06/23 History Cholecalciferol [Vitamin D3 (25 150 mcg PO HS 02/06/23 02/06/23 History Mcg = 1000 Iu)] Ezetimibe [Zetia] 10 mg PO HS 02/06/23 02/06/23 History HYDROcodone/APAP 10-325MG [[place] 1 tab PO TID PRN 02/06/23 02/06/23 History 10-325] lisinopriL [Zestril] 10 mg PO HS 02/06/23 02/06/23 History Allergies Allergy/AdvReac Type Severity Reaction Status Date / Time fentanyl AdvReac Intermediate Nausea & Verified 02/06/23 11:00 Vomiting & Dizzy Physical Exam Vitals: Vital Signs Temp Pulse Resp BP Pulse Ox 02/06/23 13:06 97.7 F 80 18 131/68 98 02/06/23 11:24 74 18 127/77 96 02/06/23 08:09 70 20 167/150 97 02/06/23 07:37 97.8 F 91 20 148/80 97 Intake and Output 02/06/23 02/06/23 02/06/23 06:59 14:59 22:59 Other: Weight 99.79 kg Results CBC & Chem 7: 02/06/23 08:21 02/06/23 08:21 Labs: Abnormal Lab Results - Last 24 Hours (Table) 02/06/23 Range/Units 08:21 Sodium 135 L (137-145) mmol/L Creatinine 0.60 L (0.66-1.25) mg/dL Alkaline Phosphatase 172 H (38-126) U/L
--- NOTE | 2023-02-06 15:36 | P.CNNES ---
History of Present Illness Consult date: 02/06/23 Requesting physician: Yohan Luna Reason for Consult: weakness with history of myasthenia History of Present Illness: This is a 67-year-old gentleman with history of Myasthenia Gravis since 2019, low back pain with had recent lumbar fusion on 12/26/2022 who presented emergency department because of worsening shortness of breath, diplopia of eyes as well as ptosis. Patient is accompanied with his . Patient stated that he is on Mestinon 160 mg 1 tablet twice a day as well as on prednisone 20 mg in total daily and he has been on that dose for the last 1 year the same dose and he's been tolerating well and been doing well. Patient had lumbar fusion on 12/26/2022 at [facility] and he's been doing well over the last 1 week she's been having shortness of breath difficulty swallowing generalized fa tigue he's been having diplopia as well as the stated that he's been having ptosis of both eyes today. Patient follows up with Dr. Hall for his myasthenia gravis and he stated he is on prednisone for years as well as he is on Mestinon prolonged period of time and the and the last 1 year he's been on 160 mg 1 tablet twice a day and he's been tolerable well. Some of the workup during his hospital visit consisted of: Patient has been afebrile so far. Pulse ox of 96-98% room air. Respiratory rate as been between 18-20. CBC with differential is unremarkable Sodium is 135, calcium is 10.0, HDL to use within normal limits. Serum glucose is 95 TSH is 1.10 and the free T4 is 1.06. Urine analysis is negative for any underlying urinary tract infection. Review of Systems Review of system: The 12 point system was reviewed and apparent positive and negative per HPI. Past Medical History Past Medical History: CVA/TIA, Hyperlipidemia, Hypertension, Osteoarthritis (OA) Additional Past Medical History / Comment(s): Sciatica, spinal stenosis myasthenia gravis ascending aortic aneursym History of Any Multi-Drug Resistant Organisms: None Reported Past Surgical History: No Surgical Hx Reported Additional Past Surgical History / Comment(s): colonoscopies, hand surg., wisdom teeth removed, spinal fusion (2022) Past Anesthesia/Blood Transfusion Reactions: No Reported Reaction Past Psychological History: No Psychological Hx Reported Smoking Status: Former smoker Past Alcohol Use History: None Reported Past Drug Use History: None Reported - Past Family History Mother Family Medical History: Cancer Additional Family Medical History / Comment(s): Stomach Cancer Father Family Medical History: Cancer Additional Family Medical History / Comment(s): breast CA Sister(s) Family Medical History: Cancer Additional Family Medical History / Comment(s): breast CA Brother(s) Family Medical History: Cancer Additional Family Medical History / Comment(s): Spine CA Medications and Allergies Home Medications Medication Instructions Recorded Confirmed Type Multivitamins, Thera [Multivitamin 1 tab PO DAILY 09/03/18 02/06/23 History (formulary)] Pyridostigmine [place] [Mestinon] 60 mg PO BID@0900,1500 09/03/18 02/06/23 History Apixaban [Eliquis] 5 mg PO BID 30 Days #60 tab 03/17/19 02/06/23 Rx Metoprolol Succinate (ER) [Toprol 25 mg PO DAILY 04/02/22 02/06/23 History XL] predniSONE [Deltasone] 10 mg PO BID 04/02/22 02/06/23 History Cholecalciferol [Vitamin D3 (25 150 mcg PO HS 02/06/23 02/06/23 History Mcg = 1000 Iu)] Ezetimibe [Zetia] 10 mg PO HS 02/06/23 02/06/23 History HYDROcodone/APAP 10-325MG [[place] 1 tab PO TID PRN 02/06/23 02/06/23 History 10-325] lisinopriL [Zestril] 10 mg PO HS 02/06/23 02/06/23 History Allergies Allergy/AdvReac Type Severity Reaction Status Date / Time fentanyl AdvReac Intermediate Nausea & Verified 02/06/23 11:00 Vomiting & Dizzy Physical Examination - Vital Signs Vital Signs: Vital Signs Temp Pulse Resp BP Pulse Ox 02/06/23 13:06 97.7 F 80 18 131/68 98 02/06/23 11:24 74 18 127/77 96 02/06/23 08:09 70 20 167/150 97 02/06/23 07:37 97.8 F 91 20 148/80 97 Intake and Output 02/06/23 02/06/23 02/06/23 06:59 14:59 22:59 Other: Weight 99.79 kg GENERAL: The patient is sitting in a chair and is not in acute distress. LUNG: Seems short of breath and tachypneic. NEUROLOGICAL: Higher mental function: The patient is awake, alert, oriented to self, place and time. Patient is following commands. No aphasia and no neglect. Cranial nerves: The pupils are round, equal and reactive to light. Patient having diplopia throughout. Visual díaz are full to confrontation throughout. Extraocular movement is intact no nystagmus is noted. Facial sensation is normal to touch throughout. The facial strength is normal throughout. Hearing is moderately decreased bilaterally to hand rub. Tongue is midline and moved [id number] without any difficulty. No dysarthria is noted. Shoulder shrug is normal bilaterally. Motor: The strength is 5 over 5 throughout. Normal tone and bulk. Cerebellum: Normal finger to nose bilaterally. Sensation: Sensation is normal to touch throughout. Reflexes (right/left): 2+ throughout uppers while lowers are 1+. Plantars are mute bilaterally. Results - Laboratory Findings CBC and BMP: 02/06/23 08:21 02/06/23 08:21 Abnormal Lab Findings: Abnormal Labs 02/06/23 08:21 Sodium 135 L Creatinine 0.60 L Alkaline Phosphatase 172 H Assessment and Plan Assessment: This is a 67-year-old gentleman with history of myasthenia gravis since 2019 was on Mestinon as well as prednisone and had the recent lower back fusion on 12/26/2022 over [facility] and the last 1 week the patient is been having the worsening shortness of breath, dysphagia, diplopia, ptosis. Myasthenia gravis exacerbation History of my seeing gravis since 2019 and for the last 1 year he stated he is been on Mestinon 160 mg twice a day and prednisone 20 mg daily History of lower back fusion on 12/26/2022 over [facility] and he still has difficulty walking History of TIA Plan: I spoke with the primary team and I recommended the patient to be transferred to ICU and to obtain NiF and FVC. We'll start the patient on IVIG for 3 days (2g/kg). Patient is continued on his prednisone 10 mg twice a day. I'll go up on his own tomorrow to 20 mg twice a day. According to him he is on Mestinon 160 mg twice a day for the last 1 year I spoke with the pharmacist she stated that he is on Mestinon extended release 180 mg twice a day but per the record we have it down as Mestinon 60 mg twice a day so we'll verify what the actual doses. Continue her checks Unsure if the patient was a value for thymoma. The patient thinks he was evaluated for thymoma and was negative to his knowledge Continue your checks PT OT are consulted We'll defer the rest of the medical management to primary team Plan discussed with the patient and primary team. Thank you for the consultation. Time with Patient: Greater than 30
--- NOTE | 2023-02-06 15:53 | P.CNPUL ---
History of Present Illness Consult date: 02/06/23 Reason for consult: dyspnea History of present illness: I am seeing this patient in emergency department because of ongoing weakness and difficulties in swallowing. The patient is known to have myasthenia gravis. The patient is also known to have severe obstructive sleep apnea with an AHI of 46 and he has limited on APAP machine pressures of 5/10 cm of water. He is myasthenia gravis has been stable and the patient has limited on a combination of Mestinon and prednisone. The patient has paroxysmal A. fib, previous history of DVT admitted on anticoagulation with Eliquis, and hypertension. The patient underwent a L1 S1 lumbar fusion and surgery was done on 12/27/2019. Had [facility]. The patient has been taking 10 mg of prednisone twice a day. He was also Mestinon. His spirometry and forced vital capacity from 10/11/2022 was at 3.24 L which is 65% of predicted. The muscle forces were also adequate with a an EP of 74 and MIP of 87. He did have some proximal muscle weakness. This was mainly when he was trying to climb up stairs. Since his surgery, the patient had progressive weakness. Is having difficulties with swallowing. No double vision. He did go to [facility] for around 2 weeks and subsequently was discharged home. He was walking around with the help of a walker and he has noticed full mobility yet. His surgical one-sided dry clean and intact. No aspiration. He presented to the hospital as the patient was getting progressively more weak and he also reported some shortness of breath. No chest pain. No hemoptysis. No pleurisy. No aspiration. No abnormalities on the chest x-ray.Labs are all within normal limits. ProBNP level is nonelevated. Liver function tests are normal. Urinalysis is negative. Review of Systems Constitutional: Reports fatigue, Reports weakness Eyes: denies as per HPI, denies blurred vision, denies bulging eye, denies decreased vision, denies diplopia, denies discharge, denies dry eye, denies irritation, denies itching, denies pain, denies photophobia, denies loss of peripheral vision, denies loss of vision, denies tunnel vision/blind spots Ears: deny: decreased hearing, ear discharge, earache, tinnitus Ears, nose, mouth and throat: Reports as per HPI Breasts: absent: as per HPI, gynecomastia Cardiovascular: Reports decreased exercise tolerance, Reports dyspnea on exertion, Reports shortness of breath Respiratory: Reports dyspnea, Reports sleep apnea, Reports snoring Gastrointestinal: Reports as per HPI Genitourinary: Reports as per HPI Musculoskeletal: Reports low back pain Musculoskeletal: absent: ankle pain, ankle stiffness, ankle swelling Integumentary: Reports as per HPI Neurological: Reports as per HPI, Reports gait dysfunction, Reports weakness Psychiatric: Reports as per HPI Endocrine: Reports as per HPI Hematologic/Lymphatic: Reports as per HPI Allergic/Immunologic: Reports as per HPI Past Medical History Past Medical History: CVA/TIA, Hyperlipidemia, Hypertension, Osteoarthritis (OA) Additional Past Medical History / Comment(s): Sciatica, spinal stenosis myasthenia gravis ascending aortic aneursym History of Any Multi-Drug Resistant Organisms: None Reported Past Surgical History: No Surgical Hx Reported Additional Past Surgical History / Comment(s): colonoscopies, hand surg., wisdom teeth removed, spinal fusion (2022) Past Anesthesia/Blood Transfusion Reactions: No Reported Reaction Past Psychological History: No Psychological Hx Reported Smoking Status: Former smoker Past Alcohol Use History: None Reported Past Drug Use History: None Reported - Past Family History Mother Family Medical History: Cancer Additional Family Medical History / Comment(s): Stomach Cancer Father Family Medical History: Cancer Additional Family Medical History / Comment(s): breast CA Sister(s) Family Medical History: Cancer Additional Family Medical History / Comment(s): breast CA Brother(s) Family Medical History: Cancer Additional Family Medical History / Comment(s): Spine CA Medications and Allergies Home Medications Medication Instructions Recorded Confirmed Type Multivitamins, Thera [Multivitamin 1 tab PO DAILY 09/03/18 02/06/23 History (formulary)] Apixaban [Eliquis] 5 mg PO BID 30 Days #60 tab 03/17/19 02/06/23 Rx Metoprolol Succinate (ER) [Toprol 25 mg PO DAILY 04/02/22 02/06/23 History XL] predniSONE [Deltasone] 10 mg PO BID 04/02/22 02/06/23 History Cholecalciferol [Vitamin D3 (25 150 mcg PO HS 02/06/23 02/06/23 History Mcg = 1000 Iu)] Ezetimibe [Zetia] 10 mg PO HS 02/06/23 02/06/23 History HYDROcodone/APAP 10-325MG [[place] 1 tab PO TID PRN 02/06/23 02/06/23 History 10-325] Pyridostigmine [place] 180 mg PO BID@0900,1500 02/06/23 02/06/23 History [Pyridostigmine [place] ER] lisinopriL [Zestril] 10 mg PO HS 02/06/23 02/06/23 History Allergies Allergy/AdvReac Type Severity Reaction Status Date / Time fentanyl AdvReac Intermediate Nausea & Verified 02/06/23 11:00 Vomiting & Dizzy Physical Exam Vitals: Vital Signs Temp Pulse Resp BP Pulse Ox 02/06/23 13:06 97.7 F 80 18 131/68 98 02/06/23 11:24 74 18 127/77 96 02/06/23 08:09 70 20 167/150 97 02/06/23 07:37 97.8 F 91 20 148/80 97 Intake and Output 02/06/23 02/06/23 02/06/23 06:59 14:59 22:59 Other: Weight 99.79 kg Gen. appearance the patient is on room air oxygen and the patient is calm and comfortable. Head exam was generally normal. There was no scleral icterus or corneal arcus. Mucous membranes were moist. Neck was supple and without jugular venous distension, thyromegaly, or carotid bruits. Carotids were easily palpable bilaterally. There was no adenopathy. Lungs were clear to auscultation and percussion, and with normal diaphragmatic excursion. No wheezes or rales were noted. Cardiac exam revealed the PMI to be normally situated and sized. The rhythm was regular and no extrasystoles were noted during several minutes of auscultation. The first and second heart sounds were normal and physiologic splitting of the second heart sound was noted. There were no murmurs, rubs, clicks, or gallops. Abdominal exam revealed normal bowel sounds. The abdomen was soft, non-tender, and without masses, organomegaly, or appreciable enlargement of the abdominal aorta. Examination of the extremities revealed easily palpable radial, femoral and pedal pulses. There was no cyanosis, clubbing or edema. Examination of the skin revealed no evidence of significant rashes, suspicious appearing nevi or other concerning lesions. The surgical one-sided over the back is dry clean and intact. NEUROLOGICAL: Higher mental function: The patient is awake, alert, oriented to self, place and time. Patient is following commands. No aphasia and no neglect. Cranial nerves: The pupils are round, equal and reactive to light. Patient having diplopia throughout. Visual díaz are full to confrontation throughout. Extraocular movement is intact no nystagmus is noted. Facial sensation is normal to touch throughout. The facial strength is normal throughout. Hearing is moderately decreased bilaterally to hand rub. Tongue is midline and moved [id number] without any difficulty. No dysarthria is noted. Shoulder shrug is normal bilaterally. Motor: The strength is 5 over 5 throughout. Normal tone and bulk. Cerebellum: Normal finger to nose bilaterally. Sensation: Sensation is normal to touch throughout. Reflexes (right/left): 2+ throughout uppers while lowers are 1+. Plantars are mute bilaterally. Results - Laboratory Findings CBC and BMP: 02/06/23 08:21 02/06/23 08:21 PT/INR, D-dimer PT 9.7 sec (9.0-12.0) 02/06/23 08:21 INR 0.9 (<1.2) 02/06/23 08:21 Abnormal lab findings: Abnormal Labs 02/06/23 08:21 Sodium 135 L Creatinine 0.60 L Alkaline Phosphatase 172 H - Diagnostic Findings Chest x-ray: image reviewed Assessment and Plan Plan: Exacerbation of myasthenia gravis following back surgery. The patient underwent L1 S1 decompression/laminectomy on 12/26/2022 and since then the patient been having progressive worsening in his motor function, strength and shortness of breath and dysphagia. Has the metabolic combination of Mestinon and prednisone outpatient basis. Note that his postoperative course was essentially motor the patient did not requiring patient on mechanical ventilation after a three-hour surgery. He was extubated without any major difficulties Generalized weakness secondary to above Dysphagia secondary to above Dyspnea secondary to above Obstructive sleep apnea, severe maintain on APAP pressures of 5/15 cm of water Paroxysmal A. fib, maintained on anticoagulation with Eliquis Hypertension Hyperlipidemia Osteoarthritis Plan We'll check muscle forces and forced vital capacity by respiratory therapy We'll obtain a baseline blood gas We'll monitor weakness and respiratory status No need for ICU care at this point in time The patient will be started on IVIG 2 g/kg over the next 3 days Continue prednisone 10 mg by mouth twice a day Continue Mestinon We'll continue to follow. Without the patient uses CPAP machine from home. Continue anticoagulation with Eliquis.
[2023-02-06] MEDS ORDERED: IMMUNE GLOBULIN (GAMMAGARD) 30 GM in EMPTY BAG 1 BAG IV ONE (16:00)
[2023-02-06] MEDS: PYRIDOSTIGMINE 60 MG TAB PO SCH ×2 (16:29→19:50)
[2023-02-06 17:16] LABS: ABG Base Excess 4.4 mmol/L; ABG HCO3 29 mmol/L (21-25); ABG Oxygen Saturation 94.5 % (94-97); ABG PCO2 46 mmHg (35-45); ABG PH 7.41 (7.35-7.45); ABG PO2 71 mmHg (83-108); ABG TCO2 30 mmol/L (19-24); Allen Test Performed? Yes
[2023-02-06] MEDS: EZETIMIBE 10 MG TAB PO SCH (20:28)
[2023-02-06] MEDS: APIXABAN 5 MG TAB PO SCH (20:28)
[2023-02-06] MEDS: predniSONE 10 MG TAB PO SCH (20:28)
[2023-02-06] MEDS: lisinopriL 10 MG TAB PO SCH (20:29)
[2023-02-07] MEDS ORDERED: METOPROLOL SUCCINATE (ER) 25 MG TAB.ER.24H PO SCH (09:00)
[2023-02-07] MEDS: APIXABAN 5 MG TAB PO SCH ×2 (09:25→21:59)
[2023-02-07] MEDS: predniSONE 10 MG TAB PO SCH (09:25)
[2023-02-07] MEDS: PYRIDOSTIGMINE 60 MG TAB PO SCH ×2 (09:25→12:12)
[2023-02-07] MEDS ORDERED: DILTIAZEM 125 MG in SODIUM CHLORIDE 0.9% 100 ML IV SCH (10:15)
[2023-02-07] MEDS ORDERED: METOPROLOL TARTRATE 5 MG/5 ML VIAL IVP SCH (11:45)
--- NOTE | 2023-02-07 12:12 | P.CRDCN ---
History of Present Illness Consult date: 02/07/23 Reason for Consult (text): Uncontrolled heart rate, myasthenia gravis History of present illness: History of present illness: This is a 67-year-old male patient of Dr. Dc with past medical history of hypertension, hyperlipidemia, paroxysmal atrial fibrillation, myasthenia gravis on long-term steroids, renal insufficiency, previous asymptomatic strokes on imaging, ascending aortic aneurysm, coronary artery calcifications, TIA, obstruc tive sleep apnea. We have been asked to evaluate the patient for uncontrolled heart rate and myasthenia gravis. Patient underwent lumbar fusion surgery 12/26 at [facility]. Patient developed proximal muscle weakness with progressive weakness, shortness of breath and and difficulty swallowing. [facility] was at [facility] and subsequently discharged home. Patient was diagnosed with an exacerbation of myasthenia gravis and started on IVIG, prednisone and Mestinon. Patient is seen today in the emergency center waiting for a bed in the intensive care unit. We have been asked to evaluate the patient for intermittent episodes of tachycardia. Patient has been in a sinus rhythm on telemetry. EKG sinus arrhythmia at 69 bpm Chest x-ray: Chronic changes without evidence of acute process CBC unremarkable. INR 0.9. Sodium 135, potassium 4, BUN 18 creatinine 0.6. Alkaline phosphatase 117 otherwise liver function tests are normal. Magnesium 2. Troponin negative 1. TSH 1.11. Free T4 1 0.06. Urinalysis negative. Home cardiac medications: Eliquis 5 mg twice daily, Zetia 10 mg at bedtime, lisinopril 10 mg at bedtime, Toprol-XL 25 mg daily. Lexiscan stress test 03/2022 small fixed inferior defect and no other reversible ischemia. Echocardiogram 03/2022 revealed EF 60-65% with possible bicuspid aortic valve and mild to moderate aortic regurgitation. Review Of Systems: At the time of my evaluation: Constitutional: No fever, no chills. No weakness, fatigue or lethargy. EENT: No headache. No dizziness. Lungs: No shortness of breath, cough, no sputum production. No wheezing. Cardiovascular: No chest pain, no lower extremity edema. No palpitations. No paroxysmal nocturnal dyspnea. No orthopnea. No lightheadedness or dizziness. No syncopal episodes. Abdominal: No abdominal pain. No nausea, vomiting. No diarrhea. No constipation. No bloody or tarry stools. Genitourinary: No dysuria.. No urinary retention. Musculoskeletal: No myalgias. No muscle weakness, no frequent falls. No back pain. No neck pain. Integumentary: No wounds. No rash. No unusual bruising. Neurologic: No aphasia. No facial droop. No change in mentation. No head injury. No headache. Physical examination: Gen: This is a 67-year-old male. VS: reviewed HEENT: Head is atraumatic, normocephalic. Pupils equal, round. Sclerae is anicteric. NECK: Supple. No JVD. LUNGS: Clear to auscultation. No wheezes or rhonchi. No intercostal retractions. HEART: Regular rate and rhythm. No murmur. ABDOMEN: Soft No tenderness. EXTREMITIES: No pedal edema. No calf tenderness. NEUROLOGICAL: Patient is awake, alert and oriented x3. Assessment: Exacerbation of myasthenia gravis following back surgery Progressive generalized weakness, dysphagia and dyspnea Sinus tachycardia Paroxysmal atrial fibrillation currently in a sinus rhythm Hypertension Hyperlipidemia Obstructive sleep apnea Plan: Change oral beta latosha to Lopressor 5 mg IV push every 8 hours Resume patient's home cardiac medications once patient is able to swallow Obtain 2-D echocardiogram and Doppler study to assess cardiac structure and function Further recommendations to follow based upon clinical course Thank you kindly for this consultation. Nurse practitioner note has been reviewed, I agree with documented findings and plan of care. Patient was seen and examined. Past Medical History Past Medical History: CVA/TIA, Hyperlipidemia, Hypertension, Osteoarthritis (OA) Additional Past Medical History / Comment(s): Sciatica, spinal stenosis myasthenia gravis ascending aortic aneursym History of Any Multi-Drug Resistant Organisms: None Reported Past Surgical History: No Surgical Hx Reported Additional Past Surgical History / Comment(s): colonoscopies, hand surg., wisdom teeth removed, spinal fusion (2022), neck surgery Past Anesthesia/Blood Transfusion Reactions: No Reported Reaction Past Psychological History: No Psychological Hx Reported Smoking Status: Former smoker Past Alcohol Use History: None Reported Additional Past Alcohol Use History / Comment(s): quit smoking 22 yrs. ago, started @15 1ppd Past Drug Use History: None Reported - Past Family History Mother Family Medical History: Cancer Additional Family Medical History / Comment(s): Stomach Cancer Father Family Medical History: Cancer Additional Family Medical History / Comment(s): breast CA Sister(s) Family Medical History: Cancer Additional Family Medical History / Comment(s): breast CA Brother(s) Family Medical History: Cancer Additional Family Medical History / Comment(s): Spine CA Medications and Allergies Home Medications Medication Instructions Recorded Confirmed Type Multivitamins, Thera [Multivitamin 1 tab PO DAILY 09/03/18 02/06/23 History (formulary)] Apixaban [Eliquis] 5 mg PO BID 30 Days #60 tab 03/17/19 02/06/23 Rx Metoprolol Succinate (ER) [Toprol 25 mg PO DAILY 04/02/22 02/06/23 History XL] predniSONE [Deltasone] 10 mg PO BID 04/02/22 02/06/23 History Cholecalciferol [Vitamin D3 (25 150 mcg PO HS 02/06/23 02/06/23 History Mcg = 1000 Iu)] Ezetimibe [Zetia] 10 mg PO HS 02/06/23 02/06/23 History HYDROcodone/APAP 10-325MG [[place] 1 tab PO TID PRN 02/06/23 02/06/23 History 10-325] Pyridostigmine [place] 180 mg PO BID@0900,1500 02/06/23 02/06/23 History [Pyridostigmine [place] ER] lisinopriL [Zestril] 10 mg PO HS 02/06/23 02/06/23 History Allergies Allergy/AdvReac Type Severity Reaction Status Date / Time fentanyl AdvReac Intermediate Nausea & Verified 02/06/23 11:00 Vomiting & Dizzy Physical Exam Vitals: Vital Signs Temp Pulse Resp BP Pulse Ox 02/07/23 06:51 66 16 139/80 96 02/07/23 04:46 124 H 24 96/74 98 02/07/23 03:02 63 18 125/62 97 02/06/23 23:13 98.2 F 02/06/23 23:08 77 20 143/55 94 L 02/06/23 22:11 77 20 155/62 93 L 02/06/23 21:26 84 22 182/72 94 L 02/06/23 20:32 77 20 164/84 96 02/06/23 19:52 79 20 161/79 98 02/06/23 19:14 81 20 148/84 96 02/06/23 18:14 98.4 F 74 17 178/86 96 02/06/23 17:08 74 18 149/82 97 02/06/23 16:04 98.3 F 70 22 154/90 97 02/06/23 13:06 97.7 F 80 18 131/68 98 Intake and Output 02/06/23 02/07/23 02/07/23 22:59 06:59 14:59 Intake Total 410.000 120 Balance 410.000 120 Intake: Intake, IV Titration 410.000 Amount Immune Globulin ( 287.333 Gammagard) 30 gm In Empty Bag 1 bag @ Per Protocol IV .Q0M ONE Rx#: [id number] Immune Globulin ( 122.667 Gammagard) 30 gm In Empty Bag 1 bag @ Per Protocol IV .Q0M ONE Rx#: [id number] Oral 120 Other: Weight 99.79 kg Results 02/06/23 08:21 02/06/23 08:21 Current Medications Generic Name Dose Route Start Last Admin Trade Name Freq PRN Reason Stop Dose Admin Apixaban 5 mg 02/06/23 21:00 02/07/23 09:25 Apixaban 5 Mg Tab PO 5 mg BID QUYEN Administration Protocol Ezetimibe 10 mg 02/06/23 21:00 02/06/23 20:28 Ezetimibe 10 Mg Tab PO 10 mg HS QUYEN Administration Sodium Chloride 1,000 mls @ 20 mls/hr 02/06/23 11:15 02/06/23 11:27 Saline 0.9% IV 20 mls/hr .Q24H QUYEN Administration Immune Globulin 30 gm/ IV 300 mls @ 0 mls/hr 02/07/23 16:00 Solution IV 02/07/23 16:01 .Q0M ONE Protocol Per Protocol Immune Globulin 20 gm/ IV 200 mls @ 0 mls/hr 02/07/23 16:00 Solution IV 02/07/23 16:01 .Q0M ONE Protocol Titrate Immune Globulin 30 gm/ IV 300 mls @ 0 mls/hr 02/08/23 16:00 Solution IV 02/08/23 16:01 .Q0M ONE Protocol Per Protocol Immune Globulin 20 gm/ IV 200 mls @ 0 mls/hr 02/08/23 16:00 Solution IV 02/08/23 16:01 .Q0M ONE Protocol Titrate Lisinopril 10 mg 02/06/23 21:00 02/06/23 20:29 Lisinopril 10 Mg Tab PO 10 mg HS QUYEN Administration Metoprolol Tartrate 5 mg 02/07/23 11:45 Metoprolol Tartrate 5 Mg/5 Ml Vial IVP Q8HR QUYEN Naloxone HCl 0.2 mg 02/06/23 11:09 Naloxone 0.4 Mg/Ml 1 Ml Vial IV Q2M PRN Opioid Reversal Prednisone 10 mg 02/06/23 21:00 02/07/23 09:25 Prednisone 10 Mg Tab PO 10 mg BID QUYEN Administration Pyridostigmine [place] 90 mg 02/06/23 16:30 02/07/23 09:25 Pyridostigmine 60 Mg Tab PO 90 mg QID@08,12,16,20 QUYEN Administration Intake and Output 02/06/23 02/07/23 02/07/23 22:59 06:59 14:59 Intake Total 410.000 120 Balance 410.000 120 Intake: Intake, IV Titration 410.000 Amount Immune Globulin ( 287.333 Gammagard) 30 gm In Empty Bag 1 bag @ Per Protocol IV .Q0M ONE Rx#: [id number] Immune Globulin ( 122.667 Gammagard) 30 gm In Empty Bag 1 bag @ Per Protocol IV .Q0M ONE Rx#: [id number] Oral 120 Other: Weight 99.79 kg Patient Weight 02/08/23 06:59 Weight 99.79 kg 02/06/23 08:21 02/06/23 08:21
[2023-02-07] MEDS: SODIUM CHLORIDE 0.9% 1,000 ML IV SCH (13:30)
--- NOTE | 2023-02-07 14:03 | P.PN ---
Subjective Progress Note Date: 02/07/23 Patient is a 67-year-old male with PMH of myasthenia gravis, atrial fibrillation, hypertension, dyslipidemia, history of thrombosis presents the ED for generalized weakness, shortness of breath, double vision and difficulty swallowing. Patient reports undergoing back surgery on December 26 at [facility]. Since then, he has experienced the above symptoms that has been progressively getting worse. He reports shortness of breath when laying flat has been getting worse over the past 3 days. The symptoms concerned him to come to the ED. He denies any headache, lower extremity edema, nausea or vomiting, fever or chills, cough, chest pain, palpitations, changes in urination or bowel habits. No changes in appetite or weight. He denies any dizziness, numbness/weakness/tingling of the extremities. In the ED, his BP was elevated at 167/150. BP on recheck was 127/77. Vital signs were otherwise stable. CBC was unremarkable. INR was 0.9. CMP shows sodium 135, creatinine is 0.6, alkaline phosphatase 172. Troponin was less than 0.012. BNP was 51. TSH 1.11. Urinalysis negative. EKG showed sinus arrhythmia. Chest x-ray negative for acute changes. Patient was admitted for further evaluation of symptoms. 02/07 Patient was seen and examined. A-team was called as patient was choking while trying to swallow his pills. He appears stable when evaluated with regard to his respiratory status after the episode. HR is the 140s on telemetry. BP appears stable. ABG and FVC, NIF ordered which is pending. ABG from yesterday shows pH 7.41, pCO2 46 bicarb of 29. General: non toxic, no distress, appears at stated age Derm: warm, dry Head: atraumatic, normocephalic, symmetric Eyes: EOMI, no lid lag, anicteric sclera Cardiovascular: Irregular, no murmur Lungs: CTA bilateral, no rhonchi, no rales , no accessory muscle use Ext: no gross muscle atrophy, no edema, no contractures Neuro: no focal neuro deficits Psych: Alert, oriented, appropriate affect Myaesthenia gravis exacerbation, impending crisis A-Fib with RVR Chronic conditions: Hypertension, dyslipidemia, history of thrombosis Based on my assessment of this patient, this patient meets a high complexity level of care. Patient has an acute diagnosis of myaesthenia gravis exacerbation with impending crisis that poses a threat to life or bodily function. Myaesthenia gravis exacerbation, impending crisis: Discussed with Dr. Arcos, start 3 days of IVIG. Speech therapy consulted for swallow evaluation. Concerns for respiratory depression. PEF and NIF ordered. ABG is ordered. Pulmonology on board. Continue Pyridostigmine and Prednisone home dose. Patient has a CPAP at home, advised to continue. Cardiology started the patient on Metoprolol 5 mg IV Q8H. Initially started on Cardizem drip which was discontinued by Cardiology. is the decision maker if he cant make decisions for himself. FULL CODE. I have reviewed the following ent consultant notes: Pulmonology, Neurology and Cardiology note reviewed. I have reviewed the results of the following tests: ABG I have ordered the following tests: ABG, PEF, NIF I have discussed the care of this patient with the following independent historian: I have independently interpreted the following test below: I have discussed the management of this patient with the following physician: Discussed with Dr. Arcos Objective - Vital Signs Vital signs: Vital Signs Temp 98.2 F 02/06/23 23:13 Pulse 66 02/07/23 06:51 Resp 16 02/07/23 06:51 BP 139/80 02/07/23 06:51 Pulse Ox 96 02/07/23 06:51 FiO2 Intake & Output 02/06/23 02/07/23 02/07/23 18:59 06:59 18:59 Intake Total 287.333 122.667 120 Balance 287.333 122.667 120 Weight 99.79 kg 99.79 kg Intake: Intake, IV Titration 287.333 122.667 Amount Immune Globulin ( 287.333 Gammagard) 30 gm In Empty Bag 1 bag @ Per Protocol IV .Q0M ONE Rx#: [id number] Immune Globulin ( 122.667 Gammagard) 30 gm In Empty Bag 1 bag @ Per Protocol IV .Q0M ONE Rx#: [id number] Oral 120 - Labs CBC & Chem 7: 02/06/23 08:21 02/06/23 08:21 Labs: Abnormal Lab Results - Last 24 Hours (Table) 02/06/23 Range/Units 17:11 ABG pCO2 46 H (35-45) mmHg ABG pO2 71 L (83-108) mmHg ABG HCO3 29 H (21-25) mmol/L ABG Total CO2 30 H (19-24) mmol/L
--- NOTE | 2023-02-07 14:04 | P.PN ---
Subjective Progress Note Date: 02/07/23 I am following-up with patient and it seems he is having difficulty swallowing his pills today. He feels respiratory condition is better today compared to yesterday. Continues to have diplopia. He received IVIG day one yesterday. Objective - Vital Signs Vital signs: Vital Signs Temp 98.2 F 02/06/23 23:13 Pulse 66 02/07/23 06:51 Resp 16 02/07/23 06:51 BP 139/80 02/07/23 06:51 Pulse Ox 96 02/07/23 06:51 FiO2 Intake & Output 02/06/23 02/07/23 02/07/23 18:59 06:59 18:59 Intake Total 287.333 122.667 120 Balance 287.333 122.667 120 Weight 99.79 kg 99.79 kg Intake: Intake, IV Titration 287.333 122.667 Amount Immune Globulin ( 287.333 Gammagard) 30 gm In Empty Bag 1 bag @ Per Protocol IV .Q0M ONE Rx#: [id number] Immune Globulin ( 122.667 Gammagard) 30 gm In Empty Bag 1 bag @ Per Protocol IV .Q0M ONE Rx#: [id number] Oral 120 - Exam GENERAL: The patient is sitting in a chair and is not in acute distress. NEUROLOGICAL: Higher mental function: The patient is awake, alert, oriented to self, place and time. Patient is following commands. No aphasia and no neglect. Cranial nerves: The pupils are round, equal and reactive to light. Patient having diplopia throughout. Visual díaz are full to confrontation throughout. Extraocular movement is intact no nystagmus is noted. Facial sensation is normal to touch throughout. The facial strength is normal throughout. Hearing is moderately decreased bilaterally to hand rub. Tongue is midline and moved [id number] without any difficulty. No dysarthria is noted. Shoulder shrug is normal bilaterally. Motor: The strength is 5 over 5 throughout. Normal tone and bulk. Cerebellum: Normal finger to nose bilaterally. Sensation: Sensation is normal to touch throughout. Reflexes (right/left): 2+ throughout uppers while lowers are 1+. Plantars are mute bilaterally. Some of the workup during his hospital visit consisted of: CBC with differential is unremarkable Sodium is 135, calcium is 10.0, HDL to use within normal limits. Serum glucose is 95 TSH is 1.10 and the free T4 is 1.06. Urine analysis is negative for any underlying urinary tract infection. - Labs CBC & Chem 7: 02/06/23 08:21 02/06/23 08:21 Labs: Abnormal Lab Results - Last 24 Hours (Table) 02/06/23 Range/Units 17:11 ABG pCO2 46 H (35-45) mmHg ABG pO2 71 L (83-108) mmHg ABG HCO3 29 H (21-25) mmol/L ABG Total CO2 30 H (19-24) mmol/L Assessment and Plan Assessment: This is a 67-year-old gentleman with history of myasthenia gravis since 2019 was on Mestinon as well as prednisone and had the recent lower back fusion on 12/26/2022 over [facility] and the last 1 week the patient is been having the worsening shortness of breath, dysphagia, diplopia, ptosis. Myasthenia gravis exacerbation. History of Myasthenia gravis since 2019 and for the last 1 year he stated he is been on Mestinon ER 180 mg twice a day and prednisone 20 mg daily History of lower back fusion on 12/26/2022 over [facility] and he still has difficulty walking History of TIA Plan: Patient was started on IVIG at today's date to about a 3 (2g/kg). Recommend to continue assessing the FVC and NiF every 4-6 hours. Continue neuro checks I went on Prednisone from 10mg bid to 20mg bid. Pending his home medication of Mestinon ER 180mg bid. In the meantime, I have him on Mestinon 90mg QID (8, 12, 16, 20). Recommend the patient to be evaluated by [facility] and be transferred to ICU for closer observation. It seems that there is no beds available at ICU currently. Continue her checks Unsure if the patient was a value for thymoma. The patient thinks he was evaluated for thymoma and was negative to his knowledge Continue your checks PT OT and [facility] are consulted I started the patient on Protonix 40 mg IV for GI prophylaxis I started the patient on vitamin D3 2000IU daily. We'll defer the rest of the medical management to primary team Plan discussed with the patient and primary team. Time with Patient: Less than 30
[2023-02-07] MEDS: METOPROLOL TARTRATE 5 MG/5 ML VIAL IVP SCH ×2 (14:15→23:41)
[2023-02-07] MEDS: CHOLECALCIFEROL 25 MCG (1000 IU) TABLET PO SCH (15:30)
[2023-02-07] MEDS ORDERED: IMMUNE GLOBULIN (GAMMAGARD) 20 GM in EMPTY BAG 1 BAG IV ONE (16:00)
[2023-02-07] MEDS ORDERED: IMMUNE GLOBULIN (GAMMAGARD) 30 GM in EMPTY BAG 1 BAG IV ONE (16:00)
--- NOTE | 2023-02-07 16:20 | P.PN ---
Subjective Progress Note Date: 02/07/23 I am seeing this patient in emergency department because of ongoing weakness and difficulties in swallowing. The patient is known to have myasthenia gravis. The patient is also known to have severe obstructive sleep apnea with an AHI of 46 and he has limited on APAP machine pressures of 5/10 cm of water. He is myasthenia gravis has been stable and the patient has limited on a combination of Mestinon and prednisone. The patient has paroxysmal A. fib, previous history of DVT admitted on anticoagulation with Eliquis, and hypertension. The patient underwent a L1 S1 lumbar fusion and surgery was done on 12/27/2019. [facility]. The patient has been taking 10 mg of prednisone twice a day. He was also Mestinon. His spirometry and forced vital capacity from 10/11/2022 was at 3.24 L which is 65% of predicted. The muscle forces were also adequate with a an EP of 74 and MIP of 87. He did have some proximal muscle weakness. This was mainly when he was trying to climb up stairs. Since his surgery, the patient had progressive weakness. Is having difficulties with swallowing. No double vision. He did go to [facility] for around 2 weeks and subsequently was discharged home. He was walking around with the help of a walker and he has noticed full mobility yet. His surgical one-sided dry clean and intact. No aspiration. He presented to the hospital as the patient was getting progressively more weak and he also reported some shortness of breath. No chest pain. No hemoptysis. No pleurisy. No aspiration. No abnormalities on the chest x-ray.Labs are all within normal limits. ProBNP level is nonelevated. Liver function tests are normal. Urinalysis is negative. On today's evaluation of 82,020, the patient is being seen for a follow-up. The patient was started on IVIG. The patient is also Mestinon 180 mg twice a day and prednisone 20 mg twice a day. He is still weak. He did have a choking episode earlier today. He is recovered from that. He remains on room air oxygen. Blood gas was done and there is no evidence of any significant respiratory acidosis. The pH is at 7.4 with episodes of 46 and pO2 of 71. At the same time, a forced vital capacity was done and is down to 1.6 which is lower compared to his baseline of 3.24 L. Objective - Vital Signs Vital signs: Vital Signs Temp 98.2 F 02/06/23 23:13 Pulse 66 02/07/23 06:51 Resp 16 02/07/23 06:51 BP 139/80 02/07/23 06:51 Pulse Ox 96 02/07/23 06:51 FiO2 Intake & Output 02/06/23 02/07/23 02/07/23 18:59 06:59 18:59 Intake Total 287.333 122.667 130 Balance 287.333 122.667 130 Weight 99.79 kg 99.79 kg Intake: IV 10 Invasive Line 2 10 Intake, IV Titration 287.333 122.667 Amount Immune Globulin ( 287.333 Gammagard) 30 gm In Empty Bag 1 bag @ Per Protocol IV .Q0M ONE Rx#: [id number] Immune Globulin ( 122.667 Gammagard) 30 gm In Empty Bag 1 bag @ Per Protocol IV .Q0M ONE Rx#: [id number] Oral 120 - Exam Gen. appearance the patient is on room air oxygen and the patient is calm and comfortable. Head exam was generally normal. There was no scleral icterus or corneal arcus. Mucous membranes were moist. Neck was supple and without jugular venous distension, thyromegaly, or carotid bruits. Carotids were easily palpable bilaterally. There was no adenopathy. Lungs were clear to auscultation and percussion, and with normal diaphragmatic excursion. No wheezes or rales were noted. Cardiac exam revealed the PMI to be normally situated and sized. The rhythm was regular and no extrasystoles were noted during several minutes of auscultation. The first and second heart sounds were normal and physiologic splitting of the second heart sound was noted. There were no murmurs, rubs, clicks, or gallops. Abdominal exam revealed normal bowel sounds. The abdomen was soft, non-tender, and without masses, organomegaly, or appreciable enlargement of the abdominal aorta. Examination of the extremities revealed easily palpable radial, femoral and pe alli pulses. There was no cyanosis, clubbing or edema. Examination of the skin revealed no evidence of significant rashes, suspicious appearing nevi or other concerning lesions. The surgical one-sided over the back is dry clean and intact. NEUROLOGICAL: Higher mental function: The patient is awake, alert, oriented to self, place and time. Patient is following commands. No aphasia and no neglect. Cranial nerves: The pupils are round, equal and reactive to light. Patient having diplopia throughout. Visual díaz are full to confrontation throughout. Extraocular movement is intact no nystagmus is noted. Facial sensation is normal to touch throughout. The facial strength is normal throughout. Hearing is moderately decreased bilaterally to hand rub. Tongue is midline and moved [id number] without any difficulty. No dysarthria is noted. Shoulder shrug is normal bilaterally. Motor: The strength is 5 over 5 throughout. Normal tone and bulk. Cerebellum: Normal finger to nose bilaterally. Sensation: Sensation is normal to touch throughout. Reflexes (right/left): 2+ throughout uppers while lowers are 1+. Plantars are mute bilaterally. - Labs CBC & Chem 7: 02/06/23 08:21 02/06/23 08:21 Labs: Abnormal Lab Results - Last 24 Hours (Table) 02/06/23 Range/Units 17:11 ABG pCO2 46 H (35-45) mmHg ABG pO2 71 L (83-108) mmHg ABG HCO3 29 H (21-25) mmol/L ABG Total CO2 30 H (19-24) mmol/L Assessment and Plan Plan: Exacerbation of myasthenia gravis following back surgery. The patient underwent L1 S1 decompression/laminectomy on 12/26/2022 and since then the patient been having progressive worsening in his motor function, strength and shortness of breath and dysphagia. Has the metabolic combination of Mestinon and prednisone outpatient basis. Note that his postoperative course was essentially motor the patient did not requiring patient on mechanical ventilation after a three-hour surgery. He was extubated without any major difficulties. The patient currently is on IVIG, Mestinon on oral prednisone at a dose of 40 mg by mouth daily. Forced vital capacity is at 1.6 L Generalized weakness secondary to above Dysphagia secondary to above Dyspnea secondary to above Obstructive sleep apnea, severe maintain on APAP pressures of 5/15 cm of water Paroxysmal A. fib, maintained on anticoagulation with Eliquis Hypertension Hyperlipidemia Osteoarthritis Plan Monitor FVC on a daily basis Blood gas was noted We'll monitor weakness and respiratory status No need for ICU care at this point in time Continue IVIG IVIG 2 g/kg over the next 3 days Continue oral prednisone total of 40 mg daily Continue Mestinon We'll continue to follow. Without the patient uses CPAP machine from home. Continue anticoagulation with Eliquis. Plan monitor this patient closely
--- NOTE | 2023-02-07 17:02 | XR ---
EXAMINATION TYPE: XR chest 1V portable DATE OF EXAM: 02/07/2023 Comparison: 02/06/2023 Clinical History: 67-year-old male NG placement Findings: ACDF hardware. NG tube is satisfactory. Heart upper limits of normal in size. Atherosclerotic arch ca lcifications. Some strandy atelectasis at the right base. Otherwise, no consolidation or pleural effu melodie. Suspect full-thickness rotator cuff tear on the right. Impression: Satisfactory NG tube. Some strandy right basilar atelectasis.
[2023-02-07] MEDS: PYRIDOSTIGMINE 180 MG PO SCH (17:13)
[2023-02-07] MEDS: PANTOPRAZOLE 40 MG/10 ML VIAL IVP SCH (17:25)
[2023-02-07] MEDS: predniSONE 20 MG TAB PO SCH (21:58)
[2023-02-07] MEDS: lisinopriL 10 MG TAB PO SCH (21:58)
[2023-02-07] MEDS: EZETIMIBE 10 MG TAB PO SCH (21:59)
[2023-02-07] MEDS: MELATONIN 5 MG TABLET PO PRN (23:41)
[2023-02-08] MEDS: APIXABAN 5 MG TAB PO SCH ×2 (08:25→20:14)
[2023-02-08] MEDS: CHOLECALCIFEROL 25 MCG (1000 IU) TABLET PO SCH (08:25)
[2023-02-08] MEDS: predniSONE 20 MG TAB PO SCH ×2 (08:25→20:15)
[2023-02-08] MEDS: METOPROLOL TARTRATE 5 MG/5 ML VIAL IVP SCH ×3 (08:25→23:40)
[2023-02-08] MEDS: PANTOPRAZOLE 40 MG/10 ML VIAL IVP SCH (08:26)
[2023-02-08] MEDS: PYRIDOSTIGMINE 180 MG PO SCH ×2 (08:27→15:54)
[2023-02-08] MEDS: SODIUM CHLORIDE 0.9% 1,000 ML IV SCH (11:15)
--- NOTE | 2023-02-08 12:00 | P.PN ---
Subjective Progress Note Date: 02/08/23 History of present illness: This is a 67-year-old male patient of Dr. Dc with past medical history of hypertension, hyperlipidemia, paroxysmal atrial fibrillation, myasthenia gravis on long-term steroids, renal insufficiency, previous asymptomatic strokes on imaging, ascending aortic aneurysm, coronary artery calcifications, TIA, obstructive sleep apnea. We have been asked to evaluate the patient for uncontrolled heart rate and myasthenia gravis. Patient underwent lumbar fusion surgery 12/26 at [facility]. Patient developed proximal muscle weakness with progressive weakness, shortness of breath and and difficulty swallowing. Patient was at residential for 2 weeks and subsequently discharged home. Patient was diagnosed with an exacerbation of myasthenia gravis and started on IVIG, prednisone and Mestinon. Patient is seen today in the emergency center waiting for a bed in the intensive care unit. We have been asked to evaluate the patient for intermittent episodes of tachycardia. Patient has been in a sinus rhythm on telemetry. EKG sinus arrhythmia at 69 bpm Chest x-ray: Chronic changes without evidence of acute process CBC unremarkable. INR 0.9. Sodium 135, potassium 4, BUN 18 creatinine 0.6. Alkaline phosphatase 117 otherwise liver function tests are normal. Magnesium 2. Troponin negative 1. TSH 1.11. Free T4 1 0.06. Urinalysis negative. Home cardiac medications: Eliquis 5 mg twice daily, Zetia 10 mg at bedtime, lisinopril 10 mg at bedtime, Toprol-XL 25 mg daily. Lexiscan stress test 03/2022 small fixed inferior defect and no other reversible ischemia. Echocardiogram 03/2022 revealed EF 60-65% with possible bicuspid aortic valve and mild to moderate aortic regurgitation. 02/08 Patient is seen today on the CSD unit. Patient has NG tube in place for med ications. Telemetry has been sinus rhythm at rate of 80s to 90s, blood pressure 152/76, pulse ox 95% on room air. Repeat chest x-ray reveals satisfactory and she laced cement. The strandy right basilar atelectasis. Patient is scheduled today for additional immunoglobulin. Echocardiogram has been obtained and report is pending. Physical examination: Gen: This is a 67-year-old male. VS: reviewed HEENT: Head is atraumatic, normocephalic. Pupils equal, round. Sclerae is anicteric. NECK: Supple. No JVD. LUNGS: Clear to auscultation. No wheezes or rhonchi. No intercostal retractio ns. HEART: Regular rate and rhythm. No murmur. EXTREMITIES: No pedal edema. NEUROLOGICAL: Patient is awake, alert and oriented x3. Assessment: Exacerbation of myasthenia gravis following back surgery Progressive generalized weakness, dysphagia and dyspnea Sinus tachycardia Paroxysmal atrial fibrillation currently in a sinus rhythm Hypertension Hyperlipidemia Obstructive sleep apnea Plan: Change oral beta latosha to Lopressor 5 mg IV push every 8 hours Resume patient's home cardiac medications once patient is able to swallow Obtain 2-D echocardiogram and Doppler study report Further recommendations to follow based upon clinical course Nurse practitioner note has been reviewed, I agree with documented findings and plan of care. Patient was seen and examined. Objective - Vital Signs Vital signs: Vital Signs Temp 98.0 F 02/08/23 08:13 Pulse 94 02/08/23 08:13 Resp 20 02/08/23 08:13 BP 156/84 02/08/23 08:13 Pulse Ox 96 02/08/23 08:13 FiO2 Intake & Output 02/07/23 02/08/23 02/08/23 18:59 06:59 18:59 Intake Total 130 20 10 Balance 130 20 10 Weight 99.79 kg Intake: IV 10 20 10 Invasive Line 2 10 20 10 Oral 120 Other: Voiding Method Toilet # Voids 1 1 # Bowel Movements 1 - Labs CBC & Chem 7: 02/06/23 08:21 02/06/23 08:21
--- NOTE | 2023-02-08 12:04 | CA ---
Transthoracic Echo Report Name: Saeid Velasco Age: 67 Gender: M : 1955 Exam Date: 02/08/2023 10:13 Exam Location: [place] [facility] Ht (in): 73 Wt (lb): 220 Ordering Physician: Jennifer Hernandez Attending/Referring Phys: [id number], Mary P[employer]ing [employer] Operator Hugo Tim Procedure CPT: Indications: LVF Cardiac Hx: Technical Quality: Fair Contrast 1: Total Dose (mL): Contrast 2: Total Dose (mL): MEASUREMENTS (Male / Female) Normal Values 2D ECHO LV Diastolic Diameter PLAX 4.3 cm 4.2 - 5.9 / 3.9 - 5.3 cm LV Systolic Diameter PLAX 2.7 cm IVS Diastolic Thickness 1.4 cm 0.6 - 1.0 / 0.6 - 0.9 cm LVPW Diastolic Thickness 1.1 cm 0.6 - 1.0 / 0.6 - 0.9 cm LV Relative Wall Thickness 0.6 RV Internal Dim ED PLAX 3.3 cm LVOT Diameter 2.5 cm Aortic Root Diameter 3.7 cm LA Systolic Diameter LX 2.1 cm 3.0 - 4.0 / 2.7 - 3.8 cm LV Diastolic Volume MOD BP 64.9 cm??? 67 - 155 / 56 - 104 cm??? LV Systolic Volume MOD BP 17.1 cm??? - 58 / 19 - 49 cm??? LV Ejection Fraction MOD BP 73.6 % >= 55 % LV Cardiac Index MOD BP 1628.7 cm???/min???m??? LV Diastolic Volume MOD 4C 70.0 cm??? LV Systolic Volume MOD 4C 26.1 cm??? LV Ejection Fraction MOD 4C 62.7 % LV Cardiac Index MOD 4C 1496.0 cm???/min???m??? LV Diastolic Length 4C 8.2 cm LV Systolic Length 4C 6.9 cm LV Diastolic Volume MOD 2C 45.6 cm??? LV Systolic Volume MOD 2C 8.3 cm??? LV Ejection Fraction MOD 2C 81.9 % LV Cardiac Index MOD 2C 1273.6 cm???/min???m??? LV Diastolic Length 2C 6.2 cm LV Systolic Length 2C 5.0 cm LA Volume 46.2 cm??? 18 - 58 / 22 - 52 cm??? Ascending Aorta Diameter 3.4 cm DOPPLER AV Peak Velocity 189.4 cm/s AV Peak Gradient 14.4 mmHg AI Peak Velocity 415.2 cm/s AI Peak Gradient 69.0 mmHg AI Pressure Half Time 481.9 ms LVOT Peak Velocity 109.0 cm/s LVOT Peak Gradient 4.8 mmHg AV Area Cont Eq pk 2.7 cm??? MV Peak Velocity 90.7 cm/s MV Peak Gradient 3.3 mmHg MV Mean Velocity 45.4 cm/s MV Mean Gradient 1.0 mmHg MV Velocity Time Integral 33.0 cm Mitral E Point Velocity 67.6 cm/s Mitral A Point Velocity 88.4 cm/s Mitral E to A Ratio 0.8 MV Deceleration Time 317.1 ms TR Peak Velocity 172.2 cm/s TR Peak Gradient 11.9 mmHg Right Ventricular Systolic Press 17.1 mmHg FINDINGS Left Ventricle Normal LV size. Mildly increased septal wall thickness. Left ventricular ejection fraction is estimated at 55-60 %.normal left ventricular wall motion. Right Ventricle Normal right ventricular size. Right Atrium Normal right atrial size. Left Atrium Normal left atrial size. Mitral Valve Structurally normal mitral valve. No mitral stenosis. No mitral regurgitation. Aortic Valve Aortic valve sclerosis. Rpdy-[id number]-[id number] aortic regurgitation. Tricuspid Valve Structurally normal tricuspid valve. Mild TR. Pulmonic Valve Pulmonic valve not well visualized. No pulmonic regurgitation. Pericardium Normal pericardium. Aorta AO root jacque= 3.7cm. Ascending AO jacque= 3.8cm. CONCLUSIONS 1. Normal left ventricle size and systolic function 2. Mild to moderate aortic regurgitation with mild tricuspid regurgitation and no evidence of pulmonary hypertension Previewed by: Dr. Haris Espino MD (Electronically Signed) Final Date: 08 February 2023 12:03
--- NOTE | 2023-02-08 12:49 | P.PN ---
Subjective Progress Note Date: 02/08/23 I am seeing this patient in emergency department because of ongoing weakness and difficulties in swallowing. The patient is known to have myasthenia gravis. The patient is also known to have severe obstructive sleep apnea with an AHI of 46 and he has limited on APAP machine pressures of 5/10 cm of water. He is myasthenia gravis has been stable and the patient has limited on a combination of Mestinon and prednisone. The patient has paroxysmal A. fib, previous history of DVT admitted on anticoagulation with Eliquis, and hypertension. The patient underwent a L1 S1 lumbar fusion and surgery was done on 12/27/2019. Had [facility]. The patient has been taking 10 mg of prednisone twice a day. He was also Mestinon. His spirometry and forced vital capacity from 10/11/2022 was at 3.24 L which is 65% of predicted. The muscle forces were also adequate with a an EP of 74 and MIP of 87. He did have some proximal muscle weakness. This was mainly when he was trying to climb up stairs. Since his surgery, the patient had progressive weakness. Is having difficulties with swallowing. No double vision. He did go to [facility] for around 2 weeks and subsequently was discharged home. He was walking around with the help of a walker and he has noticed full mobility yet. His surgical one-sided dry clean and intact. No aspiration. He presented to the hospital as the patient was getting progressively more weak and he also reported some shortness of breath. No chest pain. No hemoptysis. No pleurisy. No aspiration. No abnormalities on the chest x-ray.Labs are all within normal limits. ProBNP level is nonelevated. Liver function tests are normal. Urinalysis is negative. On today's evaluation of 02/07/2023, the patient is being seen for a follow-up. The patient was started on IVIG. The patient is also Mestinon 180 mg twice a day and prednisone 20 mg twice a day. He is still weak. He did have a choking episode earlier today. He is recovered from that. He remains on room air oxygen. Blood gas was done and there is no evidence of any significant respiratory acidosis. The pH is at 7.4 with episodes of 46 and pO2 of 71. At the same time, a forced vital capacity was done and is down to 1.6 which is lower compared to his baseline of 3.24 L. Earlier this morning of 02/08/2023, the patient was having some weakness and this FVC was down to 1.2. Subsequently, the patient improved. His swallowing breathing, muscle weakness and diplopia has recovered. The patient has received already 2 doses of IVIG. Another FVC according was done and the patient's level was up to 2.3 L. He remains on Mestinon. He remains on prednisone 5 mg twice a day. NG tube is in place. Swallow evaluation will be done. Unable to utilize a CPAP overnight because of his NG tube placement. Objective - Vital Signs Vital signs: Vital Signs Temp 98.0 F 02/08/23 08:13 Pulse 94 02/08/23 08:13 Resp 20 02/08/23 08:13 BP 156/84 02/08/23 08:13 Pulse Ox 96 02/08/23 08:13 FiO2 Intake & Output 02/07/23 02/08/23 02/08/23 18:59 06:59 18:59 Intake Total 130 20 10 Balance 130 20 10 Weight 99.79 kg Intake: IV 10 20 10 Invasive Line 2 10 20 10 Oral 120 Other: Voiding Method Toilet # Voids 1 1 # Bowel Movements 1 - Exam Gen. appearance the patient is on room air oxygen and the patient is calm and comfortable. The patient has NG tube in place Head exam was generally normal. There was no scleral icterus or corneal arcus. Mucous membranes were moist. Neck was supple and without jugular venous distension, thyromegaly, or carotid bruits. Carotids were easily palpable bilaterally. There was no adenopathy. Lungs were clear to auscultation and percussion, and with normal diaphragmatic excursion. No wheezes or rales were noted. Cardiac exam revealed the PMI to be normally situated and sized. The rhythm was regular and no extrasystoles were noted during several minutes of auscultation. The first and second heart sounds were normal and physiologic splitting of the second heart sound was noted. There were no murmurs, rubs, clicks, or gallops. Abdominal exam revealed normal bowel sounds. The abdomen was soft, non-tender, and without masses, organomegaly, or appreciable enlargement of the abdominal aorta. Examination of the extremities revealed easily palpable radial, femoral and pedal pulses. There was no cyanosis, clubbing or edema. Examination of the skin revealed no evidence of significant rashes, suspicious appearing nevi or other concerning lesions. The surgical one-sided over the b ack is dry clean and intact. NEUROLOGICAL: Higher mental function: The patient is awake, alert, oriented to self, place and time. Patient is following commands. No aphasia and no neglect. Cranial nerves: The pupils are round, equal and reactive to light. Patient having diplopia throughout. Visual díaz are full to confrontation throughout. Extraocular movement is intact no nystagmus is noted. Facial sensation is normal to touch throughout. The facial strength is normal throughout. Hearing is moderately decreased bilaterally to hand rub. Tongue is midline and moved [id number] without any difficulty. No dysarthria is noted. Shoulder shrug is normal bilaterally. Motor: The strength is 5 over 5 throughout. Normal tone and bulk. Cerebellum: Normal finger to nose bilaterally. Sensation: Sensation is normal to touch throughout. Reflexes (right/left): 2+ throughout uppers while lowers are 1+. Plantars are mute bilaterally. - Labs CBC & Chem 7: 02/06/23 08:21 02/06/23 08:21 Assessment and Plan Plan: Exacerbation of myasthenia gravis following back surgery. The patient underwent L1 S1 decompression/laminectomy on 12/26/2022 and since then the patient been having progressive worsening in his motor function, strength and shortness of breath and dysphagia. Has the metabolic combination of Mestinon and prednisone outpatient basis. Note that his postoperative course was essentially motor the patient did not requiring patient on mechanical ventilation after a three-hour surgery. He was extubated without any major difficulties. The patient currently is on IVIG, Mestinon on oral prednisone at a dose of 40 mg by mouth daily. Forced vital capacity is at 1.6 L, repeat level today improved and the level is up to 2.3. Note that the patient has received a total of 2 doses of IVIG. The patient was also given a NG tube due to his difficulties in swallowing. Generalized weakness secondary to above Dysphagia secondary to above Dyspnea secondary to above Obstructive sleep apnea, severe maintain on APAP pressures of 5/15 cm of water Paroxysmal A. fib, maintained on anticoagulation with Eliquis Hypertension Hyperlipidemia Osteoarthritis Plan Monitor FVC on a daily basis Swallow evaluation We will NG tube if he is able to pass the swallow eval Already received 2 doses of IVIG and the third also be given today Continue oral prednisone total of 40 mg daily Continue Mestinon We'll continue to follow. Without the patient uses CPAP machine from home.The patient will be able to use his CPAP is able to come off the NG tube Continue anticoagulation with Eliquis. Plan monitor this patient closely
--- NOTE | 2023-02-08 12:55 | P.PN ---
Subjective Progress Note Date: 02/08/23 Patient is a 67-year-old male with PMH of myasthenia gravis, atrial fibrillation, hypertension, dyslipidemia, history of thrombosis presents the ED for generalized weakness, shortness of breath, double vision and difficulty swallowing. Patient reports undergoing back surgery on December 26 at [facility]. Since then, he has experienced the above symptoms that has been progressively getting worse. He reports shortness of breath when laying flat has been getting worse over the past 3 days. The symptoms concerned him to come to the ED. He denies any headache, lower extremity edema, nausea or vomiting, fever or chills, cough, chest pain, palpitations, changes in urination or bowel habits. No changes in appetite or weight. He denies any dizziness, numbness/weakness/tingling of the extremities. In the ED, his BP was elevated at 167/150. BP on recheck was 127/77. Vital signs were otherwise stable. CBC was unremarkable. INR was 0.9. CMP shows sodium 135, creatinine is 0.6, alkaline phosphatase 172. Troponin was less than 0.012. BNP was 51. TSH 1.11. Urinalysis negative. EKG showed sinus arrhythmia. Chest x-ray negative for acute changes. Patient was admitted for further evaluation of symptoms. 02/07 Patient was seen and examined. A-team was called as patient was choking while trying to swallow his pills. He appears stable when evaluated with regard to his respiratory status after the episode. HR is the 140s on telemetry. BP appears stable. ABG and FVC, NIF ordered which is pending. ABG from yesterday shows pH 7.41, pCO2 46 bicarb of 29. Speech therapy recommended NPO and NG tube was inserted. 02/08 Patient was seen and examined. NG tube advanced by RN. Patient reports improvement in his breathing and swallowing. He is pending repeat speech evaluation. He would like to get the NG tube out if possible. FVC 1.2 today, 1.6 yesterday. Continued on IVIG (day 3). Echocardiogram shows normal EF and AR/TR. General: non toxic, no distress, appears at stated age Derm: warm, dry Head: atraumatic, normocephalic, symmetric Eyes: EOMI, no lid lag, anicteric sclera Cardiovascular: Normal S1 S2, no murmur Lungs: CTA bilateral, no rhonchi, no rales , no accessory muscle use Ext: no gross muscle atrophy, no edema, no contractures Neuro: no focal neuro deficits Psych: Alert, oriented, appropriate affect Myaesthenia gravis exacerbation, impending crisis A-Fib with RVR Chronic conditions: Hypertension, dyslipidemia, history of thrombosis Based on my assessment of this patient, this patient meets a moderate complexity level of care. Patient has an acute diagnosis of myaesthenia gravis exacerbation with impending crisis that poses a threat to life or bodily function. Myaesthenia gravis exacerbation, impending crisis: Discussed with Dr. Arcos, start 3 days of IVIG. Speech therapy consulted for swallow evaluation. Concerns for respiratory depression. PEF Q4H. Pulmonology on board. Continue Pyridostigmine and Prednisone home dose. Patient has a CPAP at home, advised to continue. Cardiology started the patient on Metoprolol 5 mg IV Q8H. Initially started on Cardizem drip which was discontinued by Cardiology. Heart rate much improved. is the decision maker if he cant make decisions for himself. FULL CODE. I have reviewed the following clinical education consultant notes: Pulmonology, and Cardiology note reviewed. I have reviewed the results of the following tests: I have ordered the following tests: I have discussed the care of this patient with the following independent historian: I have independently interpreted the following test below: I have discussed the management of this patient with the following physician: Objective - Vital Signs Vital signs: Vital Signs Temp 98.1 F 02/08/23 11:41 Pulse 82 02/08/23 11:41 Resp 18 02/08/23 11:41 BP 152/76 02/08/23 11:41 Pulse Ox 95 02/08/23 11:41 FiO2 Intake & Output 02/07/23 02/08/23 02/08/23 18:59 06:59 18:59 Intake Total 130 20 610 Balance 130 20 610 Weight 99.79 kg Intake: IV 10 20 20 Invasive Line 2 10 20 20 Intake, IV Titration 500 Amount Immune Globulin ( 200 Gammagard) 20 gm In Empty Bag 1 bag @ Titrate IV . Q0M ONE Rx#:[id number] Immune Globulin ( 300 Gammagard) 30 gm In Empty Bag 1 bag @ Per Protocol IV .Q0M ONE Rx#: [id number] Oral 120 Tube Feeding 25 Other 65 Other: Voiding Method Toilet # Voids 1 1 # Bowel Movements 1 - Labs CBC & Chem 7: 02/06/23 08:21 02/06/23 08:21
--- NOTE | 2023-02-08 13:06 | P.PN ---
Subjective Progress Note Date: 02/08/23 The patient seen at bedside and he feels he is doing much better now compared to yesterday or the day prior. He has completed the day and to of IVIG out of 3. He feels he is able to swallow better today. NG tube was placed on him yesterday. Objective - Vital Signs Vital signs: Vital Signs Temp 98.1 F 02/08/23 11:41 Pulse 82 02/08/23 11:41 Resp 18 02/08/23 11:41 BP 152/76 02/08/23 11:41 Pulse Ox 95 02/08/23 11:41 FiO2 Intake & Output 02/07/23 02/08/23 02/08/23 18:59 06:59 18:59 Intake Total 130 20 610 Balance 130 20 610 Weight 99.79 kg Intake: IV 10 20 20 Invasive Line 2 10 20 20 Intake, IV Titration 500 Amount Immune Globulin ( 200 Gammagard) 20 gm In Empty Bag 1 bag @ Titrate IV . Q0M ONE Rx#:[id number] Immune Globulin ( 300 Gammagard) 30 gm In Empty Bag 1 bag @ Per Protocol IV .Q0M ONE Rx#: [id number] Oral 120 Tube Feeding 25 Other 65 Other: Voiding Method Toilet # Voids 1 1 # Bowel Movements 1 - Exam GENERAL: The patient is lying in bed and is not in acute distress. HENT: NG tube. NEUROLOGICAL: Higher mental function: The patient is awake, alert, oriented to self, place and time. Patient is following commands. No aphasia and no neglect. Cranial nerves: The pupils are round, equal and reactive to light. Patient having diplopia throughout. Visual díaz are full to confrontation throughout. Extraocular movement is intact no nystagmus is noted. Facial sensation is nor mal to touch throughout. The facial strength is normal throughout. Hearing is moderately decreased bilaterally to hand rub. Tongue is midline and moved [id number] without any difficulty. No dysarthria is noted. Shoulder shrug is normal bilaterally. Motor: The strength is 5 over 5 throughout. Normal tone and bulk. Cerebellum: Normal finger to nose bilaterally. Sensation: Sensation is normal to touch throughout. Reflexes (right/left): 2+ throughout uppers while lowers are 1+. Plantars are mute bilaterally. Some of the workup during his hospital visit consisted of: CBC with differential is unremarkable Sodium is 135, calcium is 10.0, HDL to use within normal limits. Serum glucose is 95 TSH is 1.10 and the free T4 is 1.06. Urine analysis is negative for any underlying urinary tract infection. - Labs CBC & Chem 7: 02/06/23 08:21 02/06/23 08:21 Assessment and Plan Assessment: This is a 67-year-old gentleman with history of myasthenia gravis since 2019 was on Mestinon as well as prednisone and had the recent lower back fusion on 12/26/2022 over [facility] and the last 1 week the patient is been having the worsening shortness of breath, dysphagia, diplopia, ptosis. Myasthenia gravis exacerbation--seems better today History of Myasthenia gravis since 2019 and for the last 1 year he stated he is been on Mestinon ER 180 mg twice a day and prednisone 20 mg daily History of lower back fusion on 12/26/2022 over [facility] and he still has difficulty walking History of TIA Plan: Patient was started on IVIG and today is day 09/07 3 (2g/kg). Recommend to continue assessing the FVC and NiF every 4-6 hours. Continue neuro checks I went on Prednisone from 10mg bid to 20mg bid on 02/07/2023. Patient is continued on his home dose of Mestinon 180mg ER bid. Recommend revaluation of his swallowing by [employer]. He has NG tube but feels swallowing is better. Continue her checks Unsure if the patient was a value for thymoma. The patient thinks he was evaluated for thymoma and was negative to his knowledge Continue your checks PT OT and [employer] are consulted Continue Protonix 40 mg IV for GI prophylaxis Continue vitamin D3 2000IU daily. We'll defer the rest of the medical management to primary team Plan discussed with the patient and his who is at bedside. Time with Patient: Less than 30
[2023-02-08] MEDS ORDERED: IMMUNE GLOBULIN (GAMMAGARD) 20 GM in EMPTY BAG 1 BAG IV ONE (16:00)
[2023-02-08] MEDS ORDERED: IMMUNE GLOBULIN (GAMMAGARD) 30 GM in EMPTY BAG 1 BAG IV ONE (16:00)
[2023-02-08] MEDS: lisinopriL 10 MG TAB PO SCH (20:14)
[2023-02-08] MEDS: EZETIMIBE 10 MG TAB PO SCH (20:15)
[2023-02-09 08:49] LABS: HCT 40.8 % (39.0-53.0); HGB 13.3 gm/dL (13.0-17.5); MCH 28.1 pg (25.0-35.0); MCHC 32.7 g/dL (31.0-37.0); MCV 85.9 fL (80.0-100.0); Mean Platelet Volume 7.4; Platelet Count 297 k/uL (150-450); Poikilocytosis Slight; RBC 4.75 m/uL (4.30-5.90); RDW 14.3 % (11.5-15.5); WBC 6.3 k/uL (3.8-10.6)
[2023-02-09 09:12] LABS: African American GFR (CKD) >90 (>60 ml/min/1.73 sqM); Anion Gap 0 mmol/L; Blood Urea Nitrogen 16 mg/dL (9-20); Calcium 9.1 mg/dL (8.4-10.2); Carbon Dioxide 29 mmol/L (22-30); Chloride 107 mmol/L (98-107); Glucose 108 mg/dL (74-99); Non-African American GFR(CKD) >90 (>60 ml/min/1.73 sqM); Sodium 136 mmol/L (137-145)
[2023-02-09] MEDS: PANTOPRAZOLE 40 MG/10 ML VIAL IVP SCH (09:20)
[2023-02-09] MEDS: METOPROLOL TARTRATE 5 MG/5 ML VIAL IVP SCH ×3 (09:20→23:55)
--- NOTE | 2023-02-09 09:44 | PN ---
PROGRESS NOTE SUBJECTIVE: Saeid is a 67-year-old gentleman with history of myasthenia gravis, who is admitted to hospital with swallowing difficulties. He has history of paroxysmal atrial fibrillation and was tachycardiac on his initial presentation. Cardiac-malone, he is doing well, heart rate is well controlled, stable hemodynamically, and is free of any symptoms, but he continues to have problems swallowing medications. He is currently on Eliquis 5 b.i.d., Lopressor, Zestril, and Zetia along with pyridostigmine, Protonix, and prednisone. He is also getting IVIG to help improve his myasthenia. OBJECTIVE: GENERAL: Comfortable at rest. VITAL SIGNS: Heart rate is 90 beats per minute and blood pressure is 142/68, respiratory rate is 18, O2 saturation is 95% on room air. CHEST: Reveals good air entry bilaterally. HEART: Reveals first and second heart sounds. A systolic murmur at the apex. ABDOMEN: Soft. EXTREMITIES: Do not reveal any edema. Peripheral pulses are felt. LABORATORY DATA: Labs show a hemoglobin of 13.3. His blood gases show a pH of 7.4, pCO2 of 46, pO2 of 71. Creatinine is normal at 0.6. Troponins were negative as was the BNP. ASSESSMENT: 1. Myasthenia gravis with difficulty in swallowing, management as per Neurology. 2. Paroxysmal atrial fibrillation. PLAN: Whenever the patient has NG tube in, resume his medications. MMKIRTIL / POORNIMA: [id number] /
--- NOTE | 2023-02-09 10:32 | P.PN ---
Subjective Progress Note Date: 02/09/23 Patient is a 67-year-old male with PMH of myasthenia gravis, atrial fibrillation, hypertension, dyslipidemia, history of thrombosis presents the ED for generalized weakness, shortness of breath, double vision and difficulty swallowing. Patient reports undergoing back surgery on December 26 at [facility]. Since then, he has experienced the above symptoms that has been progressively getting worse. He reports shortness of breath when laying flat has been getting worse over the past 3 days. The symptoms concerned him to come to the ED. He denies any headache, lower extremity edema, nausea or vomiting, fever or chills, cough, chest pain, palpitations, changes in urination or bowel habits. No changes in appetite or weight. He denies any dizziness, numbness/weakness/tingling of the extremities. In the ED, his BP was elevated at 167/150. BP on recheck was 127/77. Vital signs were otherwise stable. CBC was unremarkable. INR was 0.9. CMP shows sodium 135, creatinine is 0.6, alkaline phosphatase 172. Troponin was less than 0.012. BNP was 51. TSH 1.11. Urinalysis negative. EKG showed sinus arrhythmia. Chest x-ray negative for acute changes. Patient was admitted for further evaluation of symptoms. 02/07 Patient was seen and examined. A-team was called as patient was choking while trying to swallow his pills. He appears stable when evaluated with regard to his respiratory status after the episode. HR is the 140s on telemetry. BP appears stable. ABG and FVC, NIF ordered which is pending. ABG from yesterday shows pH 7.41, pCO2 46 bicarb of 29. Speech therapy recommended NPO and NG tube was inserted. 02/08 Patient was seen and examined. NG tube advanced by RN. Patient reports improvement in his breathing and swallowing. He is pending repeat speech evaluation. He would like to get the NG tube out if possible. FVC 1.2 today, 1.6 yesterday. Continued on IVIG (day 3). Echocardiogram shows normal EF and AR/TR. 02/09 Patient was seen and examined. He was evaluated by speech yesterday and switched to NDD3 diet. NG tube was discontinued. This morning, he is complaining he can't swallow again. He Prednisone has been switched to Solumedrol 20 mg IV BID. He is on Metoprolol 5 mg IV Q8H. We will consider anticoagulation with heparin drip or therapeutic Lovenox until he can take his Eliquis again. CBC this morning is unremarkable. BMP shows Na 136 and glucose of 108. Case d iscussed with pharmacy and Dr. Arcos, plans to continue IVIG 2g/kg for 2 more days to complete a total of 5 days. General: non toxic, no distress, appears at stated age Derm: warm, dry Head: atraumatic, normocephalic, symmetric Eyes: EOMI, no lid lag, anicteric sclera Cardiovascular: Normal S1 S2, no murmur Lungs: CTA bilateral, no rhonchi, no rales , no accessory muscle use Ext: no gross muscle atrophy, no edema, no contractures Neuro: no focal neuro deficits Psych: Alert, oriented, appropriate affect Myaesthenia gravis exacerbation, impending crisis A-Fib with RVR Chronic conditions: Hypertension, dyslipidemia, history of thrombosis Based on my assessment of this patient, this patient meets a high complexity level of care. Patient has an acute diagnosis of myaesthenia gravis exacerbation with impending crisis that poses a threat to life or bodily function. Myaesthenia gravis exacerbation, impending crisis: Discussed with Dr. Arcos, complete 2 more days of IVIG. Speech therapy consulted for swallow evaluation. Concerns for respiratory depression. PEF Q4H. Pulmonology on board. Continue Pyridostigmine and Prednisone home dose. Patient has a CPAP at home, advised to continue. Cardiology started the patient on Metoprolol 5 mg IV Q8H. Initially started on Cardizem drip which was discontinued by Cardiology. Heart rate much improved. is the decision maker if he cant make decisions for himself. FULL CODE. I have reviewed the following internal controls consultant notes: Pulmonology, and Cardiology note reviewed. I have reviewed the results of the following tests: CBC and BMP. I have ordered the following tests: I have discussed the care of this patient with the following independent historian: I have independently interpreted the following test below: I have discussed the management of this patient with the following physician: Case discussed with Dr. Arcos as above. Objective - Vital Signs Vital signs: Vital Signs Temp 97.8 F 02/09/23 07:44 Pulse 101 H 08/05/23 07:44 Resp 20 02/09/23 07:44 BP 157/80 02/09/23 07:44 Pulse Ox 96 02/09/23 09:11 FiO2 Intake & Output 02/08/23 02/09/23 02/09/23 18:59 06:59 18:59 Intake Total 1130 740 Output Total 465 100 Balance 1130 275 -100 Intake: IV 20 Invasive Line 2 20 Intake, IV Titration 500 200 Amount Immune Globulin ( 200 Gammagard) 20 gm In Empty Bag 1 bag @ Titrate IV . Q0M ONE Rx#:[id number] Immune Globulin ( 300 Gammagard) 30 gm In Empty Bag 1 bag @ Per Protocol IV .Q0M ONE Rx#: [id number] Sodium Chloride 0.9% 1, 200 000 ml @ 20 mls/hr IV . Q24H [facility] Rx#:[id number] Oral 520 540 Tube Feeding 25 Other 65 Output: Urine 465 100 Other: Voiding Method Toilet Toilet # Voids 1 - Labs CBC & Chem 7: 02/09/23 08:02 02/09/23 08:02 Labs: Abnormal Lab Results - Last 24 Hours (Table) 02/09/23 Range/Units 08:02 Sodium 136 L (137-145) mmol/L Glucose 108 H (74-99) mg/dL
--- NOTE | 2023-02-09 11:31 | P.PN ---
Subjective Progress Note Date: 02/09/23 I'll follow up seeing the patient and I was notified by the nurse early the morning today that the patient's having difficulty swallowing again today with diplopia. Upon seeing the patient he feels his symptoms is back again today. He feels that his upper extremity is weak and he is having diplopia with difficulty swallowing. Yesterday he completed IVIG day 3 out of 3. He stated he was doing well until today. Objective - Vital Signs Vital signs: Vital Signs Temp 97.8 F 02/09/23 07:44 Pulse 101 H 02/09/23 07:44 Resp 20 02/09/23 07:44 BP 157/80 02/09/23 07:44 Pulse Ox 96 02/09/23 09:11 FiO2 Intake & Output 02/08/23 02/09/23 02/09/23 18:59 06:59 18:59 Intake Total 1130 740 Output Total 465 100 Balance 1130 275 -100 Intake: IV 20 Invasive Line 2 20 Intake, IV Titration 500 200 Amount Immune Globulin ( 200 Gammagard) 20 gm In Empty Bag 1 bag @ Titrate IV . Q0M ONE Rx#:[id number] Immune Globulin ( 300 Gammagard) 30 gm In Empty Bag 1 bag @ Per Protocol IV .Q0M ONE Rx#: [id number] Sodium Chloride 0.9% 1, 200 000 ml @ 20 mls/hr IV . Q24H [facility] Rx#:[id number] Oral 520 540 Tube Feeding 25 Other 65 Output: Urine 465 100 Other: Voiding Method Toilet Toilet Toilet # Voids 1 - Exam GENERAL: The patient is lying in bed and is not in acute distress. HENT: NG tube. NEUROLOGICAL: Higher mental function: The patient is awake, alert, oriented to self, place and time. Patient is following commands. No aphasia and no neglect. Cranial nerves: The pupils are round, equal and reactive to light. Patient having diplopia throughout that got worse today compared to yesterday. Visual díaz are full to confrontation throughout. Extraocular movement is intact no nystagmus is noted. Facial sensation is normal to touch throughout. The facial strength is normal throughout. Hearing is moderately decreased bilaterally to hand rub. Tongue is midline and moved [id number] without any difficulty. Has nasal toned voice. Shoulder shrug is normal bilaterally. Motor: The strength is uppers are 4 throughout but lowers 5 over 5 throughout. Normal tone and bulk. Cerebellum: Normal finger to nose bilaterally. Sensation: Sensation is normal to touch throughout. Reflexes (right/left): 2+ throughout uppers while lowers are 1+. Plantars are mute bilaterally. Some of the workup during his hospital visit consisted of: CBC with differential is unremarkable Sodium is 135, calcium is 10.0, HDL to use within normal limits. Serum glucose is 95 TSH is 1.10 and the free T4 is 1.06. Urine analysis is negative for any underlying urinary tract infection. - Labs CBC & Chem 7: 02/09/23 08:02 02/09/23 08:02 Labs: Abnormal Lab Results - Last 24 Hours (Table) 02/09/23 Range/Units 08:02 Sodium 136 L (137-145) mmol/L Glucose 108 H (74-99) mg/dL Assessment and Plan Assessment: This is a 67-year-old gentleman with history of myasthenia gravis since 2019 was on Mestinon as well as prednisone and had the recent lower back fusion on 12/26/2022 over [facility] and the last 1 week the patient is been having the worsening shortness of breath, dysphagia, diplopia, ptosis. Patient was improving after the second dose of IVIG but today he feels the symptoms got worse and having worsening diplopia, upper extremity weakness with swallowing difficulty. Myasthenia gravis exacerbation--worse today. He completed IVIV 2gm/kg over 3 days and had improvement has worsening today. History of Myasthenia gravis since 2019 and for the last 1 year he stated he is been on Mestinon ER 180 mg twice a day and prednisone 20 mg daily History of lower back fusion on 12/26/2022 over [facility] and he still has difficulty walking History of TIA Plan: He completed IVIG 2g/kg over 3 days and last dose was on 02/08/2023 but today having worsening of symptoms so will restart another 2g/kg over 5 day peroid. Continue assessing the FVC and NiF every 4-6 hours. Continue neuro checks I went on Prednisone from 10mg bid to 20mg bid on 02/07/2023. Patient is continued on his home dose of Mestinon 180mg ER bid. Recommend revaluation of his swallowing by [employer] TEAM TECHNICIAN. I ordered CT chest w/ and w/o to rule out any thymoma and if he does recommend surgical resection. I ordered MRI Brain w/ and w/o to rule out any other process which seems unlikely. PT OT and [employer] TEAM TECHNICIAN are consulted Continue Protonix 40 mg IV for GI prophylaxis Continue vitamin D3 2000IU daily. We'll defer the rest of the medical management to primary team Plan discussed with the patient and primary team. Time with Patient: Less than 30
[2023-02-09] MEDS: methylPREDNISolone SOD SUCCI 40 MG/ML 1 ML VIAL IV SCH ×2 (13:38→20:57)
[2023-02-09] MEDS: PYRIDOSTIGMINE 180 MG PO SCH ×2 (15:05→16:33)
[2023-02-09] MEDS: APIXABAN 5 MG TAB PO SCH ×2 (15:05→20:43)
[2023-02-09] MEDS: CHOLECALCIFEROL 25 MCG (1000 IU) TABLET PO SCH (15:05)
[2023-02-09] MEDS: SODIUM CHLORIDE 0.9% 1,000 ML IV SCH (15:05)
[2023-02-09] MEDS: predniSONE 20 MG TAB PO SCH (15:10)
--- NOTE | 2023-02-09 15:51 | P.PN ---
Subjective Progress Note Date: 02/09/23 I am seeing this patient in emergency department because of ongoing weakness and difficulties in swallowing. The patient is known to have myasthenia gravis. The patient is also known to have severe obstructive sleep apnea with an AHI of 46 and he has limited on APAP machine pressures of 5/10 cm of water. He is myasthenia gravis has been stable and the patient has limited on a combination of Mestinon and prednisone. The patient has paroxysmal A. fib, previous history of DVT admitted on anticoagulation with Eliquis, and hypertension. The patient underwent a L1 S1 lumbar fusion and surgery was done on 12/27/2019. Had [facility]. The patient has been taking 10 mg of prednisone twice a day. He was also Mestinon. His spirometry and forced vital capacity from 10/11/2022 was at 3.24 L which is 65% of predicted. The muscle forces were also adequate with a an EP of 74 and MIP of 87. He did have some proximal muscle weakness. This was mainly when he was trying to climb up stairs. Since his surgery, the patient had progressive weakness. Is having difficulties with swallowing. No double vision. He did go to [facility] for around 2 weeks and subsequently was discharged home. He was walking around with the help of a walker and he has noticed full mobility yet. His surgical one-sided dry clean and intact. No aspiration. He presented to the hospital as the patient was getting progressively more weak and he also reported some shortness of breath. No chest pain. No hemoptysis. No pleurisy. No aspiration. No abnormalities on the chest x-ray.Labs are all within normal limits. ProBNP level is nonelevated. Liver function tests are normal. Urinalysis is negative. On today's evaluation of 02/07/2023, the patient is being seen for a follow-up. The patient was started on IVIG. The patient is also Mestinon 180 mg twice a day and prednisone 20 mg twice a day. He is still weak. He did have a choking episode earlier today. He is recovered from that. He remains on room air oxygen. Blood gas was done and there is no evidence of any significant respiratory acidosis. The pH is at 7.4 with episodes of 46 and pO2 of 71. At the same time, a forced vital capacity was done and is down to 1.6 which is lower compared to his baseline of 3.24 L. Earlier this morning of 02/08/2023, the patient was having some weakness and this FVC was down to 1.2. Subsequently, the patient improved. His swallowing breathing, muscle weakness and diplopia has recovered. The patient has received already 2 doses of IVIG. Another FVC according was done and the patient's level was up to 2.3 L. He remains on Mestinon. He remains on prednisone 5 mg twice a day. NG tube is in place. Swallow evaluation will be done. Unable to utilize a CPAP overnight because of his NG tube placement. 02/09/2023, the patient is having difficulties in swallowing began along with diplopia and generalized weakness. After having some initial improvement, improvement in the FVC, the patient obviously decompensated again. The patient is feeling weak and his extremities and is also having difficulties in swallowing. NG tube was removed yesterday. He has completed already 3 doses of IVIG. This will be extended further with total of 5 days. He is on room air oxygen. He is utilizing the CPAP overnight. He was placed on IV Solu-Medrol. He remains on Mestinon. MRI of the brain was also ordered by neurology to rule out any other process which is essentially unlikely in this situation and the patient has myasthenia gravis. He is able to speak. He has a cough. No significant respiratory secretions. No signs of any significant respiratory compromise. Objective - Vital Signs Vital signs: Vital Signs Temp 97.8 F 02/09/23 07:44 Pulse 101 H 02/09/23 07:44 Resp 20 02/09/23 07:44 BP 157/80 02/09/23 07:44 Pulse Ox 96 02/09/23 09:11 FiO2 Intake & Output 02/08/23 02/09/23 02/09/23 18:59 06:59 18:59 Intake Total 1130 740 Output Total 465 100 Balance 1130 275 -100 Intake: IV 20 Invasive Line 2 20 Intake, IV Titration 500 200 Amount Immune Globulin ( 200 Gammagard) 20 gm In Empty Bag 1 bag @ Titrate IV . Q0M ONE Rx#:[id number] Immune Globulin ( 300 Gammagard) 30 gm In Empty Bag 1 bag @ Per Protocol IV .Q0M ONE Rx#: [id number] Sodium Chloride 0.9% 1, 200 000 ml @ 20 mls/hr IV . Q24H [facility] Rx#:[id number] Oral 520 540 Tube Feeding 25 Other 65 Output: Urine 465 100 Other: Voiding Method Toilet Toilet # Voids 1 - Exam Gen. appearance the patient is on room air oxygen and the patient is calm and comfortable. The NG tube has been removed Head exam was generally normal. There was no scleral icterus or corneal arcus. Mucous membranes were moist. Neck was supple and without jugular venous distension, thyromegaly, or carotid bruits. Carotids were easily palpable bilaterally. There was no adenopathy. Lungs were clear to auscultation and percussion, and with normal diaphragmatic excursion. No wheezes or rales were noted. Cardiac exam revealed the PMI to be normally situated and sized. The rhythm was regular and no extrasystoles were noted during several minutes of auscultation. The first and second heart sounds were normal and physiologic splitting of the second heart sound was noted. There were no murmurs, rubs, clicks, or gallops. Abdominal exam revealed normal bowel sounds. The abdomen was soft, non-tender, and without masses, organomegaly, or appreciable enlargement of the abdominal aorta. Examination of the extremities revealed easily palpable radial, femoral and pedal pulses. There was no cyanosis, clubbing or edema. Examination of the skin revealed no evidence of significant rashes, suspicious appearing nevi or other concerning lesions. The surgical one-sided over the back is dry clean and intact. NEUROLOGICAL: Please refer to neurology in terms of the neurologic examination. He has motor weakness in all 4 extremities. - Labs CBC & Chem 7: 02/09/23 08:02 02/09/23 08:02 Labs: Abnormal Lab Results - Last 24 Hours (Table) 02/09/23 Range/Units 08:02 Sodium 136 L (137-145) mmol/L Glucose 108 H (74-99) mg/dL Assessment and Plan Plan: Exacerbation of myasthenia gravis following back surgery. The patient underwent L1 S1 decompression/laminectomy on 12/26/2022 and since then the patient been having progressive worsening in his motor function, strength and shortness of breath and dysphagia. Has been maintained combination of Mestinon and prednisone outpatient basis. Note that his postoperative course was essentially motor the patient did not requiring patient on mechanical ventilation after a t hree-hour surgery. He was extubated without any major difficulties. The patient currently is on IVIG, Mestinon on oral prednisone at a dose of 40 mg by mouth daily. Forced vital capacity is at 1.6 L, repeat level today improved and the level is up to 2.3. Note that the patient has received a total of 3 doses of IVIG. On his ongoing fluctuation in motor function, the patient will will be treated with IVIG treatment for another 2 days. The patient is also on IV Solu-Medrol. The patient on Mestinon. FVC is being monitored. NG tube was removed. Diplopia secondary to above Dysphagia secondary to above Generalized weakness secondary to above Dysphagia secondary to above Dyspnea secondary to above Obstructive sleep apnea, severe maintain on APAP pressures of 5/15 cm of water Paroxysmal A. fib, maintained on anticoagulation with Eliquis Hypertension Hyperlipidemia Osteoarthritis Plan Monitor FVC on a daily basis Already received 3 doses of IVIG and the fourth dose will be given today Continue IV Solu-Medrol Continue Mestinon We'll continue to follow. Without the patient uses CPAP machine from home. MRI of the brain Continue anticoagulation with Eliquis. Plan monitor this patient closely
[2023-02-09] MEDS ORDERED: IMMUNE GLOBULIN (GAMMAGARD) 20 GM in EMPTY BAG 1 BAG IV NR (16:00)
[2023-02-09] MEDS ORDERED: IMMUNE GLOBULIN (GAMMAGARD) 20 GM in EMPTY BAG 1 BAG IV ONE (16:00)
[2023-02-09] MEDS ORDERED: IMMUNE GLOBULIN (GAMMAGARD) 30 GM in EMPTY BAG 1 BAG IV ONE (16:00)
[2023-02-09] MEDS: EZETIMIBE 10 MG TAB PO SCH (20:43)
[2023-02-09] MEDS: lisinopriL 10 MG TAB PO SCH (20:43)
[2023-02-09] MEDS: LORazepam 2 MG/ML INJ IV PRN (22:03)
--- NOTE | 2023-02-09 23:25 | CT ---
EXAMINATION TYPE: CT chest wo/w con DATE OF EXAM: 02/09/2023 COMPARISON: 05/15/2019 HISTORY: Trouble swallowing/breathing CT DLP: 1120.3 mGycm, Automated exposure control for dose reduction was used. CONTRAST: Performed injected with 100 mL of Isovue 300. TECHNIQUE: Axial images were obtained at 5 mm thick sections. Reconstructed images are reviewed on [employer] computer in the coronal plane. FINDINGS: Portion of the thyroid visualized is normal. No suspicious lung nodules or focal infiltrates are present. No enlarged mediastinal or hilar adenopathy is evident. The ascending aorta diameter at the level o f the main pulmonary artery is 4.0 cm. The main pulmonary artery diameter at the bifurcation is 3.2 cm. Moderate Coronary artery calcifications present. Limited CT sections are obtained through the upper abdomen. Abdomen is essentially unremarkable. IMPRESSIONS: 1. No acute pulmonary process. 2. Aneurysmal dilatation of the ascending thoracic aorta 4.0 cm.
[2023-02-10] MEDS: LORazepam 2 MG/ML INJ IV PRN ×2 (02:13→21:12)
[2023-02-10 04:25] LABS: Glucose,Whole Blood 153 mg/dL (70-110)
[2023-02-10] MEDS: PANTOPRAZOLE 40 MG/10 ML VIAL IVP SCH (08:54)
[2023-02-10] MEDS: METOPROLOL TARTRATE 5 MG/5 ML VIAL IVP SCH ×3 (08:55→23:53)
[2023-02-10] MEDS: methylPREDNISolone SOD SUCCI 40 MG/ML 1 ML VIAL IV SCH (08:55)
--- NOTE | 2023-02-10 10:05 | P.PN ---
Subjective Progress Note Date: 02/10/23 History of present illness: This is a 67-year-old male patient of Dr. Dc with past medical history of hypertension, hyperlipidemia, paroxysmal atrial fibrillation, myasthenia gravis on long-term steroids, renal insufficiency, previous asymptomatic strokes on imaging, ascending aortic aneurysm, coronary artery calcifications, TIA, obstructive sleep apnea. We have been asked to evaluate the patient for uncontrolled heart rate and myasthenia gravis. Patient underwent lumbar fusion surgery 12/26 at [facility]. Patient developed proximal muscle weakness with progressive weakness, shortness of breath and and difficulty swallowing. Patient was at residential for 2 weeks and subsequently discharged home. Patient was diagnosed with an exacerbation of myasthenia gravis and started on IVIG, prednisone and Mestinon. Patient is seen today in the emergency center waiting for a bed in the intensive care unit. We have been asked to evaluate the patient for intermittent episodes of tachycardia. Patient has been in a sinus rhythm on telemetry. EKG sinus arrhythmia at 69 bpm Chest x-ray: Chronic changes without evidence of acute process CBC unremarkable. INR 0.9. Sodium 135, potassium 4, BUN 18 creatinine 0.6. Alkaline phosphatase 117 otherwise liver function tests are normal. Magnesium 2. Troponin negative 1. TSH 1.11. Free T4 1 0.06. Urinalysis negative. Home cardiac medications: Eliquis 5 mg twice daily, Zetia 10 mg at bedtime, lisinopril 10 mg at bedtime, Toprol-XL 25 mg daily. Lexiscan stress test 03/2022 small fixed inferior defect and no other reversible ischemia. Echocardiogram 03/2022 revealed EF 60-65% with possible bicuspid aortic valve and mild to moderate aortic regurgitation. 02/08 Patient is seen today on the CSD unit. Patient has NG tube in place for med ications. Telemetry has been sinus rhythm at rate of 80s to 90s, blood pressure 152/76, pulse ox 95% on room air. Repeat chest x-ray reveals satisfactory and she laced cement. The strandy right basilar atelectasis. Patient is scheduled today for additional immunoglobulin. Echocardiogram has been obtained and report is pending. 02/10 Patient did have improvement of the swallowing and was placed back on oral medications and NG tube was removed but but unfortunately he has developed worsening dysphagia and there is talk about NG tube replacement. Patient is trying to hold off on the NG tube until tomorrow. Yesterday patient did not receive eliquis. He is on IV Lopressor for now. Plan is for patient to continue immunoglobulin for the next few days. Echocardiogram reveals normal ventricular size and systolic function. Mild to moderate aortic regurgitation and mild tricuspid regurgitation and no evidence of pulmonary hypertension. Physical examination: Gen: This is a 67-year-old male, resting in chair, appears comfortable . VS: reviewed LUNGS: Good air entry bilaterally, no wheezes or rhonchi. No intercostal retractions. HEART: First and second heart sounds, systolic murmur at the apex EXTREMITIES: No pedal edema. NEUROLOGICAL: Patient is awake, alert. Assessment: Exacerbation of myasthenia gravis following back surgery Progressive generalized weakness, dysphagia and dyspnea Sinus tachycardia Paroxysmal atrial fibrillation currently in a sinus rhythm Hypertension Hyperlipidemia Obstructive sleep apnea Plan: Continue Lopressor 5 mg IV push every 8 hours Start patient on a heparin drip and to swallowing issue resolves and then resume eliquis Resume patient's home cardiac medications once patient is able to swallow or take by NG tube Further recommendations to follow based upon clinical course Nurse practitioner note has been reviewed, I agree with documented findings and plan of care. Patient was seen and examined. Objective - Vital Signs Vital signs: Vital Signs Temp 97.8 F 02/10/23 08:42 Pulse 117 H 02/10/23 08:42 Resp 20 02/10/23 08:42 BP 170/87 02/10/23 08:42 Pulse Ox 97 02/10/23 08:42 FiO2 Intake & Output 02/09/23 02/10/23 02/10/23 18:59 06:59 18:59 Intake Total 290 220 Output Total 100 615 Balance 190 -395 Intake: Intake, IV Titration 140 220 Amount Sodium Chloride 0.9% 1, 140 220 000 ml @ 20 mls/hr IV . Q24H [facility] Rx#:[id number] Oral 150 Output: Urine 100 615 Other: Voiding Method Toilet Toilet # Voids 1 - Labs CBC & Chem 7: 02/09/23 08:02 02/09/23 08:02 Labs: Abnormal Lab Results - Last 24 Hours (Table) 02/10/23 Range/Units 04:21 POC Glucose (mg/dL) 153 H (70-110) mg/dL
[2023-02-10] MEDS ORDERED: HEPARIN SODIUM 1,000 UN/ML (10ML VL) IV PRN (10:25)
[2023-02-10] MEDS ORDERED: HEPARIN SODIUM 1,000 UN/ML (10ML VL) IV ONE (10:25)
[2023-02-10] MEDS: CHOLECALCIFEROL 25 MCG (1000 IU) TABLET PO SCH (10:55)
[2023-02-10] MEDS: PYRIDOSTIGMINE 180 MG PO SCH ×2 (10:55→16:38)
--- NOTE | 2023-02-10 11:06 | P.PN ---
Subjective Progress Note Date: 02/10/23 I am seeing this patient in emergency department because of ongoing weakness and difficulties in swallowing. The patient is known to have myasthenia gravis. The patient is also known to have severe obstructive sleep apnea with an AHI of 46 and he has limited on APAP machine pressures of 5/10 cm of water. He is myasthenia gravis has been stable and the patient has limited on a combination of Mestinon and prednisone. The patient has paroxysmal A. fib, previous history of DVT admitted on anticoagulation with Eliquis, and hypertension. The patient underwent a L1 S1 lumbar fusion and surgery was done on 12/27/2019. Had [facility]. The patient has been taking 10 mg of prednisone twice a day. He was also Mestinon. His spirometry and forced vital capacity from 10/11/2022 was at 3.24 L which is 65% of predicted. The muscle forces were also adequate with a an EP of 74 and MIP of 87. He did have some proximal muscle weakness. This was mainly when he was trying to climb up stairs. Since his surgery, the patient had progressive weakness. Is having difficulties with swallowing. No double vision. [facility] and subsequently was discharged home. He was walking around with the help of a walker and he has noticed full mobility yet. His surgical one-sided dry clean and intact. No aspiration. He presented to the hospital as the patient was getting progressively more weak and he also reported some shortness of breath. No chest pain. No hemoptysis. No pleurisy. No aspiration. No abnormalities on the chest x-ray.Labs are all within normal limits. ProBNP level is nonelevated. Liver function tests are normal. Urinalysis is negative. On today's evaluation of 02/07/2023, the patient is being seen for a follow-up. The patient was started on IVIG. The patient is also Mestinon 180 mg twice a day and prednisone 20 mg twice a day. He is still weak. He did have a choking episode earlier today. He is recovered from that. He remains on room air oxygen. Blood gas was done and there is no evidence of any significant respiratory acidosis. The pH is at 7.4 with episodes of 46 and pO2 of 71. At the same time, a forced vital capacity was done and is down to 1.6 which is lower compared to his baseline of 3.24 L. Earlier this morning of 02/08/2023, the patient was having some weakness and this FVC was down to 1.2. Subsequently, the patient improved. His swallowing breathing, muscle weakness and diplopia has recovered. The patient has received already 2 doses of IVIG. Another FVC according was done and the patient's level was up to 2.3 L. He remains on Mestinon. He remains on prednisone 5 mg twice a day. NG tube is in place. Swallow evaluation will be done. Unable to utilize a CPAP overnight because of his NG tube placement. 02/09/2023, the patient is having difficulties in swallowing began along with diplopia and generalized weakness. After having some initial improvement, improvement in the FVC, the patient obviously decompensated again. The patient is feeling weak and his extremities and is also having difficulties in swallowing. NG tube was removed yesterday. He has completed already 3 doses of IVIG. This will be extended further with total of 5 days. He is on room air oxygen. He is utilizing the CPAP overnight. He was placed on IV Solu-Medrol. He remains on Mestinon. MRI of the brain was also ordered by neurology to rule out any other process which is essentially unlikely in this situation and the patient has myasthenia gravis. He is able to speak. He has a cough. No significant respiratory secretions. No signs of any significant respiratory compromise. On 02/10/2023, the patient is a weak. Unable to swallow. We're considering reinsertion of a G-tube as the patient is not taking his Mestinon for now. He remains on IV Solu-Medrol. He remains on IVIG. Consideration needs to be given for plasmapheresis on this patient if no improvement. He is able to his respiratory secretions. Is unable to swallow. Objective - Vital Signs Vital signs: Vital Signs Temp 97.8 F 02/10/23 08:42 Pulse 117 H 02/10/23 08:42 Resp 20 02/10/23 08:42 BP 170/87 02/10/23 08:42 Pulse Ox 97 02/10/23 08:42 FiO2 Intake & Output 02/09/23 02/10/23 02/10/23 18:59 06:59 18:59 Intake Total 290 220 Output Total 100 615 Balance 190 -395 Intake: Intake, IV Titration 140 220 Amount Sodium Chloride 0.9% 1, 140 220 000 ml @ 20 mls/hr IV . Q24H [facility] Rx#:[id number] Oral 150 Output: Urine 100 615 Other: Voiding Method Toilet Toilet # Voids 1 - Exam Gen. appearance the patient is on room air oxygen and the patient is calm and comfortable. Speech is okay. No signs of any respiratory distress. Head exam was generally normal. There was no scleral icterus or corneal arcus. Mucous membranes were moist. Neck was supple and without jugular venous distension, thyromegaly, or carotid bruits. Carotids were easily palpable bilaterally. There was no adenopathy. Lungs were clear to auscultation and percussion, and with normal diaphragmatic excursion. No wheezes or rales were noted. Cardiac exam revealed the PMI to be normally situated and sized. The rhythm was regular and no extrasystoles were noted during several minutes of auscultation. The first and second heart sounds were normal and physiologic splitting of the second heart sound was noted. There were no murmurs, rubs, clicks, or gallops. Abdominal exam revealed normal bowel sounds. The abdomen was soft, non-tender, and without masses, organomegaly, or appreciable enlargement of the abdominal aorta. Examination of the extremities revealed easily palpable radial, femoral and pedal pulses. There was no cyanosis, clubbing or edema. Examination of the skin revealed no evidence of significant rashes, suspicious appearing nevi or other concerning lesions. The surgical one-sided over the back is dry clean and intact. NEUROLOGICAL: Please refer to neurology in terms of the neurologic examination. He has motor weakness in all 4 extremities. - Labs CBC & Chem 7: 02/09/23 08:02 02/09/23 08:02 Labs: Abnormal Lab Results - Last 24 Hours (Table) 02/10/23 Range/Units 04:21 POC Glucose (mg/dL) 153 H (70-110) mg/dL Assessment and Plan Plan: Exacerbation of myasthenia gravis following back surgery. The patient underwent L1 S1 decompression/laminectomy on 12/26/2022 and since then the patient been having progressive worsening in his motor function, strength and shortness of breath and dysphagia. Has been maintained combination of Mestinon and prednisone outpatient basis. Note that his postoperative course was essentially motor the patient did not requiring patient on mechanical ventilation after a three-hour surgery. He was extubated without any major difficulties. The patient currently is on IVIG, Mestinon on oral prednisone at a dose of 40 mg by mouth daily. Forced vital capacity is at 1.6 L, repeat level today improved and the level is up to 2.3. Note that the patient has received a total of 4 doses of IVIG. On his ongoing fluctuation in motor function, the patient will will be treated with IVIG treatment for another 2 days. The patient is also on IV Solu-Medrol. The patient on Mestinon. FVC is being monitored. NG tube was removed. Nevertheless, the patient is still having difficulties in swallowing. Consider reinsertion of the NG tube. Diplopia secondary to above Dysphagia secondary to above Generalized weakness secondary to above Dysphagia secondary to above Dyspnea secondary to above Obstructive sleep apnea, severe maintain on APAP pressures of 5/15 cm of water Paroxysmal A. fib, maintained on anticoagulation with Eliquis Hypertension Hyperlipidemia Osteoarthritis Plan Consider reinsertion of NG tube to continue Mestinon Monitor FVC on a daily basis Already received 4 doses of IVIG and the fifth dose will be given today Continue IV Solu-Medrol Continue Mestinon month NG tube is in place We'll continue to follow. Without the patient uses CPAP machine from home. Continue anticoagulation with Eliquis. Plan monitor this patient closely May need plasmapheresis of no improvement
--- NOTE | 2023-02-10 11:08 | P.PN ---
Subjective Progress Note Date: 02/10/23 Patient is a 67-year-old male with PMH of myasthenia gravis, atrial fibrillation, hypertension, dyslipidemia, history of thrombosis presents the ED for generalized weakness, shortness of breath, double vision and difficulty swallowing. Patient reports undergoing back surgery on December 26 at [facility]. Since then, he has experienced the above symptoms that has been progressively getting worse. He reports shortness of breath when laying flat has been getting worse over the past 3 days. The symptoms concerned him to come to the ED. He denies any headache, lower extremity edema, nausea or vomiting, fever or chills, cough, chest pain, palpitations, changes in urination or bowel habits. No changes in appetite or weight. He denies any dizziness, numbness/weakness/tingling of the extremities. In the ED, his BP was elevated at 167/150. BP on recheck was 127/77. Vital signs were otherwise stable. CBC was unremarkable. INR was 0.9. CMP shows sodium 135, creatinine is 0.6, alkaline phosphatase 172. Troponin was less than 0.012. BNP was 51. TSH 1.11. Urinalysis negative. EKG showed sinus arrhythmia. Chest x-ray negative for acute changes. Patient was admitted for further evaluation of symptoms. 02/07 Patient was seen and examined. A-team was called as patient was choking while trying to swallow his pills. He appears stable when evaluated with regard to his respiratory status after the episode. HR is the 140s on telemetry. BP appears stable. ABG and FVC, NIF ordered which is pending. ABG from yesterday shows pH 7.41, pCO2 46 bicarb of 29. Speech therapy recommended NPO and NG tube was inserted. 02/08 Patient was seen and examined. NG tube advanced by RN. Patient reports improvement in his breathing and swallowing. He is pending repeat speech evaluation. He would like to get the NG tube out if possible. FVC 1.2 today, 1.6 yesterday. Continued on IVIG (day 3). Echocardiogram shows normal EF and AR/TR. 02/09 Patient was seen and examined. He was evaluated by speech yesterday and switched to NDD3 diet. NG tube was discontinued. This morning, he is complaining he can't swallow again. He Prednisone has been switched to Solumedrol 20 mg IV BID. He is on Metoprolol 5 mg IV Q8H. We will consider anticoagulation with heparin drip or therapeutic Lovenox until he can take his Eliquis again. CBC this morning is unremarkable. BMP shows Na 136 and glucose of 108. Case discussed with pharmacy and Dr. Arcos, plans to continue IVIG 2g/kg for 2 more days to complete a total of 5 days. 02/10 Patient was seen and examined. He reports no improvement in his symptoms. He was started on a heparin drip at 10 units/kg/hr for A-Fib anticoagulation since he can't take his Eliquis. Patient would like to hold off on the NG tube if at all possible. Discussed with Dr. Arcos, get speech therapy tomorrow if he continues to be NPO then re-insert NG tube for pyridostigmine. MRI brain w/wo contrast ordered by Nerology. CT chest done to evaluate for thymoma which is negative. His vital capacity is 1.44. General: non toxic, no distress, appears at stated age Derm: warm, dry Head: atraumatic, normocephalic, symmetric Eyes: EOMI, no lid lag, anicteric sclera Cardiovascular: Normal S1 S2, no murmur Lungs: CTA bilateral, no rhonchi, no rales , no accessory muscle use Ext: no gross muscle atrophy, no edema, no contractures Neuro: no focal neuro deficits Psych: Alert, oriented, appropriate affect Myaesthenia gravis exacerbation, impending crisis A-Fib with RVR Anxiety Chronic conditions: Hypertension, dyslipidemia, history of thrombosis Based on my assessment of this patient, this patient meets a high complexity level of care. Patient has an acute diagnosis of myaesthenia gravis exacerbation with impending crisis that poses a threat to life or bodily function. Myaesthenia gravis exacerbation, impending crisis: Discussed with Dr. Arcos, continue IVIG to be completed on 02/13 (8 days). Speech therapy consulted for swallow evaluation. Concerns for respiratory depression. PEF Q4H. Pulmonology on board. Continue Pyridostigmine and Prednisone home dose. Patient has a CPAP at home, advised to continue. MRI brain w/wo ordered. Cardiology started the patient on Metoprolol 5 mg IV Q8H. Continue heparin drip at 10 units/kg/hr for AC. Ativan 0.5 mg IV PRN for anxiety. is the decision maker if he cant make decisions for himself. FULL CODE. I have reviewed the following product management consultant notes: Neurology, and Cardiology note reviewed. I have reviewed the results of the following tests: CT chest. I have ordered the following tests: APTT. I have discussed the care of this patient with the following independent historian: I have independently interpreted the following test below: I have discussed the management of this patient with the following physician: Case discussed with Dr. rAcos as above. Objective - Vital Signs Vital signs: Vital Signs Temp 97.8 F 02/10/23 08:42 Pulse 117 H 02/10/23 08:42 Resp 20 02/10/23 08:42 BP 170/87 02/10/23 08:42 Pulse Ox 97 02/10/23 08:42 FiO2 Intake & Output 02/09/23 02/10/23 02/10/23 18:59 06:59 18:59 Intake Total 290 220 Output Total 100 615 Balance 190 -395 Intake: Intake, IV Titration 140 220 Amount Sodium Chloride 0.9% 1, 140 220 000 ml @ 20 mls/hr IV . Q24H [facility] Rx#:[id number] Oral 150 Output: Urine 100 615 Other: Voiding Method Toilet Toilet Toilet # Voids 1 - Labs CBC & Chem 7: 02/09/23 08:02 02/09/23 08:02 Labs: Abnormal Lab Results - Last 24 Hours (Table) 02/10/23 Range/Units 04:21 POC Glucose (mg/dL) 153 H (70-110) mg/dL
[2023-02-10] MEDS: APIXABAN 5 MG TAB PO SCH (11:22)
--- NOTE | 2023-02-10 11:23 | P.PN ---
Subjective Progress Note Date: 02/10/23 I am following-up seeing the patient and he feels he is doing minimally better today. He had IVIG second round day #07/12. He is refusing NG tube. He continues to have diplopia and feels weakness in proximal upper extremities. He could not lay still for MRI Brain yesterday. Objective - Vital Signs Vital signs: Vital Signs Temp 97.8 F 02/10/23 08:42 Pulse 117 H 02/10/23 08:42 Resp 20 02/10/23 08:42 BP 170/87 02/10/23 08:42 Pulse Ox 97 02/10/23 08:42 FiO2 Intake & Output 02/09/23 02/10/23 02/10/23 18:59 06:59 18:59 Intake Total 290 220 Output Total 100 615 Balance 190 -395 Intake: Intake, IV Titration 140 220 Amount Sodium Chloride 0.9% 1, 140 220 000 ml @ 20 mls/hr IV . Q24H [facility] Rx#:[id number] Oral 150 Output: Urine 100 615 Other: Voiding Method Toilet Toilet Toilet # Voids 1 - Exam GENERAL: The patient is lying in bed and is not in acute distress. NEUROLOGICAL: Higher mental function: The patient is awake, alert, oriented to self, place and time. Patient is following commands. No aphasia and no neglect. Cranial nerves: The pupils are round, equal and reactive to light. Has mild to moderate ptosis of bilateral eyes. Patient having diplopia throughout (side to side). Visual díaz are full to confrontation throughout. Extraocular movement is intact no nystagmus is noted. Facial sensation is normal to touch throughout. The facial strength is normal throughout. Hearing is moderately decreased bilaterally to hand rub. Tongue is midline and moved [id number] without any difficulty. Has nasal toned voice. Shoulder shrug is normal bi laterally. Motor: The strength in proximal uppers are 4- but otherwise is 5/5. Normal tone and bulk. Cerebellum: Normal finger to nose bilaterally. Sensation: Sensation is normal to touch throughout. Reflexes (right/left): 2+ throughout uppers while lowers are 1+. Plantars are mute bilaterally. Some of the workup during his hospital visit consisted of: FVC 1.18-->1.22-->1.4. CBC with differential is unremarkable Sodium is 135, calcium is 10.0, HDL to use within normal limits. Serum glucose is 95 TSH is 1.10 and the free T4 is 1.06. Urine analysis is negative for any underlying urinary tract infection. CT chest w/ and w/o: Reported as no acute pulmonary process. Aneurysmal dilation of the ascending thoracic aorta 4.0cm. No enlarged mediastinal or hilar adenopathy is evident. 2Decho: Normal left ventricle size and systolic function. Mild to moderate aotic regugitation with mild tricuspid regurgation and no evidence pulmonary hypertension. - Labs CBC & Chem 7: 02/09/23 08:02 02/09/23 08:02 Labs: Abnormal Lab Results - Last 24 Hours (Table) 02/10/23 Range/Units 04:21 POC Glucose (mg/dL) 153 H (70-110) mg/dL Assessment and Plan Assessment: This is a 67-year-old gentleman with history of myasthenia gravis since 2019 was on Mestinon as well as prednisone and had the recent lower back fusion on 12/26/2022 over [facility] and the last 1 week the patient is been having the worsening shortness of breath, dysphagia, diplopia, ptosis. Patient was improving after the second dose of IVIG but today he feels the symptoms got worse and having worsening diplopia, upper extremity weakness with swallowing difficulty. Myasthenia gravis exacerbation-- He completed IVIV 2gm/kg over 3 days (02/08/2023) and had improvement initially but then had has worsening yesterday A.M. Currently has completed second round of IVIG and today is day#2/5. History of Myasthenia gravis since 2019 and for the last 1 year he stated he is been on Mestinon ER 180 mg twice a day and prednisone 20 mg daily History of lower back fusion on 12/26/2022 over [facility] and he still has difficulty walking History of TIA Paroxysmal atrial fibrillation Plan: He completed IVIG 2g/kg over 3 days and last dose was on 02/08/2023 but since symptoms worsened yesterday A.M. then started another round IVIG and yesterday he completed day #1 and today is day#2/5 (2g/kg over 5 days). If patient continues to de-escalate then recommend transfer for PLEX. Continue assessing the FVC and NiF every 4-6 hours. Current FVC is 1.4 (and prior was 1.22). Spoke with respiratory therapist to pursue with NiF. Please avoid drug in Myasthenia Gravis: Methylprednisolone, aminoglycosides, quinolone, tetracylcine, metronizdonzole, quinide, beta blockers, calcium channel blockers, Phenytoing, Magnesium sulfae, Narocitics, Magnesium, lithium, amantadine, diuretics, sedative. The primary has started him on Meythylpredisone by primary and I will discontinue it since can cause exacerbation. Also cardiology has started him on beta latosha (Lopressor) and recommend to using a different medications. Continue neuro checks Patient has dysphagia due to his exacerbation of MG and refusing NG tube. He wants to hold off for today and if continues to have symptoms will consider NG tube. I went on Prednisone from 10mg bid to 20mg bid on 02/07/2023 but will go back to his home dose of 10mg bid to make sure higher dose does not exacerbate his symptoms. Patient is continued on his home dose of Mestinon 180mg ER bid. Alexandrea ent has not been getting medication since is dysphagic. It was held since he is dysphagic. Please restart these medication once he is able to swallow or has NG tube. HARDENING MACHINE OPERATOR is on board. CT chest:. No enlarged mediastinal or hilar adenopathy is evident. Patient could not tolerate MRI Brain to rule out any other central cause which seems unlikely. PT OT and HARDENING MACHINE OPERATOR are consulted Continue Protonix 40 mg IV for GI prophylaxis Continue vitamin D3 2000IU daily. We'll defer the rest of the medical management to primary team Plan discussed with the patient, his and primary team. Dr. Berrios will start neurology service tomorrow A.M. Time with Patient: Less than 30
[2023-02-10] MEDS: HEPARIN SOD,PORK IN 0.45% NACL 25,000 UNIT in 0.45% NACL 1 250ML.BAG IV SCH (11:45)
[2023-02-10] MEDS: SODIUM CHLORIDE 0.9% 1,000 ML IV SCH (11:46)
[2023-02-10 14:06] LABS: Partial Thromboplastin Time 23.2 sec (22.0-30.0); Prothrombin Time 10.3 sec (9.0-12.0)
[2023-02-10] MEDS ORDERED: IMMUNE GLOBULIN (GAMMAGARD) 30 GM in EMPTY BAG 1 BAG IV ONE (16:00)
[2023-02-10] MEDS ORDERED: IMMUNE GLOBULIN (GAMMAGARD) 20 GM in EMPTY BAG 1 BAG IV ONE (16:00)
[2023-02-10] MEDS ORDERED: IMMUNE GLOBULIN (GAMMAGARD) 30 GM in EMPTY BAG 1 BAG IV NR (16:00)
[2023-02-10] MEDS: EZETIMIBE 10 MG TAB PO SCH (21:06)
[2023-02-10] MEDS: lisinopriL 10 MG TAB PO SCH (21:06)
[2023-02-11] MEDS: LORazepam 2 MG/ML INJ IV PRN ×3 (05:24→21:05)
[2023-02-11] MEDS: METOPROLOL TARTRATE 5 MG/5 ML VIAL IVP SCH ×3 (09:25→20:49)
[2023-02-11] MEDS: PANTOPRAZOLE 40 MG/10 ML VIAL IVP SCH (09:26)
[2023-02-11] MEDS: PYRIDOSTIGMINE 180 MG PO SCH ×2 (09:26→16:23)
[2023-02-11] MEDS: CHOLECALCIFEROL 25 MCG (1000 IU) TABLET PO SCH (09:26)
[2023-02-11 09:56] LABS: Basophils % (A) 1 %; Eosinophils # (A) 0.1 k/uL (0-0.7); Eosinophils % (A) 1 %; HGB 12.6 gm/dL (13.0-17.5); Lymphocytes # (A) 0.8 k/uL (1.0-4.8); Lymphocytes % (A) 11 %; MCH 28.5 pg (25.0-35.0); MCHC 34.1 g/dL (31.0-37.0); MCV 83.5 fL (80.0-100.0); Mean Platelet Volume 8.1; Monocytes # (A) 0.5 k/uL (0-1.0); Monocytes % (A) 7 %; Neutrophils % (A) 79 %; Platelet Count 267 k/uL (150-450); Poikilocytosis Moderate; RBC 4.43 m/uL (4.30-5.90); RDW 15.2 % (11.5-15.5); WBC 7.6 k/uL (3.8-10.6)
[2023-02-11 10:10] LABS: Prothrombin Time 10.4 sec (9.0-12.0)
--- NOTE | 2023-02-11 11:19 | P.PN ---
Subjective Progress Note Date: 02/11/23 Patient is a 67-year-old male with PMH of myasthenia gravis, atrial fibrillation, hypertension, dyslipidemia, history of thrombosis presents the ED for generalized weakness, shortness of breath, double vision and difficulty swallowing. Patient reports undergoing back surgery on December 26 at [facility]. Since then, he has experienced the above symptoms that has been progressively getting worse. He reports shortness of breath when laying flat has been getting worse over the past 3 days. The symptoms concerned him to come to the ED. He denies any headache, lower extremity edema, nausea or vomiting, fever or chills, cough, chest pain, palpitations, changes in urination or bowel habits. No changes in appetite or weight. He denies any dizziness, numbness/weakness/tingling of the extremities. In the ED, his BP was elevated at 167/150. BP on recheck was 127/77. Vital signs were otherwise stable. CBC was unremarkable. INR was 0.9. CMP shows sodium 135, creatinine is 0.6, alkaline phosphatase 172. Troponin was less than 0.012. BNP was 51. TSH 1.11. Urinalysis negative. EKG showed sinus arrhythmia. Chest x-ray negative for acute changes. Patient was admitted for further evaluation of symptoms. 02/07 Patient was seen and examined. A-team was called as patient was choking while trying to swallow his pills. He appears stable when evaluated with regard to his respiratory status after the episode. HR is the 140s on telemetry. BP appears stable. ABG and FVC, NIF ordered which is pending. ABG from yesterday shows pH 7.41, pCO2 46 bicarb of 29. Speech therapy recommended NPO and NG tube was inserted. 02/08 Patient was seen and examined. NG tube advanced by RN. Patient reports improvement in his breathing and swallowing. He is pending repeat speech evaluation. He would like to get the NG tube out if possible. FVC 1.2 today, 1.6 yesterday. Continued on IVIG (day 3). Echocardiogram shows normal EF and AR/TR. 02/09 Patient was seen and examined. He was evaluated by speech yesterday and switched to NDD3 diet. NG tube was discontinued. This morning, he is complaining he can't swallow again. He Prednisone has been switched to Solumedrol 20 mg IV BID. He is on Metoprolol 5 mg IV Q8H. We will consider anticoagulation with heparin drip or therapeutic Lovenox until he can take his Eliquis again. CBC this morning is unremarkable. BMP shows Na 136 and glucose of 108. Case d iscussed with pharmacy and Dr. Arcos, plans to continue IVIG 2g/kg for 2 more days to complete a total of 5 days. 02/10 Patient was seen and examined. He reports no improvement in his symptoms. He was started on a heparin drip at 10 units/kg/hr for A-Fib anticoagulation since he can't take his Eliquis. Patient would like to hold off on the NG tube if at all possible. Discussed with Dr. Arcos, get speech therapy tomorrow if he continues to be NPO then re-insert NG tube for pyridostigmine. MRI brain w/wo contrast ordered by Nerology. CT chest done to evaluate for thymoma which is negative. His vital capacity is 1.44. 02/11 Patient was seen and examined. No acute events overnight. No real changes with his swallowing or breathing. CBC shows Hg 12.6. APTT 67. EKG done today shows A-Fib with RVR. His vital capacity is 1.5. General: non toxic, no distress, appears at stated age Derm: warm, dry Head: atraumatic, normocephalic, symmetric Eyes: EOMI, no lid lag, anicteric sclera Cardiovascular: Normal S1 S2, no murmur Lungs: CTA bilateral, no rhonchi, no rales , no accessory muscle use Ext: no gross muscle atrophy, no edema, no contractures Neuro: no focal neuro deficits Psych: Alert, oriented, appropriate affect Myaesthenia gravis exacerbation, impending crisis A-Fib with RVR Anxiety Chronic conditions: Hypertension, dyslipidemia, history of thrombosis Based on my assessment of this patient, this patient meets a high complexity level of care. Patient has an acute diagnosis of myaesthenia gravis exacerbation with impending crisis that poses a threat to life or bodily function. Myaesthenia gravis exacerbation, impending crisis: Per Dr. Arcos, continue IVIG to be completed on 02/13 (8 days). Speech therapy consulted for swallow evaluation. Concerns for respiratory depression. PEF Q4H. Pulmonology on board. Continue Pyridostigmine and Prednisone home dose. Patient has a CPAP at home, advised to continue. MRI brain w/wo ordered. Cardiology started the patient on Metoprolol 5 mg IV Q8H. Continue heparin drip at 10 units/kg/hr for AC. Ativan 0.5 mg IV PRN for anxiety. is the decision maker if he cant make decisions for himself. FULL CODE. I have reviewed the following principal consultant notes: Neurology, and Cardiology note reviewed. I have reviewed the results of the following tests: CBC. APTT. I have ordered the following tests: APTT. I have discussed the care of this patient with the following independent historian: I have independently interpreted the following test below: EKG as above. I have discussed the management of this patient with the following physician: Case discussed with Dr. Berrios. Patient may need to be transferred to a higher level of care of plasma exchange. Objective - Vital Signs Vital signs: Vital Signs Temp 98.2 F 02/11/23 08:00 Pulse 107 H 02/11/23 08:00 Resp 20 02/11/23 08:00 BP 173/92 02/11/23 08:00 Pulse Ox 99 02/11/23 08:56 FiO2 Intake & Output 02/10/23 02/11/23 02/11/23 18:59 06:59 18:59 Intake Total 160 40 20 Output Total 125 Balance 160 40 -105 Intake: IV 20 40 20 Invasive Line 3 10 20 10 Invasive Line 4 10 20 10 Intake, IV Titration 140 Amount Sodium Chloride 0.9% 1, 140 000 ml @ 20 mls/hr IV . Q24H [facility] Rx#:[id number] Oral 0 Output: Urine 125 Other: Voiding Method Toilet Toilet # Voids 1 1 # Bowel Movements 0 - Labs CBC & Chem 7: 02/11/23 08:56 02/09/23 08:02 Labs: Abnormal Lab Results - Last 24 Hours (Table) 02/10/23 02/11/23 02/11/23 Range/Units 19:10 08:56 08:56 Hgb 12.6 L (13.0-17.5) gm/dL Hct 37.0 L (39.0-53.0) % Lymphocytes # 0.8 L (1.0-4.8) k/uL APTT 54.8 H 67.0 H (22.0-30.0) sec
[2023-02-11] MEDS: SODIUM CHLORIDE 0.9% 1,000 ML IV SCH (11:56)
[2023-02-11] MEDS: HEPARIN SOD,PORK IN 0.45% NACL 25,000 UNIT in 0.45% NACL 1 250ML.BAG IV SCH (12:03)
--- NOTE | 2023-02-11 13:00 | P.PN ---
Subjective HISTORY OF PRESENT ILLNESS: This is a 67-year-old male patient of Dr. Dc with past medical history of hypertension, hyperlipidemia, paroxysmal atrial fibrillation, myasthenia gravis on long-term steroids, renal insufficiency, previous asymptomatic strokes on imaging, ascending aortic aneurysm, coronary artery calcifications, TIA, obstructive sleep apnea. We have been asked to evaluate the patient for uncontrolled heart rate and myasthenia gravis. Patient underwent lumbar fusion surgery 12/26 at [facility]. Patient developed proximal muscle weakness with progressive weakness, shortness of breath and and difficulty swallowing. Patient was at long term for 2 weeks and subsequently discharged home. Magdalene gonzales was diagnosed with an exacerbation of myasthenia gravis and started on IVIG, prednisone and Mestinon. Patient is seen today in the emergency center waiting for a bed in the intensive care unit. We have been asked to evaluate the patient for intermittent episodes of tachycardia. Patient has been in a sinus rhythm on telemetry. EKG sinus arrhythmia at 69 bpm Chest x-ray: Chronic changes without evidence of acute process CBC unremarkable. INR 0.9. Sodium 135, potassium 4, BUN 18 creatinine 0.6. Alkaline phosphatase 117 otherwise liver function tests are normal. Magnesium 2. Troponin negative 1. TSH 1.11. Free T4 1 0.06. Urinalysis negative. Home cardiac medications: Eliquis 5 mg twice daily, Zetia 10 mg at bedtime, lisinopril 10 mg at bedtime, Toprol-XL 25 mg daily. Lexiscan stress test 03/2022 small fixed inferior defect and no other reversible ischemia. Echocardiogram 03/2022 revealed EF 60-65% with possible bicuspid aortic valve and mild to moderate aortic regurgitation. 02/08 Patient is seen today on the CSD unit. Patient has NG tube in place for medications. Telemetry has been sinus rhythm at rate of 80s to 90s, blood pressure 152/76, pulse ox 95% on room air. Repeat chest x-ray reveals satisfactory and she laced cement. The strandy right basilar atelectasis. Patient is scheduled today for additional immunoglobulin. Echocardiogram has been obtained and report is pending. 02/10 Patient did have improvement of the swallowing and was placed back on oral med ications and NG tube was removed but but unfortunately he has developed worsening dysphagia and there is talk about NG tube replacement. Patient is trying to hold off on the NG tube until tomorrow. Yesterday patient did not receive eliquis. He is on IV Lopressor for now. Plan is for patient to continue immunoglobulin for the next few days. Echocardiogram reveals normal ventricular size and systolic function. Mild to moderate aortic regurgitation and mild tricuspid regurgitation and no evidence of pulmonary hypertension. 02/11/2023 Patient examined this morning sitting up in the chair. Patient denies chest pain or pressure. He denies shortness of breath. He remains nothing by mouth and continues to have difficulty swallowing. He remains on IV heparin and IV metoprolol. Telemetry reveals sinus mechanism with heart rates in the 80s to 90s. Patient does have episodes of tachycardia with ambulation. Blood pressure elevated with a systolic between 160/170s. PHYSICAL EXAM: VITAL SIGNS: Reviewed. GENERAL: Well-developed in no acute distress. NECK: Supple. No JVD or thyromegaly LUNGS: Respirations even and unlabored. Lungs essentially clear to auscultation bilaterally. HEART: Regular rate and rhythm. S1 and S2 heard. Systolic murmur noted at the apex. EXTREMITIES: Normal range of motion. No clubbing or cyanosis. Peripheral pulse s intact. No lower extremity edema ASSESSMENT: Exacerbation of myasthenia gravis Status post lumbar fusion, 12/26/2022 at [facility] Progressive generalized weakness, dysphagia and dyspnea Sinus tachycardia Paroxysmal atrial fibrillation, currently maintaining sinus mechanism Hypertension Hyperlipidemia Obstructive sleep apnea PLAN: Patient remains NPO. Continue IV heparin and IV metoprolol Increase frequency of IV metoprolol from every 8 hours to every 6 hours Transition to oral medications when able to tolerate PO medications Continue telemetry monitoring Further recommendations pending patient course Nurse practitioner note has been reviewed by physician. Signing provider agrees with the documented findings, assessment, and plan of care. Objective - Vital Signs Vital signs: Vital Signs Temp 98.2 F 02/11/23 08:00 Pulse 107 H 02/11/23 08:00 Resp 20 02/11/23 08:00 BP 173/92 02/11/23 08:00 Pulse Ox 99 02/11/23 08:56 FiO2 Intake & Output 02/10/23 02/11/23 02/11/23 18:59 06:59 18:59 Intake Total 160 40 20 Output Total 125 Balance 160 40 -105 Intake: IV 20 40 20 Invasive Line 3 10 20 10 Invasive Line 4 10 20 10 Intake, IV Titration 140 Amount Sodium Chloride 0.9% 1, 140 000 ml @ 20 mls/hr IV . Q24H [facility] Rx#:[id number] Oral 0 Output: Urine 125 Other: Voiding Method Toilet Toilet Toilet # Voids 1 1 # Bowel Movements 0 - Labs CBC & Chem 7: 02/11/23 08:56 02/09/23 08:02 Labs: Abnormal Lab Results - Last 24 Hours (Table) 02/10/23 02/11/23 02/11/23 Range/Units 19:10 08:56 08:56 Hgb 12.6 L (13.0-17.5) gm/dL Hct 37.0 L (39.0-53.0) % Lymphocytes # 0.8 L (1.0-4.8) k/uL APTT 54.8 H 67.0 H (22.0-30.0) sec
[2023-02-11] MEDS ORDERED: methylPREDNISolone SOD SUCCI 125 MG/2 ML VIAL IV SCH (13:15)
[2023-02-11] MEDS ORDERED: hydrALAZINE HCL 20 MG/ML 1 ML VIAL IVP PRN (13:55)
--- NOTE | 2023-02-11 14:18 | P.PN ---
Subjective Progress Note Date: 02/11/23 Patient initially seen by Dr. Ranjan Arcos. Please refer to his note for details. Patient is a 67-year-old male with myasthenia gravis, admitted with exacerbation. Patient has completed the first round of IVIG, 2 g total dose given over 3 days period of time. This was completed on 02/08/2023. However p atient's symptoms got worse overnight, and patient was started again on a second course of IVIG, being given total 2 g over 5 days period of time. Today is the #3/5.. MRI of the brain also ordered, but cannot be performed because patient cannot lay flat. Patient continues to be very dyspneic, having double vision, or features of myasthenia gravis. He has difficulty with coughing. He cannot swallow at all. Patient has first time presented with myasthenia crisis. Patient has chronic back pain. He underwent spinal surgery on 12/26/2022. Patient states that he had stopped taking Mestinon for profuse diarrhea for 3 months, but then resumed it about a month prior to his back surgery. He has been taking Mestinon since his back surgery. He was doing well, until his symptoms started with recent prior to arrival. Some of the workup during his hospital visit consisted of: FVC 1.18-->1.22-->1.4. CBC with differential is unremarkable Sodium is 135, calcium is 10.0, HDL to use within normal limits. Serum glucose is 95 TSH is 1.10 and the free T4 is 1.06. Urine analysis is negative for any underlying urinary tract infection. CT chest w/ and w/o: Reported as no acute pulmonary process. Aneurysmal dilation of the ascending thoracic aorta 4.0cm. No enlarged mediastinal or hilar adenopathy is evident. 2Decho: Normal left ventricle size and systolic function. Mild to moderate aotic regugitation with mild tricuspid regurgation and no evidence pulmonary hypertension. Objective - Vital Signs Vital signs: Vital Signs Temp 98.2 F 02/11/23 08:00 Pulse 107 H 02/11/23 08:00 Resp 20 02/11/23 08:00 BP 173/92 02/11/23 08:00 Pulse Ox 99 02/11/23 08:56 FiO2 Intake & Output 02/10/23 02/11/23 02/11/23 18:59 06:59 18:59 Intake Total 160 40 20 Balance 160 40 20 Intake: IV 20 40 20 Invasive Line 3 10 20 10 Invasive Line 4 10 20 10 Intake, IV Titration 140 Amount Sodium Chloride 0.9% 1, 140 000 ml @ 20 mls/hr IV . Q24H [facility] Rx#:[id number] Oral 0 Other: Voiding Method Toilet Toilet # Voids 1 1 # Bowel Movements 0 - Exam Patient's mental status is normal. Patient appears to have some labored breathing. He appears slightly short of breath. Patient has weak cough. Pupils are equal, round and reacting, extraocular muscles are intact although patient has double vision. Patient has bilateral ptosis. Patient has weakness of bilateral facial muscles, but worse involving the tongue, and even further worse involving the pharyngeal region. Face is symmetric. Hearing is normal. 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 Patient has partial left foot drop because of back surgery. Sensory to touch is equal. Reflexes are symmetric, 1 at the biceps, 0 brachioradialis, 1+ at the knees, 0 ankles and plantars are flat. No ataxia for [id number] testing. - Labs CBC & Chem 7: 02/11/23 08:56 02/09/23 08:02 Labs: Abnormal Lab Results - Last 24 Hours (Table) 02/10/23 02/11/23 02/11/23 Range/Units 19:10 08:56 08:56 Hgb 12.6 L (13.0-17.5) gm/dL Hct 37.0 L (39.0-53.0) % Lymphocytes # 0.8 L (1.0-4.8) k/uL APTT 54.8 H 67.0 H (22.0-30.0) sec Assessment and Plan Assessment: This is a 67-year-old gentleman with history of myasthenia gravis since 2019 was on Mestinon as well as prednisone and had the recent lower back fusion on 12/26/2022 over [facility] and the last 1 week the patient is been having the worsening shortness of breath, dysphagia, diplopia, ptosis. Patient has presented with myasthenia crisis. Patient has received one full course of IVIG 2 g total dose. Patient's symptoms improved during the treatment, but got worse the day after completion of the treatment with worsening diplopia, upper extremity weakness and dysphagia. Patient has been resumed on second course of IVIG since 02/09/2023 for total 5 day course. Today is day #3. Myasthenia gravis exacerbation-- He completed IVIV 2gm/kg over 3 days (02/08/2023) and had improvement initially but then had has worsening since 02/09/2023. Currently on the second round of IVIG and today is day#3/5. History of Myasthenia gravis since 2019 and for the last 1 year he stated he is been on Mestinon ER 180 mg twice a day and prednisone 20 mg daily History of lower back fusion on 12/26/2022 over [facility] and he still has difficulty walking History of TIA Paroxysmal atrial fibrillation Plan: Patient has completed IVIG 2g/kg over 3 days and last dose was on 02/08/2023 but symptoms have gotten worse from 02/09/2023. Patient has been started on second round of IVIG starting 02/09/2023, schedule per Dr. Arcos for 5 days. It appears patient has not received his steroids since 02/10/2023. Patient was on prednisone 20 mg daily. We will switch to Solu-Medrol 20 mg IV push every 8 hours. This is a very minimal increase from his baseline dose. NG tube placement for resuming Mestinon. Patient has not received Mestinon since the morning dose of 02/09/2023 due to not able to swallow, not having NGT (last dose on 02/08/2023 at 3 PM). Patient's vital capacity appears to be getting worse, at this time is 1.24. at 12:21 PM. Earlier this morning his vital capacity was 1.5 at 8 AM. At midnight was 1.36. Patient is not showing much improvement. I would recommend transfer to higher level of care for possible PLEX if he continues to worsen. Continue assessing the FVC and NiF every 4-6 hours. Please avoid drug in Myasthenia Gravis: aminoglycosides, quinolone, tetracylcine, metronizdonzole, quinide, beta blockers, calcium channel blockers, Phenytoin, Magnesium sulfae, Narocitics, Magnesium, lithium, amantadine, diuretics, sedative. Also cardiology has started him on beta latosha (Lopressor) and recommend to using a different medications. Continue neuro checks [employer] is on board. CT chest:. No enlarged mediastinal or hilar adenopathy is evident. Patient could not tolerate MRI Brain to rule out any other central cause which seems unlikely. PT OT and [employer] are consulted Continue Protonix 40 mg IV for GI prophylaxis Continue vitamin D3 2000IU daily. Patient has atrial fibrillation, currently not able to take Eliquis. Cardiology on board. Patient currently on heparin IV. PTT therapeutic. Telemetry monito ring showing sinus rhythm, with sinus tachycardia. We'll defer the rest of the medical management to primary team Discussed with primary physician about potential transfer to ICU for closer observation. Acetylcholine receptor binding antibody 13.35 (normal <0.30) on 08/14/2022. Striated muscle antibodies negative. Discussed at length with primary physician, and cardiology team. Also discussed with patient and his in detail. Time with Patient: Greater than 30
--- NOTE | 2023-02-11 14:25 | P.PN ---
Subjective Progress Note Date: 02/11/23 Principal diagnosis: Myasthenia gravis and difficulty swallowing I am seeing this patient in emergency department because of ongoing weakness and difficulties in swallowing. The patient is known to have myasthenia gravis. The patient is also known to have severe obstructive sleep apnea with an AHI of 46 and he has limited on APAP machine pressures of 5/10 cm of water. He is myasthenia gravis has been stable and the patient has limited on a combination of Mestinon and prednisone. The patient has paroxysmal A. fib, previous history of DVT admitted on anticoagulation with Eliquis, and hypertension. The patient underwent a L1 S1 lumbar fusion and surgery was done on 12/27/2019. Had a [facility]. The patient has been taking 10 mg of prednisone twice a day. He was also Mestinon. His spirometry and forced vital capacity from 10/11/2022 was at 3.24 L which is 65% of predicted. The muscle forces were also adequate with a an EP of 74 and MIP of 87. He did have some proximal muscle weakness. This was mainly when he was trying to climb up stairs. Since his surgery, the patient had progressive weakness. Is having difficulties with swallowing. No double vi melodie. He did go to [facility] for around 2 weeks and subsequently was discharged home. He was walking around with the help of a walker and he has noticed full mobility yet. His surgical one-sided dry clean and intact. No aspiration. He presented to the hospital as the patient was getting progressively more weak and he also reported some shortness of breath. No chest pain. No hemoptysis. No pleurisy. No aspiration. No abnormalities on the chest x-ray.Labs are all within normal limits. ProBNP level is nonelevated. Liver function tests are normal. Urinalysis is negative. On today's evaluation of 02/07/2023, the patient is being seen for a follow-up. The patient was started on IVIG. The patient is also Mestinon 180 mg twice a day and prednisone 20 mg twice a day. He is still weak. He did have a choking episode earlier today. He is recovered from that. He remains on room air oxyg en. Blood gas was done and there is no evidence of any significant respiratory acidosis. The pH is at 7.4 with episodes of 46 and pO2 of 71. At the same time, a forced vital capacity was done and is down to 1.6 which is lower compared to his baseline of 3.24 L. Earlier this morning of 02/08/2023, the patient was having some weakness and this FVC was down to 1.2. Subsequently, the patient improved. His swallowing breathing, muscle weakness and diplopia has recovered. The patient has received already 2 doses of IVIG. Another FVC according was done and the patient's level was up to 2.3 L. He remains on Mestinon. He remains on prednisone 5 mg twice a day. NG tube is in place. Swallow evaluation will be done. Unable to utilize a CPAP overnight because of his NG tube placement. 02/09/2023, the patient is having difficulties in swallowing began along with diplopia and generalized weakness. After having some initial improvement, improvement in the FVC, the patient obviously decompensated again. The patient is feeling weak and his extremities and is also having difficulties in swallowing. NG tube was removed yesterday. He has completed already 3 doses of IVIG. This will be extended further with total of 5 days. He is on room air oxygen. He is utilizing the CPAP overnight. He was placed on IV Solu-Medrol. He remains on Mestinon. MRI of the brain was also ordered by neurology to rule out any other process which is essentially unlikely in this situation and the lawrence yu has myasthenia gravis. He is able to speak. He has a cough. No significant respiratory secretions. No signs of any significant respiratory compromise. On 02/10/2023, the patient is a weak. Unable to swallow. We're considering reinsertion of a G-tube as the patient is not taking his Mestinon for now. He remains on IV Solu-Medrol. He remains on IVIG. Consideration needs to be given for plasmapheresis on this patient if no improvement. He is able to his respiratory secretions. Is unable to swallow. Reevaluated today on 02/11/2023, patient is basically about the same, does not hav e any shortness of breath but he does have ongoing difficulty swallowing. His nasogastric tube has been removed apparently the patient could not stand the nasogastric tube in place, and the different physicians on the case are all recommending that the patient should be transferred to tertiary care center for plasmapheresis/plasma exchange. I believe that's quite reasonable and should possibly be done. Vital capacity today is 1.5. CBC is relatively normal PTT is 67 Objective - Vital Signs Vital signs: Vital Signs Temp 98.1 F 02/11/23 12:00 Pulse 96 02/11/23 12:00 Resp 20 02/11/23 12:00 BP 147/78 02/11/23 12:00 Pulse Ox 95 02/11/23 12:00 FiO2 Intake & Output 02/10/23 02/11/23 02/11/23 18:59 06:59 18:59 Intake Total 160 40 412.49 Output Total 125 Balance 160 40 287.49 Intake: IV 20 40 30 Invasive Line 3 10 20 20 Invasive Line 4 10 20 10 Intake, IV Titration 140 382.49 Amount Heparin Sod,Pork in 0.45% 242.49 NaCl 25,000 unit In 0.45 % NaCl 1 250ml.bag @ 10 UNITS/KG/HR 9.979 mls/hr IV .Q24H [facility] Rx#: [id number] Sodium Chloride 0.9% 1, 140 140 000 ml @ 20 mls/hr IV . Q24H [facility] Rx#:[id number] Oral 0 Output: Urine 125 Other: Voiding Method Toilet Toilet Toilet # Voids 1 1 # Bowel Movements 0 - Exam Physical Exam: Revealed a 67-year-old white male in no distress on room air Head: Atraumatic, normocephalic. HEENT:[Neck is supple.] [No neck masses.] [No thyromegaly.] [No JVD.] Chest: [Clear throughout, no crackles, no rhonchi, no wheezes.] Cardiac Exam: [Normal S1 and S2, no S3 gallop, no murmur.] Abdomen: [Soft, nontender, no megaly, no rebound, no guarding, normal bowel sounds.] Extremities: [No clubbing, no edema, no cyanosis.] Neurological Exam: [No focal neurologic deficit.] Patient has generalized weakness in all 4 extremities. Psychiatric: Normal mood affect and normal mental status examination. Skin: No rashes. - Labs CBC & Chem 7: 02/11/23 08:56 02/09/23 08:02 Labs: Abnormal Lab Results - Last 24 Hours (Table) 02/10/23 02/11/23 02/11/23 Range/Units 19:10 08:56 08:56 Hgb 12.6 L (13.0-17.5) gm/dL Hct 37.0 L (39.0-53.0) % Lymphocytes # 0.8 L (1.0-4.8) k/uL APTT 54.8 H 67.0 H (22.0-30.0) sec Assessment and Plan Assessment: Impression: Acute exacerbation of myasthenia gravis associated with diplopia and dysphagia and generalized weakness Obstructive sleep apnea syndrome, on noninvasive positive pressure mechanical ventilation. Intermittently. Generalized weakness secondary to above Paroxysmal atrial fibrillation Hypertension Dyslipidemia Degenerative joint disease Recommendation: Strongly recommend transfer patient to a tertiary care center for plasma exchange In the meantime continue heparin since the patient cannot take eliquis Consider placement of nasogastric tube again to be able to give Mestinon. Continue IVIG Continue IV Solu-Medrol Continue to monitor forced the vital capacity/FVC We will continue to follow Time with Patient: Less than 30
[2023-02-11] MEDS: methylPREDNISolone SOD SUCCI 40 MG/ML 1 ML VIAL IV SCH (15:10)
[2023-02-11] MEDS ORDERED: IMMUNE GLOBULIN (GAMMAGARD) 30 GM in EMPTY BAG 1 BAG IV NR (16:00)
--- NOTE | 2023-02-11 16:59 | XR ---
EXAMINATION TYPE: XR chest 1V portable DATE OF EXAM: 02/11/2023 4:52 PM COMPARISON: Chest radiographs from TECHNIQUE: XR chest 1V portable Frontal view of the chest. CLINICAL INDICATION:Male, 67 years old with history of NG tube placement confirmation; FINDINGS: Lungs/Pleura: Blunting left costophrenic angle. There is no evidence of right pleural effusion, focal consolidation, or pneumothorax. Pulmonary vascularity: Unremarkable. Heart/mediastinum: Cardiomediastinal silhouette is unremarkable. Atherosclerotic calcifications are seen in the aorta. Musculoskeletal: No acute osseous pathology. There is fixation hardware in the lower cervical spine. Degeneration changes of the shoulders. Lines/Tubes: Nasogastric tube with its distal tip and side-port projecting under the diaphragm. IMPRESSION: Nasogastric tube in appropriate position. Similar bibasilar atelectasis with suspected left pleural effusion.
[2023-02-11] MEDS ORDERED: PYRIDOSTIGMINE 60 MG TAB PO ONE (17:45)
[2023-02-11] MEDS: PYRIDOSTIGMINE 60 MG TAB PO SCH ×2 (17:58→20:49)
[2023-02-11] MEDS: EZETIMIBE 10 MG TAB PO SCH (20:48)
[2023-02-11] MEDS: lisinopriL 10 MG TAB PO SCH (20:48)
[2023-02-12] MEDS: METOPROLOL TARTRATE 5 MG/5 ML VIAL IVP SCH ×2 (02:48→09:37)
[2023-02-12] MEDS: PYRIDOSTIGMINE 60 MG TAB PO SCH ×2 (05:59)
[2023-02-12] MEDS: PANTOPRAZOLE 40 MG/10 ML VIAL IVP SCH ×2 (09:37→19:57)
[2023-02-12] MEDS: methylPREDNISolone SOD SUCCI 40 MG/ML 1 ML VIAL IV SCH ×4 (09:37→23:38)
[2023-02-12] MEDS: CHOLECALCIFEROL 25 MCG (1000 IU) TABLET PO SCH (09:41)
[2023-02-12] MEDS: PYRIDOSTIGMINE 180 MG PO SCH ×2 (09:43→15:37)
[2023-02-12] MEDS ORDERED: lisinopriL 10 MG TAB PO STA (10:02)
[2023-02-12] MEDS: SODIUM CHLORIDE 0.9% 1,000 ML IV SCH (10:21)
[2023-02-12] MEDS: METOPROLOL SUCCINATE (ER) 50 MG TAB.ER.24H PO SCH (10:21)
[2023-02-12] MEDS ORDERED: APIXABAN 5 MG TAB PO SCH (10:30)
[2023-02-12 11:05] LABS: ALT 112 U/L (4-49); AST 80 U/L (17-59); African American GFR (CKD) >90 (>60 ml/min/1.73 sqM); Albumin 3.5 g/dL (3.5-5.0); Alkaline Phosphatase 139 U/L (38-126); Anion Gap -3 mmol/L; Blood Urea Nitrogen 32 mg/dL (9-20); Calcium 8.6 mg/dL (8.4-10.2); Carbon Dioxide 34 mmol/L (22-30); Chloride 108 mmol/L (98-107); Glucose 120 mg/dL (74-99); Non-African American GFR(CKD) >90 (>60 ml/min/1.73 sqM); Potassium 4.1 mmol/L (3.5-5.1); Sodium 139 mmol/L (137-145); Total Bilirubin 2.3 mg/dL (0.2-1.3); Total Protein 8.4 g/dL (6.3-8.2)
--- NOTE | 2023-02-12 11:07 | P.PN ---
Subjective HISTORY OF PRESENT ILLNESS: This is a 67-year-old male patient of Dr. Dc with past medical history of hypertension, hyperlipidemia, paroxysmal atrial fibrillation, myasthenia gravis on long-term steroids, renal insufficiency, previous asymptomatic strokes on imaging, ascending aortic aneurysm, coronary artery calcifications, TIA, obstructive sleep apnea. We have been asked to evaluate the patient for uncontrolled heart rate and myasthenia gravis. Patient underwent lumbar fusion surgery 12/26 at [facility]. Patient developed proximal muscle weakness with progressive weakness, shortness of breath and and difficulty swallowing. Patient was at half-way for 2 weeks and subsequently discharged home. Magdalene gonzales was diagnosed with an exacerbation of myasthenia gravis and started on IVIG, prednisone and Mestinon. Patient is seen today in the emergency center waiting for a bed in the intensive care unit. We have been asked to evaluate the patient for intermittent episodes of tachycardia. Patient has been in a sinus rhythm on telemetry. EKG sinus arrhythmia at 69 bpm Chest x-ray: Chronic changes without evidence of acute process CBC unremarkable. INR 0.9. Sodium 135, potassium 4, BUN 18 creatinine 0.6. Alkaline phosphatase 117 otherwise liver function tests are normal. Magnesium 2. Troponin negative 1. TSH 1.11. Free T4 1 0.06. Urinalysis negative. Home cardiac medications: Eliquis 5 mg twice daily, Zetia 10 mg at bedtime, lisinopril 10 mg at bedtime, Toprol-XL 25 mg daily. Lexiscan stress test 03/2022 small fixed inferior defect and no other reversible ischemia. Echocardiogram 03/2022 revealed EF 60-65% with possible bicuspid aortic valve and mild to moderate aortic regurgitation. 02/08 Patient is seen today on the CSD unit. Patient has NG tube in place for medications. Telemetry has been sinus rhythm at rate of 80s to 90s, blood pressure 152/76, pulse ox 95% on room air. Repeat chest x-ray reveals satisfactory and she laced cement. The strandy right basilar atelectasis. Patient is scheduled today for additional immunoglobulin. Echocardiogram has been obtained and report is pending. 02/10 Patient did have improvement of the swallowing and was placed back on oral med ications and NG tube was removed but but unfortunately he has developed worsening dysphagia and there is talk about NG tube replacement. Patient is trying to hold off on the NG tube until tomorrow. Yesterday patient did not receive eliquis. He is on IV Lopressor for now. Plan is for patient to continue immunoglobulin for the next few days. Echocardiogram reveals normal ventricular size and systolic function. Mild to moderate aortic regurgitation and mild tricuspid regurgitation and no evidence of pulmonary hypertension. 02/11/2023 Patient examined this morning sitting up in the chair. Patient denies chest pain or pressure. He denies shortness of breath. He remains nothing by mouth and continues to have difficulty swallowing. He remains on IV heparin and IV metoprolol. Telemetry reveals sinus mechanism with heart rates in the 80s to 90s. Patient does have episodes of tachycardia with ambulation. Blood pressure elevated with a systolic between 160/170s. 02/12/2023 Patient examined this morning. He is sitting up in the chair. Patient's family is present. Patient states he is able to swallow this morning and has been evaluated by speech therapy as well. Patient denies chest pain or pressure. He denies shortness of breath. Telemetry reveals sinus mechanism. Blood pressure remains elevated with a systolic ranging between [id number]. PHYSICAL EXAM: VITAL SIGNS: Reviewed. GENERAL: Well-developed in no acute distress. NECK: Supple. No JVD or thyromegaly LUNGS: Respirations even and unlabored. Lungs essentially clear to auscultation bilaterally. HEART: Regular rate and rhythm. S1 and S2 heard. Systolic murmur noted at the apex. EXTREMITIES: Normal range of motion. No clubbing or cyanosis. Peripheral pulses intact. No lower extremity edema ASSESSMENT: Exacerbation of myasthenia gravis Status post lumbar fusion, 12/26/2022 at [facility] Progressive generalized weakness, dysphagia and dyspnea Sinus tachycardia Paroxysmal atrial fibrillation, currently maintaining sinus mechanism Hypertension Hyperlipidemia Obstructive sleep apnea PLAN: Patient able to swallow this morning has been cleared for oral intake per speech therapy Discontinue IV heparin. Resume oral anticoagulation Discontinue IV push Lopressor. Begin metoprolol succinate 50 mg daily Continue lisinopril 10 mg at night. Given additional dose this morning for optimal blood pressure control Continue telemetry monitoring Further recommendations pending patient course Nurse practitioner note has been reviewed by physician. Signing provider agrees with the documented findings, assessment, and plan of care. Objective - Vital Signs Vital signs: Vital Signs Temp 98.0 F 02/12/23 09:30 Pulse 94 02/12/23 09:30 Resp 19 02/12/23 09:30 BP 181/72 02/12/23 09:30 Pulse Ox 99 02/12/23 09:53 FiO2 Intake & Output 02/11/23 02/12/23 02/12/23 18:59 06:59 18:59 Intake Total 412.49 20 10 Output Total 125 150 120 Balance 287.49 -130 -110 Intake: IV 30 20 10 Invasive Line 3 20 20 10 Invasive Line 4 10 Intake, IV Titration 382.49 Amount Heparin Sod,Pork in 0.45% 242.49 NaCl 25,000 unit In 0.45 % NaCl 1 250ml.bag @ 10 UNITS/KG/HR 9.979 mls/hr IV .Q24H [facility] Rx#: [id number] Sodium Chloride 0.9% 1, 140 000 ml @ 20 mls/hr IV . Q24H [facility] Rx#:[id number] Oral 0 Output: Urine 125 150 120 Other: Voiding Method Toilet Bedside Commode Bedside Commode # Voids 4 # Bowel Movements 1 - Labs CBC & Chem 7: 02/11/23 08:56 02/09/23 08:02 Labs: Abnormal Lab Results - Last 24 Hours (Table) 02/12/23 Range/Units 06:40 APTT 74.6 H (22.0-30.0) sec
--- NOTE | 2023-02-12 11:49 | P.PN ---
Subjective Progress Note Date: 02/12/23 Hospital course Patient is a 67-year-old male with PMH of myasthenia gravis, atrial fibrillatio n, hypertension, dyslipidemia, history of thrombosis presents the ED for generalized weakness, shortness of breath, double vision and difficulty swallowing. Patient reports undergoing back surgery on December 26 at [facility]. Since then, he has experienced the above symptoms that has been pr ogressively getting worse. He reports shortness of breath when laying flat has been getting worse over the past 3 days. The symptoms concerned him to come to the ED. He denies any headache, lower extremity edema, nausea or vomiting, fever or chills, cough, chest pain, palpitations, changes in urination or bowel habits. No changes in appetite or weight. He denies any dizziness, numbness/weakness/tingling of the extremities. In the ED, his BP was elevated at 167/150. BP on recheck was 127/77. Vital signs were otherwise stable. CBC was unremarkable. INR was 0.9. CMP shows sodium 135, creatinine is 0.6, alkaline phosphatase 172. Troponin was less than 0.012. BNP was 51. TSH 1.11. Urinalysis negative. EKG showed sinus arrhythmia. Chest x-ray negative for acute changes. Patient was admitted for further evaluation of symptoms. Patient was diagnosed with myasthenia gravis exacerbation. Patient was started on a 3 day course of IVIG. Patient had improvement. However the next after completing his 3 day treatment patient symptoms worsen. He was restarted on IVIG for a 5 day course. Patient's is on his fourth day and his symptoms are improving. Subjective Patient says that he is able to swallow now. He states that his double vision has resolved. Patient reports that since this morning he has had 2 bloody bowel movements. Patient was on the heparin drip. Cardiology has for some 2 hour course. 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 fib with RVR Elevated liver enzymes Anxiety Heart conditions: Hypertension, hyperlipidemia, history of thrombosis Based on my assessment of this patient, this patient meets a high level of complexity Patient has acute diagnosis of myasthenia gravis exacerbation with impending crisis that poses a threat to life or bodily function. Resume IVIG day 4 of 5, resume IV Solu-Medrol 20 mg every 8 hours, resume th yroid state need 60 mg 5 times a day as needed for dyspnea. Discussed with neurology who said hold off on transfer to tertiary care center since patient's symptoms are improving. Today patient reports that his diplopia has resolved. Patient also passed swallow eval. We'll keep the NG tube in for now. Will hold Eliquis e due to melanotic stool. Resume metoprolol 50 mg daily. Cardiology on board Trend H&H every 6 hours. We will increase IV Protonix to 40 mg twice a day. Hemoglobin this morning is pending. Should there is a significant drop in hemoglobin will consult general surgery. Keep patient nothing by mouth for now. Check stool occult. Check right upper quadrant ultrasound Resume IV Ativan 0.5 mg every 4 hours when necessary for anxiety. Resume lisinopril 10 mg at bedtime, Zetia 10 mg at bedtime CODE STATUS: FULL CODE. DVT prophylaxis: No anticoagulation the setting of melanotic stool Anticipated discharge place: Pending clinical course Anticipated discharge time: Pending clinical course I have reviewed the following desktop support consultant notes: Cardiology I have reviewed the results of the following tests: CMP I have ordered the following tests: CMP and CBC I have discussed the care of this patient with the following independent historian: None I have independently interpreted the following test below: None I have discussed the management of this patient with the following physician: Neurology This patient has a high risk of morbidity due to the following reasons: Myasthenia gravis with impending crisis Melanotic stool Objective - Vital Signs Vital signs: Vital Signs Temp 98.0 F 02/12/23 09:30 Pulse 94 02/12/23 09:30 Resp 19 02/12/23 09:30 BP 181/72 02/12/23 09:30 Pulse Ox 99 02/12/23 09:53 FiO2 Intake & Output 02/11/23 02/12/23 02/12/23 18:59 06:59 18:59 Intake Total 412.49 20 10 Output Total 125 150 240 Balance 287.49 -130 -230 Intake: IV 30 20 10 Invasive Line 3 20 20 10 Invasive Line 4 10 Intake, IV Titration 382.49 Amount Heparin Sod,Pork in 0.45% 242.49 NaCl 25,000 unit In 0.45 % NaCl 1 250ml.bag @ 10 UNITS/KG/HR 9.979 mls/hr IV .Q24H [facility] Rx#: [id number] Sodium Chloride 0.9% 1, 140 000 ml @ 20 mls/hr IV . Q24H [facility] Rx#:[id number] Oral 0 Output: Urine 125 150 240 Other: Voiding Method Toilet Bedside Commode Bedside Commode # Voids 4 # Bowel Movements 1 1 - Labs CBC & Chem 7: 02/11/23 08:56 02/12/23 06:40 Labs: Abnormal Lab Results - Last 24 Hours (Table) 02/12/23 02/12/23 Range/Units 06:40 06:40 APTT 74.6 H (22.0-30.0) sec Chloride 108 H (98-107) mmol/L Carbon Dioxide 34 H (22-30) mmol/L BUN 32 H (9-20) mg/dL Glucose 120 H (74-99) mg/dL Total Bilirubin 2.3 H (0.2-1.3) mg/dL AST 80 H (17-59) U/L ALT 112 H (4-49) U/L Alkaline Phosphatase 139 H (38-126) U/L Total Protein 8.4 H (6.3-8.2) g/dL
--- NOTE | 2023-02-12 12:06 | P.PN ---
Subjective Progress Note Date: 02/12/23 Principal diagnosis: Myasthenia gravis and difficulty swallowing I am seeing this patient in emergency department because of ongoing weakness and difficulties in swallowing. The patient is known to have myasthenia gravis. The patient is also known to have severe obstructive sleep apnea with an AHI of 46 and he has limited on APAP machine pressures of 5/10 cm of water. He is myasthenia gravis has been stable and the patient has limited on a combination of Mestinon and prednisone. The patient has paroxysmal A. fib, previous history of DVT admitted on anticoagulation with Eliquis, and hypertension. The patient underwent a L1 S1 lumbar fusion and surgery was done on 12/27/2019. Had a [facility]. The patient has been taking 10 mg of prednisone twice a day. He was also Mestinon. His spirometry and forced vital capacity from 10/11/2022 was at 3.24 L which is 65% of predicted. The muscle forces were also adequate with a an EP of 74 and MIP of 87. He did have some proximal muscle weakness. This was mainly when he was trying to climb up stairs. Since his surgery, the patient had progressive weakness. Is having difficulties with swallowing. No double vi melodie. [facility] and subsequently was discharged home. He was walking around with the help of a walker and he has noticed full mobility yet. His surgical one-sided dry clean and intact. No aspiration. He presented to the hospital as the patient was getting progressively more weak and he also reported some shortness of breath. No chest pain. No hemoptysis. No pleurisy. No aspiration. No abnormalities on the chest x-ray.Labs are all within normal limits. ProBNP level is nonelevated. Liver function tests are normal. Urinalysis is negative. On today's evaluation of 02/07/2023, the patient is being seen for a follow-up. The patient was started on IVIG. The patient is also Mestinon 180 mg twice a day and prednisone 20 mg twice a day. He is still weak. He did have a choking episode earlier today. He is recovered from that. He remains on room air oxyg en. Blood gas was done and there is no evidence of any significant respiratory acidosis. The pH is at 7.4 with episodes of 46 and pO2 of 71. At the same time, a forced vital capacity was done and is down to 1.6 which is lower compared to his baseline of 3.24 L. Earlier this morning of 02/08/2023, the patient was having some weakness and this FVC was down to 1.2. Subsequently, the patient improved. His swallowing breathing, muscle weakness and diplopia has recovered. The patient has received already 2 doses of IVIG. Another FVC according was done and the patient's level was up to 2.3 L. He remains on Mestinon. He remains on prednisone 5 mg twice a day. NG tube is in place. Swallow evaluation will be done. Unable to utilize a CPAP overnight because of his NG tube placement. 02/09/2023, the patient is having difficulties in swallowing began along with diplopia and generalized weakness. After having some initial improvement, improvement in the FVC, the patient obviously decompensated again. The patient is feeling weak and his extremities and is also having difficulties in swallowing. NG tube was removed yesterday. He has completed already 3 doses of IVIG. This will be extended further with total of 5 days. He is on room air oxygen. He is utilizing the CPAP overnight. He was placed on IV Solu-Medrol. He remains on Mestinon. MRI of the brain was also ordered by neurology to rule out any other process which is essentially unlikely in this situation and the lawrence yu has myasthenia gravis. He is able to speak. He has a cough. No significant respiratory secretions. No signs of any significant respiratory compromise. On 02/10/2023, the patient is a weak. Unable to swallow. We're considering reinsertion of a G-tube as the patient is not taking his Mestinon for now. He remains on IV Solu-Medrol. He remains on IVIG. Consideration needs to be given for plasmapheresis on this patient if no improvement. He is able to his respiratory secretions. Is unable to swallow. Reevaluated today on 02/11/2023, patient is basically about the same, does not hav e any shortness of breath but he does have ongoing difficulty swallowing. His nasogastric tube has been removed apparently the patient could not stand the nasogastric tube in place, and the different physicians on the case are all recommending that the patient should be transferred to tertiary care center for plasmapheresis/plasma exchange. I believe that's quite reasonable and should possibly be done. Vital capacity today is 1.5. CBC is relatively normal PTT is 67 Patient was reevaluated today on 02/12/2023, he is feeling much better today, a nasogastric tube was placed yesterday, however the patient is now able to swallow. He is back on his Mestinon via nasogastric tube, but again the patient stated that his swallowing is much better today and he was able to swallow some applesauce without any difficulty. According to case management, the patient is being considered to transfer to either [facility] or [facility]. However waiting for a bed availability. Overall the patient may not even need to be transferred considering now that his swallowing is back to normal and he is back on his Mestinon, may not need plasmapheresis after all. Labs today are unremarkable including CBC and basic metabolic profile and renal profile Objective - Vital Signs Vital signs: Vital Signs Temp 98.0 F 02/12/23 11:51 Pulse 63 02/12/23 11:51 Resp 19 02/12/23 11:51 BP 143/75 02/12/23 11:51 Pulse Ox 98 02/12/23 11:51 FiO2 Intake & Output 02/11/23 02/12/23 02/12/23 18:59 06:59 18:59 Intake Total 412.49 20 10 Output Total 125 150 240 Balance 287.49 -130 -230 Intake: IV 30 20 10 Invasive Line 3 20 20 10 Invasive Line 4 10 Intake, IV Titration 382.49 Amount Heparin Sod,Pork in 0.45% 242.49 NaCl 25,000 unit In 0.45 % NaCl 1 250ml.bag @ 10 UNITS/KG/HR 9.979 mls/hr IV .Q24H [facility] Rx#: [id number] Sodium Chloride 0.9% 1, 140 000 ml @ 20 mls/hr IV . Q24H [facility] Rx#:[id number] Oral 0 Output: Urine 125 150 240 Other: Voiding Method Toilet Bedside Commode Bedside Commode # Voids 4 # Bowel Movements 1 1 - Exam Physical Exam: Revealed a 67-year-old white male in no distress on 2 L nasal cannula with O2 saturation 98-99% Head: Atraumatic, normocephalic. HEENT:[Neck is supple.] [No neck masses.] [No thyromegaly.] [No JVD.] Nasogastric tube is in place. Chest: [Clear throughout, no crackles, no rhonchi, no wheezes.] Cardiac Exam: [Normal S1 and S2, no S3 gallop, no murmur.] Abdomen: [Soft, nontender, no megaly, no rebound, no guarding, normal bowel sounds.] Extremities: [No clubbing, no edema, no cyanosis.] Neurological Exam: [No focal neurologic deficit.] Psychiatric: Normal mood affect and normal mental status examination. Skin: No rashes. - Labs CBC & Chem 7: 02/11/23 08:56 02/12/23 06:40 Labs: Abnormal Lab Results - Last 24 Hours (Table) 02/12/23 02/12/23 Range/Units 06:40 06:40 APTT 74.6 H (22.0-30.0) sec Chloride 108 H (98-107) mmol/L Carbon Dioxide 34 H (22-30) mmol/L BUN 32 H (9-20) mg/dL Glucose 120 H (74-99) mg/dL Total Bilirubin 2.3 H (0.2-1.3) mg/dL AST 80 H (17-59) U/L ALT 112 H (4-49) U/L Alkaline Phosphatase 139 H (38-126) U/L Total Protein 8.4 H (6.3-8.2) g/dL Assessment and Plan Assessment: Impression: Acute exacerbation of myasthenia gravis associated with diplopia and dysphagia and generalized weakness, improving Obstructive sleep apnea syndrome, on noninvasive positive pressure mechanical ventilation. Intermittently. Generalized weakness secondary to above Paroxysmal atrial fibrillation Hypertension Dyslipidemia Degenerative joint disease Recommendation: Considering the clinical improvement noted in the last 24 hours, may have to consider holding on transfer to a tertiary care center In the meantime continue Mestinon, and the patient is to have evaluation by speech therapy again, could consider switching his IV meds including heparin to eliquis orally and the patient could have his Mestinon given orally if cleared by speech therapy. Continue IV Solu-Medrol, consider transitioning to oral prednisone burst and taper We will continue to follow Time with Patient: Less than 30
--- NOTE | 2023-02-12 13:11 | US ---
EXAMINATION TYPE: US abdomen limited DATE OF EXAM: 02/12/2023 COMPARISON: NONE CLINICAL INDICATION: Male, 67 years old with history of Elevated LFTs; Elevated liver enzymes TECHNIQUE: Multiple sonographic images of the right upper quadrant are obtained. FINDINGS: EXAM MEASUREMENTS: Liver Length: 18.1 cm Gallbladder Wall: 0.3 cm Right Kidney: 12.7 x 5.9 x 5.7 cm HELMINTHOLOGIST NOTES: Technical limitations due to large amount of overlying bowel gas Pancreas: Obscured by bowel gas Liver: slightly enlarged Gallbladder: sludge Evidence for sonographic Sevilla's sign: no CBD: Obscured by overlying bowel gas Right Kidney: no evidence of hydronephrosis IMPRESSION: 1. Gallbladder sludge with gallbladder distention at 9 cm. No pericholecystic fluid. Gallbladder wall is within normal limits.
[2023-02-12] MEDS ORDERED: IMMUNE GLOBULIN (GAMMAGARD) 30 GM in EMPTY BAG 1 BAG IV NR (16:00)
[2023-02-12] MEDS: EZETIMIBE 10 MG TAB PO SCH (19:59)
[2023-02-12] MEDS: LORazepam 2 MG/ML INJ IV PRN (19:59)
[2023-02-12] MEDS: lisinopriL 10 MG TAB PO SCH (19:59)
[2023-02-12 20:07] LABS: HCT 29.2 % (39.0-53.0); HGB 10.4 gm/dL (13.0-17.5); Hyperchromasia Slight; MCH 29.1 pg (25.0-35.0); MCHC 35.7 g/dL (31.0-37.0); MCV 81.4 fL (80.0-100.0); Mean Platelet Volume 7.3; Platelet Count 282 k/uL (150-450); Poikilocytosis Marked; RBC 3.59 m/uL (4.30-5.90); RDW 15.3 % (11.5-15.5); WBC 10.7 k/uL (3.8-10.6)
[2023-02-13 00:30] LABS: HCT 28.7 % (39.0-53.0); HGB 10.4 gm/dL (13.0-17.5); Hyperchromasia Slight; MCH 29.4 pg (25.0-35.0); MCHC 36.1 g/dL (31.0-37.0); MCV 81.3 fL (80.0-100.0); Mean Platelet Volume 7.5; Platelet Count 270 k/uL (150-450); Poikilocytosis Marked; RBC 3.53 m/uL (4.30-5.90); RDW 15.3 % (11.5-15.5); WBC 9.9 k/uL (3.8-10.6)
[2023-02-13] MEDS: LORazepam 2 MG/ML INJ IV PRN ×2 (02:35→20:22)
[2023-02-13 06:17] LABS: ALT 142 U/L (4-49); AST 92 U/L (17-59); African American GFR (CKD) >90 (>60 ml/min/1.73 sqM); Albumin 3.3 g/dL (3.5-5.0); Alkaline Phosphatase 117 U/L (38-126); Anion Gap -4 mmol/L; Blood Urea Nitrogen 24 mg/dL (9-20); Calcium 8.8 mg/dL (8.4-10.2); Carbon Dioxide 33 mmol/L (22-30); Chloride 107 mmol/L (98-107); Glucose 104 mg/dL (74-99); Non-African American GFR(CKD) >90 (>60 ml/min/1.73 sqM); Potassium 4.5 mmol/L (3.5-5.1); Sodium 136 mmol/L (137-145); Total Bilirubin 2.7 mg/dL (0.2-1.3); Total Protein 7.8 g/dL (6.3-8.2)
[2023-02-13 06:18] LABS: Basophils % (A) 0 %; Eosinophils # (A) 0.1 k/uL (0-0.7); Eosinophils % (A) 1 %; HCT 29.6 % (39.0-53.0); HGB 10.4 gm/dL (13.0-17.5); Hyperchromasia Slight; Lymphocytes # (A) 0.4 k/uL (1.0-4.8); Lymphocytes % (A) 4 %; MCHC 34.9 g/dL (31.0-37.0); Mean Platelet Volume 8.3; Monocytes # (A) 0.4 k/uL (0-1.0); Monocytes % (A) 4 %; Neutrophils # (A) 8.3 k/uL (1.3-7.7); Neutrophils % (A) 90 %; Platelet Count 262 k/uL (150-450); Poikilocytosis Moderate; RBC 3.57 m/uL (4.30-5.90); RDW 15.1 % (11.5-15.5); WBC 9.2 k/uL (3.8-10.6)
[2023-02-13] MEDS: CHOLECALCIFEROL 25 MCG (1000 IU) TABLET PO SCH (08:17)
[2023-02-13] MEDS: PYRIDOSTIGMINE 180 MG PO SCH ×2 (08:17→17:00)
[2023-02-13] MEDS: methylPREDNISolone SOD SUCCI 40 MG/ML 1 ML VIAL IV SCH ×2 (08:17→17:00)
[2023-02-13] MEDS: METOPROLOL SUCCINATE (ER) 50 MG TAB.ER.24H PO SCH (08:17)
[2023-02-13] MEDS: PANTOPRAZOLE 40 MG/10 ML VIAL IVP SCH ×2 (08:18→20:22)
[2023-02-13 08:23] VITALS: BMI 29.0
--- NOTE | 2023-02-13 09:08 | P.PN ---
Subjective Progress Note Date: 02/12/23 02/12/2023: Patient was seen for a follow-up. Patient's was also present. Patient has much improved. Patient states his diplopia has resolved. He is able to swallow liquid and able to eat, able to swallow the tablets. His breathing has also improved. His strength of cough has improved. Patient's vital capacity has improved significantly and his vital capacity was 1.84 at 9:52 AM. Most recent vital capacity is 1.54. Patient still has NG tube in place. Patient able to take pills by mouth. No new concerns. 02/11/2023: Patient initially seen by Dr. Ranjan Arcos. Please refer to his note for details. Patient is a 67-year-old male with myasthenia gravis, admitted with exacerbation. Patient has completed the first round of IVIG, 2 g total dose given over 3 days period of time. This was completed on 02/08/2023. However patient's symptoms got worse overnight, and patient was started again on a second course of IVIG, being given total 2 g over 5 days period of time. Today is the #3/5.. MRI of the brain also ordered, but cannot be performed because patient cannot lay flat. Patient continues to be very dyspneic, having double vision, or features of myasthenia gravis. He has difficulty with coughing. He cannot swallow at all. Patient has first time presented with myasthenia crisis. Patient has chronic back pain. He underwent spinal surgery on 12/26/2022. Patient states that he had stopped taking Mestinon for profuse diarrhea for 3 months, but then resumed it about a month prior to his back surgery. He has been taking Mestinon since his back surgery. He was doing well, until his symptoms started with recent prior to arrival. Some of the workup during his hospital visit consisted of: FVC 1.18-->1.22-->1.4. CBC with differential is unremarkable Sodium is 135, calcium is 10.0, HDL to use within normal limits. Serum glucose is 95 TSH is 1.10 and the free T4 is 1.06. Urine analysis is negative for any underlying urinary tract infection. CT chest w/ and w/o: Reported as no acute pulmonary process. Aneurysmal dilation of the ascending thoracic aorta 4.0cm. No enlarged mediastinal or hilar adenopathy is evident. 2Decho: Normal left ventricle size and systolic function. Mild to moderate aotic regugitation with mild tricuspid regurgation and no evidence pulmonary hypertension. Objective - Vital Signs Vital signs: Vital Signs Temp 98.0 F 02/12/23 09:30 Pulse 94 02/12/23 09:30 Resp 19 02/12/23 09:30 BP 181/72 02/12/23 09:30 Pulse Ox 99 02/12/23 09:53 FiO2 Intake & Output 02/11/23 02/12/23 02/12/23 18:59 06:59 18:59 Intake Total 412.49 20 10 Output Total 125 150 120 Balance 287.49 -130 -110 Intake: IV 30 20 10 Invasive Line 3 20 20 10 Invasive Line 4 10 Intake, IV Titration 382.49 Amount Heparin Sod,Pork in 0.45% 242.49 NaCl 25,000 unit In 0.45 % NaCl 1 250ml.bag @ 10 UNITS/KG/HR 9.979 mls/hr IV .Q24H [facility] Rx#: [id number] Sodium Chloride 0.9% 1, 140 000 ml @ 20 mls/hr IV . Q24H [facility] Rx#:[id number] Oral 0 Output: Urine 125 150 120 Other: Voiding Method Toilet Bedside Commode Bedside Commode # Voids 4 # Bowel Movements 1 - Exam Patient's mental status is normal. Speech is much more clear. His ptosis has much improved. Diplopia has resolved. His facial strength is improved. Patient able to move his tongue sideways very well, and able to give good strength for pushing under the cheek. Patient's breathing is also improved. Patient has an NG tube in place. Discussed with speech therapist as well. Face is symmetric. Hearing is normal. On muscle strength testing, patient able to bring his arms much more. Strength yesterday was (right/left) deltoid 3-3+/3-3+, biceps 5/5, triceps 5/4-, government guard 4/4, hip flexion 4+/4+, ankle dorsiflexion 5/4+. Patient has partial left foot drop because of back surgery. Sensory to touch is equal. Reflexes are symmetric, 1 at the biceps, 0 brachioradialis, 1+ at the knees, 0 ankles and plantars are flat. No ataxia for [id number] testing. - Labs CBC & Chem 7: 02/13/23 05:22 02/13/23 05:22 Labs: Abnormal Lab Results - Last 24 Hours (Table) 02/12/23 Range/Units 06:40 APTT 74.6 H (22.0-30.0) sec Assessment and Plan Assessment: This is a 67-year-old gentleman with history of myasthenia gravis since 2019 was on Mestinon as well as prednisone and had the recent lower back fusion on 12/26/2022 over [facility] and the last 1 week the patient is been having the worsening shortness of breath, dysphagia, diplopia, ptosis. Patient has presented with myasthenia crisis. Patient has received one full course of IVIG 2 g total dose. Patient's symptoms improved during the treatment, but got worse the day after completion of the treatment with worsening diplopia, upper extremity weakness and dysphagia on 02/09/2023. Patient has been resumed on second course of IVIG since 02/09/2023 for total 5 day course. Patient so far has received 3/5 session of IVIG Myasthenia gravis exacerbation-- He completed IVIV 2gm/kg over 3 days (02/08/2023) and had improvement initially but then had has worsening since 02/09/2023. Currently on the second round of IVIG and has received 3/5 session of IVIG as of yesterday. History of Myasthenia gravis since 2019 and for the last 1 year he stated he is been on Mestinon ER 180 mg twice a day and prednisone 20 mg daily History of lower back fusion on 12/26/2022 over [facility] and he still has difficulty walking History of TIA Paroxysmal atrial fibrillation Plan: Patient has completed IVIG 2g/kg over 3 days and last dose was on 02/08/2023 but symptoms have gotten worse from 02/09/2023. Patient has been started on second round of IVIG starting 02/09/2023, schedule per Dr. Arcos for 5 days. Patient was scheduled for possible transfer to higher level of care, but as he was not able to be transferred, it appears that symptoms have much improved. His diplopia has resolved. We will check stat CMP to make sure his liver functions and hepatic panel are normal. If normal, will resume IVIG otherwise hold off on it. Apparently liver functions have gone up, with AST 80 and ALT 112. Renal functions are normal. We will hold off on IVIG at this time because of worsening liver functions. Patient is able to resume his oral Mestinon ER 180 mg twice a day. Patient will take 60 mg Mestinon as needed for breakthrough symptoms. Continue Solu-Medrol 20 mg IV push every 8 hours. This is a very minimal increase from his baseline dose. Maintain on NG tube for another 24 hours. If symptoms remain stable, then may take NG tube off. Discussed with speech therapist. Patient's vital capacity seems to be getting better. Continue close monitoring. Continue assessing the FVC and NiF every 4-6 hours. Please avoid drug in Myasthenia Gravis: aminoglycosides, quinolone, tetracylcine, metronizdonzole, quinide, beta blockers, calcium channel blockers, Phenytoin, Magnesium sulfae, Narocitics, Magnesium, lithium, amantadine, diur etics, sedative. Also cardiology has started him on beta latosha (Lopressor) and recommend to using a different medications. Continue neuro checks HEAD BANDER AND LINER OPERATOR is on board. CT chest:. No enlarged mediastinal or hilar adenopathy is evident. Patient could not tolerate MRI Brain to rule out any other central cause which seems unlikely. PT OT and HEAD BANDER AND LINER OPERATOR are consulted Continue Protonix 40 mg IV for GI prophylaxis Continue vitamin D3 2000IU daily. Patient has atrial fibrillation, continue Eliquis. Cardiology on board. We'll defer the rest of the medical management to primary team Discussed with primary physician about potential transfer to ICU for closer observation. Acetylcholine receptor binding antibody 13.35 (normal <0.30) on 08/14/2022. Striated muscle antibodies negative. Discussed at length with primary physician, and cardiology team. Also discussed with patient and his in detail.
[2023-02-13] MEDS ORDERED: METOPROLOL SUCCINATE (ER) 50 MG TAB.ER.24H PO ONE (09:30)
--- NOTE | 2023-02-13 10:29 | P.PN ---
Subjective HISTORY OF PRESENT ILLNESS: This is a 67-year-old male patient of Dr. Dc with past medical history of hypertension, hyperlipidemia, paroxysmal atrial fibrillation, myasthenia gravis on long-term steroids, renal insufficiency, previous asymptomatic strokes on imaging, ascending aortic aneurysm, coronary artery calcifications, TIA, obstructive sleep apnea. We have been asked to evaluate the patient for uncontrolled heart rate and myasthenia gravis. Patient underwent lumbar fusion surgery 12/26 at [facility]. Patient developed proximal muscle weakness with progressive weakness, shortness of breath and and difficulty swallowing. [facility] was at [facility] and subsequently discharged home. Magdalene gonzales was diagnosed with an exacerbation of myasthenia gravis and started on IVIG, prednisone and Mestinon. Patient is seen today in the emergency center waiting for a bed in the intensive care unit. We have been asked to evaluate the patient for intermittent episodes of tachycardia. Patient has been in a sinus rhythm on telemetry. EKG sinus arrhythmia at 69 bpm Chest x-ray: Chronic changes without evidence of acute process CBC unremarkable. INR 0.9. Sodium 135, potassium 4, BUN 18 creatinine 0.6. Alkaline phosphatase 117 otherwise liver function tests are normal. Magnesium 2. Troponin negative 1. TSH 1.11. Free T4 1 0.06. Urinalysis negative. Home cardiac medications: Eliquis 5 mg twice daily, Zetia 10 mg at bedtime, lisinopril 10 mg at bedtime, Toprol-XL 25 mg daily. Lexiscan stress test 03/2022 small fixed inferior defect and no other reversible ischemia. Echocardiogram 03/2022 revealed EF 60-65% with possible bicuspid aortic valve and mild to moderate aortic regurgitation. 02/08 Patient is seen today on the [facility] unit. Patient has NG tube in place for medications. Telemetry has been sinus rhythm at rate of 80s to 90s, blood pressure 152/76, pulse ox 95% on room air. Repeat chest x-ray reveals satisfactory and she laced cement. The strandy right basilar atelectasis. Patient is scheduled today for additional immunoglobulin. Echocardiogram has been obtained and report is pending. 02/10 Patient did have improvement of the swallowing and was placed back on oral med ications and NG tube was removed but but unfortunately he has developed worsening dysphagia and there is talk about NG tube replacement. Patient is trying to hold off on the NG tube until tomorrow. Yesterday patient did not receive eliquis. He is on IV Lopressor for now. Plan is for patient to continue immunoglobulin for the next few days. Echocardiogram reveals normal ventricular size and systolic function. Mild to moderate aortic regurgitation and mild tricuspid regurgitation and no evidence of pulmonary hypertension. 02/11/2023 Patient examined this morning sitting up in the chair. Patient denies chest pain or pressure. He denies shortness of breath. He remains nothing by mouth and continues to have difficulty swallowing. He remains on IV heparin and IV metoprolol. Telemetry reveals sinus mechanism with heart rates in the 80s to 90s. Patient does have episodes of tachycardia with ambulation. Blood pressure elevated with a systolic between 160/170s. 02/12/2023 Patient examined this morning. He is sitting up in the chair. Patient's family is present. Patient states he is able to swallow this morning and has been evaluated by speech therapy as well. Patient denies chest pain or pressure. He denies shortness of breath. Telemetry reveals sinus mechanism. Blood pressure remains elevated with a systolic ranging between [id number]. 02/13/2023 Patient examined this morning. He is sitting on the side of the bed. Patient denies chest pain or pressure. Denies shortness of breath. He denies palpitations. He shouldn't went into SVT this morning with heart rate in the 170s and spontaneously converted to sinus mechanism. Patient's anticoagulation was discontinued yesterday secondary to dark tarry stools. PHYSICAL EXAM: VITAL SIGNS: Reviewed. GENERAL: Well-developed in no acute distress. NECK: Supple. No JVD or thyromegaly LUNGS: Respirations even and unlabored. Lungs essentially clear to auscultation bilaterally. HEART: Regular rate and rhythm. S1 and S2 heard. Systolic murmur noted at the apex. EXTREMITIES: Normal range of motion. No clubbing or cyanosis. Peripheral pulses intact. No lower extremity edema ASSESSMENT: Exacerbation of myasthenia gravis Status post lumbar fusion, 12/26/2022 at [facility] Progressive generalized weakness, dysphagia and dyspnea Sinus tachycardia Paroxysmal SVT Paroxysmal atrial fibrillation, currently maintaining sinus mechanism Hypertension Hyperlipidemia Obstructive sleep apnea Dark tarry stools PLAN: Patient's anticoagulation placed on hold yesterday per primary medicine secondary to dark tarry stools Increase metoprolol succinate too 100 mg daily Continue telemetry monitoring Further recommendations pending patient course Nurse practitioner note has been reviewed by physician. Signing provider agrees with the documented findings, assessment, and plan of care. Objective - Vital Signs Vital signs: Vital Signs Temp 97.8 F 02/13/23 08:14 Pulse 111 H 02/13/23 08:14 Resp 16 02/13/23 08:14 BP 147/87 02/13/23 08:16 Pulse Ox 95 02/13/23 08:53 FiO2 Intake & Output 02/12/23 02/13/23 02/13/23 18:59 06:59 18:59 Intake Total 470 20 110 Output Total 490 300 Balance -20 -280 110 Weight 99.79 kg Intake: IV 20 20 Invasive Line 3 20 20 Oral 450 110 Output: Urine 490 300 Other: Voiding Method Bedside Commode Bedside Commode # Bowel Movements 1 - Labs CBC & Chem 7: 02/13/23 05:22 02/13/23 05:22 Labs: Abnormal Lab Results - Last 24 Hours (Table) 02/12/23 02/12/23 02/13/23 Range/Units 06:40 19:55 00:03 WBC 10.7 H (3.8-10.6) k/uL RBC 3.59 L 3.53 L (4.30-5.90) m/uL Hgb 10.4 L 10.4 L (13.0-17.5) gm/dL Hct 29.2 L 28.7 L (39.0-53.0) % Neutrophils # (1.3-7.7) k/uL Lymphocytes # (1.0-4.8) k/uL Sodium (137-145) mmol/L Chloride 108 H (98-107) mmol/L Carbon Dioxide 34 H (22-30) mmol/L BUN 32 H (9-20) mg/dL Creatinine (0.66-1.25) mg/dL Glucose 120 H (74-99) mg/dL Total Bilirubin 2.3 H (0.2-1.3) mg/dL AST 80 H (17-59) U/L ALT 112 H (4-49) U/L Alkaline Phosphatase 139 H (38-126) U/L Total Protein 8.4 H (6.3-8.2) g/dL Albumin (3.5-5.0) g/dL 02/13/23 02/13/23 Range/Units 05:22 05:22 WBC (3.8-10.6) k/uL RBC 3.57 L (4.30-5.90) m/uL Hgb 10.4 L (13.0-17.5) gm/dL Hct 29.6 L (39.0-53.0) % Neutrophils # 8.3 H (1.3-7.7) k/uL Lymphocytes # 0.4 L (1.0-4.8) k/uL Sodium 136 L (137-145) mmol/L Chloride (98-107) mmol/L Carbon Dioxide 33 H (22-30) mmol/L BUN 24 H (9-20) mg/dL Creatinine 0.51 L (0.66-1.25) mg/dL Glucose 104 H (74-99) mg/dL Total Bilirubin 2.7 H (0.2-1.3) mg/dL AST 92 H (17-59) U/L ALT 142 H (4-49) U/L Alkaline Phosphatase (38-126) U/L Total Protein (6.3-8.2) g/dL Albumin 3.3 L (3.5-5.0) g/dL
--- NOTE | 2023-02-13 10:37 | P.PN ---
Subjective Progress Note Date: 02/13/23 Principal diagnosis: Myasthenia gravis and difficulty swallowing I am seeing this patient in emergency department because of ongoing weakness and difficulties in swallowing. The patient is known to have myasthenia gravis. The patient is also known to have severe obstructive sleep apnea with an AHI of 46 and he has limited on APAP machine pressures of 5/10 cm of water. He is myasthenia gravis has been stable and the patient has limited on a combination of Mestinon and prednisone. The patient has paroxysmal A. fib, previous history of DVT admitted on anticoagulation with Eliquis, and hypertension. The patient underwent a L1 S1 lumbar fusion and surgery was done on 12/27/2019. Had a [facility]. The patient has been taking 10 mg of prednisone twice a day. He was also Mestinon. His spirometry and forced vital capacity from 10/11/2022 was at 3.24 L which is 65% of predicted. The muscle forces were also adequate with a an EP of 74 and MIP of 87. He did have some proximal muscle weakness. This was mainly when he was trying to climb up stairs. Since his surgery, the patient had progressive weakness. Is having difficulties with swallowing. No double vi melodie. He did go to [facility] for around 2 weeks and subsequently was discharged home. He was walking around with the help of a walker and he has noticed full mobility yet. His surgical one-sided dry clean and intact. No aspiration. He presented to the hospital as the patient was getting progressively more weak and he also reported some shortness of breath. No chest pain. No hemoptysis. No pleurisy. No aspiration. No abnormalities on the chest x-ray.Labs are all within normal limits. ProBNP level is nonelevated. Liver function tests are normal. Urinalysis is negative. On today's evaluation of 02/07/2023, the patient is being seen for a follow-up. The patient was started on IVIG. The patient is also Mestinon 180 mg twice a day and prednisone 20 mg twice a day. He is still weak. He did have a choking episode earlier today. He is recovered from that. He remains on room air oxyg en. Blood gas was done and there is no evidence of any significant respiratory acidosis. The pH is at 7.4 with episodes of 46 and pO2 of 71. At the same time, a forced vital capacity was done and is down to 1.6 which is lower compared to his baseline of 3.24 L. Earlier this morning of 02/08/2023, the patient was having some weakness and this FVC was down to 1.2. Subsequently, the patient improved. His swallowing breathing, muscle weakness and diplopia has recovered. The patient has received already 2 doses of IVIG. Another FVC according was done and the patient's level was up to 2.3 L. He remains on Mestinon. He remains on prednisone 5 mg twice a day. NG tube is in place. Swallow evaluation will be done. Unable to utilize a CPAP overnight because of his NG tube placement. 02/09/2023, the patient is having difficulties in swallowing began along with diplopia and generalized weakness. After having some initial improvement, improvement in the FVC, the patient obviously decompensated again. The patient is feeling weak and his extremities and is also having difficulties in swallowing. NG tube was removed yesterday. He has completed already 3 doses of IVIG. This will be extended further with total of 5 days. He is on room air oxygen. He is utilizing the CPAP overnight. He was placed on IV Solu-Medrol. He remains on Mestinon. MRI of the brain was also ordered by neurology to rule out any other process which is essentially unlikely in this situation and the lawrence yu has myasthenia gravis. He is able to speak. He has a cough. No significant respiratory secretions. No signs of any significant respiratory compromise. On 02/10/2023, the patient is a weak. Unable to swallow. We're considering reinsertion of a G-tube as the patient is not taking his Mestinon for now. He remains on IV Solu-Medrol. He remains on IVIG. Consideration needs to be given for plasmapheresis on this patient if no improvement. He is able to his respiratory secretions. Is unable to swallow. Reevaluated today on 02/11/2023, patient is basically about the same, does not hav e any shortness of breath but he does have ongoing difficulty swallowing. His nasogastric tube has been removed apparently the patient could not stand the nasogastric tube in place, and the different physicians on the case are all recommending that the patient should be transferred to tertiary care center for plasmapheresis/plasma exchange. I believe that's quite reasonable and should possibly be done. Vital capacity today is 1.5. CBC is relatively normal PTT is 67 Patient was reevaluated today on 02/12/2023, he is feeling much better today, a nasogastric tube was placed yesterday, however the patient is now able to swallow. He is back on his Mestinon via nasogastric tube, but again the patient stated that his swallowing is much better today and he was able to swallow some applesauce without any difficulty. According to case management, the patient is being considered to transfer to either [facility] or [facility]. However waiting for a bed availability. Overall the patient may not even need to be transferred considering now that his swallowing is back to normal and he is back on his Mestinon, may not need plasmapheresis after all. Labs today are unremarkable including CBC and basic metabolic profile and renal profile Reevaluated today on 02/13/2023, patient is doing much better today, he is able to swallow, but is supposed to have another swallow evaluation today by speech therapy. He continues to have the nasogastric tube in place, and he would like it removed, telling me that his diplopia has resolved, and his difficulty swallowing has also resolved. Patient is able to swallow water without any difficulty. Nonetheless I'm waiting until the patient is evaluated by speech therapy, and if he passes the swallow evaluation in the nasogastric tube could be discontinued and the patient will be placed back on his medications orally including Mestinon. Objective - Vital Signs Vital signs: Vital Signs Temp 97.8 F 02/13/23 08:14 Pulse 111 H 02/13/23 08:14 Resp 16 02/13/23 08:14 BP 147/87 02/13/23 08:16 Pulse Ox 95 02/13/23 08:53 FiO2 Intake & Output 02/12/23 02/13/23 02/13/23 18:59 06:59 18:59 Intake Total 470 20 110 Output Total 490 300 Balance -20 -280 110 Weight 99.79 kg Intake: IV 20 20 Invasive Line 3 20 20 Oral 450 110 Output: Urine 490 300 Other: Voiding Method Bedside Commode Bedside Commode # Bowel Movements 1 - Exam Physical Exam: Revealed a 67-year-old white male in no distress on 2 L nasal cannula Head: Atraumatic, normocephalic. HEENT:[Neck is supple.] [No neck masses.] [No thyromegaly.] [No JVD.] Nasogastric tube is in place. Chest: [Clear throughout, no crackles, no rhonchi, no wheezes.] Cardiac Exam: [Normal S1 and S2, no S3 gallop, no murmur.] Abdomen: [Soft, nontender, no megaly, no rebound, no guarding, normal bowel sounds.] Extremities: [No clubbing, no edema, no cyanosis.] Neurological Exam: [No focal neurologic deficit.] Psychiatric: Normal mood affect and normal mental status examination. Skin: No rashes. - Labs CBC & Chem 7: 02/13/23 05:22 02/13/23 05:22 Labs: Abnormal Lab Results - Last 24 Hours (Table) 02/12/23 02/12/23 02/13/23 Range/Units 06:40 19:55 00:03 WBC 10.7 H (3.8-10.6) k/uL RBC 3.59 L 3.53 L (4.30-5.90) m/uL Hgb 10.4 L 10.4 L (13.0-17.5) gm/dL Hct 29.2 L 28.7 L (39.0-53.0) % Neutrophils # (1.3-7.7) k/uL Lymphocytes # (1.0-4.8) k/uL Sodium (137-145) mmol/L Chloride 108 H (98-107) mmol/L Carbon Dioxide 34 H (22-30) mmol/L BUN 32 H (9-20) mg/dL Creatinine (0.66-1.25) mg/dL Glucose 120 H (74-99) mg/dL Total Bilirubin 2.3 H (0.2-1.3) mg/dL AST 80 H (17-59) U/L ALT 112 H (4-49) U/L Alkaline Phosphatase 139 H (38-126) U/L Total Protein 8.4 H (6.3-8.2) g/dL Albumin (3.5-5.0) g/dL 02/13/23 02/13/23 Range/Units 05:22 05:22 WBC (3.8-10.6) k/uL RBC 3.57 L (4.30-5.90) m/uL Hgb 10.4 L (13.0-17.5) gm/dL Hct 29.6 L (39.0-53.0) % Neutrophils # 8.3 H (1.3-7.7) k/uL Lymphocytes # 0.4 L (1.0-4.8) k/uL Sodium 136 L (137-145) mmol/L Chloride (98-107) mmol/L Carbon Dioxide 33 H (22-30) mmol/L BUN 24 H (9-20) mg/dL Creatinine 0.51 L (0.66-1.25) mg/dL Glucose 104 H (74-99) mg/dL Total Bilirubin 2.7 H (0.2-1.3) mg/dL AST 92 H (17-59) U/L ALT 142 H (4-49) U/L Alkaline Phosphatase (38-126) U/L Total Protein (6.3-8.2) g/dL Albumin 3.3 L (3.5-5.0) g/dL Assessment and Plan Assessment: Impression: Acute exacerbation of myasthenia gravis associated with diplopia and dysphagia and generalized weakness, improving, basically resolved based on examination today. Obstructive sleep apnea syndrome, on noninvasive positive pressure mechanical ventilation. Intermittently. Generalized weakness secondary to above Paroxysmal atrial fibrillation Hypertension Dyslipidemia Degenerative joint disease Recommendation: Swallow evaluation again today and possibly consider removing the chest nasogastric tube and allow oral intake if cleared by speech therapy Then resume Mestinon, and adequate Continue IV Solu-Medrol, consider transitioning to oral prednisone burst and taper, once the patient could go on oral meds We will continue to follow Time with Patient: Less than 30
[2023-02-13 12:28] LABS: HCT 32.9 % (39.0-53.0); HGB 11.5 gm/dL (13.0-17.5); Hyperchromasia Slight; MCH 28.8 pg (25.0-35.0); MCV 82.2 fL (80.0-100.0); Mean Platelet Volume 7.8; Platelet Count 312 k/uL (150-450); Poikilocytosis Marked; RDW 15.5 % (11.5-15.5); WBC 11.3 k/uL (3.8-10.6)
--- NOTE | 2023-02-13 13:10 | P.PN ---
Subjective Progress Note Date: 02/13/23 Hospital course Patient is a 67-year-old male with PMH of myasthenia gravis, atrial fibrillation, hypertension, dyslipidemia, history of thrombosis presents the ED for generalized weakness, shortness of breath, double vision and difficulty swallowing. Patient reports undergoing back surgery on December 26 at [facility]. Since then, he has experienced the above symptoms that has been progressively getting worse. He reports shortness of breath when laying flat has been getting worse over the past 3 days. The symptoms concerned him to come to the ED. He denies any headache, lower extremity edema, nausea or vomiting, fever or chills, cough, chest pain, palpitations, changes in urination or bowel habits. No changes in appetite or weight. He denies any dizziness, numb ness/weakness/tingling of the extremities. In the ED, his BP was elevated at 167/150. BP on recheck was 127/77. Vital signs were otherwise stable. CBC was unremarkable. INR was 0.9. CMP shows sodium 135, creatinine is 0.6, alkaline phosphatase 172. Troponin was less than 0.012. BNP was 51. TSH 1.11. Urinalysis negative. EKG showed sinus arrhythmia. Chest x-ray negative for acute changes. Patient was admitted for further evaluation of symptoms. Patient was diagnosed with myasthenia gravis exacerbation. Patient was started on a 3 day course of IVIG. Patient had improvement. However the next after completing his 3 day treatment patient symptoms worsened. He was restarted on IVIG for a 5 day course. However after 3 days of IVIG it was discontinued because his liver enzymes were worsening. Fortunately patient's symptoms are improving. His dysphagia diplopia have resolved. His respiratory distress is also improved. Subjective Patient seen this morning. He states that he has no issues swallowing his medications. He would like his NG tube was removed. He continues to deny any diplopia. He is denying any shortness of breath. He also denies any bowel movements since yesterday morning where he had a black tarry stool. 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 fib with RVR Elevated liver enzymes likely due to IVIG treatment. Anxiety Heart conditions: Hypertension, hyperlipidemia, history of thrombosis Based on my assessment of this patient, this patient meets a high level of complexity Patient has acute diagnosis of myasthenia gravis exacerbation with impending c risis that poses a threat to life or bodily function. In regards to the myasthenia gravis exacerbation IVIG discontinued due to elevated liver enzymes, resume IV Solu-Medrol 20 mg every 8 hours, resume mestinon ER 180mg PO BID (non-formulary medication) and mestinon as needed 60 mg 5 times a day as needed for dyspnea. Discussed with neurology who said hold off on transfer to tertiary care center since patient's symptoms are improving. Patient continues to deny diplopia. He states that his breathing is improving. He states that he is swallowing his medications with no issues. I will start the patient on a mechanical chopped diet and will remove his NG tube. Consult PT/OT. In regards to the acute blood loss anemia and melanotic stool Trend H&H every 6 hours. Patient did have a drop in his hemoglobin from 12.5->10.4. His hemoglobin has been stable since then. This morning patient is denying any further melanotic stool. I discussed with neurology who said that it is not safe for patient to have any procedures under anesthesia at this time so unfortunately we cannot do any further GI workup at this time. Resume IV Protonix to 40 mg twice a day. Stool occult is still pending. Will hold Eliquis due to melanotic stool that started on 02/12/2023. I also discussed with cardiology who is aware that we are holding off on his anticoagulation. I discussed with the patient and family in the room the high risk of stroke while off of Eliquis and that the risks of bleeding outweigh its benefits. Patient and family understand. Metoprolol increased to 100 mg daily. Cardiology on board In regards to elevated liver enzymes. I discussed with neurology who believed this is likely due to the IVIG which has been discontinued. Right upper quadrant ultrasound showed some biliary sludge but no wall thickening of the gallbladder. Unfortunately the common bile duct was not well visualized. Patient denying any right upper quadrant pain so acute cholecystitis and cholangitis ruled out Resume IV Ativan 0.5 mg every 4 hours when necessary for anxiety. Resume lisinopril 10 mg at bedtime, Zetia 10 mg at bedtime CODE STATUS: FULL CODE. DVT prophylaxis: No anticoagulation the setting of melanotic stool Anticipated discharge place: Pending clinical course Anticipated discharge time: Pending clinical course I have reviewed the following wardrobe consultant notes: Cardiology, neurology, pulmonology I have reviewed the results of the following tests: CBC and CMP I have ordered the following tests: CMP and CBC I have discussed the care of this patient with the following independent historian: None I have independently interpreted the following test below: Abdominal ultrasound I have discussed the management of this patient with the following physician: Neurology, cardiology This patient has a high risk of morbidity due to the following reasons: Myasthenia gravis with impending crisis Melanotic stool who needs anticoagulation to lower his risk of stroke due to A. fib with RVR Objective - Vital Signs Vital signs: Vital Signs Temp 97.8 F 02/13/23 11:41 Pulse 77 02/13/23 11:41 Resp 16 02/13/23 11:41 BP 119/74 02/13/23 11:41 Pulse Ox 100 02/13/23 11:41 FiO2 Intake & Output 02/12/23 02/13/23 02/13/23 18:59 06:59 18:59 Intake Total 470 20 120 Output Total 490 300 Balance -20 -280 120 Weight 99.79 kg Intake: IV 20 20 10 Invasive Line 3 20 20 10 Oral 450 110 Output: Urine 490 300 Other: Voiding Method Bedside Commode Bedside Commode Bedside Commode # Bowel Movements 1 - Labs CBC & Chem 7: 02/13/23 12:18 02/13/23 05:22 Labs: Abnormal Lab Results - Last 24 Hours (Table) 02/12/23 02/13/23 02/13/23 Range/Units 19:55 00:03 05:22 WBC 10.7 H (3.8-10.6) k/uL RBC 3.59 L 3.53 L 3.57 L (4.30-5.90) m/uL Hgb 10.4 L 10.4 L 10.4 L (13.0-17.5) gm/dL Hct 29.2 L 28.7 L 29.6 L (39.0-53.0) % Neutrophils # 8.3 H (1.3-7.7) k/uL Lymphocytes # 0.4 L (1.0-4.8) k/uL Sodium (137-145) mmol/L Carbon Dioxide (22-30) mmol/L BUN (9-20) mg/dL Creatinine (0.66-1.25) mg/dL Glucose (74-99) mg/dL Total Bilirubin (0.2-1.3) mg/dL AST (17-59) U/L ALT (4-49) U/L Albumin (3.5-5.0) g/dL 02/13/23 02/13/23 Range/Units 05:22 12:18 WBC 11.3 H (3.8-10.6) k/uL RBC 4.00 L (4.30-5.90) m/uL Hgb 11.5 L (13.0-17.5) gm/dL Hct 32.9 L (39.0-53.0) % Neutrophils # (1.3-7.7) k/uL Lymphocytes # (1.0-4.8) k/uL Sodium 136 L (137-145) mmol/L Carbon Dioxide 33 H (22-30) mmol/L BUN 24 H (9-20) mg/dL Creatinine 0.51 L (0.66-1.25) mg/dL Glucose 104 H (74-99) mg/dL Total Bilirubin 2.7 H (0.2-1.3) mg/dL AST 92 H (17-59) U/L ALT 142 H (4-49) U/L Albumin 3.3 L (3.5-5.0) g/dL
[2023-02-13] MEDS: SODIUM CHLORIDE 0.9% 1,000 ML IV SCH (15:57)
[2023-02-13] MEDS ORDERED: IMMUNE GLOBULIN (GAMMAGARD) 30 GM in EMPTY BAG 1 BAG IV NR (16:00)
[2023-02-13 19:47] LABS: HGB 10.9 gm/dL (13.0-17.5); Hyperchromasia Slight; MCH 29.4 pg (25.0-35.0); MCHC 36.2 g/dL (31.0-37.0); MCV 81.2 fL (80.0-100.0); Mean Platelet Volume 7.7; Platelet Count 275 k/uL (150-450); Poikilocytosis Moderate; RDW 15.2 % (11.5-15.5)
[2023-02-13] MEDS: lisinopriL 10 MG TAB PO SCH (20:21)
[2023-02-13] MEDS: EZETIMIBE 10 MG TAB PO SCH (20:21)
[2023-02-14] MEDS: methylPREDNISolone SOD SUCCI 40 MG/ML 1 ML VIAL IV SCH ×2 (00:05→08:39)
[2023-02-14 02:04] LABS: HCT 32.5 % (39.0-53.0); HGB 11.3 gm/dL (13.0-17.5); Hyperchromasia Slight; MCH 28.5 pg (25.0-35.0); MCHC 34.8 g/dL (31.0-37.0); MCV 82.1 fL (80.0-100.0); Platelet Count 320 k/uL (150-450); Poikilocytosis Marked; RBC 3.96 m/uL (4.30-5.90); RDW 15.6 % (11.5-15.5); WBC 12.7 k/uL (3.8-10.6)
[2023-02-14 07:58] LABS: Basophils % (A) 0 %; Eosinophils % (A) 0 %; HCT 31.3 % (39.0-53.0); HGB 11.2 gm/dL (13.0-17.5); Hyperchromasia Slight; Lymphocytes # (A) 0.6 k/uL (1.0-4.8); Lymphocytes % (A) 5 %; MCH 29.4 pg (25.0-35.0); MCHC 35.9 g/dL (31.0-37.0); MCV 81.9 fL (80.0-100.0); Mean Platelet Volume 7.3; Monocytes # (A) 0.4 k/uL (0-1.0); Monocytes % (A) 4 %; Neutrophils # (A) 9.7 k/uL (1.3-7.7); Neutrophils % (A) 89 %; Platelet Count 298 k/uL (150-450); Poikilocytosis Moderate; RBC 3.83 m/uL (4.30-5.90); RDW 15.3 % (11.5-15.5); WBC 10.9 k/uL (3.8-10.6)
[2023-02-14 08:12] LABS: ALT 214 U/L (4-49); AST 119 U/L (17-59); African American GFR (CKD) >90 (>60 ml/min/1.73 sqM); Albumin 3.6 g/dL (3.5-5.0); Alkaline Phosphatase 129 U/L (38-126); Anion Gap 2 mmol/L; Blood Urea Nitrogen 21 mg/dL (9-20); Carbon Dioxide 34 mmol/L (22-30); Chloride 102 mmol/L (98-107); Glucose 149 mg/dL (74-99); Non-African American GFR(CKD) >90 (>60 ml/min/1.73 sqM); Potassium 4.5 mmol/L (3.5-5.1); Sodium 138 mmol/L (137-145); Total Bilirubin 1.8 mg/dL (0.2-1.3)
[2023-02-14] MEDS: CHOLECALCIFEROL 25 MCG (1000 IU) TABLET PO SCH (08:39)
[2023-02-14] MEDS: METOPROLOL SUCCINATE (ER) 50 MG TAB.ER.24H PO SCH (08:39)
[2023-02-14] MEDS: PANTOPRAZOLE 40 MG/10 ML VIAL IVP SCH ×2 (08:39→19:52)
[2023-02-14] MEDS: PYRIDOSTIGMINE 180 MG PO SCH ×2 (08:43→16:01)
--- NOTE | 2023-02-14 10:16 | P.PN ---
Subjective Progress Note Date: 02/14/23 Patient reports improvement in swallowing, stability in his breathing. LFTs show increased transaminases, improved bilirubin. Gen: awake, alert HEENT: normocephalic, atraumatic, good hearing acuity, moist mucous membranes Resp: good air exchange, breathing comfortably with no accessory muscle use CVS: good distal perfusion x 4, GI: soft, NTTP, ND : no SPT, no CVAT, malagon catheter not present MSK: no pitting edema, no clubbing Neuro: non-focal, moving all extremities Psych: cooperative, euthymic [facility] Hospital course: Patient is a 67-year-old male with PMH of myasthenia gravis, atrial fibrilla tion, hypertension, dyslipidemia, history of thrombosis presented to the ED for generalized weakness, shortness of breath, double vision and difficulty swallowing. In the ED, his BP was elevated at 167/150. BP on recheck was 127/77. Vital signs were otherwise stable. CBC was unremarkable. INR was 0.9. CMP shows sodium 135, creatinine is 0.6, alkaline phosphatase 172. Troponin was less than 0.012. BNP was 51. TSH 1.11. Urinalysis negative. EKG showed sinus arrhythmia. Chest x-ray negative for acute changes. Patient was admitted for further evaluation of symptoms, with diagnosis of myasthenia gravis exacerbation. Neurology and Pulmonology consulted to facilitate management. Patient was started on a 3 day course of IVIG. Patient had improvement. However the next after completing his 3 day treatment patient symptoms worsened. He was restarted on IVIG for a 5 day course. However after 3 days of IVIG it was discontinued because his liver enzymes were worsening. Patient was subsequently switched to back oral mestinon. Assessment: Myasthenia gravis exacerbation Acute blood loss anemia Melanotic stool Paroxysmal A. fib with RVR Elevated liver enzymes likely due to IVIG treatment. Anxiety Heart conditions: Hypertension, hyperlipidemia, history of thrombosis Plan: Today, patient is afebrile, 130/76, 100% on 2 L nasal cannula. CBC demonstrates white blood cell count 10.9, hemoglobin of 11.2 Basic metabolic panel shows CO2 of 34, BUNs 21 Liver function tests show total bilirubin of 1.8, AST 119, ALT of 214, alkaline phosphatase 129 Continue Mestinon 180 mg twice a day, 60 mg 5 times per day as needed Continue metoprolol 100 mg by mouth daily, hemoglobin has been stable can consider resuming Apixiban Continue Solu-Medrol 20 mg IV every 8 hours Patient is full code Objective - Vital Signs Vital signs: Vital Signs Temp 97.7 F 02/14/23 08:00 Pulse 129 H 02/14/23 08:00 Resp 14 02/14/23 08:00 BP 130/76 02/14/23 08:00 Pulse Ox 100 02/14/23 08:00 FiO2 Intake & Output 02/13/23 02/14/23 02/14/23 18:59 06:59 18:59 Intake Total 1520 10 658 Output Total 350 375 Balance 1170 -365 658 Intake: IV 20 10 Invasive Line 3 20 10 Oral 1500 658 Output: Urine 350 375 Other: Voiding Method Bedside Commode Toilet Urinal # Voids 1 # Bowel Movements 1 - Labs CBC & Chem 7: 02/14/23 07:43 02/14/23 07:43 Labs: Abnormal Lab Results - Last 24 Hours (Table) 02/13/23 02/13/23 02/14/23 Range/Units 12:18 19:26 00:51 WBC 11.3 H 12.0 H 12.7 H (3.8-10.6) k/uL RBC 4.00 L 3.70 L 3.96 L (4.30-5.90) m/uL Hgb 11.5 L 10.9 L 11.3 L (13.0-17.5) gm/dL Hct 32.9 L 30.0 L 32.5 L (39.0-53.0) % RDW 15.6 H (11.5-15.5) % Neutrophils # (1.3-7.7) k/uL Lymphocytes # (1.0-4.8) k/uL Carbon Dioxide (22-30) mmol/L BUN (9-20) mg/dL Glucose (74-99) mg/dL Total Bilirubin (0.2-1.3) mg/dL AST (17-59) U/L ALT (4-49) U/L Alkaline Phosphatase (38-126) U/L 02/14/23 02/14/23 Range/Units 07:43 07:43 WBC 10.9 H (3.8-10.6) k/uL RBC 3.83 L (4.30-5.90) m/uL Hgb 11.2 L (13.0-17.5) gm/dL Hct 31.3 L (39.0-53.0) % RDW (11.5-15.5) % Neutrophils # 9.7 H (1.3-7.7) k/uL Lymphocytes # 0.6 L (1.0-4.8) k/uL Carbon Dioxide 34 H (22-30) mmol/L BUN 21 H (9-20) mg/dL Glucose 149 H (74-99) mg/dL Total Bilirubin 1.8 H (0.2-1.3) mg/dL AST 119 H (17-59) U/L ALT 214 H (4-49) U/L Alkaline Phosphatase 129 H (38-126) U/L
--- NOTE | 2023-02-14 10:35 | P.PN ---
Subjective Progress Note Date: 02/13/23 02/13/2023: Patient was seen for a follow-up. Patient's was also present. Patient is doing better than yesterday. He still feels generalized weakness, and tired, coughing a little. He is eating and drinking better, better than yesterday. His most recent vital capacity was 1.64 at 9 AM. States double vision has resolved, although has slight distortion of images. 02/12/2023: Patient was seen for a follow-up. Patient's was also present. Patient has much improved. Patient states his diplopia has resolved. He is able to swallow liquid and able to eat, able to swallow the tablets. His breathing has also improved. His strength of cough has improved. Patient's vital capacity has improved significantly and his vital capacity was 1.84 at 9:52 AM. Most recent vital capacity is 1.54. Patient still has NG tube in place. Patient able to take pills by mouth. No new concerns. 02/11/2023: Patient initially seen by Dr. Ranjan Arcos. Please refer to his note for details. Patient is a 67-year-old male with myasthenia gravis, admitted with exacerbation. Patient has completed the first round of IVIG, 2 g total dose given over 3 days period of time. This was completed on 02/08/2023. However patient's symptoms got worse overnight, and patient was started again on a second course of IVIG, being given total 2 g over 5 days period of time. Today is the #3/5.. MRI of the brain also ordered, but cannot be performed because patient cannot lay flat. Patient continues to be very dyspneic, having double vision, or features of myasthenia gravis. He has difficulty with coughing. He cannot swallow at all. Patient has first time presented with myasthenia crisis. Patient has chronic back pain. He underwent spinal surgery on 12/26/2022. Patient states that he had stopped taking Mestinon for profuse diarrhea for 3 months, but then resumed it about a month prior to his back surgery. He has been taking Mestinon since his back surgery. He was doing well, until his symptoms started with recent prior to arrival. Some of the workup during his hospital visit consisted of: FVC 1.18-->1.22-->1.4. CBC with differential is unremarkable Sodium is 135, calcium is 10.0, HDL to use within normal limits. Serum glucose is 95 TSH is 1.10 and the free T4 is 1.06. Urine analysis is negative for any underlying urinary tract infection. CT chest w/ and w/o: Reported as no acute pulmonary process. Aneurysmal dilation of the ascending thoracic aorta 4.0cm. No enlarged mediastinal or hilar adenopathy is evident. 2Decho: Normal left ventricle size and systolic function. Mild to moderate aotic regugitation with mild tricuspid regurgation and no evidence pulmonary hypertension. Objective - Vital Signs Vital signs: Vital Signs Temp 98.1 F 02/13/23 16:47 Pulse 87 02/13/23 16:47 Resp 14 02/13/23 16:47 BP 137/67 02/13/23 16:47 Pulse Ox 98 02/13/23 16:47 FiO2 Intake & Output 02/12/23 02/13/23 02/13/23 18:59 06:59 18:59 Intake Total 811 07 2429 Output Total 490 300 350 Balance -20 -280 1170 Weight 99.79 kg Intake: IV 20 20 20 Invasive Line 3 20 20 20 Oral 450 1500 Output: Urine 490 300 350 Other: Voiding Method Bedside Commode Bedside Commode Bedside Commode # Bowel Movements 1 - Exam Patient's mental status is normal. Speech is much more clear. His ptosis has much improved. Diplopia has resolved. His facial strength is improved. Patient able to move his tongue sideways very well, and able to give good strength for pushing under the cheek. Patient's breathing is also improved. NG tube has been removed. Face is symmetric. Hearing is normal. On muscle strength testing, (right/left) deltoid 3-2+/3-2+, biceps 5/5, triceps 5/4, environment artist 5-/5-, hip flexion 5/5-, ankle dorsiflexion 5/4. Patient has partial left foot drop because of back surgery. Sensory to touch is equal. Reflexes are symmetric, 1 at the biceps, 0 brachioradialis, 1+ at the knees, 0 ankles and plantars are flat. No ataxia for [id number] testing. - Labs CBC & Chem 7: 02/14/23 07:43 02/14/23 07:43 Labs: Abnormal Lab Results - Last 24 Hours (Table) 02/12/23 02/13/23 02/13/23 Range/Units 19:55 00:03 05:22 WBC 10.7 H (3.8-10.6) k/uL RBC 3.59 L 3.53 L 3.57 L (4.30-5.90) m/uL Hgb 10.4 L 10.4 L 10.4 L (13.0-17.5) gm/dL Hct 29.2 L 28.7 L 29.6 L (39.0-53.0) % Neutrophils # 8.3 H (1.3-7.7) k/uL Lymphocytes # 0.4 L (1.0-4.8) k/uL Sodium (137-145) mmol/L Carbon Dioxide (22-30) mmol/L BUN (9-20) mg/dL Creatinine (0.66-1.25) mg/dL Glucose (74-99) mg/dL Total Bilirubin (0.2-1.3) mg/dL AST (17-59) U/L ALT (4-49) U/L Albumin (3.5-5.0) g/dL 02/13/23 02/13/23 Range/Units 05:22 12:18 WBC 11.3 H (3.8-10.6) k/uL RBC 4.00 L (4.30-5.90) m/uL Hgb 11.5 L (13.0-17.5) gm/dL Hct 32.9 L (39.0-53.0) % Neutrophils # (1.3-7.7) k/uL Lymphocytes # (1.0-4.8) k/uL Sodium 136 L (137-145) mmol/L Carbon Dioxide 33 H (22-30) mmol/L BUN 24 H (9-20) mg/dL Creatinine 0.51 L (0.66-1.25) mg/dL Glucose 104 H (74-99) mg/dL Total Bilirubin 2.7 H (0.2-1.3) mg/dL AST 92 H (17-59) U/L ALT 142 H (4-49) U/L Albumin 3.3 L (3.5-5.0) g/dL Assessment and Plan Assessment: This is a 67-year-old gentleman with history of myasthenia gravis since 2019 was on Mestinon as well as prednisone and had the recent lower back fusion on 12/26/2022 over [facility] and the last 1 week the patient is been having the worsening shortness of breath, dysphagia, diplopia, ptosis. Patient has presented with myasthenia crisis. Patient has received one full course of IVIG 2 g total dose. Patient's symptoms improved during the treatment, but got worse the day after completion of the treatment with worsening diplopia, upper extre mity weakness and dysphagia on 02/09/2023. Patient has been resumed on second course of IVIG since 02/09/2023 for total 5 day course. Patient so far has received 3/5 session of IVIG * Myasthenia gravis exacerbation-- He completed IVIV 2gm/kg over 3 days (02/08/2023) and had improvement initially but then had has worsening since 02/09/2023. He had received partial second round of IVIG 3/5 days only. IVIG discontinued because of worsening liver functions. * History of Myasthenia gravis since 2019 and for the last 1 year he stated he is been on Mestinon ER 180 mg twice a day and prednisone 20 mg daily * History of lower back fusion on 12/26/2022 over [facility] and he still has difficulty walking * History of TIA * Paroxysmal atrial fibrillation * Acute GI bleed, with black tarry stools. Anticoagulation on hold. Plan: Discontinue IVIG because of worsening liver functions. Patient has completed IVIG 2g/kg over 3 days and last dose was on 02/08/2023 but symptoms became worse on 02/09/2023. Patient was given second round of IVIG starting 02/09/2023, schedule per Dr. Arcos. Initially recommended for 5 days, however patient's liver functions became worse, therefore he only received 3/5 sessions of second course of IVIG. Patient's repeat CMP performed today revealed worsening liver functions, with AST 92, ALT 142. Patient is able to resume his oral Mestinon ER 180 mg twice a day. Patient will take 60 mg Mestinon as needed for breakthrough symptoms. Continue Solu-Medrol 20 mg IV push every 8 hours. This is a very minimal increase from his baseline dose. Patient's vital capacity seems to be getting better, most recent 1.64. Continue close monitoring. Continue assessing the FVC and NiF every 4-6 hours. Patient has developed acute GI bleed. Eliquis on hold. Patient at risk for embolic strokes. Patient and his family aware. Please avoid drug in Myasthenia Gravis: aminoglycosides, quinolone, tetra cylcine, metronizdonzole, quinide, beta blockers, calcium channel blockers, Phenytoin, Magnesium sulfae, Narocitics, Magnesium, lithium, amantadine, diuretics, sedative. DIRECTOR OF RESERVATIONS is on board. CT chest:. No enlarged mediastinal or hilar adenopathy is evident. Patient could not tolerate MRI Brain to rule out any other central cause which seems unlikely. PT OT and DIRECTOR OF RESERVATIONS are consulted Patient's Protonix increased to 40 mg IV twice a day. Continue vitamin D3 2000IU daily. Patient has atrial fibrillation, Eliquis on hold because of GI bleed. Cardiology on board. We'll defer the rest of the medical management to primary team Acetylcholine receptor binding antibody 13.35 (normal <0.30) on 08/14/2022. Striated muscle antibodies negative. Discussed with patient and his in detail.
--- NOTE | 2023-02-14 13:11 | P.PN ---
Subjective HISTORY OF PRESENT ILLNESS: This is a 67-year-old male patient of Dr. Dc with past medical history of hypertension, hyperlipidemia, paroxysmal atrial fibrillation, myasthenia gravis on long-term steroids, renal insufficiency, previous asymptomatic strokes on imaging, ascending aortic aneurysm, coronary artery calcifications, TIA, obstructive sleep apnea. We have been asked to evaluate the patient for uncontrolled heart rate and myasthenia gravis. Patient underwent lumbar fusion surgery 12/26 at [facility]. Patient developed proximal muscle weakness with progressive weakness, shortness of breath and and difficulty swallowing. Patient was at correction for 2 weeks and subsequently discharged home. Magdalene gonzales was diagnosed with an exacerbation of myasthenia gravis and started on IVIG, prednisone and Mestinon. Patient is seen today in the emergency center waiting for a bed in the intensive care unit. We have been asked to evaluate the patient for intermittent episodes of tachycardia. Patient has been in a sinus rhythm on telemetry. EKG sinus arrhythmia at 69 bpm Chest x-ray: Chronic changes without evidence of acute process CBC unremarkable. INR 0.9. Sodium 135, potassium 4, BUN 18 creatinine 0.6. Alkaline phosphatase 117 otherwise liver function tests are normal. Magnesium 2. Troponin negative 1. TSH 1.11. Free T4 1 0.06. Urinalysis negative. Home cardiac medications: Eliquis 5 mg twice daily, Zetia 10 mg at bedtime, lisinopril 10 mg at bedtime, Toprol-XL 25 mg daily. Lexiscan stress test 03/2022 small fixed inferior defect and no other reversible ischemia. Echocardiogram 03/2022 revealed EF 60-65% with possible bicuspid aortic valve and mild to moderate aortic regurgitation. 02/08 Patient is seen today on the CSD unit. Patient has NG tube in place for medications. Telemetry has been sinus rhythm at rate of 80s to 90s, blood pressure 152/76, pulse ox 95% on room air. Repeat chest x-ray reveals satisfactory and she laced cement. The strandy right basilar atelectasis. Patient is scheduled today for additional immunoglobulin. Echocardiogram has been obtained and report is pending. 02/10 Patient did have improvement of the swallowing and was placed back on oral med ications and NG tube was removed but but unfortunately he has developed worsening dysphagia and there is talk about NG tube replacement. Patient is trying to hold off on the NG tube until tomorrow. Yesterday patient did not receive eliquis. He is on IV Lopressor for now. Plan is for patient to continue immunoglobulin for the next few days. Echocardiogram reveals normal ventricular size and systolic function. Mild to moderate aortic regurgitation and mild tricuspid regurgitation and no evidence of pulmonary hypertension. 02/11/2023 Patient examined this morning sitting up in the chair. Patient denies chest pain or pressure. He denies shortness of breath. He remains nothing by mouth and continues to have difficulty swallowing. He remains on IV heparin and IV metoprolol. Telemetry reveals sinus mechanism with heart rates in the 80s to 90s. Patient does have episodes of tachycardia with ambulation. Blood pressure elevated with a systolic between 160/170s. 02/12/2023 Patient examined this morning. He is sitting up in the chair. Patient's family is present. Patient states he is able to swallow this morning and has been evaluated by speech therapy as well. Patient denies chest pain or pressure. He denies shortness of breath. Telemetry reveals sinus mechanism. Blood pressure remains elevated with a systolic ranging between [id number]. 02/13/2023 Patient examined this morning. He is sitting on the side of the bed. Patient denies chest pain or pressure. Denies shortness of breath. He denies palpitations. He shouldn't went into SVT this morning with heart rate in the 170s and spontaneously converted to sinus mechanism. Patient's anticoagulation was discontinued yesterday secondary to dark tarry stools. 02/14/2023 Patient examined this morning. He is sitting up in the chair. He denies chest pain or pressure. Denies SOB. Vital signs are stable. Patient continues to have episodes of tachycardia. His Eliquis remains on hold. Hemoglobin stable at 11.2. PHYSICAL EXAM: VITAL SIGNS: Reviewed. GENERAL: Well-developed in no acute distress. NECK: Supple. No JVD or thyromegaly LUNGS: Respirations even and unlabored. Lungs essentially clear to auscultation bilaterally. HEART: Regular rate and rhythm. S1 and S2 heard. Systolic murmur noted at the apex. EXTREMITIES: Normal range of motion. No clubbing or cyanosis. Peripheral pulses intact. No lower extremity edema ASSESSMENT: Exacerbation of myasthenia gravis Status post lumbar fusion, 12/26/2022 at [facility] Progressive generalized weakness, dysphagia and dyspnea Sinus tachycardia Paroxysmal SVT Paroxysmal atrial fibrillation, currently maintaining sinus mechanism Hypertension Hyperlipidemia Obstructive sleep apnea Dark tarry stools PLAN: Patient's anticoagulation placed on hold per primary medicine secondary to dark tarry stools Continue metoprolol succinate too 100 mg daily Continue additional cardiac medications Continue telemetry monitoring Further recommendations pending patient course Nurse practitioner note has been reviewed by physician. Signing provider agrees with the documented findings, assessment, and plan of care. Objective - Vital Signs Vital signs: Vital Signs Temp 97.6 F 02/14/23 10:58 Pulse 71 02/14/23 10:58 Resp 16 02/14/23 10:58 BP 125/66 02/14/23 10:58 Pulse Ox 98 02/14/23 10:58 FiO2 Intake & Output 02/13/23 02/14/23 02/14/23 18:59 06:59 18:59 Intake Total 1520 10 658 Output Total 350 375 Balance 1170 -365 658 Intake: IV 20 10 Invasive Line 3 20 10 Oral 1500 658 Output: Urine 350 375 Other: Voiding Method Bedside Commode Toilet Toilet Urinal Urinal # Voids 1 # Bowel Movements 1 - Labs CBC & Chem 7: 02/14/23 07:43 02/14/23 07:43 Labs: Abnormal Lab Results - Last 24 Hours (Table) 02/13/23 02/14/23 02/14/23 Range/Units 19:26 00:51 07:43 WBC 12.0 H 12.7 H 10.9 H (3.8-10.6) k/uL RBC 3.70 L 3.96 L 3.83 L (4.30-5.90) m/uL Hgb 10.9 L 11.3 L 11.2 L (13.0-17.5) gm/dL Hct 30.0 L 32.5 L 31.3 L (39.0-53.0) % RDW 15.6 H (11.5-15.5) % Neutrophils # 9.7 H (1.3-7.7) k/uL Lymphocytes # 0.6 L (1.0-4.8) k/uL Carbon Dioxide (22-30) mmol/L BUN (9-20) mg/dL Glucose (74-99) mg/dL Total Bilirubin (0.2-1.3) mg/dL AST (17-59) U/L ALT (4-49) U/L Alkaline Phosphatase (38-126) U/L 02/14/23 Range/Units 07:43 WBC (3.8-10.6) k/uL RBC (4.30-5.90) m/uL Hgb (13.0-17.5) gm/dL Hct (39.0-53.0) % RDW (11.5-15.5) % Neutrophils # (1.3-7.7) k/uL Lymphocytes # (1.0-4.8) k/uL Carbon Dioxide 34 H (22-30) mmol/L BUN 21 H (9-20) mg/dL Glucose 149 H (74-99) mg/dL Total Bilirubin 1.8 H (0.2-1.3) mg/dL AST 119 H (17-59) U/L ALT 214 H (4-49) U/L Alkaline Phosphatase 129 H (38-126) U/L
--- NOTE | 2023-02-14 13:13 | P.PN ---
Subjective Progress Note Date: 02/14/23 Principal diagnosis: Myasthenia gravis and difficulty swallowing I am seeing this patient in emergency department because of ongoing weakness and difficulties in swallowing. The patient is known to have myasthenia gravis. The patient is also known to have severe obstructive sleep apnea with an AHI of 46 and he has limited on APAP machine pressures of 5/10 cm of water. He is myasthenia gravis has been stable and the patient has limited on a combination of Mestinon and prednisone. The patient has paroxysmal A. fib, previous history of DVT admitted on anticoagulation with Eliquis, and hypertension. The patient underwent a L1 S1 lumbar fusion and surgery was done on 12/27/2019. Had a [facility]. The patient has been taking 10 mg of prednisone twice a day. He was also Mestinon. His spirometry and forced vital capacity from 10/11/2022 was at 3.24 L which is 65% of predicted. The muscle forces were also adequate with a an EP of 74 and MIP of 87. He did have some proximal muscle weakness. This was mainly when he was trying to climb up stairs. Since his surgery, the patient had progressive weakness. Is having difficulties with swallowing. No double vi melodie. He did go to [facility] for around 2 weeks and subsequently was discharged home. He was walking around with the help of a walker and he has noticed full mobility yet. His surgical one-sided dry clean and intact. No aspiration. He presented to the hospital as the patient was getting progressively more weak and he also reported some shortness of breath. No chest pain. No hemoptysis. No pleurisy. No aspiration. No abnormalities on the chest x-ray.Labs are all within normal limits. ProBNP level is nonelevated. Liver function tests are normal. Urinalysis is negative. On today's evaluation of 02/07/2023, the patient is being seen for a follow-up. The patient was started on IVIG. The patient is also Mestinon 180 mg twice a day and prednisone 20 mg twice a day. He is still weak. He did have a choking episode earlier today. He is recovered from that. He remains on room air oxyg en. Blood gas was done and there is no evidence of any significant respiratory acidosis. The pH is at 7.4 with episodes of 46 and pO2 of 71. At the same time, a forced vital capacity was done and is down to 1.6 which is lower compared to his baseline of 3.24 L. Earlier this morning of 02/08/2023, the patient was having some weakness and this FVC was down to 1.2. Subsequently, the patient improved. His swallowing breathing, muscle weakness and diplopia has recovered. The patient has received already 2 doses of IVIG. Another FVC according was done and the patient's level was up to 2.3 L. He remains on Mestinon. He remains on prednisone 5 mg twice a day. NG tube is in place. Swallow evaluation will be done. Unable to utilize a CPAP overnight because of his NG tube placement. 02/09/2023, the patient is having difficulties in swallowing began along with diplopia and generalized weakness. After having some initial improvement, improvement in the FVC, the patient obviously decompensated again. The patient is feeling weak and his extremities and is also having difficulties in swallowing. NG tube was removed yesterday. He has completed already 3 doses of IVIG. This will be extended further with total of 5 days. He is on room air oxygen. He is utilizing the CPAP overnight. He was placed on IV Solu-Medrol. He remains on Mestinon. MRI of the brain was also ordered by neurology to rule out any other process which is essentially unlikely in this situation and the lawrence yu has myasthenia gravis. He is able to speak. He has a cough. No significant respiratory secretions. No signs of any significant respiratory compromise. On 02/10/2023, the patient is a weak. Unable to swallow. We're considering reinsertion of a G-tube as the patient is not taking his Mestinon for now. He remains on IV Solu-Medrol. He remains on IVIG. Consideration needs to be given for plasmapheresis on this patient if no improvement. He is able to his respiratory secretions. Is unable to swallow. Reevaluated today on 02/11/2023, patient is basically about the same, does not hav e any shortness of breath but he does have ongoing difficulty swallowing. His nasogastric tube has been removed apparently the patient could not stand the nasogastric tube in place, and the different physicians on the case are all recommending that the patient should be transferred to tertiary care center for plasmapheresis/plasma exchange. I believe that's quite reasonable and should possibly be done. Vital capacity today is 1.5. CBC is relatively normal PTT is 67 Patient was reevaluated today on 02/12/2023, he is feeling much better today, a nasogastric tube was placed yesterday, however the patient is now able to swallow. He is back on his Mestinon via nasogastric tube, but again the patient stated that his swallowing is much better today and he was able to swallow some applesauce without any difficulty. According to case management, the patient is being considered to transfer to either [facility] or [facility]. However waiting for a bed availability. Overall the patient may not even need to be transferred considering now that his swallowing is back to normal and he is back on his Mestinon, may not need plasmapheresis after all. Labs today are unremarkable including CBC and basic metabolic profile and renal profile Reevaluated today on 02/13/2023, patient is doing much better today, he is able to swallow, but is supposed to have another swallow evaluation today by speech therapy. He continues to have the nasogastric tube in place, and he would like it removed, telling me that his diplopia has resolved, and his difficulty swallowing has also resolved. Patient is able to swallow water without any difficulty. Nonetheless I'm waiting until the patient is evaluated by speech therapy, and if he passes the swallow evaluation in the nasogastric tube could be discontinued and the patient will be placed back on his medications orally including Mestinon. Reevaluated today on 02/14/2023, patient continues to do well, his swallowing is back to normal, patient is eating well, he is back on oral medication, including Mestinon and including eliquis. I would also transition methylprednisolone to prednisone 40 mg daily for now and when the patient is discharged home in good go back on his usual dose of prednisone which is 10 mg twice a day. As far as d ischarging the patient home, I will clear the patient for discharge was he is cleared by neurology on the case. Labs today including CBC, basic metabolic profile, renal profile, are all normal Objective - Vital Signs Vital signs: Vital Signs Temp 97.6 F 02/14/23 10:58 Pulse 71 02/14/23 10:58 Resp 16 02/14/23 10:58 BP 125/66 02/14/23 10:58 Pulse Ox 98 02/14/23 10:58 FiO2 Intake & Output 02/13/23 02/14/23 02/14/23 18:59 06:59 18:59 Intake Total 1520 10 658 Output Total 350 375 Balance 1170 -365 658 Intake: IV 20 10 Invasive Line 3 20 10 Oral 1500 658 Output: Urine 350 375 Other: Voiding Method Bedside Commode Toilet Toilet Urinal Urinal # Voids 1 # Bowel Movements 1 - Exam Physical Exam: Revealed a 67-year-old white male in no distress on 2 L nasal cannula , O2 sat is 98% Head: Atraumatic, normocephalic. HEENT:[Neck is supple.] [No neck masses.] [No thyromegaly.] [No JVD.] Chest: [Clear throughout, no crackles, no rhonchi, no wheezes.] Cardiac Exam: [Normal S1 and S2, no S3 gallop, no murmur.] Abdomen: [Soft, nontender, no megaly, no rebound, no guarding, normal bowel sounds.] Extremities: [No clubbing, no edema, no cyanosis.] Neurological Exam: [No focal neurologic deficit.] Alert oriented 3 Psychiatric: Normal mood affect and normal mental status examination. Skin: No rashes. - Labs CBC & Chem 7: 02/14/23 07:43 02/14/23 07:43 Labs: Abnormal Lab Results - Last 24 Hours (Table) 02/13/23 02/14/23 02/14/23 Range/Units 19:26 00:51 07:43 WBC 12.0 H 12.7 H 10.9 H (3.8-10.6) k/uL RBC 3.70 L 3.96 L 3.83 L (4.30-5.90) m/uL Hgb 10.9 L 11.3 L 11.2 L (13.0-17.5) gm/dL Hct 30.0 L 32.5 L 31.3 L (39.0-53.0) % RDW 15.6 H (11.5-15.5) % Neutrophils # 9.7 H (1.3-7.7) k/uL Lymphocytes # 0.6 L (1.0-4.8) k/uL Carbon Dioxide (22-30) mmol/L BUN (9-20) mg/dL Glucose (74-99) mg/dL Total Bilirubin (0.2-1.3) mg/dL AST (17-59) U/L ALT (4-49) U/L Alkaline Phosphatase (38-126) U/L 02/14/23 Range/Units 07:43 WBC (3.8-10.6) k/uL RBC (4.30-5.90) m/uL Hgb (13.0-17.5) gm/dL Hct (39.0-53.0) % RDW (11.5-15.5) % Neutrophils # (1.3-7.7) k/uL Lymphocytes # (1.0-4.8) k/uL Carbon Dioxide 34 H (22-30) mmol/L BUN 21 H (9-20) mg/dL Glucose 149 H (74-99) mg/dL Total Bilirubin 1.8 H (0.2-1.3) mg/dL AST 119 H (17-59) U/L ALT 214 H (4-49) U/L Alkaline Phosphatase 129 H (38-126) U/L Assessment and Plan Assessment: Impression: Acute exacerbation of myasthenia gravis associated with diplopia and dysphagia and generalized weakness, resolved Obstructive sleep apnea syndrome, on noninvasive positive pressure mechanical ventilation. Intermittently. Generalized weakness secondary to above Paroxysmal atrial fibrillation Hypertension Dyslipidemia Degenerative joint disease Recommendation: Resume oral Mestinon Resume his oral meds including eliquis Change Solu-Medrol to prednisone 40 mg daily and eventually send him home on 10 mg twice a day which is his maintenance dose for myasthenia gravis Continue Protonix Continue metoprolol Resume blood pressure medications orally We will clear the patient for discharge once is cleared by neurology on the case We will continue to follow Time with Patient: Less than 30
[2023-02-14] MEDS: SODIUM CHLORIDE 0.9% 1,000 ML IV SCH (14:38)
[2023-02-14] MEDS: lisinopriL 10 MG TAB PO SCH (19:51)
[2023-02-14] MEDS: EZETIMIBE 10 MG TAB PO SCH (19:51)
[2023-02-14] MEDS: LORazepam 2 MG/ML INJ IV PRN (19:52)
[2023-02-14] MEDS ORDERED: predniSONE 10 MG TAB PO SCH (21:00)
[2023-02-15] MEDS ORDERED: DILTIAZEM DRIP BOLUS FROM BAG 1 MG SOLN IV ONE (00:24)
[2023-02-15] MEDS: DILTIAZEM 125 MG in SODIUM CHLORIDE 0.9% 100 ML IV SCH ×2 (00:37→16:17)
[2023-02-15] MEDS: LORazepam 2 MG/ML INJ IV PRN ×2 (04:23→20:27)
[2023-02-15] MEDS: PANTOPRAZOLE 40 MG/10 ML VIAL IVP SCH ×2 (08:28→20:27)
[2023-02-15] MEDS: METOPROLOL SUCCINATE (ER) 50 MG TAB.ER.24H PO SCH ×2 (08:28→20:28)
[2023-02-15] MEDS: CHOLECALCIFEROL 25 MCG (1000 IU) TABLET PO SCH (08:28)
[2023-02-15] MEDS: PYRIDOSTIGMINE 180 MG PO SCH ×2 (08:29→16:15)
[2023-02-15] MEDS ORDERED: predniSONE 20 MG TAB PO SCH (09:00)
--- NOTE | 2023-02-15 10:43 | P.PN ---
Subjective Progress Note Date: 02/15/23 HISTORY OF PRESENT ILLNESS: This is a 67-year-old male patient of Dr. Dc with past medical history of hypertension, hyperlipidemia, paroxysmal atrial fibrillation, myasthenia gravis on long-term steroids, renal insufficiency, previous asymptomatic strokes on imaging, ascending aortic aneurysm, coronary artery calcifications, TIA, obstructive sleep apnea. We have been asked to evaluate the patient for uncontrolled heart rate and myasthenia gravis. Patient underwent lumbar fusion surgery 12/26 at [facility]. Patient developed proximal muscle weakness with progressive weakness, shortness of breath and and difficulty swallowing. Patient was at [facility] for 2 weeks and subsequently discharged home. Patient was diagnosed with an exacerbation of myasthenia gravis and started on IVIG, prednisone and Mestinon. Patient is seen today in the emergency center waiting for a bed in the intensive care unit. We have been asked to evaluate the patient for intermittent episodes of tachycardia. Patient has been in a sinus rhythm on telemetry. EKG sinus arrhythmia at 69 bpm Chest x-ray: Chronic changes without evidence of acute process CBC unremarkable. INR 0.9. Sodium 135, potassium 4, BUN 18 creatinine 0.6. Alkaline phosphatase 117 otherwise liver function tests are normal. Magnesium 2. Troponin negative 1. TSH 1.11. Free T4 1 0.06. Urinalysis negative. Home cardiac medications: Eliquis 5 mg twice daily, Zetia 10 mg at bedtime, lisinopril 10 mg at bedtime, Toprol-XL 25 mg daily. Lexiscan stress test 03/2022 small fixed inferior defect and no other reversible ischemia. Echocardiogram 03/2022 revealed EF 60-65% with possible bicuspid aortic valve and mild to moderate aortic regurgitation. 02/08 Patient is seen today on the CSD unit. Patient has NG tube in place for medications. Telemetry has been sinus rhythm at rate of 80s to 90s, blood pre ssure 152/76, pulse ox 95% on room air. Repeat chest x-ray reveals satisfactory and she laced cement. The strandy right basilar atelectasis. Patient is scheduled today for additional immunoglobulin. Echocardiogram has been obtained and report is pending. 02/10 Patient did have improvement of the swallowing and was placed back on oral medications and NG tube was removed but but unfortunately he has developed worsening dysphagia and there is talk about NG tube replacement. Patient is trying to hold off on the NG tube until tomorrow. Yesterday patient did not receive eliquis. He is on IV Lopressor for now. Plan is for patient to continue immunoglobulin for the next few days. Echocardiogram reveals normal ventricular size and systolic function. Mild to moderate aortic regurgitation and mild tricuspid regurgitation and no evidence of pulmonary hypertension. 02/11/2023 Patient examined this morning sitting up in the chair. Patient denies chest pain or pressure. He denies shortness of breath. He remains nothing by mouth and continues to have difficulty swallowing. He remains on IV heparin and IV metoprolol. Telemetry reveals sinus mechanism with heart rates in the 80s to 90s. Patient does have episodes of tachycardia with ambulation. Blood pressure elevated with a systolic between 160/170s. 02/12/2023 Patient examined this morning. He is sitting up in the chair. Patient's family is present. Patient states he is able to swallow this morning and has been evaluated by speech therapy as well. Patient denies chest pain or pressure. He denies shortness of breath. Telemetry reveals sinus mechanism. Blood pressure remains elevated with a systolic ranging between [id number]. 02/13/2023 Patient examined this morning. He is sitting on the side of the bed. Patient denies chest pain or pressure. Denies shortness of breath. He denies palpitations. He shouldn't went into SVT this morning with heart rate in the 170s and spontaneously converted to sinus mechanism. Patient's anticoagulation was discontinued yesterday secondary to dark tarry stools. 02/14/2023 Patient examined this morning. He is sitting up in the chair. He denies chest pain or pressure. Denies SOB. Vital signs are stable. Patient continues to have episodes of tachycardia. His Eliquis remains on hold. Hemoglobin stable at 11.2. 02/15/2023 Patient examined this morning. he is sitting up in the chair. Patient continues to have issues with tachycardia. Overnight he went into A. fib with RVR. He was started on IV Cardizem. he is maintaining sinus mechanism this morning. He denies chest pain or pressure. He denies shortness of breath. He does report feeling palpitations overnight. Blood pressure is stable. PHYSICAL EXAM: VITAL SIGNS: Reviewed. GENERAL: Well-developed in no acute distress. NECK: Supple. No JVD or thyromegaly LUNGS: Respirations even and unlabored. Lungs essentially clear to auscultation bilaterally. HEART: Regular rate and rhythm. S1 and S2 heard. Systolic murmur noted at the apex. EXTREMITIES: Normal range of motion. No clubbing or cyanosis. Peripheral pulses intact. No lower extremity edema ASSESSMENT: Exacerbation of myasthenia gravis Status post lumbar fusion, 12/26/2022 at [facility] Progressive generalized weakness, dysphagia and dyspnea Sinus tachycardia Paroxysmal SVT Paroxysmal atrial fibrillation, currently maintaining sinus mechanism Hypertension Hyperlipidemia Obstructive sleep apnea Dark tarry stools PLAN: Patient's anticoagulation placed on hold per primary medicine secondary to dark tarry stools Continue metoprolol succinate too 100 mg daily Add metoprolol succinate 50mg at HS Discontinue Lisinopril Discontinue IV Cardizem at 1400 Continue additional cardiac medications Continue telemetry monitoring Further recommendations pending patient course Nurse practitioner note has been reviewed by physician. Signing provider agrees with the documented findings, assessment, and plan of care. Objective - Vital Signs Vital signs: Vital Signs Temp 98.1 F 02/15/23 08:00 Pulse 82 02/15/23 08:00 Resp 15 02/15/23 08:00 BP 118/54 02/15/23 08:00 Pulse Ox 96 02/15/23 09:32 FiO2 Intake & Output 02/14/23 02/15/23 02/15/23 18:59 06:59 18:59 Intake Total 1318 540 120 Balance 1318 540 120 Weight 99.79 kg Intake: Oral 1318 540 120 Other: Voiding Method Toilet Toilet Toilet Urinal Urinal Urinal # Voids 1 1 1 # Bowel Movements 1 - Labs CBC & Chem 7: 02/14/23 07:43 02/14/23 07:43
[2023-02-15] MEDS: SODIUM CHLORIDE 0.9% 1,000 ML IV SCH (11:29)
--- NOTE | 2023-02-15 11:35 | P.PN ---
Subjective Progress Note Date: 02/15/23 Principal diagnosis: Myasthenia gravis and difficulty swallowing I am seeing this patient in emergency department because of ongoing weakness and difficulties in swallowing. The patient is known to have myasthenia gravis. The patient is also known to have severe obstructive sleep apnea with an AHI of 46 and he has limited on APAP machine pressures of 5/10 cm of water. He is myasthenia gravis has been stable and the patient has limited on a combination of Mestinon and prednisone. The patient has paroxysmal A. fib, previous history of DVT admitted on anticoagulation with Eliquis, and hypertension. The patient underwent a L1 S1 lumbar fusion and surgery was done on 12/27/2019. Had a [facility]. The patient has been taking 10 mg of prednisone twice a day. He was also Mestinon. His spirometry and forced vital capacity from 10/11/2022 was at 3.24 L which is 65% of predicted. The muscle forces were also adequate with a an EP of 74 and MIP of 87. He did have some proximal muscle weakness. This was mainly when he was trying to climb up stairs. Since his surgery, the patient had progressive weakness. Is having difficulties with swallowing. No double vi melodie. He did go to [facility] for around 2 weeks and subsequently was discharged home. He was walking around with the help of a walker and he has noticed full mobility yet. His surgical one-sided dry clean and intact. No aspiration. He presented to the hospital as the patient was getting progressively more weak and he also reported some shortness of breath. No chest pain. No hemoptysis. No pleurisy. No aspiration. No abnormalities on the chest x-ray.Labs are all within normal limits. ProBNP level is nonelevated. Liver function tests are normal. Urinalysis is negative. On today's evaluation of 02/07/2023, the patient is being seen for a follow-up. The patient was started on IVIG. The patient is also Mestinon 180 mg twice a day and prednisone 20 mg twice a day. He is still weak. He did have a choking episode earlier today. He is recovered from that. He remains on room air oxyg en. Blood gas was done and there is no evidence of any significant respiratory acidosis. The pH is at 7.4 with episodes of 46 and pO2 of 71. At the same time, a forced vital capacity was done and is down to 1.6 which is lower compared to his baseline of 3.24 L. Earlier this morning of 02/08/2023, the patient was having some weakness and this FVC was down to 1.2. Subsequently, the patient improved. His swallowing breathing, muscle weakness and diplopia has recovered. The patient has received already 2 doses of IVIG. Another FVC according was done and the patient's level was up to 2.3 L. He remains on Mestinon. He remains on prednisone 5 mg twice a day. NG tube is in place. Swallow evaluation will be done. Unable to utilize a CPAP overnight because of his NG tube placement. 02/09/2023, the patient is having difficulties in swallowing began along with diplopia and generalized weakness. After having some initial improvement, improvement in the FVC, the patient obviously decompensated again. The patient is feeling weak and his extremities and is also having difficulties in swallowing. NG tube was removed yesterday. He has completed already 3 doses of IVIG. This will be extended further with total of 5 days. He is on room air oxygen. He is utilizing the CPAP overnight. He was placed on IV Solu-Medrol. He remains on Mestinon. MRI of the brain was also ordered by neurology to rule out any other process which is essentially unlikely in this situation and the lawrence yu has myasthenia gravis. He is able to speak. He has a cough. No significant respiratory secretions. No signs of any significant respiratory compromise. On 02/10/2023, the patient is a weak. Unable to swallow. We're considering reinsertion of a G-tube as the patient is not taking his Mestinon for now. He remains on IV Solu-Medrol. He remains on IVIG. Consideration needs to be given for plasmapheresis on this patient if no improvement. He is able to his respiratory secretions. Is unable to swallow. Reevaluated today on 02/11/2023, patient is basically about the same, does not hav e any shortness of breath but he does have ongoing difficulty swallowing. His nasogastric tube has been removed apparently the patient could not stand the nasogastric tube in place, and the different physicians on the case are all recommending that the patient should be transferred to tertiary care center for plasmapheresis/plasma exchange. I believe that's quite reasonable and should possibly be done. Vital capacity today is 1.5. CBC is relatively normal PTT is 67 Patient was reevaluated today on 02/12/2023, he is feeling much better today, a nasogastric tube was placed yesterday, however the patient is now able to swallow. He is back on his Mestinon via nasogastric tube, but again the patient stated that his swallowing is much better today and he was able to swallow some applesauce without any difficulty. According to case management, the patient is being considered to transfer to either [facility] or [facility]. However waiting for a bed availability. Overall the patient may not even need to be transferred considering now that his swallowing is back to normal and he is back on his Mestinon, may not need plasmapheresis after all. Labs today are unremarkable including CBC and basic metabolic profile and renal profile Reevaluated today on 02/13/2023, patient is doing much better today, he is able to swallow, but is supposed to have another swallow evaluation today by speech therapy. He continues to have the nasogastric tube in place, and he would like it removed, telling me that his diplopia has resolved, and his difficulty swallowing has also resolved. Patient is able to swallow water without any difficulty. Nonetheless I'm waiting until the patient is evaluated by speech therapy, and if he passes the swallow evaluation in the nasogastric tube could be discontinued and the patient will be placed back on his medications orally including Mestinon. Reevaluated today on 02/14/2023, patient continues to do well, his swallowing is back to normal, patient is eating well, he is back on oral medication, including Mestinon and including eliquis. I would also transition methylprednisolone to prednisone 40 mg daily for now and when the patient is discharged home in good go back on his usual dose of prednisone which is 10 mg twice a day. As far as d ischarging the patient home, I will clear the patient for discharge was he is cleared by neurology on the case. Labs today including CBC, basic metabolic profile, renal profile, are all normal Reevaluated today on 02/15/2023, patient is basically about the same, he feels weak today, but he has no difficulty breathing he has no difficulty swallowing, he is able to take oral meds and able to eat and swallow fine . Overnight patient went into A. fib with RVR, and now he is on Cardizem drip at 5 mg per hour, this morning he is in sinus rhythm. Denies any chest pain or shortness of breath. CBC is relatively normal basic metabolic profile is normal. Liver enzymes are borderline elevated. Objective - Vital Signs Vital signs: Vital Signs Temp 98.1 F 02/15/23 08:00 Pulse 82 02/15/23 08:00 Resp 15 02/15/23 08:00 BP 118/54 02/15/23 08:00 Pulse Ox 96 02/15/23 09:32 FiO2 Intake & Output 02/14/23 02/15/23 02/15/23 18:59 06:59 18:59 Intake Total 1318 540 120 Balance 1318 540 120 Weight 99.79 kg Intake: Oral 1318 540 120 Other: Voiding Method Toilet Toilet Toilet Urinal Urinal Urinal # Voids 1 1 1 # Bowel Movements 1 - Exam Physical Exam: Revealed a 67-year-old white male in no distress on 3 L nasal cannula , O2 sat is 96% Head: Atraumatic, normocephalic. HEENT:[Neck is supple.] [No neck masses.] [No thyromegaly.] [No JVD.] Chest: [Clear throughout, no crackles, no rhonchi, no wheezes.] Cardiac Exam: [Normal S1 and S2, no S3 gallop, no murmur.] Abdomen: [Soft, nontender, no megaly, no rebound, no guarding, normal bowel sounds.] Extremities: [No clubbing, no edema, no cyanosis.] Neurological Exam: [No focal neurologic deficit.] Alert oriented 3 Psychiatric: Normal mood affect and normal mental status examination. Skin: No rashes. - Labs CBC & Chem 7: 02/14/23 07:43 02/14/23 07:43 Assessment and Plan Assessment: Impression: Acute exacerbation of myasthenia gravis associated with diplopia and dysphagia and generalized weakness, resolved Obstructive sleep apnea syndrome, on noninvasive positive pressure mechanical ventilation. Intermittently. Generalized weakness secondary to above Paroxysmal atrial fibrillation, today he went on Cardizem drip at 5 mg per hour, converted to normal sinus rhythm Hypertension Dyslipidemia Degenerative joint disease Recommendation: Resume oral Mestinon Resume his oral meds including eliquis Continue prednisone Continue Protonix Continue metoprolol Once the patient is cleared by other consultants for discharge, could be discharged home however he has to be cleared by neurology and by cardiology Will see the patient on when necessary Time with Patient: Less than 30
[2023-02-15] MEDS: PYRIDOSTIGMINE 60 MG TAB PO PRN (12:00)
[2023-02-15] MEDS ORDERED: lisinopriL 10 MG TAB PO SCH (12:00)
--- NOTE | 2023-02-15 12:54 | P.PN ---
Subjective Progress Note Date: 02/14/23 02/14/2023: Patient was seen for a follow-up. Patient states that he feels weak, has no appetite. His swallowing is okay. He does not have double vision, but has some visual distortion. He feels it is almost 90% back to normal. He still has black tarry stools. None since yesterday. His EKG shows atrial fibrillation, in 140-160. Cardiology on board. At present heart rate is 136. 02/13/2023: Patient was seen for a follow-up. Patient's was also present. Patient is doing better than yesterday. He still feels generalized weakness, and tired, coughing a little. He is eating and drinking better, better than yesterday. His most recent vital capacity was 1.64 at 9 AM. States double vision has resolved, although has slight distortion of images. 02/12/2023: Patient was seen for a follow-up. Patient's was also present. Patient has much improved. Patient states his diplopia has resolved. He is able to swallow liquid and able to eat, able to swallow the tablets. His breathing has also improved. His strength of cough has improved. Patient's vital capacity has improved significantly and his vital capacity was 1.84 at 9:5 2 AM. Most recent vital capacity is 1.54. Patient still has NG tube in place. Patient able to take pills by mouth. No new concerns. 02/11/2023: Patient initially seen by Dr. Ranjan Arcos. Please refer to his note for details. Patient is a 67-year-old male with myasthenia gravis, admitted with exacerbation. Patient has completed the first round of IVIG, 2 g total dose given over 3 days period of time. This was completed on 02/08/2023. However patient's symptoms got worse overnight, and patient was started again on a second course of IVIG, being given total 2 g over 5 days period of time. Today is the #3/5.. MRI of the brain also ordered, but cannot be performed because patient cannot lay flat. Patient continues to be very dyspneic, having double vision, or features of myasthenia gravis. He has difficulty with coughing. He cannot swallow at all. Patient has first time presented with myasthenia crisis. Patient has chronic back pain. He underwent spinal surgery on 12/26/2022. Patient states that he had stopped taking Mestinon for profuse diarrhea for 3 months, but then resumed it about a month prior to his back surgery. He has been taking Mestinon since his back surgery. He was doing well, until his symptoms started with recent prior to arrival. Some of the workup during his hospital visit consisted of: FVC 1.18-->1.22-->1.4. CBC with differential is unremarkable Sodium is 135, calcium is 10.0, HDL to use within normal limits. Serum glucose is 95 TSH is 1.10 and the free T4 is 1.06. Urine analysis is negative for any underlying urinary tract infection. CT chest w/ and w/o: Reported as no acute pulmonary process. Aneurysmal dilation of the ascending thoracic aorta 4.0cm. No enlarged mediastinal or jone r adenopathy is evident. 2Decho: Normal left ventricle size and systolic function. Mild to moderate aotic regugitation with mild tricuspid regurgation and no evidence pulmonary hypertension. Objective - Vital Signs Vital signs: Vital Signs Temp 98.0 F 02/14/23 15:17 Pulse 83 02/14/23 15:17 Resp 16 02/14/23 15:17 BP 114/68 02/14/23 15:17 Pulse Ox 97 02/14/23 15:17 FiO2 Intake & Output 02/13/23 02/14/23 02/14/23 18:59 06:59 18:59 Intake Total 1520 10 1198 Output Total 350 375 Balance 1170 -365 1198 Weight 99.79 kg Intake: IV 20 10 Invasive Line 3 20 10 Oral 1500 1198 Output: Urine 350 375 Other: Voiding Method Bedside Commode Toilet Toilet Urinal Urinal # Voids 1 # Bowel Movements 1 - Exam Patient's mental status is normal. Speech is much more clear. His ptosis has much improved. Diplopia has resolved, although he has slight visual distortion. His facial strength is improved. Patient able to move his tongue sideways very well, and able to give good strength for pushing under the cheek. Patient's breathing is also improved. NG tube has been removed. Face is symmetric. Hearing is normal. On muscle strength testing, (right/left) deltoid 3-2+/3-2+, biceps 5/5, triceps 5/4, sr account executive 5-/5-, hip flexion 5/5-, ankle dorsiflexion 5/4. Patient has partial left foot drop because of back surgery. Sensory to touch is equal. Reflexes are symmetric, 1 at the biceps, 0 brachioradialis, 1+ at the knees, 0 ankles and plantars are flat. No ataxia for [id number] testing. - Labs CBC & Chem 7: 02/14/23 07:43 02/14/23 07:43 Labs: Abnormal Lab Results - Last 24 Hours (Table) 02/13/23 02/14/23 02/14/23 Range/Units 19:26 00:51 07:43 WBC 12.0 H 12.7 H 10.9 H (3.8-10.6) k/uL RBC 3.70 L 3.96 L 3.83 L (4.30-5.90) m/uL Hgb 10.9 L 11.3 L 11.2 L (13.0-17.5) gm/dL Hct 30.0 L 32.5 L 31.3 L (39.0-53.0) % RDW 15.6 H (11.5-15.5) % Neutrophils # 9.7 H (1.3-7.7) k/uL Lymphocytes # 0.6 L (1.0-4.8) k/uL Carbon Dioxide (22-30) mmol/L BUN (9-20) mg/dL Glucose (74-99) mg/dL Total Bilirubin (0.2-1.3) mg/dL AST (17-59) U/L ALT (4-49) U/L Alkaline Phosphatase (38-126) U/L 02/14/23 Range/Units 07:43 WBC (3.8-10.6) k/uL RBC (4.30-5.90) m/uL Hgb (13.0-17.5) gm/dL Hct (39.0-53.0) % RDW (11.5-15.5) % Neutrophils # (1.3-7.7) k/uL Lymphocytes # (1.0-4.8) k/uL Carbon Dioxide 34 H (22-30) mmol/L BUN 21 H (9-20) mg/dL Glucose 149 H (74-99) mg/dL Total Bilirubin 1.8 H (0.2-1.3) mg/dL AST 119 H (17-59) U/L ALT 214 H (4-49) U/L Alkaline Phosphatase 129 H (38-126) U/L Assessment and Plan Assessment: This is a 67-year-old gentleman with history of myasthenia gravis since 2019 was on Mestinon as well as prednisone and had the recent lower back fusion on 12/26/2022 over [facility] and the last 1 week the patient is been having the worsening shortness of breath, dysphagia, diplopia, ptosis. Patient has presented with myasthenia crisis. Patient has received one full course of IVIG 2 g total dose. Patient's symptoms improved during the treatment, but got worse the day after completion of the treatment with worsening diplopia, upper extremity weakness and dysphagia on 02/09/2023. Patient has been resumed on second course of IVIG since 02/09/2023 for total 5 day course. Patient so far has received 3/5 session of IVIG * Myasthenia gravis exacerbation-- He completed IVIV 2gm/kg over 3 days (02/08/2023) and had improvement initially but then had has worsening since 02/09/2023. He had received partial second round of IVIG 3/5 days only. IVIG discontinued because of worsening liver functions. * History of Myasthenia gravis since 2019 and for the last 1 year he stated he is been on Mestinon ER 180 mg twice a day and prednisone 20 mg daily * History of lower back fusion on 12/26/2022 over [facility] and he still has difficulty walking * History of TIA * Paroxysmal atrial fibrillation * Acute GI bleed, with black tarry stools. Anticoagulation on hold. Plan: Discontinue IVIG because of worsening liver functions. Patient has completed IVIG 2g/kg over 3 days and last dose was on 02/08/2023 but symptoms became worse on 02/09/2023. Patient was given second round of IVIG starting 02/09/2023, schedule per Dr. Arcos. Initially recommended for 5 days, however patient's liver functions became worse, therefore he only received 3/5 sessions of second course of IVIG. Patient's repeat CMP performed today revealed further worsening liver functions, with AST 119, ALT 214. Repeat hepatic panel in the morning. Patient is able to resume his oral Mestinon ER 180 mg twice a day. Patient will take 60 mg Mestinon as needed for breakthrough symptoms. Patient's symptoms are not much improving. Still appears quite weak. We will start CellCept 500 mg twice a day. Possible side effect of infections informed. Discussed with patient's , she agreed with starting CellCept. Imuran cannot be prescribed because of elevated liver functions. Patient's vital capacity seems to be getting better, most recent 1.6. Continue close monitoring. Continue assessing the FVC and NiF every 4-6 hours. Patient has developed acute GI bleed. Eliquis on hold. Patient at risk for embolic strokes. Patient and his family aware. Please avoid drug in Myasthenia Gravis: aminoglycosides, quinolone, tetracylcine, metronizdonzole, quinide, beta blockers, calcium channel blockers, Phenytoin, Magnesium sulfae, Narocitics, Magnesium, lithium, amantadine, diuretics, sedative. FOOD AND BEVERAGE MANAGER is on board. CT chest:. No enlarged mediastinal or hilar adenopathy is evident. PT OT and FOOD AND BEVERAGE MANAGER are consulted Patient's Protonix increased to 40 mg IV twice a day. Continue vitamin D3 2000IU daily. Patient has atrial fibrillation, Eliquis on hold because of GI bleed. Cardiology on board. We'll defer the rest of the medical management to primary team Acetylcholine receptor binding antibody 13.35 (normal <0.30) on 08/14/2022. Striated muscle antibodies negative. Discussed with patient and his in detail.
[2023-02-15 13:47] LABS: Albumin 3.4 g/dL (3.5-5.0); Bilirubin, Delta 0.3 mg/dL (0.0-0.2); Bilirubin,Unconjugated 0.9 mg/dL (0.0-1.1); Total Bilirubin 1.2 mg/dL (0.2-1.3); Total Protein 7.4 g/dL (6.3-8.2)
--- NOTE | 2023-02-15 14:12 | P.PN ---
Subjective Progress Note Date: 02/15/23 Pt reports slowed speech and increased difficulty breathing today. Gen: awake, alert HEENT: normocephalic, atraumatic, good hearing acuity, moist mucous membranes Resp: good air exchange, breathing comfortably with no accessory muscle use CVS: good distal perfusion x 4, GI: soft, NTTP, ND : no SPT, no CVAT, malagon catheter not present MSK: no pitting edema, no clubbing Neuro: non-focal, moving all extremities Psych: cooperative, euthymic mood Hospital course: Patient is a 67-year-old male with PMH of myasthenia gravis, atrial fibrillation, hypertension, dyslipidemia, history of thrombosis presented to the ED for generalized weakness, shortness of breath, double vision and difficulty swallowing. In the ED, his BP was elevated at 167/150. BP on recheck was 127/77. Vital signs were otherwise stable. CBC was unremarkable. INR was 0.9. CMP shows sodium 135, creatinine is 0.6, alkaline phosphatase 172. Troponin was less than 0.012. BNP was 51. TSH 1.11. Urinalysis negative. EKG showed sinus arrhythmia. Chest x-ray negative for acute changes. Patient was admitted for further evaluation of symptoms, with diagnosis of myasthenia gravis exacerbation. Neurology and Pulmonology consulted to facilitate management. Patient was started on a 3 day course of IVIG. Patient had improvement. However the next after completing his 3 day treatment patient symptoms worsened. He was restarted on IVIG for a 5 day course. However after 3 days of IVIG it was discontinued because his liver enzymes were worsening. Patient was subsequently switched to back oral mestinon. Assessment: Myasthenia gravis exacerbation Acute blood loss anemia Melanotic stool Paroxysmal A. fib with RVR Elevated liver enzymes likely due to IVIG treatment. Anxiety Heart conditions: Hypertension, hyperlipidemia, history of thrombosis Plan: Continue Mestinon 180 mg twice a day, 60 mg 5 times per day as needed, give additional 60mg dose today, if no improvement by tomorrow, will add to scheduled dosing. Continue metoprolol 100 mg by mouth daily, hemoglobin has been stable can consider resuming Apixiban solumedrol switched to prednisone Patient is full code Objective - Vital Signs Vital signs: Vital Signs Temp 97.7 F 02/15/23 11:51 Pulse 61 02/15/23 11:51 Resp 16 02/15/23 11:51 BP 125/65 02/15/23 11:51 Pulse Ox 92 L 02/15/23 11:51 FiO2 Intake & Output 02/14/23 02/15/23 02/15/23 18:59 06:59 18:59 Intake Total 1318 540 240 Balance 1318 540 240 Weight 99.79 kg Intake: Oral 1318 540 240 Other: Voiding Method Toilet Toilet Toilet Urinal Urinal Urinal # Voids 1 1 1 # Bowel Movements 1 1 - Labs CBC & Chem 7: 02/14/23 07:43 02/14/23 07:43 Labs: Abnormal Lab Results - Last 24 Hours (Table) 02/15/23 Range/Units 13:25 Delta Bilirubin 0.3 H (0.0-0.2) mg/dL AST 96 H (17-59) U/L ALT 196 H (4-49) U/L Albumin 3.4 L (3.5-5.0) g/dL
--- NOTE | 2023-02-15 17:07 | P.PN ---
Subjective Progress Note Date: 02/15/23 02/15/2023: Patient was seen for a follow-up. Patient's was also present today. Patient states he is slightly better than yesterday. Earlier this morning and last night he was slightly worse. This was reflected also on worsening vital capacity. However in the evening he is improved. Patient has been started on CellCept from this afternoon. His liver functions are improving. Patient has more color to his face. 02/14/2023: Patient was seen for a follow-up. Patient states that he feels weak, has no appetite. His swallowing is okay. He does not have double vision, but has some visual distortion. He feels it is almost 90% back to normal. He still has black tarry stools. None since yesterday. His EKG shows atrial fibrillation, in 140-160. Cardiology on board. At present heart rate is 136. 02/13/2023: Patient was seen for a follow-up. Patient's was also present. Patient is doing better than yesterday. He still feels generalized weakness, and tired, coughing a little. He is eating and drinking better, better than ye . His most recent vital capacity was 1.64 at 9 AM. States double vision has resolved, although has slight distortion of images. 02/12/2023: Patient was seen for a follow-up. Patient's was also present. Patient has much improved. Patient states his diplopia has resolved. He is able to swallow liquid and able to eat, able to swallow the tablets. His breat jose f has also improved. His strength of cough has improved. Patient's vital capacity has improved significantly and his vital capacity was 1.84 at 9:52 AM. Most recent vital capacity is 1.54. Patient still has NG tube in place. Patient able to take pills by mouth. No new concerns. 02/11/2023: Patient initially seen by Dr. Ranjan Arcos. Please refer to his note for details. Patient is a 67-year-old male with myasthenia gravis, admitted with exacerbation. Patient has completed the first round of IVIG, 2 g total dose given over 3 days period of time. This was completed on 02/08/2023. However patient's symptoms got worse overnight, and patient was started again on a second course of IVIG, being given total 2 g over 5 days period of time. Today is the #3/5.. MRI of the brain also ordered, but cannot be performed because patient cannot lay flat. Patient continues to be very dyspneic, having double vision, or features of myasthenia gravis. He has difficulty with coughing. He cannot swallow at all. Patient has first time presented with myasthenia crisis. Patient has chronic back pain. He underwent spinal surgery on 12/26/2022. Patient states that he had stopped taking Mestinon for profuse diarrhea for 3 months, but then resumed it about a month prior to his back surgery. He has been taking Mestinon since his back surgery. He was doing well, until his symptoms started with recent prior to arrival. Some of the workup during his hospital visit consisted of: FVC 1.18-->1.22-->1.4. CBC with differential is unremarkable Sodium is 135, calcium is 10.0, HDL to use within normal limits. Serum glucose is 95 TSH is 1.10 and the free T4 is 1.06. Urine analysis is negative for any underlying urinary tract infection. CT chest w/ and w/o: Reported as no acute pulmonary process. Aneurysmal dilation of the ascending thoracic aorta 4.0cm. No enlarged mediastinal or hilar adenopathy is evident. 2Decho: Normal left ventricle size and systolic function. Mild to moderate aotic regugitation with mild tricuspid regurgation and no evidence pulmonary hypertension. Objective - Vital Signs Vital signs: Vital Signs Temp 98.1 F 02/15/23 15:55 Pulse 89 02/15/23 15:55 Resp 16 02/15/23 15:55 BP 131/63 02/15/23 15:55 Pulse Ox 95 02/15/23 15:55 FiO2 Intake & Output 02/14/23 02/15/23 02/15/23 18:59 06:59 18:59 Intake Total 1318 540 240 Balance 1318 540 240 Weight 99.79 kg Intake: Oral 1318 540 240 Other: Voiding Method Toilet Toilet Toilet Urinal Urinal Urinal # Voids 1 1 1 # Bowel Movements 1 1 - Exam Patient's mental status is normal. Speech is much more clear. His ptosis has much improved. Diplopia has resolved, although he has slight visual distortion. His facial strength is improved. Patient able to move his tongue sideways very well, and able to give good strength for pushing under the cheek. Patient's breathing is also improved. NG tube has been removed. Face is symmetric. Hearing is normal. Patient appears to have more color to his skin. On muscle strength testing, (right/left) deltoid 3-2+/3-2+, biceps 5/5, triceps 5/4, laborer pipelines 5-/5-, hip flexion 5/5-, ankle dorsiflexion 5/4. Patient has partial left foot drop because of back surgery. Sensory to touch is equal. Reflexes are symmetric, 1 at the biceps, 0 brachioradialis, 1+ at the knees, 0 ankles and plantars are flat. No ataxia for [id number] testing. - Labs CBC & Chem 7: 02/14/23 07:43 02/14/23 07:43 Labs: Abnormal Lab Results - Last 24 Hours (Table) 02/15/23 Range/Units 13:25 Delta Bilirubin 0.3 H (0.0-0.2) mg/dL AST 96 H (17-59) U/L ALT 196 H (4-49) U/L Albumin 3.4 L (3.5-5.0) g/dL Assessment and Plan Assessment: This is a 67-year-old gentleman with history of myasthenia gravis since 2019 was on Mestinon as well as prednisone and had the recent lower back fusion on 12/26/2022 over [facility] and the last 1 week the patient is been having the worsening shortness of breath, dysphagia, diplopia, ptosis. Patient has presented with myasthenia crisis. Patient has received one full course of IVIG 2 g total dose. Patient's symptoms improved during the treatment, but got worse the day after completion of the treatment with worsening diplopia, upper extremity weakness and dysphagia on 02/09/2023. Patient has been resumed on second course of IVIG since 02/09/2023 for total 5 day course. Patient so far has received 3/5 session of IVIG * Myasthenia gravis exacerbation-- He completed IVIV 2gm/kg over 3 days (02/08/2023) and had improvement initially but then had has worsening since 0 02/09/2023. He had received partial second round of IVIG 3/5 days only. IVIG discontinued because of worsening liver functions. * History of Myasthenia gravis since 2019 and for the last 1 year he stated he is been on Mestinon ER 180 mg twice a day and prednisone 20 mg daily * History of lower back fusion on 12/26/2022 over [facility] and he still has difficulty walking * Elevated liver functions, likely due to IVIG. * History of TIA * Paroxysmal atrial fibrillation * Acute GI bleed, with black tarry stools. Anticoagulation on hold. Plan: Discontinue IVIG because of worsening liver functions. Patient has completed IVIG 2g/kg over 3 days and last dose was on 02/08/2023 but symptoms became worse on 02/09/2023. Patient was given second round of IVIG starting 02/09/2023, schedule per Dr. Arcos. Initially recommended for 5 days, however patient's liver functions became worse, therefore he only received 3/5 sessions of second course of IVIG. Patient's repeat hepatic panel performed today revealed improvement in the liver functions with AST 96, ALT 196. Repeat hepatic panel in the morning. Patient is able to resume his oral Mestinon ER 180 mg twice a day. Patient will take 60 mg Mestinon as needed for breakthrough symptoms. Patient's symptoms are not much improving. Still appears quite weak. We will start CellCept 500 mg twice a day. Possible side effect of infections informed. Discussed with patient's , she agreed with starting CellCept. Imuran cannot be prescribed because of elevated liver functions. Continue prednisone 20 mg daily that he was taking at home. Patient's vital capacity seems to be fluctuating, most recent 1.47, in the prior was 1.5 for in the previous 1.36. Continue close monitoring. Continue assessing the FVC and NiF every 4-6 hours. Patient has developed acute GI bleed. Eliquis on hold. Patient at risk for embolic strokes. Patient and his family aware. Please avoid drug in Myasthenia Gravis: aminoglycosides, quinolone, tetracylcine, metronizdonzole, quinide, beta blockers, calcium channel blockers, Phenytoin, Magnesium sulfae, Narocitics, Magnesium, lithium, amantadine, diuretics, sedative. CLINICAL PHYSICIAN ASSISTANT is on board. CT chest:. No enlarged mediastinal or hilar adenopathy is evident. PT OT and CLINICAL PHYSICIAN ASSISTANT are consulted Patient's Protonix increased to 40 mg IV twice a day. Continue vitamin D3 2000IU daily. Patient has atrial fibrillation, Eliquis on hold because of GI bleed. Cardiology on board. May resume Eliquis as soon as cleared medically. We'll defer the rest of the medical management to primary team Acetylcholine receptor binding antibody 13.35 (normal <0.30) on 08/14/2022. Striated muscle antibodies negative. Discussed with patient and his in detail. Dr. Miller Will follow patient over the weekend and Dr. Ranjan Arcos starting service on Saturday.
[2023-02-15] MEDS: EZETIMIBE 10 MG TAB PO SCH (20:27)
[2023-02-16] MEDS: LORazepam 2 MG/ML INJ IV PRN (01:15)
[2023-02-16] MEDS: PYRIDOSTIGMINE 60 MG TAB PO PRN ×3 (01:18→21:17)
[2023-02-16] MEDS: CHOLECALCIFEROL 25 MCG (1000 IU) TABLET PO SCH (08:32)
[2023-02-16] MEDS: PANTOPRAZOLE 40 MG/10 ML VIAL IVP SCH ×2 (08:32→21:04)
[2023-02-16] MEDS: METOPROLOL SUCCINATE (ER) 50 MG TAB.ER.24H PO SCH ×2 (08:32→21:04)
[2023-02-16] MEDS: PYRIDOSTIGMINE 180 MG PO SCH ×2 (08:32→16:18)
[2023-02-16] MEDS: predniSONE 20 MG TAB PO SCH (08:32)
[2023-02-16 09:58] LABS: Albumin 3.2 g/dL (3.5-5.0); Bilirubin, Delta 0.2 mg/dL (0.0-0.2); Bilirubin,Unconjugated 0.7 mg/dL (0.0-1.1); Total Bilirubin 0.9 mg/dL (0.2-1.3); Total Protein 6.9 g/dL (6.3-8.2)
[2023-02-16] MEDS ORDERED: IMMUNE GLOBULIN (GAMMAGARD) 30 GM in EMPTY BAG 1 BAG IV NR (11:00)
--- NOTE | 2023-02-16 12:08 | P.PN ---
Subjective Progress Note Date: 02/16/23 Principal diagnosis: Exacerbation myasthenia gravis The patient is a 67-year-old male who is seen in neurologic follow-up on February 16, 2023, in collaboration with Violet Garcia, via teleneurology. The patient's chart has been reviewed. Today, the patient reports that he is feeling a little bit better. His is present at the bedside. She says that the patient's speech is "off". The patient was reportedly seen by respiratory therapy this morning and his vital capacity was found to be 1.2, per the patient's . The patient currently is on 3 L of O2 per nasal cannula. He says that his breathing is worse at night. He says he is unable to lay flat, because of difficulty breathing. The patient reportedly received a a 3 day course of IVIG G which was poorly ef fective. A second course was started. After 2 infusions, the patient's liver enzymes were noted to be elevated. The IV Ig was stopped, because of this. Objective - Vital Signs Vital signs: Vital Signs Temp 97.7 F 02/16/23 08:00 Pulse 71 02/16/23 08:00 Resp 17 02/16/23 08:00 BP 116/78 02/16/23 08:00 Pulse Ox 100 02/16/23 08:00 FiO2 Intake & Output 02/15/23 02/16/23 02/16/23 18:59 06:59 18:59 Intake Total 360 0 Output Total 200 Balance 360 -200 Intake: Oral 360 0 Output: Urine 200 Other: Voiding Method Toilet Toilet Toilet Urinal Urinal Urinal # Voids 1 # Bowel Movements 1 1 - Exam Gen.: The patient is seated in the bedside chair. He is in no acute distress. HEENT: Head is atraumatic, normocephalic. Fundus not visualized. There is no scleral icterus. Mucous membranes are moist. Lungs: The patient has a weak cough. His sniff reflex is good. Neurological examination Mental status: The patient is awake, alert and oriented 3. His speech is occasionally dysarthric. Cranial nerves: As are equal, round and reactive to light. Visual díaz are full to confrontation. Extraocular movements are intact. There is no facial asymmetry. Hearing is grossly intact. Uvula and palate rise, in the midline. Tongue protrudes midline. Shoulder shrug is symmetric. Motor: Flexion and extension of the neck is 5/5. Bilateral inspector sheet metal parts strength 4/5. Left triceps 2/5, right 3/5. Biceps 4/5 on the right and 3/5 in the left. Bilateral hip flexors 2/5. Ankle plantar flexors 4/5. Dorsiflexors 3/5 on the right and 2 on the left. Gait: The patient was observed walking with the assistance of walker. His gait is wide-based, slow and his posture is slumped. - Labs CBC & Chem 7: 02/14/23 07:43 02/14/23 07:43 Labs: Abnormal Lab Results - Last 24 Hours (Table) 02/15/23 02/16/23 Range/Units 13:25 08:50 Delta Bilirubin 0.3 H (0.0-0.2) mg/dL AST 96 H 67 H (17-59) U/L ALT 196 H 160 H (4-49) U/L Albumin 3.4 L 3.2 L (3.5-5.0) g/dL Assessment and Plan Assessment: This is a 67-year-old gentleman with history of myasthenia gravis since 2019 was on Mestinon as well as prednisone and had the recent lower back fusion on 12/26/2022 over [facility] and the last 1 week the patient is been having the worsening shortness of breath, dysphagia, diplopia, ptosis. Patient has presented with myasthenia crisis. Patient has received one full course of IVIG 2 g total dose. Patient's symptoms improved during the treatment, but got worse the day after completion of the treatment with worsening diplopia, upper extremity weakness and dysphagia on 02/09/2023. Patient has been resumed on second course of IVIG since 02/09/2023 for total 5 day course. Patient so far has received 3/5 session of IVIG * Myasthenia gravis exacerbation-- He completed IVIV 2gm/kg over 3 days (02/08/2023) and had improvement initially but then had has worsening since 02/09/2023. He had received partial second round of IVIG 3/5 days only. IVIG discontinued because of worsening liver functions. * The patient continues to be weak despite the initiation of CellCept and change in Mestinon dosing * History of Myasthenia gravis since 2019 and for the last 1 year he stated he i s been on Mestinon ER 180 mg twice a day and prednisone 20 mg daily * History of lower back fusion on 12/26/2022 over [facility] and he still has difficulty walking * Elevated liver functions, likely due to IVIG. * History of TIA * Paroxysmal atrial fibrillation * Acute GI bleed, with black tarry stools. Anticoagulation on hold. Plan: 1. Investigated the incidence of elevated liver enzymes secondary to IV IgG. This is very rare. In discussion with pharmacy, these elevated liver enzymes typically return to normal after 5-10 days. In light of this, a dose of IVIG has been ordered for tomorrow. We'll continue to monitor patient's neurologic status as well as liver enzymes 2. Continue to monitor respiratory status as it appears that the patient's vital capacity has dropped somewhat as compared to the previous day. 3. The patient may require transfer to the intensive care unit for closer monitoring if respiratory status continues to worsen Time with Patient: Less than 30 (25 minutes were spent in caring for this patient today including, obtaining a history, examining the patient, discussing case with pharmacy, reviewing labs, placing orders and creating this note)
--- NOTE | 2023-02-16 12:35 | P.PN ---
Subjective Progress Note Date: 02/16/23 The patient is a 67-year-old male who follows in the office with Dr. Dc. The patient is currently admitted for exacerbation of myasthenia gravis and atrial fibrillation. Over the course of his stay, his calcium channel latosha was discontinued and his beta latosha was maximized. Avoid antiarrhythmic medications with his history of myasthenia gravis.. He was found to have dark tarry stools and is currently being evaluated for acute GI bleed. The patient states he's feeling well. His breathing is improved. He is resting comfortably in the recliner chair. No chest pain. GENERAL: Well-appearing, well-nourished and in no acute distress. NECK: Supple without JVD or thyromegaly. LUNGS: Breath sounds diminished to auscultation bilaterally. Respiration equal and unlabored. No wheezes, rales or rhonchi. HEART: Regular rate and rhythm without murmurs, rubs or gallops. S1 and S2 heard. EXTREMITIES: Normal range of motion, no edema. No clubbing or cyanosis. Peripheral pulses intact and strong. TELEMETRY: Sinus rhythm overnight IMPRESSION: Exacerbation of myasthenia gravis Sinus tachycardia Paroxysmal SVT Paroxysmal atrial fibrillation Hypertension Hyperlipidemia GI bleed PLAN: No change in medication regimen Continue current cardiac medication regimen Follow up outpatient with primary curtain cutter Dr. Dc I am dictating on behalf of Dr Blake Bernal's history/physical and assessment/plan. Objective - Vital Signs Vital signs: Vital Signs Temp 97.7 F 02/16/23 08:00 Pulse 71 02/16/23 08:00 Resp 17 02/16/23 08:00 BP 116/78 02/16/23 08:00 Pulse Ox 100 02/16/23 08:00 FiO2 Intake & Output 02/15/23 02/16/23 02/16/23 18:59 06:59 18:59 Intake Total 360 0 Output Total 200 Balance 360 -200 Intake: Oral 360 0 Output: Urine 200 Other: Voiding Method Toilet Toilet Toilet Urinal Urinal Urinal # Voids 1 # Bowel Movements 1 1 - Labs CBC & Chem 7: 02/14/23 07:43 02/14/23 07:43 Labs: Abnormal Lab Results - Last 24 Hours (Table) 02/15/23 02/16/23 Range/Units 13:25 08:50 Delta Bilirubin 0.3 H (0.0-0.2) mg/dL AST 96 H 67 H (17-59) U/L ALT 196 H 160 H (4-49) U/L Albumin 3.4 L 3.2 L (3.5-5.0) g/dL
[2023-02-16] MEDS: SODIUM CHLORIDE 0.9% 1,000 ML IV SCH (12:36)
--- NOTE | 2023-02-16 13:19 | P.PN ---
Subjective Progress Note Date: 02/16/23 Pts speech has improved today. yesterday started on cellcept per neurology. Given extra dose of mestinon. Gen: awake, alert HEENT: normocephalic, atraumatic, good hearing acuity, moist mucous membranes Resp: good air exchange, breathing comfortably with no accessory muscle use CVS: good distal perfusion x 4, GI: soft, NTTP, ND : no SPT, no CVAT, malagon catheter not present MSK: no pitting edema, no clubbing Neuro: non-focal, moving all extremities Psych: cooperative, euthymic mood Hospital course: Patient is a 67-year-old male with PMH of myasthenia gravis, atrial fibrillation, hypertension, dyslipidemia, history of thrombosis presented to the ED for generalized weakness, shortness of breath, double vision and difficulty swallowing. In the ED, his BP was elevated at 167/150. BP on recheck was 127/77. Vital signs were otherwise stable. CBC was unremarkable. INR was 0.9. CMP shows sodium 135, creatinine is 0.6, alkaline phosphatase 172. Troponin was less than 0.012. BNP was 51. TSH 1.11. Urinalysis negative. EKG showed sinus arrhythmia. Chest x-ray negative for acute changes. Patient was admitted for further evaluation of symptoms, with diagnosis of myasthenia gravis ex acerbation. Neurology and Pulmonology consulted to facilitate management. Patient was started on a 3 day course of IVIG. Patient had improvement. However the next after completing his 3 day treatment patient symptoms worsened. He was restarted on IVIG for a 5 day course. However after 3 days of IVIG it was discontinued because his liver enzymes were worsening. Patient was subsequently switched to back oral mestinon. Assessment: Myasthenia gravis exacerbation Acute blood loss anemia Melanotic stool Paroxysmal A. fib with RVR Elevated liver enzymes likely due to IVIG treatment. Anxiety Heart conditions: Hypertension, hyperlipidemia, history of thrombosis Plan: LFTs reviewed, improving AST to 67, ALT to 160. Continue Mestinon 180 mg twice a day, 60 mg 5 times per day as needed Continue cellcept Neurology would like to resume IVIG. Continue metoprolol 100 mg by mouth daily, hemoglobin has been stable can consider resuming Apixiban solumedrol switched to prednisone Patient is full code Objective - Vital Signs Vital signs: Vital Signs Temp 97.8 F 02/16/23 12:00 Pulse 74 02/16/23 12:00 Resp 17 02/16/23 12:00 BP 135/74 02/16/23 12:00 Pulse Ox 100 02/16/23 12:00 FiO2 Intake & Output 02/15/23 02/16/23 02/16/23 18:59 06:59 18:59 Intake Total 360 0 Output Total 200 Balance 360 -200 Intake: Oral 360 0 Output: Urine 200 Other: Voiding Method Toilet Toilet Toilet Urinal Urinal Urinal # Voids 1 # Bowel Movements 1 1 - Labs CBC & Chem 7: 02/14/23 07:43 02/14/23 07:43 Labs: Abnormal Lab Results - Last 24 Hours (Table) 02/15/23 02/16/23 Range/Units 13:25 08:50 Delta Bilirubin 0.3 H (0.0-0.2) mg/dL AST 96 H 67 H (17-59) U/L ALT 196 H 160 H (4-49) U/L Albumin 3.4 L 3.2 L (3.5-5.0) g/dL
[2023-02-16] MEDS: traZODone HCL 50 MG TAB PO PRN (21:04)
[2023-02-16] MEDS: EZETIMIBE 10 MG TAB PO SCH (21:04)
[2023-02-16] MEDS: APIXABAN 5 MG TAB PO SCH (21:04)
[2023-02-17] MEDS: PYRIDOSTIGMINE 60 MG TAB PO PRN ×3 (04:59→20:50)
[2023-02-17 06:45] LABS: ALT 132 U/L (4-49); AST 59 U/L (17-59); African American GFR (CKD) >90 (>60 ml/min/1.73 sqM); Albumin 3.1 g/dL (3.5-5.0); Alkaline Phosphatase 100 U/L (38-126); Anion Gap -5 mmol/L; Blood Urea Nitrogen 18 mg/dL (9-20); Calcium 8.8 mg/dL (8.4-10.2); Carbon Dioxide 38 mmol/L (22-30); Chloride 101 mmol/L (98-107); Glucose 89 mg/dL (74-99); Non-African American GFR(CKD) >90 (>60 ml/min/1.73 sqM); Sodium 134 mmol/L (137-145); Total Bilirubin 1.2 mg/dL (0.2-1.3); Total Protein 7.2 g/dL (6.3-8.2)
[2023-02-17] MEDS: METOPROLOL SUCCINATE (ER) 50 MG TAB.ER.24H PO SCH ×2 (08:42→20:28)
[2023-02-17] MEDS: PANTOPRAZOLE 40 MG/10 ML VIAL IVP SCH ×2 (08:42→20:29)
[2023-02-17] MEDS: predniSONE 20 MG TAB PO SCH (08:42)
[2023-02-17] MEDS: APIXABAN 5 MG TAB PO SCH ×2 (08:43→20:28)
[2023-02-17] MEDS: PYRIDOSTIGMINE 180 MG PO SCH ×2 (08:43→14:22)
[2023-02-17] MEDS: CHOLECALCIFEROL 25 MCG (1000 IU) TABLET PO SCH (08:43)
--- NOTE | 2023-02-17 10:10 | P.PN ---
Subjective Progress Note Date: 02/17/23 Pts speech has improved today, eyelid droop improved. Gen: awake, alert HEENT: normocephalic, atraumatic, good hearing acuity, moist mucous membranes Resp: good air exchange, breathing comfortably with no accessory muscle use CVS: good distal perfusion x 4, GI: soft, NTTP, ND : no SPT, no CVAT, malagon catheter not present MSK: no pitting edema, no clubbing Neuro: non-focal, moving all extremities Psych: cooperative, euthymic mood Hospital course: Patient is a 67-year-old male with PMH of myasthenia gravis, atrial fibrillation, hypertension, dyslipidemia, history of thrombosis presented to the ED for generalized weakness, shortness of breath, double vision and difficulty swallowing. In the ED, his BP was elevated at 167/150. BP on recheck was 127/77. Vital signs were otherwise stable. CBC was unremarkable. INR was 0.9. CMP shows sodium 135, creatinine is 0.6, alkaline phosphatase 172. Troponin was less than 0.012. BNP was 51. TSH 1.11. Urinalysis negative. EKG showed sinus arrhythmia. Chest x-ray negative for acute changes. Patient was admitted for further evaluation of symptoms, with diagnosis of myasthenia gravis exacerbation. Neurology and Pulmonology consulted to facilitate management. Patient was started on a 3 day course of IVIG. Patient had improvement. Bhupinder krishnamurthy the next after completing his 3 day treatment patient symptoms worsened. He was restarted on IVIG for a 5 day course. However after 3 days of IVIG it was discontinued because his liver enzymes were worsening. Patient was subsequently switched to back oral mestinon. Assessment: Myasthenia gravis exacerbation Acute blood loss anemia Melanotic stool Paroxysmal A. fib with RVR Elevated liver enzymes likely due to IVIG treatment. Anxiety Heart conditions: Hypertension, hyperlipidemia, history of thrombosis Plan: Ordered CBC, BMP, Mg, LFTs for tomorrow. Continue Mestinon 180 mg twice a day, 60 mg 5 times per day as needed, give additional dose of 60mg today Continue cellcept Neurology would like to resume IVIG. Continue metoprolol 100 mg by mouth daily, hemoglobin has been stable can consider resuming Apixiban solumedrol switched to prednisone Patient is full code Objective - Vital Signs Vital signs: Vital Signs Temp 98.2 F 02/17/23 08:00 Pulse 92 08/13/23 08:00 Resp 20 02/17/23 08:00 BP 145/76 02/17/23 08:00 Pulse Ox 100 02/17/23 04:00 FiO2 Intake & Output 02/16/23 02/17/23 02/17/23 18:59 06:59 18:59 Intake Total 658 Output Total 300 Balance 658 -300 Intake: Oral 658 Output: Urine 300 Other: Voiding Method Toilet Toilet Urinal Urinal # Voids 2 # Bowel Movements 1 - Labs CBC & Chem 7: 02/14/23 07:43 02/17/23 06:14 Labs: Abnormal Lab Results - Last 24 Hours (Table) 02/17/23 Range/Units 06:14 Sodium 134 L (137-145) mmol/L Carbon Dioxide 38 H (22-30) mmol/L Creatinine 0.51 L (0.66-1.25) mg/dL ALT 132 H (4-49) U/L Albumin 3.1 L (3.5-5.0) g/dL
--- NOTE | 2023-02-17 10:59 | P.PN ---
Subjective Progress Note Date: 02/17/23 The patient is a 67-year-old male admitted to the hospital with breakthrough atrial fibrillation/atrial flutter. The patient previously has undergone both atrial fibrillation ablation in 2020 and atrial flutter ablation in 2019. He is noted to have severe RV and RA enlargement. After extensive review of previous EKGs, Dr. Bernal feels as though there is a gap in his flutter line and he recommends proceeding with the EP study and repeat flutter ablation. The patient states he did well overnight. He is tolerating the higher dose of beta latosha. No dizziness or lightheadedness. GENERAL: Well-appearing, well-nourished and in no acute distress. NECK: Supple without JVD or thyromegaly. LUNGS: Breath sounds clear to auscultation bilaterally. Respiration equal and unlabored. No wheezes, rales or rhonchi. HEART: Irregular rate and rhythm without murmurs, rubs or gallops. S1 and S2 heard. EXTREMITIES: Normal range of motion, no edema. No clubbing or cyanosis. Peripheral pulses intact and strong. TELEMETRY: Rate controlled atrial fibrillation LABS: Hemoglobin A1c 6.8, TSH 1.08, LDL 40, triglycerides 116, HDL 45 IMPRESSION: Atrial fibrillation/atrial flutter with RVR Status post atrial flutter ablation in 2018, followed by pulmonary vein isolation in 2020 Hypertension Diabetes PLAN: Continue oral beta latosha for rate control Patient may be discharged from the cardiac standpoint Outpatient atrial flutter ablation to be scheduled I am dictating on behalf of Dr Blake Bernal's history/physical and assessment/plan. Objective - Vital Signs Vital signs: Vital Signs Temp 98.2 F 02/17/23 08:00 Pulse 92 02/17/23 08:00 Resp 20 02/17/23 08:00 BP 145/76 02/17/23 08:00 Pulse Ox 100 02/17/23 04:00 FiO2 Intake & Output 02/16/23 02/17/23 02/17/23 18:59 06:59 18:59 Intake Total 658 Output Total 300 Balance 658 -300 Intake: Oral 658 Output: Urine 300 Other: Voiding Method Toilet Toilet Urinal Urinal # Voids 2 # Bowel Movements 1 1 - Labs CBC & Chem 7: 02/14/23 07:43 02/17/23 06:14 Labs: Abnormal Lab Results - Last 24 Hours (Table) 02/17/23 Range/Units 06:14 Sodium 134 L (137-145) mmol/L Carbon Dioxide 38 H (22-30) mmol/L Creatinine 0.51 L (0.66-1.25) mg/dL ALT 132 H (4-49) U/L Albumin 3.1 L (3.5-5.0) g/dL
--- NOTE | 2023-02-17 11:01 | P.PN ---
Subjective Progress Note Date: 02/17/23 Principal diagnosis: Exacerbation myasthenia gravis February 17, 2023 The patient is seen in neurologic follow-up, in collaboration with Violet Garcia, via teleneurology. The patient reports that he is feeling somewhat better today. He continues to feel weak. He says that his voice and breathing have improved. The patient does complain of stomach cramps which she believes is secondary to Mestinon. The patient's is present at the bedside. She also believes that her is doing better today. Liver enzymes have been reviewed. They are decreased, as compared to the previous day. The patient's vital capacity this morning is 2.0 and 1.9-improved since yesterday. The patient is a 67-year-old male who is seen in neurologic follow-up on February 16, 2023, in collaboration with Violet Garcia, via teleneurology. The patient's chart has been reviewed. Today, the patient reports that he is feeling a little bit better. His is present at the bedside. She says that the patient's speech is "off". The patient was reportedly seen by respiratory therapy this morning and his vital capacity was found to be 1.2, per the patient's . The patient currently is on 3 L of O2 per nasal cannula. He says that his breathing is worse at night. He says he is unable to lay flat, because of difficulty breathing. The patient reportedly received a a 3 day course of IVIG G which was poorly effective. A second course was started. After 2 infusions, the patient's liver enzymes were noted to be elevated. The IV Ig was stopped, because of this. Objective - Vital Signs Vital signs: Vital Signs Temp 98.2 F 02/17/23 08:00 Pulse 92 02/17/23 08:00 Resp 20 02/17/23 08:00 BP 145/76 02/17/23 08:00 Pulse Ox 100 02/17/23 04:00 FiO2 Intake & Output 02/16/23 02/17/23 02/17/23 18:59 06:59 18:59 Intake Total 658 Output Total 300 Balance 658 -300 Intake: Oral 658 Output: Urine 300 Other: Voiding Method Toilet Toilet Urinal Urinal # Voids 2 # Bowel Movements 1 1 - Exam Gen.: The patient is seated on the commode. He is in no acute distress. HEENT: Head is atraumatic, normocephalic. There is no ptosis. Mucous membranes are moist. Lungs: The patient has a strong cough Neurological examination Mental status: The patient is awake, alert and oriented 3. Voice is strong. Cranial nerves: 2-12 grossly intact Motor: Right upper extremity strength 4/5. 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 Left biceps strength 4/5. Right hip flexor 4/5. Left hip flexor 3/5. - Labs CBC & Chem 7: 02/14/23 07:43 02/17/23 06:14 Labs: Abnormal Lab Results - Last 24 Hours (Table) 02/17/23 Range/Units 06:14 Sodium 134 L (137-145) mmol/L Carbon Dioxide 38 H (22-30) mmol/L Creatinine 0.51 L (0.66-1.25) mg/dL ALT 132 H (4-49) U/L Albumin 3.1 L (3.5-5.0) g/dL Assessment and Plan Assessment: This is a 67-year-old gentleman with history of myasthenia gravis since 2019 was on Mestinon as well as prednisone and had the recent lower back fusion on 12/26/2022 over [facility] and the last 1 week the patient is been having the worsening shortness of breath, dysphagia, diplopia, ptosis. Patient has presented with myasthenia crisis. Patient has received one full course of IVIG 2 g total dose. Patient's symptoms improved during the treatment, but got worse the day after completion of the treatment with worsening diplopia, upper extremity weakness and dysphagia on 02/09/2023. Patient has been resumed on se cond course of IVIG since 02/09/2023 for total 5 day course. Patient so far has received 3/5 session of IVIG * Myasthenia gravis exacerbation-- He completed IVIV 2gm/kg over 3 days (02/08/2023) and had improvement initially but then had has worsening since 02/09/2023. He had received partial second round of IVIG 3/5 days only. IVIG discontinued because of worsening liver functions. * The patient continues to be weak despite the initiation of CellCept and change in Mestinon dosing. * There is improvement in strength and breathing following yesterday's dose of IV IgG * History of Myasthenia gravis since 2019 and for the last 1 year he stated he is been on Mestinon ER 180 mg twice a day and prednisone 20 mg daily * History of lower back fusion on 12/26/2022 over [facility] and he still has difficulty walking * Elevated liver functions, likely due to IVIG. * History of TIA * Paroxysmal atrial fibrillation * Acute GI bleed, with black tarry stools. Anticoagulation on hold. Plan: 1. Investigated the incidence of elevated liver enzymes secondary to IV IgG. This is very rare. In discussion with pharmacy, these elevated liver enzymes typically return to normal after 5-10 days. In light of this, a dose of IVIG has been ordered for tomorrow. We'll continue to monitor patient's neurologic status as well as liver enzymes 2. Because of the stability of liver enzymes and improvement in breathing, ptosis, strength, the patient will receive another dose of IV IgG today. 3. Liver enzymes will be assessed again tomorrow. 4. Physical therapy to continue working with patient for strengthening 5. The patient may require subacute rehabilitation facility at discharge, for continued strengthening 6. Dr. Ranjan Arcos will assume neurologic coverage of this patient as of February 18, 2023 Time with Patient: Less than 30 (25 minutes were spent caring for this patient today including obtaining a history, examining the patient, reviewing chart documentation, labs and creating this note)
[2023-02-17] MEDS: CALCIUM CARBONATE 500 MG CHEWABLE PO PRN ×2 (14:22→18:50)
[2023-02-17] MEDS: SODIUM CHLORIDE 0.9% 1,000 ML IV SCH (14:24)
[2023-02-17] MEDS ORDERED: IMMUNE GLOBULIN (GAMMAGARD) 30 GM in EMPTY BAG 1 BAG IV NR (16:00)
[2023-02-17] MEDS: MELATONIN 5 MG TABLET PO PRN (20:28)
[2023-02-17] MEDS: EZETIMIBE 10 MG TAB PO SCH (20:28)
[2023-02-17] MEDS: traZODone HCL 50 MG TAB PO PRN (20:28)
[2023-02-18] MEDS: CALCIUM CARBONATE 500 MG CHEWABLE PO PRN (02:27)
[2023-02-18 08:38] LABS: ALT 117 U/L (4-49); AST 52 U/L (17-59); African American GFR (CKD) >90 (>60 ml/min/1.73 sqM); Albumin 3.2 g/dL (3.5-5.0); Alkaline Phosphatase 112 U/L (38-126); Anion Gap -3 mmol/L; Bilirubin, Delta 0.2 mg/dL (0.0-0.2); Bilirubin,Unconjugated 1.1 mg/dL (0.0-1.1); Blood Urea Nitrogen 21 mg/dL (9-20); Calcium 9.1 mg/dL (8.4-10.2); Carbon Dioxide 39 mmol/L (22-30); Chloride 98 mmol/L (98-107); Glucose 123 mg/dL (74-99); Magnesium 1.8 mg/dL (1.6-2.3); Non-African American GFR(CKD) >90 (>60 ml/min/1.73 sqM); Sodium 134 mmol/L (137-145); Total Bilirubin 1.3 mg/dL (0.2-1.3); Total Protein 7.1 g/dL (6.3-8.2)
[2023-02-18 08:54] LABS: Anisocytosis Slight; Basophils # (A) 0.1 k/uL (0-0.2); Basophils % (A) 1 %; Eosinophils % (A) 0 %; HCT 35.7 % (39.0-53.0); HGB 12.2 gm/dL (13.0-17.5); Hyperchromasia Slight; Lymphocytes % (A) 10 %; MCH 28.2 pg (25.0-35.0); MCHC 34.2 g/dL (31.0-37.0); MCV 82.6 fL (80.0-100.0); Mean Platelet Volume 8.5; Monocytes # (A) 0.6 k/uL (0-1.0); Monocytes % (A) 6 %; Neutrophils # (A) 8.1 k/uL (1.3-7.7); Neutrophils % (A) 83 %; Platelet Count 306 k/uL (150-450); Poikilocytosis Moderate; RBC 4.32 m/uL (4.30-5.90); RDW 16.3 % (11.5-15.5); WBC 9.8 k/uL (3.8-10.6)
[2023-02-18] MEDS: CHOLECALCIFEROL 25 MCG (1000 IU) TABLET PO SCH (09:55)
[2023-02-18] MEDS: predniSONE 20 MG TAB PO SCH (09:56)
[2023-02-18] MEDS: METOPROLOL SUCCINATE (ER) 50 MG TAB.ER.24H PO SCH ×2 (09:56→20:40)
[2023-02-18] MEDS: APIXABAN 5 MG TAB PO SCH ×2 (09:56→20:41)
[2023-02-18] MEDS: PANTOPRAZOLE 40 MG/10 ML VIAL IVP SCH ×2 (09:56→20:41)
[2023-02-18] MEDS: PYRIDOSTIGMINE 180 MG PO SCH ×2 (09:57→15:10)
[2023-02-18] MEDS ORDERED: BISMUTH SUBSALICYLATE 4,192 MG/240 ML BOTTLE PO PRN (10:05)
--- NOTE | 2023-02-18 10:44 | P.PN ---
Subjective Progress Note Date: 02/18/23 HISTORY OF PRESENT ILLNESS: This is a 67-year-old male patient of Dr. Dc with past medical history of hypertension, hyperlipidemia, paroxysmal atrial fibrillation, myasthenia gravis on long-term steroids, renal insufficiency, previous asymptomatic strokes on imaging, ascending aortic aneurysm, coronary artery calcifications, TIA, obstructive sleep apnea. We have been asked to evaluate the patient for uncontrolled heart rate and myasthenia gravis. Patient underwent lumbar fusion surgery 12/26 at [facility]. Patient developed proximal muscle weakness with progressive weakness, shortness of breath and and difficulty swallowing. Patient was at correction for 2 weeks and subsequently discharged home. Patient was diagnosed with an exacerbation of myasthenia gravis and started on IVIG, prednisone and Mestinon. Patient is seen today in the emergency center waiting for a bed in the intensive care unit. We have been asked to evaluate the patient for intermittent episodes of tachycardia. Patient has been in a sinus rhythm on telemetry. EKG sinus arrhythmia at 69 bpm Chest x-ray: Chronic changes without evidence of acute process CBC unremarkable. INR 0.9. Sodium 135, potassium 4, BUN 18 creatinine 0.6. Alkaline phosphatase 117 otherwise liver function tests are normal. Magnesium 2. Troponin negative 1. TSH 1.11. Free T4 1 0.06. Urinalysis negative. Home cardiac medications: Eliquis 5 mg twice daily, Zetia 10 mg at bedtime, lisinopril 10 mg at bedtime, Toprol-XL 25 mg daily. Lexiscan stress test 03/2022 small fixed inferior defect and no other reversible ischemia. Echocardiogram 03/2022 revealed EF 60-65% with possible bicuspid aortic valve and mild to moderate aortic regurgitation. 02/18 Patient continues treatment for myasthenia gravis managed by neurology. Telemetry is SR 86-101. BP 110/54. Patient denies chest pain, palpitations. He does complain of upset stomach, loose stools, shortness of breath. His swallowing is stable. PHYSICAL EXAM: VITAL SIGNS: Reviewed. GENERAL: Well-developed in no acute distress. NECK: Supple. No JVD or thyromegaly LUNGS: Respirations even and unlabored. Lungs essentially clear to auscultation bilaterally. HEART: Regular rate and rhythm. S1 and S2 heard. Systolic murmur noted at the apex. EXTREMITIES: Normal range of motion. No clubbing or cyanosis. Peripheral pulses intact. No lower extremity edema ASSESSMENT: Exacerbation of myasthenia gravis Status post lumbar fusion, 12/26/2022 at [facility] Progressive generalized weakness, dysphagia and dyspnea Sinus tachycardia Paroxysmal SVT Paroxysmal atrial fibrillation, currently maintaining sinus mechanism Hypertension Hyperlipidemia Obstructive sleep apnea Dark tarry stools PLAN: Continue eliquis and metoprolol succinate Cardiology will sign off this case and follow on an as-needed basis. Please reconsult for any new concerns. Patient may follow-up in the office in one to 2 weeks. Nurse practitioner note has been reviewed by physician. Signing provider agrees with the documented findings, assessment, and plan of care. Objective - Vital Signs Vital signs: Vital Signs Temp 98.2 F 02/18/23 00:00 Pulse 106 H 02/18/23 04:00 Resp 18 02/18/23 04:00 BP 110/54 02/18/23 00:00 Pulse Ox 100 02/17/23 04:00 FiO2 Intake & Output 02/17/23 02/18/23 02/18/23 18:59 06:59 18:59 Other: # Voids 2 2 # Bowel Movements 2 2 - Labs CBC & Chem 7: 02/18/23 07:20 02/18/23 07:20
--- NOTE | 2023-02-18 11:18 | P.PN ---
Subjective Progress Note Date: 02/18/23 Pts speech has improved today, eyelid droop improved. Pt still feeling overall fatigued. Having abd cramps. dneies n/v, diarrhea. Gen: awake, alert HEENT: normocephalic, atraumatic, good hearing acuity, moist mucous membranes Resp: good air exchange, breathing comfortably with no accessory muscle use CVS: good distal perfusion x 4, GI: soft, NTTP, ND : no SPT, no CVAT, malagon catheter not present MSK: no pitting edema, no clubbing Neuro: non-focal, moving all extremities Psych: cooperative, euthymic mood Hospital course: Patient is a 67-year-old male with PMH of myasthenia gravis, atrial f ibrillation, hypertension, dyslipidemia, history of thrombosis presented to the ED for generalized weakness, shortness of breath, double vision and difficulty swallowing. In the ED, his BP was elevated at 167/150. BP on recheck was 127/77. Vital signs were otherwise stable. CBC was unremarkable. INR was 0.9. CMP shows sodium 135, creatinine is 0.6, alkaline phosphatase 172. Troponin was less than 0.012. BNP was 51. TSH 1.11. Urinalysis negative. EKG showed sinus arrhythmia. Chest x-ray negative for acute changes. Patient was admitted for further evaluation of symptoms, with diagnosis of myasthenia gravis exacerbation. Neurology and Pulmonology consulted to facilitate management. Patient was started on a 3 day course of IVIG. Patient had improvement. However the next after completing his 3 day treatment patient symptoms worsened. He was restarted on IVIG for a 5 day course. However after 3 days of IVIG it was discontinued because his liver enzymes were worsening. Patient was subsequently switched to back oral mestinon. Assessment: Myasthenia gravis exacerbation Acute blood loss anemia Melanotic stool Paroxysmal A. fib with RVR Elevated liver enzymes likely due to IVIG treatment. Anxiety Heart conditions: Hypertension, hyperlipidemia, history of thrombosis Plan: CBC with anemia of 12.2. BMP with Na of 134, BUN of 21. LFTs with ALT improving to 117 Continue Mestinon 180 mg twice a day, 60 mg 5 times per day as needed, give rosaline tional dose of 60mg today Continue cellcept Neurology would like to resume IVIG. Continue metoprolol 100 mg by mouth daily, hemoglobin has been stable can consider resuming Apixiban solumedrol switched to prednisone Add pepto-bismol PRN today, ordered Abd XR Patient is full code Objective - Vital Signs Vital signs: Vital Signs Temp 98 F 02/18/23 09:50 Pulse 92 02/18/23 09:50 Resp 20 02/18/23 09:50 BP 128/82 02/18/23 09:50 Pulse Ox 100 02/17/23 04:00 FiO2 Intake & Output 02/17/23 02/18/23 02/18/23 18:59 06:59 18:59 Intake Total 180 Balance 180 Weight 99.79 kg Intake: Oral 180 Other: Voiding Method Toilet Urinal # Voids 2 2 1 # Bowel Movements 2 2 1 - Labs CBC & Chem 7: 02/18/23 07:20 02/18/23 07:20 Labs: Abnormal Lab Results - Last 24 Hours (Table) 02/18/23 02/18/23 Range/Units 07:20 07:20 Hgb 12.2 L (13.0-17.5) gm/dL Hct 35.7 L (39.0-53.0) % RDW 16.3 H (11.5-15.5) % Neutrophils # 8.1 H (1.3-7.7) k/uL Sodium 134 L (137-145) mmol/L Carbon Dioxide 39 H (22-30) mmol/L BUN 21 H (9-20) mg/dL Glucose 123 H (74-99) mg/dL ALT 117 H (4-49) U/L Albumin 3.2 L (3.5-5.0) g/dL
--- NOTE | 2023-02-18 12:44 | CDI ---
Documentation Clarification Form Date: 02/18/2023 12:08:43 PM From: Magi Reid RN CCDS Phone: [phone] Admit Date: 02/06/2023 02:49:00 PM Patient Name: Saeid Velasco Visit Number: [id number] Discharge Date: ATTENTION: The Clinical Documentation Specialists (CDI) and [facility] Coding Staff appreciate your assistance in clarifying documentation. Please respond to the clarification below the line at the bottom and electronically sign. The CDI & [facility] Coding staff will review the response and follow-up if needed. Please note: Queries are made part of the Legal Health Record. If you have any questions, please contact the author of this message via ITS. Dr. Yvonne Pratt GI bleed is documented 02/13, Neurology note. Additional clarification regarding the etiology of the GI bleed is requested. History/risk factors: 67-year-old male presents to the ED with generalized weakness, shortness of breath, double vision and difficulty swallowing. Medical History: Back surgery 12/26/2022; Myasthenia gravis, Paroxysmal Atiral fibrillation and HTN. 02/06, H&P. Clinical Indicators: Hgb: 02/06 - 13.9; 02/12 - 10.4 Medicine note, 02/13: I discussed with neurology who said that it is not safe for patient to have any procedures under anesthesia at this time so unfortunately we cannot do any further GI workup at this time. Treatment: Eliquis on hold 02/12-02/16, monitoring hemoglobin Medication: 02/06 - 02/10 Eliquis 5mg PO BID; 02/10 Heparin 4,000 units x 1; 02/10- 02/11 Heparin 10units/kg/hr; 02/16 Eliquis 02/16 5mg PO BID Please clarify the etiology of the GI bleed, if known: [ ] GIB due to Eliquis [x] GIB, etiology unknown [ ] Other, please specify [ ] Unable to determine (Template Last Revised: September 2020) MTDD
[2023-02-18] MEDS: SODIUM CHLORIDE 0.9% 1,000 ML IV SCH (15:10)
--- NOTE | 2023-02-18 15:17 | XR ---
EXAMINATION TYPE: XR abdomen 1V DATE OF EXAM: 02/18/2023 COMPARISON: NONE HISTORY: Dominant pain TECHNIQUE: Supine view of the abdomen was obtained with 3 radiographs. FINDINGS: Small bowel demonstrates no evidence for dilatation or air fluid levels. Gas and fecal material is seen in non-distended colon. Gas is identified within the rectum. No unusual calcifications. Vascular sclerosis. The lung bases are clear. Elevation of the right hemidiaphragm. The osseous structures are intact. Postsurgical changes of the lumbar spine with fixation hardware fr om L5-S1. Osteoarthritic changes of both hips. IMPRESSION: Overall nonobstructive bowel gas pattern.
--- NOTE | 2023-02-18 18:44 | P.PN ---
Subjective Progress Note Date: 02/18/23 I have seen the patient last on 02/10/2023 for Myasthenia Gravis exacerbation. Since I seen him he was been cared by Dr. Berrios and Dr. Miller and please refer to their notes for further details. It seems the patient had elevated LFT's and because of that the second round of IVIG was held (patient only received 3/5 doses of second round) and per dr. Miller to resume. He was started on IV Cellcept and Mestinon PRN in addition to his home medication. Per Patient is he feeling better today compared to past 10 days. He feels diplopia has resolved today and feels more strength. Objective - Vital Signs Vital signs: Vital Signs Temp 98.7 F 02/18/23 15:15 Pulse 87 02/18/23 15:15 Resp 18 02/18/23 15:15 BP 114/63 02/18/23 15:15 Pulse Ox 100 02/17/23 04:00 FiO2 Intake & Output 02/17/23 02/18/23 02/18/23 18:59 06:59 18:59 Intake Total 480 Balance 480 Weight 99.79 kg Intake: Oral 480 Other: Voiding Method Toilet Urinal # Voids 2 2 2 # Bowel Movements 2 2 1 - Exam General: Lying in bed and is not in acute distress. Neuro: The patient is awake, alert, oriented to self, place and time. Is following simple commands. No aphasia or neglect. Pupils are round, equal and reactive to light. Visual díaz are full through out. EOM intact and no nystagmus. No ptosis and no diplopia noted (improvement since I had him last about 7-8 days ago) No facial weakness. No dysarthria or hypophonia. Motor: Strength is lifting all extremities above gravity and no focality. - Labs CBC & Chem 7: 02/18/23 07:20 02/18/23 07:20 Labs: Abnormal Lab Results - Last 24 Hours (Table) 02/18/23 02/18/23 Range/Units 07:20 07:20 Hgb 12.2 L (13.0-17.5) gm/dL Hct 35.7 L (39.0-53.0) % RDW 16.3 H (11.5-15.5) % Neutrophils # 8.1 H (1.3-7.7) k/uL Sodium 134 L (137-145) mmol/L Carbon Dioxide 39 H (22-30) mmol/L BUN 21 H (9-20) mg/dL Glucose 123 H (74-99) mg/dL ALT 117 H (4-49) U/L Albumin 3.2 L (3.5-5.0) g/dL Assessment and Plan Assessment: This is a 67-year-old gentleman with history of myasthenia gravis since 2019 was on Mestinon as well as prednisone and had the recent lower back fusion on 12/26/2022 over [facility] and the last 1 week the patient is been having the worsening shortness of breath, dysphagia, diplopia, ptosis. Patient has presented with myasthenia crisis. Patient has received one full course of IVIG 2 g total dose. Patient's symptoms improved during the treatment, but got worse the day after completion of the treatment with worsening diplopia, upper extremity weakness and dysphagia on 02/09/2023. Patient has been resumed on second course of IVIG since 02/09/2023 for total 5 day course. Patient so far has received 3/5 session of IVIG * Myasthenia gravis exacerbation-- He completed IVIV 2gm/kg over 3 days (02/08/2023) and had improvement initially but then had has worsening since 02/09/2023. He had received partial second round of IVIG 3/5 days only. IVIG discontinued because of worsening liver functions--today doing better. * The patient continues to be weak despite the initiation of CellCept and change in Mestinon dosing. * There is improvement in strength and breathing following yesterday's dose of IV IgG * History of Myasthenia gravis since 2019 and for the last 1 year he stated he is been on Mestinon ER 180 mg twice a day and prednisone 20 mg daily * History of lower back fusion on 12/26/2022 over [facility] and he still has difficulty walking * Elevated liver functions, likely due to IVIG. * History of TIA * Paroxysmal atrial fibrillation * Acute GI bleed, with black tarry stools. Anticoagulation on hold. Plan: * Per Dr. Miller, "Investigated the incidence of elevated liver enzymes secondary to IV IgG. This is very rare. In discussion with pharmacy, these elevated liver enzymes typically return to normal after 5-10 days. In light of this, a dose of IVIG has been ordered for today". We'll continue to monitor patient's neurologic status as well as liver enzymes * Liver enzymes is trending down. * Per Dr. Block, to resume his oral Mestinon ER 180 mg twice a day and started him on 60 mg Mestinon as needed for breakthrough symptoms. Then Dr. Berrios started the patient on CellCept 500 mg twice a day. Possible side effect of infections informed. Imuran cannot be prescribed because of elevated liver functions. Continue prednisone 20 mg daily that he was taking at home. * Physical therapy to continue working with patient for strengthening * Please continue to obtain NIF and FVC every 4-6 hours. * The patient may require subacute rehabilitation facility at discharge, for continued strengthening * Please avoid drug in Myasthenia Gravis: aminoglycosides, quinolone, tetracylcine, metronizdonzole, quinide, beta blockers, calcium channel blockers, Phenytoin, Magnesium sulfae, Narocitics, Magnesium, lithium, alyosn tadine, diuretics, sedative. * Patient has atrial fibrillation, Eliquis on hold because of GI bleed. Cardiology on board. May resume Eliquis as soon as cleared medically. The plan is discussed with patient, his and primary attending. Time with Patient: Less than 30
[2023-02-18] MEDS: EZETIMIBE 10 MG TAB PO SCH (20:40)
[2023-02-18] MEDS: traZODone HCL 50 MG TAB PO PRN (20:43)
[2023-02-19] MEDS: predniSONE 20 MG TAB PO SCH (08:19)
[2023-02-19] MEDS: METOPROLOL SUCCINATE (ER) 50 MG TAB.ER.24H PO SCH ×2 (08:19→20:37)
[2023-02-19] MEDS: APIXABAN 5 MG TAB PO SCH ×2 (08:19→20:36)
[2023-02-19] MEDS: CHOLECALCIFEROL 25 MCG (1000 IU) TABLET PO SCH (08:19)
[2023-02-19] MEDS: PANTOPRAZOLE 40 MG/10 ML VIAL IVP SCH ×2 (08:19→20:37)
[2023-02-19] MEDS: PYRIDOSTIGMINE 180 MG PO SCH ×2 (08:20→16:33)
--- NOTE | 2023-02-19 10:25 | P.PN ---
Subjective Progress Note Date: 02/19/23 No new comlaints today. Resting well. Gen: asleep, resting comfortably HEENT: normocephalic, atraumatic, good hearing acuity, moist mucous membranes Resp: good air exchange, breathing comfortably with no accessory muscle use CVS: good distal perfusion x 4, GI: soft, NTTP, ND : no SPT, no CVAT, malagon catheter not present MSK: no pitting edema, no clubbing Neuro: non-focal, moving all extremities Psych: cooperative, euthymic [facility] Hospital course: Patient is a 67-year-old male with PMH of myasthenia gravis, atrial fibrillation, hypertension, dyslipidemia, history of thrombosis presented to the ED for generalized weakness, shortness of breath, double vision and difficulty swallowing. In the ED, his BP was elevated at 167/150. BP on recheck was 127/77. Vital signs were otherwise stable. CBC was unremarkable. INR was 0.9. CMP shows sodium 135, creatinine is 0.6, alkaline phosphatase 172. Troponin was less than 0.012. BNP was 51. TSH 1.11. Urinalysis negative. EKG showed sinus arrhythmia. Chest x-ray negative for acute changes. Patient was admitted for further evaluation of symptoms, with diagnosis of myasthenia gravis exacerbation. Neurology and Pulmonology consulted to facilitate management. Patient was started on a 3 day course of IVIG. Patient had improvement. How ever the next after completing his 3 day treatment patient symptoms worsened. He was restarted on IVIG for a 5 day course. However after 3 days of IVIG it was discontinued because his liver enzymes were worsening. Patient was subsequently switched to back oral mestinon. Assessment: Myasthenia gravis exacerbation Acute blood loss anemia Melanotic stool Paroxysmal A. fib with RVR Elevated liver enzymes likely due to IVIG treatment. Anxiety Heart conditions: Hypertension, hyperlipidemia, history of thrombosis Plan: Abd XR reviewed and personally interpreted, overall non-obstructive pattern, no evidence of ileus, there are no significant dilated bowel loops Continue Mestinon 180 mg twice a day, 60 mg 5 times per day as needed, give additional dose of 60mg today Continue cellcept Continue metoprolol 100 mg by mouth daily, hemoglobin has been stable can consider resuming Apixiban solumedrol switched to prednisone Add pepto-bismol PRN today, ordered Abd XR Patient is full code Objective - Vital Signs Vital signs: Vital Signs Temp 98.3 F 02/19/23 08:27 Pulse 92 02/19/23 08:27 Resp 18 02/19/23 08:27 BP 143/72 02/19/23 08:27 Pulse Ox 94 L 02/19/23 08:27 FiO2 Intake & Output 02/18/23 02/19/23 02/19/23 18:59 06:59 18:59 Intake Total 480 720 Balance 480 720 Weight 99.79 kg Intake: Oral 480 720 Other: Voiding Method Toilet Toilet Urinal Urinal # Voids 2 1 # Bowel Movements 1 - Labs CBC & Chem 7: 02/18/23 07:20 02/18/23 07:20
--- NOTE | 2023-02-19 16:26 | P.PN ---
Subjective Progress Note Date: 02/19/23 I am following seeing the patient and according to him having generalized weakness and having respiratory distress. Denies diplopia, worsening swallowing. Objective - Vital Signs Vital signs: Vital Signs Temp 98.3 F 02/19/23 11:29 Pulse 82 02/19/23 14:00 Resp 18 02/19/23 14:00 BP 125/75 02/19/23 11:29 Pulse Ox 95 02/19/23 11:29 FiO2 Intake & Output 02/18/23 02/19/23 02/19/23 18:59 06:59 18:59 Intake Total 480 1080 Balance 480 1080 Weight 99.79 kg Intake: Oral 480 1080 Other: Voiding Method Toilet Toilet Urinal Urinal # Voids 2 1 3 # Bowel Movements 1 1 - Exam General: Lying in bed and is not in acute distress. Neuro: The patient is awake, alert, oriented to self, place and time. Is following simple commands. No aphasia or neglect. Pupils are round, equal and reactive to light. Visual díaz are full throughout. EOM intact and no nystagmus. No ptosis and no diplopia noted (improvement since I had him last about 7-8 days ago) No facial weakness. No dysarthria or hypophonia. Motor: Strength is 3-4 throughout and seems weaker today compared to yesterday. - Labs CBC & Chem 7: 02/18/23 07:20 02/18/23 07:20 Assessment and Plan Assessment: This is a 67-year-old gentleman with history of myasthenia gravis since 2019 was on Mestinon as well as prednisone and had the recent lower back fusion on 12/26/2022 over [facility] and the last 1 week the patient is been having the worsening shortness of breath, dysphagia, diplopia, ptosis. Patient has presented with myasthenia crisis. Patient has received one full course of IVIG 2 g total dose. Patient's symptoms improved during the treatment, but got worse the day after completion of the treatment with worsening diplopia, upper extremity weakness and dysphagia on 02/09/2023. Patient has been resumed on second course of IVIG since 02/09/2023 for total 5 day course. Patient so far has received 3/5 session of IVIG * Myasthenia gravis exacerbation-- He completed IVIV 2gm/kg over 3 days (02/08/2023) and had improvement initially but then had has worsening since 0 02/09/2023. He had received partial second round of IVIG 3/5 days only. IVIG discontinued because of worsening liver functions--worse today. * The patient continues to be weak despite the initiation of CellCept and change in Mestinon dosing. * There is improvement in strength and breathing following yesterday's dose of IV IgG * History of Myasthenia gravis since 2019 and for the last 1 year he stated he is been on Mestinon ER 180 mg twice a day and prednisone 20 mg daily * History of lower back fusion on 12/26/2022 over [facility] and he still has difficulty walking * Elevated liver functions, likely due to IVIG. * History of TIA * Paroxysmal atrial fibrillation * Acute GI bleed, with black tarry stools. Anticoagulation on hold. Plan: * Per Dr. Miller, "Investigated the incidence of elevated liver enzymes secondary to IV IgG. This is very rare. In discussion with pharmacy, these elevated liver enzymes typically return to normal after 5-10 days. In light of this, a dose of IVIG has been ordered for today". I spoke with pharmacist and it seems he completed day#3/5 for second round and recommended to pursue with today and tomorrow IVIG second round. * I recommend to transfer patient to tertiary center for PLEX since he is not showing any consistent improvement. * Liver enzymes is trending down. * Per Dr. Berrios, to resume his oral Mestinon ER 180 mg twice a day and started him on 60 mg Mestinon 5X a day as needed for breakthrough symptoms. I will stop the 5times PRN to twice PRN to avoid cholinergic crisis. * Then Dr. Berrios started the patient on CellCept 500 mg twice a day. Possible side effect of infections informed. Imuran cannot be prescribed because of elevated liver functions. Continue prednisone 20 mg daily that he was taking at home. * Physical therapy to continue working with patient for strengthening * Please continue to obtain NIF and FVC every 4-6 hours. * The patient may require subacute rehabilitation facility at discharge, for continued strengthening * Please avoid drug in Myasthenia Gravis: aminoglycosides, quinolone, tetracylcine, metronizdonzole, quinide, beta blockers, calcium channel blockers, Phenytoin, Magnesium sulfae, Narocitics, Magnesium, lithium, amantadine, diuretics, sedative. * Patient has atrial fibrillation, Eliquis on hold because of GI bleed. Cardiology on board. May resume Eliquis as soon as cleared medically. The plan is discussed with patient, his and primary attending. Time with Patient: Less than 30
[2023-02-19] MEDS ORDERED: IMMUNE GLOBULIN (GAMMAGARD) 30 GM in EMPTY BAG 1 BAG IV ONE (18:00)
[2023-02-19] MEDS: traZODone HCL 50 MG TAB PO PRN (20:36)
[2023-02-19] MEDS: PYRIDOSTIGMINE 60 MG TAB PO SCH (20:36)
[2023-02-19] MEDS: EZETIMIBE 10 MG TAB PO SCH (20:37)
[2023-02-19] MEDS: SODIUM CHLORIDE 0.9% 1,000 ML IV SCH (22:52)
[2023-02-20 07:57] VITALS: TEMP 97.6
[2023-02-20] MEDS: PANTOPRAZOLE 40 MG/10 ML VIAL IVP SCH (08:34)
[2023-02-20] MEDS: predniSONE 20 MG TAB PO SCH (08:35)
[2023-02-20] MEDS: METOPROLOL SUCCINATE (ER) 50 MG TAB.ER.24H PO SCH (08:35)
[2023-02-20] MEDS: APIXABAN 5 MG TAB PO SCH (08:35)
[2023-02-20] MEDS: CHOLECALCIFEROL 25 MCG (1000 IU) TABLET PO SCH (08:35)
[2023-02-20] MEDS: PYRIDOSTIGMINE 180 MG PO SCH (08:35)
[2023-02-20] MEDS: PYRIDOSTIGMINE 60 MG TAB PO SCH (08:36)
[2023-02-20 12:10] VITALS: BP 121/67; PULSE 56; RESP 18
[2023-02-20] MEDS ORDERED: IMMUNE GLOBULIN (GAMMAGARD) 30 GM in EMPTY BAG 1 BAG IV ONE (16:00)
--- NOTE | 2023-02-20 17:12 | P.DS ---
Providers Date of admission: 02/06/23 14:49 Expected date of discharge: 02/20/23 Attending physician: Arian Danielle MD Consults: 02/06/23 11:09 Consult Physician Routine Consulting Provider: Ranjan Arcos Consult Reason/Comments: Weakness with history of myasthenia gravis Do you want consulting provider notified?: Yes 02/06/23 14:56 Consult Physician Routine Consulting Provider: Swapna Collier Consult Reason/Comments: Myasthenia Do you want consulting provider notified?: Yes 02/07/23 10:01 Consult Physician Routine Consulting Provider: Charlie Maldonado Consult Reason/Comments: uncontrolled hr, myasthenia gravis Do you want consulting provider notified?: Yes Primary care physician: Juan Palacios [place] [facility] Course: Assessment: Myasthenia gravis exacerbation Acute blood loss anemia Melanotic stool Paroxysmal A. fib with RVR Elevated liver enzymes likely due to IVIG treatment. Anxiety Heart conditions: Hypertension, hyperlipidemia, history of thrombosis Hospital course: Patient is a 67-year-old male with PMH of myasthenia gravis, atrial fibrillation, hypertension, dyslipidemia, history of thrombosis presented to the ED for generalized weakness, shortness of breath, double vision and difficulty swallowing. In the ED, his BP was elevated at 167/150. BP on recheck was 127/77. Vital signs were otherwise stable. CBC was unremarkable. INR was 0.9. CMP shows sodium 135, creatinine is 0.6, alkaline phosphatase 172. Troponin was less than 0.012. BNP was 51. TSH 1.11. Urinalysis negative. EKG showed sinus arrhythmia. Chest x-ray negative for acute changes. Patient was admitted for further evaluation of symptoms, with diagnosis of myasthenia gravis exacerbation. Neurology and Pulmonology consulted to facilitate management. Patient was started on a 3 day course of IVIG. Patient had improvement. However the next after completing his 3 day treatment patient symptoms worsened. He was restarted on IVIG for a 5 day course. However after 3 days of IVIG it was discontinued because his liver enzymes were worsening. Patient was subsequently switched to back oral mestinon. Unfortunately, patient did not have significant improvement overall, therefore, he was transfered to [facility] under the care of Dr. Bird. I spent 40 minutes coordinating this discharge on 02/20 Gen: asleep, resting comfortably HEENT: normocephalic, atraumatic, good hearing acuity, moist mucous membranes Resp: good air exchange, breathing comfortably with no accessory muscle use CVS: good distal perfusion x 4, GI: soft, NTTP, ND : no SPT, no CVAT, malagon catheter not present MSK: no pitting edema, no clubbing Neuro: non-focal, moving all extremities Psych: cooperative, euthymic mood Patient Condition at Discharge: Good Plan - Discharge Summary New Discharge Prescriptions: No Action Multivitamins, Thera [Multivitamin (formulary)] 1 tab PO DAILY Apixaban [Eliquis] 5 mg PO BID 30 Days #60 tab Metoprolol Succinate (ER) [Toprol XL] 25 mg PO DAILY predniSONE [Deltasone] 10 mg PO BID Ezetimibe [Zetia] 10 mg PO HS Pyridostigmine [place] [Pyridostigmine [place] ER] 180 mg PO BID@0900,1500 Cholecalciferol [Vitamin D3 (25 Mcg = 1000 Iu)] 150 mcg PO HS lisinopriL [Zestril] 10 mg PO HS HYDROcodone/APAP 10-325MG [[place] 10-325] 1 tab PO TID PRN PRN Reason: Pain Discharge Medication List Multivitamins, Thera [Multivitamin (formulary)] 1 tab PO DAILY 09/03/18 [History] Apixaban [Eliquis] 5 mg PO BID 30 Days #60 tab 03/17/19 [Rx] Metoprolol Succinate (ER) [Toprol XL] 25 mg PO DAILY 04/02/22 [History] predniSONE [Deltasone] 10 mg PO BID 04/02/22 [History] Cholecalciferol [Vitamin D3 (25 Mcg = 1000 Iu)] 150 mcg PO HS 02/06/23 [History] Ezetimibe [Zetia] 10 mg PO HS 02/06/23 [History] HYDROcodone/APAP 10-325MG [[place] 10-325] 1 tab PO TID PRN 02/06/23 [History] Pyridostigmine [place] [Pyridostigmine [place] ER] 180 mg PO BID@0900,1500 02/06/23 [History] lisinopriL [Zestril] 10 mg PO HS 02/06/23 [History] Follow up Appointment(s)/Referral(s): Farooq Dc DO [STAFF PHYSICIAN] - 1 Week Juan Palacios DO [Primary Care Provider] - 1-2 days Discharge Disposition: TRANSFER TO SHORT TERM HOSP
--- NOTE | 2023-02-20 17:21 | P.PN ---
Subjective Progress Note Date: 02/20/23 The patient is seen at bedside and does not feel there is any improvement. He received his 4th dose of IVIG of second round. Objective - Vital Signs Vital signs: Vital Signs Temp 97.6 F 02/20/23 07:50 Pulse 56 L 02/20/23 12:00 Resp 18 02/20/23 12:00 BP 121/67 02/20/23 12:00 Pulse Ox 99 02/20/23 12:00 FiO2 Intake & Output 02/19/23 02/20/23 02/20/23 18:59 06:59 18:59 Intake Total 1428.167 120 Output Total 125 Balance 1428.167 -5 Weight 99.79 kg Intake: Intake, IV Titration 98.167 Amount Immune Globulin ( 98.167 Gammagard) 30 gm In Empty Bag 1 bag @ Per Protocol IV .Q0M ONE Rx#: [id number] Oral 1330 120 Output: Urine 125 Other: Voiding Method Toilet Toilet Urinal Urinal # Voids 3 1 1 # Bowel Movements 1 1 1 - Exam General: Lying in bed and is not in acute distress. Neuro: The patient is awake, alert, oriented to self, place and time. Is following si mple commands. No aphasia or neglect. Pupils are round, equal and reactive to light. Visual díaz are full throughout. EOM intact and no nystagmus. No ptosis and no diplopia noted (improvement since I had him last about 7-8 days ago) No facial weakness. No dysarthria or hypophonia. Motor: Strength is 4- throughout - Labs CBC & Chem 7: 02/18/23 07:20 02/18/23 07:20 Assessment and Plan Assessment: This is a 67-year-old gentleman with history of myasthenia gravis since 2019 was on Mestinon as well as prednisone and had the recent lower back fusion on 12/26/2022 over [facility] and the last 1 week the patient is been having the worsening shortness of breath, dysphagia, diplopia, ptosis. Patient has pres ented with myasthenia crisis. Patient has received one full course of IVIG 2 g total dose. Patient's symptoms improved during the treatment, but got worse the day after completion of the treatment with worsening diplopia, upper extremity weakness and dysphagia on 02/09/2023. Patient has been resumed on second course of IVIG since 02/09/2023 for total 5 day course. Patient so far has received 3 /5 session of IVIG * Myasthenia gravis exacerbation-- He completed IVIV 2gm/kg over 3 days (02/08) and had improvement initially but then had has worsening since 02/09/2023. He had received partial second round of IVIG 3/5 days only. IVIG discontinued because of worsening liver functions--worse today. * The patient continues to be weak despite the initiation of CellCept and change in Mestinon dosing. * There is improvement in strength and breathing following yesterday's dose of IV IgG * History of Myasthenia gravis since 2019 and for the last 1 year he stated he is been on Mestinon ER 180 mg twice a day and prednisone 20 mg daily * History of lower back fusion on 12/26/2022 over [facility] and he still has difficulty walking * Elevated liver functions, likely due to IVIG. * History of TIA * Paroxysmal atrial fibrillation * Acute GI bleed, with black tarry stools. Anticoagulation on hold. Plan: * Per Dr. Miller, "Investigated the incidence of elevated liver enzymes secondary to IV IgG. This is very rare. In discussion with pharmacy, these elevated liver enzymes typically return to normal after 5-10 days. Patient has received day#4/5 of second round of IVIG on 02/19/2023 and does not feel any improvement. * I recommend to transfer patient to tertiary center for PLEX since he is not showing any consistent improvement. He is accepted to [facility]. * Liver enzymes is trending down. * Per Dr. Berrios, to resume his oral Mestinon ER 180 mg twice a day and started him on 60 mg Mestinon 5X a day as needed for breakthrough symptoms. I will stop the 5times PRN to twice PRN to avoid cholinergic crisis. * Then Dr. Berrios started the patient on CellCept 500 mg twice a day. Possible side effect of infections informed. Imuran cannot be prescribed because of elevated liver functions. Continue prednisone 20 mg daily that he was taking at home. * Physical therapy to continue working with patient for strengthening * Please continue to obtain NIF and FVC every 4-6 hours. * The patient may require subacute rehabilitation facility at discharge, for continued strengthening * Please avoid drug in Myasthenia Gravis: aminoglycosides, quinolone, tetracylcine, metronizdonzole, quinide, beta blockers, calcium channel blockers, Phenytoin, Magnesium sulfae, Narocitics, Magnesium, lithium, amantadine, diuretics, sedative. * Patient has atrial fibrillation, Eliquis on hold because of GI bleed. Cardiology on board. May resume Eliquis as soon as cleared medically. The plan is discussed with patient, his and primary attending. Time with Patient: Less than 30
== END 2023-02-20 14:24 | disposition short-term general hospital (02) | DRG 57 ==
LOC: EC 07:36 → 6NMEDSUR 11:10 → OBSVTOIN 14:49 → 3SCARD 15:05
PROVIDERS: ADMIT Family Medicine; ATTEND Family Medicine
PROC: 30233S1 Transfusion of Nonautologous Globulin into Peripheral Vein, Percutaneous Approach (ICD-10-PCS; principal; 2023-02-06)
PROC: 0DH67UZ Insertion of Feeding Device into Stomach, Via Natural or Artificial Opening (ICD-10-PCS; 2023-02-07)
PROC: 05HB33Z Insertion of Infusion Device into Right Basilic Vein, Percutaneous Approach (ICD-10-PCS; 2023-02-18)
DX: G70.01 Myasthenia gravis with (acute) exacerbation (principal); I48.92 Unspecified atrial flutter; D62 Acute posthemorrhagic anemia; I47.1 Supraventricular tachycardia; K92.2 Gastrointestinal hemorrhage, unspecified; J98.11 Atelectasis; I10 Essential (primary) hypertension; R06.03 Acute respiratory distress; E78.5 Hyperlipidemia, unspecified; M54.30 Sciatica, unspecified side; M48.00 Spinal stenosis, site unspecified; I71.21 Aneurysm of the ascending aorta, without rupture; R13.10 Dysphagia, unspecified; M19.90 Unspecified osteoarthritis, unspecified site; R74.01 Elevation of levels of liver transaminase levels; T50.Z15A Adverse effect of immunoglobulin, initial encounter; I48.0 Paroxysmal atrial fibrillation; H53.2 Diplopia; T17.928A Food in respiratory tract, part unspecified causing other injury, initial encounter; F41.9 Anxiety disorder, unspecified; G47.33 Obstructive sleep apnea (adult) (pediatric); I08.2 Rheumatic disorders of both aortic and tricuspid valves; G89.29 Other chronic pain; Z86.718 Personal history of other venous thrombosis and embolism; Z87.891 Personal history of nicotine dependence; Z79.01 Long term (current) use of anticoagulants; Z88.5 Allergy status to narcotic agent; Z98.1 Arthrodesis status; Z86.73 Personal history of transient ischemic attack (TIA), and cerebral infarction without residual deficits; Z79.899 Other long term (current) drug therapy; Z79.52 Long term (current) use of systemic steroids
CPT/HCPCS: 36410; 36415; 36600; 71045; 71046; 71270; 74018; 76705; 76937; 80048; 80053; 80076; 81003; 82272; 82805; 83605; 83735; 83880; 84439; 84443; 84481; 84484; 85025; 85027; 85610; 85730; 93005; 93306; 94760; 96365; 96366; 99285